=== PATIENT | male | born 1970 | race Caucasian/White ===

== ENCOUNTER 2019-07-10 06:57 | Emergency (ER) | payer MEDICAID, SELFPAY ==
[2019-07-10 07:00] VITALS: BP 179/94; PULSE 97; RESP 18; TEMP 37.2; O2SAT 97; BMI 38.0
--- NOTE | 2019-07-10 07:05 | ED_ITS ---
Entered by Andre Lerner, acting as scribe for HPI - Chest Pain General: Chief Complaint: Chest Pain Stated Complaint: chest pains Time Seen by Provider: 07/10/19 07:13 History of Present Illness: HPI narrative: 49 yo male presents with chest pain . Pt states that his pain started about 1 am this morning. Pt states that he has pain similar to this a few years ago and it was an ulcer. Pt states that he took anti-acid pills and it didn't work. Pts family member gave him a nitro, he states that he vomited one time and had dry heaving after that. Pt states that he has also issues with a rash in his belly button. Pt states that he ran out of his lasix about 1 month ago. MD complaint: chest pain Associated symptoms: Reports abdominal pain (umbilical area ), diaphoresis, dyspnea, nausea and vomiting; Deny fever(s) or palpitations Review of Systems Const: Reports: night sweats and diaphoresis; Denies: fever, chills, body aches, change in appetite, change in weight, fatigue or malaise Eyes: Denies: change in vision, blurry vision, blind spots, photophobia, eye discomfort, eye discharge, eye redness, yellow eyes or dry eyes ENMT: Denies: throat pain, uvular edema, enlarged tonsils, painful swallowing, hoarseness, mouth pain, swelling of lips/tongue, oral sores/lesions, bleeding gums or dental pain Card: Reports: chest pain and edema; Denies: palpitations or irregular heart rhythm Resp: Reports: shortness of breath; Denies: productive cough, non-productive cough, wheezing, stridor, pain on inspiration, change in phlegm color or coughing up blood GI: Reports: abdominal pain (umbilical area ), nausea, vomiting and bloating; Denies: vomiting blood, coffee grounds in vomit, difficulty swallowing, heartburn/indigestion, feeling full early, diarrhea, constipation, cramping, belching, excessive passing of gas, fecal incontinence, change in bowel habits, painful bowel movements, rectal pain, rectal swelling, rectal itching or change in stool character : Denies: flank pain, difficulty urinating, painful urination, urinary frequency, urinary urgency, urinary hesitancy, urinary dribbling, difficulty starting urination, change in urine stream, nighttime urination or decreased urine ouput Musc: Denies: neck pain, back pain, extremity pain, extremity swelling, joint pain, joint swelling, redness, joint warmth, joint stiffness, limited range of motion, muscle cramps, muscle weakness, decrease in muscle mass or loss of height Skin/Breast: Reports: rash (umbilical area) and sores; Denies: redness, sensitivity to light, skin pain, skin tenderness, skin swelling or new lesion Neuro: Denies: headache, numbness in extremities, weakness in extremities, changes in sensation, lack of coordination, difficulty walking, frequent falls, dizziness, vertigo, confusion, behavioral changes or slurred speech Psych: Denies: anxiety, depression, mood swings, panic attacks, sleeping less, sleeping more, hopelessness or loss of interest Endo: Denies: excessive urination, excessive thirst, tired all the time, cold intolerance, excessive sweating, flushing or hot flashes Abran/Lymph: Denies: easy bruising, easy bleeding, petechiae, purpura, enlarged lymph nodes or tender lymph nodes PFSH ED PFSH: Statuses (acute, chronic, etc) shown below reflect problem list status as previously entered and may not be historically accurate Medical History (Updated 07/10/19 @ 10:48 by Edilma Johnson DO) Cirrhosis (Acute) Gastro-esophageal reflux disease with esophagitis (Acute) Family History Other Arthritis CAD (coronary artery disease) Diabetes Social History Smoking and tobacco status: never smoked Smoking risk assessment/counseling performed?: Yes Alcohol intake: current Desire information about alcohol rehabilitation?: No Counseling given: Yes Desire information about substance/drug rehabilitation?: No Counseling given: No Caregiver/support person: No Lives independently: Yes Household members: spouse Housing: House Marital status: Current occupational status: disabled History of recent travel: No Current gender identity: Male Physical Exam Const: COMMON NORMALS: oriented x3 and alert EXAM LIMITATIONS: no altered mental status GENERAL APPEARANCE: cooperative NUTRITIONAL APPEARANCE: obese ORIENTATION/CONSCIOUSNESS: Yes awake, Yes oriented to person, Yes oriented to place and Yes oriented to time HENMT: COMMON NORMALS: external ears normal, EAC's normal and external nose normal HEAD & SCALP: normal to inspection FACE & SINUS: normal facial exam NOSE: external nose normal EXTERNAL EAR: Yes external ears normal EXTERNAL AUDITORY CANAL: EAC's normal THROAT: no uvular edema Eye: COMMON NORMALS: PERRL and conjunctivae normal GENERAL EYE: normal appearance of both eyes VISUAL ACUITY: Yes acuity normal EYELID: eyelids normal CONJUNCTIVA: Yes conjunctivae normal PUPIL: Yes PERRL Neck/C-Spine: COMMON NORMALS: full ROM and supple Lymph: LYMPHATIC: no lymphadenopathy noted Chest: CHEST: No abnormal inspection of the chest Resp: EFFORT & INSPECTION: Yes able to speak in complete sentences Cardio: COMMON NORMALS: regular rate and regular rhythm RATE: regular rate RHYTHM: regular rhythm GI: COMMON NORMALS: soft to palpation INSPECTION: Yes abdominal distension PALPATION: Yes soft and Yes tender (diffuse) Neuro: COMMON NORMALS: oriented x3 SENSORIUM/ORIENTATION: Yes alert, Yes oriented to person, Yes oriented to place and Yes oriented to time Skin: NARRATIVE SKIN EXAM: small drop of blood in umbilicus Course ED course: Patient was interviewed andStatin undercurrent dragon reality may have to at some point is called a text box examined in room 12. The patient was placed on the monitor and EKG was obtained and IV was started EKG was reviewed which showed no acute ST segment elevation or signs of infarct. He was administered initially 4 of Zofran and 2 mg of morphine. He did not get much relief from that and additional 2 mg of morphine was ordered while lab was pending. Chest x-ray shows no acute abnormalities. I have discussed the Gallbladder US report with Dr Perez who feels the patient can be followed up out patient. I did try giving him a GI cocktail which did not help his symptoms. I have renewed his outpatient meds for him dilan darrellrick can see his pcp. Consultations: Consultation #1: Discussed patients US report with Dr Perez, he will see patient as an outpatient, feels it is not uncommon to have gallbladder wall thickening with liver disease Time: 10:42 Vital Signs: Vital signs: Vital Signs Temperature 99 F 07/10/19 07:00 Pulse Rate 96 07/10/19 07:12 Respiratory Rate 17 07/10/19 08:01 Blood Pressure 179/84 07/10/19 07:12 Pulse Oximetry 99 07/10/19 07:22 MDM - Chest Pain Lab Data: Labs: Lab Results 07/10/19 07/10/19 07/10/19 Range/Units 07:15 07:15 07:15 WBC 12.2 H (4.0-10.0) 10^3/ uL RBC 4.54 (4.1-5.3) 10^6/u L Hgb 14.2 (11.7-16.6) g/dL Hct 42.4 (42.0-52.0) % MCV 93.4 (80-94) fL MCH 31.3 (28.0-34.0) pg MCHC 33.5 (30.0-36.0) g/dL RDW 16.1 H (12.1-15.1) % Plt Count 77 L (130-400) 10^3/c mm MPV 9.7 (7.4-10.4) fL Neut % (Auto) 85.9 % Lymph % (Auto) 6.7 % Carver % (Auto) 6.0 % Eos % (Auto) 0.7 % Baso % (Auto) 0.4 % Neut # (Auto) 10.5 H (1.8-7.7) 10^3/u L Lymph # (Auto) 0.8 (0.8-4.8) 10^3/u L Carver # (Auto) 0.7 (0.2-0.9) 10^3/u L Eos # (Auto) 0.1 (0.0-0.8) 10^3/u L Baso # (Auto) 0.1 (0.0-0.1) 10^3/u L Nucleated RBC % (a uto) 0 % Nucleated RBCs # 0.0 /100WBC PT 16.10 H (10.5-13.3) SECO NDS INR 1.25 H (0.8-1.2) APTT 36.2 (23.9-36.7) SECO NDS Sodium 141 (136-145) mmol/L Potassium 3.9 (3.5-5.1) mmol/L Chloride 105 (98-107) mmol/L Carbon Dioxide 22 (22-29) mmol/L Anion Gap 17.9 (5-19) BUN 10 (6-20) mg/dL Creatinine 0.7 (0.7-1.2) mg/dL GFR Calculation 118.9 (90-130) mL/min Glucose 177 H (65-115) mg/dL POC Glucose (70-110) mg/dL Calcium 9.5 (8.5-10.5) mg/dL Total Bilirubin 2.3 H (0.15-1.2) mg/dL AST 49 H (0-40) U/L ALT 24 (0-41) U/L Alkaline Phosphata se 165 H (40-130) IU/L Creatine Kinase 88 (39-308) U/L Troponin T Baselin e (0-15) ng/mL Troponin T 120 Min pauma (0-15) ng/mL Delta Troponin T (0-10) ABS# Total Protein 7.5 (6.6-8.7) g/dL Albumin 4.4 (3.5-5.2) g/dL Globulin 3.1 (1.3-4.6) g/dL Lipase 57 (13-60) U/L 07/10/19 07/10/19 07/10/19 Range/Units 07:15 08:56 09:45 WBC (4.0-10.0) 10^3/ uL RBC (4.1-5.3) 10^6/u L Hgb (11.7-16.6) g/dL Hct (42.0-52.0) % MCV (80-94) fL MCH (28.0-34.0) pg MCHC (30.0-36.0) g/dL RDW (12.1-15.1) % Plt Count (130-400) 10^3/c mm MPV (7.4-10.4) fL Neut % (Auto) % Lymph % (Auto) % Carver % (Auto) % Eos % (Auto) % Baso % (Auto) % Neut # (Auto) (1.8-7.7) 10^3/u L Lymph # (Auto) (0.8-4.8) 10^3/u L Carver # (Auto) (0.2-0.9) 10^3/u L Eos # (Auto) (0.0-0.8) 10^3/u L Baso # (Auto) (0.0-0.1) 10^3/u L Nucleated RBC % (a uto) % Nucleated RBCs # /100WBC PT (10.5-13.3) SECO NDS INR (0.8-1.2) APTT (23.9-36.7) SECO NDS Sodium (136-145) mmol/L Potassium (3.5-5.1) mmol/L Chloride (98-107) mmol/L Carbon Dioxide (22-29) mmol/L Anion Gap (5-19) BUN (6-20) mg/dL Creatinine (0.7-1.2) mg/dL GFR Calculation (90-130) mL/min Glucose (65-115) mg/dL POC Glucose 157 (70-110) mg/dL Calcium (8.5-10.5) mg/dL Total Bilirubin (0.15-1.2) mg/dL AST (0-40) U/L ALT (0-41) U/L Alkaline Phosphata se (40-130) IU/L Creatine Kinase (39-308) U/L Troponin T Baselin e 9 (0-15) ng/mL Troponin T 120 Min pauma 7.04 (0-15) ng/mL Delta Troponin T -1.96 L (0-10) ABS# Total Protein (6.6-8.7) g/dL Albumin (3.5-5.2) g/dL Globulin (1.3-4.6) g/dL Lipase (13-60) U/L EKG Data^: EKG 1: Attestation: I personally reviewed and interpreted this EKG as follows: EKG interpretation date: 07/10/19 EKG interpretation time: 07:43 Interpretation: Sinus rhythum, no st elevation, rate 98 bpm no ectopy Discharge Plan Discharge Patient Disposition: Home, Self-Care Clinical Impression: Atypical chest pain, Abdominal pain, acute, right upper quadrant Condition: Stable Prescriptions: New furosemide 40 mg tablet 40 mg PO DAILY Qty: 7 RF: 0 spironolactone 25 mg tablet 25 mg PO DAILY Qty: 7 RF: 0 promethazine 12.5 mg tablet 12.5 mg PO QID PRN (Reason: nausea and vomiting) Qty: 20 RF: 0 hydrocodone-acetaminophen 5-325 mg tablet 1 tab PO Q8H PRN (Reason: pain) Qty: 14 RF: 0 lisinopril 10 mg tablet 10 mg PO DAILY Qty: 7 RF: 0 No Action albuterol sulfate [ProAir HFA] 90 mcg/actuation HFA aerosol inhaler 2 puff INHALATION QID RF: 0 zonisamide 25 mg capsule 25 mg PO BID RF: 0 mirtazapine 30 mg tablet 30 mg PO ONCE RF: 0 bupropion HCl [Wellbutrin XL] 150 mg tablet extended release 24 hr 150 mg PO QAM RF: 0 amoxicillin-pot clavulanate [Augmentin] 875-125 mg tablet 1 tab PO BID 10 Days Qty: 20 RF: 0 pantoprazole 40 mg tablet,delayed release (DR/EC) 40 mg PO QAM Qty: 30 RF: 2 Discharge Orders: Discharge Order (Routine); Ordered 07/10/19 Ordered By: Edilma Johnson Referrals: Hu Perez MD [Physician] - (Patient to schedule follow up appt with Dr Perez, case management to assist with follow up ) Lupillo Hernandez, AERONAUTICAL ENGINEERING OFFICER-C [Primary Care Provider] - (Patient to schedule follow up appointment for continuing management and medications) Discharge Diet: Usual diet Discharge Activity: Resume usual activity Patient Instructions: Cholecystitis (ED), Abdominal Pain (ED) Coding Level of Care Code ED Leather Tacker for Chg Fwd Exam Problem Focused The documentation recorded by the Yann chandra Kialy, accurately reflects the service I personally performed and the decisions made by Alex jolly Connie, DO Jul 10, 2019 06:57
[2019-07-10 07:12] VITALS: BP 179/84; PULSE 96; RESP 16; O2SAT 95
--- NOTE | 2019-07-10 07:13 | ECG_ITS ---
Measurements Intervals [place] Rate: 98 P: 50 [place]: 156 QRS: 79 QRSD: 90 T: 72 QT: 373 QTc: 478 SINUS RHYTHM POSSIBLE LEFT ATRIAL ENLARGEMENT [-0.1mV P WAVE IN V1/V2] Compared to ECG 08/12/2018 23:58:22 Sinus tachycardia no longer present Electronically Signed On 07-10-2019 22:23:04 HOSPICE NURSE PRACTITIONER by Bill Mejia M.D. [email or web address]
--- NOTE | 2019-07-10 07:13 | XR_ITS ---
WS: [id number] ONE VIEW CHEST HISTORY: 49 years old Male with epigastric pain AP upright chest comparison 08/12/2018 FINDINGS: No pneumothorax, pleural effusion, consolidation/atelectasis. Cardiomediastinal silhouette and pulmon chito vascular markings unremarkable. No subdiaphragmatic free air. No fracture seen. XR/XR chest 1V portable [id number] IMPRESSION: No acute cardiopulmonary findings, and no significant change from 08/12/2018.
[2019-07-10] MEDS: ondansetron 2 mg/ML SDV 2 mL 4 MG IVP (07:21)
[2019-07-10 07:22] VITALS: RESP 16; O2SAT 99
[2019-07-10] MEDS: morphine 4 mg/mL SDV 1 mL 2 MG IVP ×2 (07:22→08:01)
[2019-07-10] MEDS: sodium chloride 0.9% 500 ML 999 ML IV (07:22)
[2019-07-10 07:31] LABS: Basophils # 0.1 10^3/uL (0.0-0.1); Basophils % 0.4 %; Eosinophils # 0.1 10^3/uL (0.0-0.8); Eosinophils % 0.7 %; Hematocrit 42.4 % (42.0-52.0); Hemoglobin 14.2 g/dL (11.7-16.6); Lymphocytes # 0.8 10^3/uL (0.8-4.8); Lymphocytes % 6.7 %; Mean Corpuscular HGB Conc 33.5 g/dL (30.0-36.0); Mean Corpuscular Hemoglobin 31.3 pg (28.0-34.0); Mean Corpuscular Volume 93.4 fL (80-94); Mean Platelet Volume 9.7 fL (7.4-10.4); Monocytes # 0.7 10^3/uL (0.2-0.9); Neutrophils # 10.5 10^3/uL (1.8-7.7); Neutrophils % 85.9 %; Nucleated Red Blood Cells % 0 %; Platelet Count 77 10^3/cmm (130-400); Red Blood Count 4.54 10^6/uL (4.1-5.3); Red Cell Distribution Width 16.1 % (12.1-15.1); White Blood Count 12.2 10^3/uL (4.0-10.0)
[2019-07-10 07:39] LABS: INR 1.25 (0.8-1.2)
[2019-07-10 07:40] LABS: Partial Thromboplastin Time 36.2 SECONDS (23.9-36.7)
[2019-07-10 07:50] LABS: Alanine Aminotransferase 24 U/L (0-41); Albumin Level 4.4 g/dL (3.5-5.2); Alkaline Phosphatase 165 IU/L (40-130); Anion Gap 17.9 (5-19); Aspartate Amino Transferase 49 U/L (0-40); Blood Urea Nitrogen 10 mg/dL (6-20); Calcium 9.5 mg/dL (8.5-10.5); Carbon Dioxide 22 mmol/L (22-29); Chloride 105 mmol/L (98-107); Creatine Phosphokinase 88 U/L (39-308); Globulin 3.1 g/dL (1.3-4.6); Glomerular Filtration Rate 118.9 mL/min (90-130); Glucose 177 mg/dL (65-115); Lipase 57 U/L (13-60); Potassium 3.9 mmol/L (3.5-5.1); Sodium 141 mmol/L (136-145); Total Bilirubin 2.3 mg/dL (0.15-1.2); Total Protein 7.5 g/dL (6.6-8.7)
[2019-07-10 07:53] LABS: Troponin(5th) Baseline 9 ng/mL (0-15)
[2019-07-10 08:01] VITALS: RESP 17
--- NOTE | 2019-07-10 08:16 | US_ITS ---
WS: [id number] ABDOMINAL ULTRASOUND LIMITED HISTORY: 49 years old Male with mid epigastric to right upper quadrant COMPARISON: Right quadrant ultrasound 12/24/[address] abdomen 10/21/2018. TECHNIQUE: Grayscale and Doppler ultrasound examination of the abdomen. FINDINGS: Pancreas: Included visualized without evidence of mass or intrahepatic bile duct dilatation. Abdominal aorta and IVC: Included portions not dilated. Portal venous flow antegrade Liver: Liver measures 13.4 cm in length. Interval shrunken nodular appearance of the liver with mild echogenic liver. No hepatic solid or cystic mass seen. No intrahepatic bile duct dilatation. Gallbladder: Gallbladder wall thickness measures 5.9 mm. Gallbladder wall thickening noted. Borderlin e gallbladder hydrops. No pericholecystic fluid, stone, or sludge. No extra hepatic bile duct dilatat ion. Right kidney: Right kidney measures 12.0 cm x 5.7 cm x 5.4 cm. Partially obscured kidney. Right kidne y superior pole cyst not seen. No solid or additional cystic renal mass. No hydronephrosis or shadowi ng calculus. No right upper quadrant free fluid or fluid collection seen. US/US abdomen limited [id number] IMPRESSION: 1. Interval shrunken nodular liver with mild echogenic parenchyma, compatible w ith history of cirrhosis. No definite liver mass seen. If there's clinical conc mercedes for hepatic mass, consider follow-up CT abdomen liver protocol. 2. Borderline gallbladder hydrops with gallbladder wall thickening and no peric holecystic fluid or stone seen. May be secondary to adjacent liver parenchymal disease. Chronic cholecystitis or early acute cholecystitis not excluded. Follo w-up suggested.
[2019-07-10] MEDS: pantoprazole 40 mg SDV IVP (08:22)
[2019-07-10 09:17] LABS: Troponin 5 2HR 7.04 ng/mL (0-15)
[2019-07-10 09:28] LABS: Troponin 5 2HR Delta -1.96 ABS# (0-10)
[2019-07-10 09:48] LABS: Glucose Point of Care 157 mg/dL (70-110)
--- NOTE | 2019-07-10 09:55 | PC.NURSE ---
pt pain at a 5. this tech informed taht pt was a borderline diabetic and pt was shaky. reported to nurse at this time.
[2019-07-10 10:51] VITALS: RESP 17
[2019-07-10] MEDS: morphine 4 mg/mL SDV 1 mL IVP (10:51)
[2019-07-10 11:06] VITALS: BP 165/84; PULSE 97; RESP 17; O2SAT 95
--- NOTE | 2019-07-10 13:13 | ECG_ITS ---
Measurements Intervals [place] Rate: 95 P: 62 ID: [id number] QRS: 79 QRSD: 94 T: 29 QT: 392 QTc: 495 SINUS RHYTHM LEFT ATRIAL ENLARGEMENT [-0.15mV P WAVE IN V1/V2] MODERATE ST DEPRESSION [0.05+ mV ST DEPRESSION] Compared to ECG 08/12/2018 23:58:22 ST (T wave) deviation now present Sinus tachycardia no longer present Electronically Signed On 07-10-2019 22:25:24 PREMIUM NOTE INTEREST CALCULATOR CLERK by Bill Mejia M.D. [id number]
--- NOTE | 2019-07-12 13:34 | DCPLANNER ---
construction project manager had message to schedule a follow up appointment for patient with . construction project manager called patient to confirm with patient that he would want family service caseworker to schedule the follow up appointment. Patient stated that he does not want family service caseworker to schedule the appointment at this time.
== END 2019-07-10 11:07 | disposition home or self-care (01) ==
PROVIDERS: Emergency Provider Emergency Medicine Emergency Medical Services; Family Provider Nurse Practitioner; PCP Nurse Practitioner
DX: R07.89 Other chest pain (principal); R10.11 Right upper quadrant pain; E66.9 Obesity, unspecified; Z68.38 Body mass index [BMI] 38.0-38.9, adult; K74.60 Unspecified cirrhosis of liver; Z82.49 Family history of ischemic heart disease and other diseases of the circulatory system
CPT/HCPCS: 36415; 36416; 71045; 76705; 80053; 82550; 82962; 83690; 84484; 85025; 85610; 85730; 93005; 96360; 96374; 96375; 96376; 99283; 99284; C9113; J2270; J2405; J7040

== ENCOUNTER → 2019-08-11 13:16 | Outpatient (BNVA) | payer MEDICAID, SELFPAY | PROVIDERS: Family Provider Nurse Practitioner; PCP Nurse Practitioner; Visit Provider Nurse Practitioner | DX: F43.12 Post-traumatic stress disorder, chronic (principal); F10.21 Alcohol dependence, in remission; F41.1 Generalized anxiety disorder; F33.1 Major depressive disorder, recurrent, moderate | CPT/HCPCS: 99214 ==

== ENCOUNTER 2019-10-04 13:34 | Emergency (ER) | payer MEDICAID, SELFPAY | END 2019-10-04 18:04 | disposition admitted as inpatient to this hospital (09) | LOC: ER 10-11 13:55 | PROVIDERS: Emergency Provider Family Medicine; PCP Nurse Practitioner | DX: F10.231 Alcohol dependence with withdrawal delirium (principal); Z87.891 Personal history of nicotine dependence; E11.9 Type 2 diabetes mellitus without complications; I10 Essential (primary) hypertension | CPT/HCPCS: 12345; 31500; 71045; 80053; 80307; 82140; 83605; 83690; 83735; 84100; 85025; 85610; 85730; 96372; 96374; 96375; 99282; 99291; A7015; J2060; J3411 ==

== ENCOUNTER 2019-10-04 13:34 | Inpatient (IN) | payer MEDICAID, SELFPAY ==
[2019-10-04] VITALS (11 sets, daily range): BP systolic 113–160; BP diastolic 75–97; PULSE 70–117; RESP 15–40; TEMP 36.4–37.1; O2SAT 90–97; BMI 38.0
--- NOTE | 2019-10-04 14:11 | XR_ITS ---
WS: [id number] XR chest 1V portable [id number] REASON FOR EXAM: dt's FINDINGS: The heart appears to be slightly larger and there is evidence in the azygos area of a lymph adenopathy not seen on previous exam dated July 10, 2019. The lung patel are otherwise clear. There is no pleural effusion, pneumonia, pulmonary edema, or mass effect. XR/XR chest 1V portable [id number] IMPRESSION: Mild enlargement of the azygos lymph node on the right The heart is slightly larger than recent exam. No other pathology is seen.
--- NOTE | 2019-10-04 14:23 | ED_ITS ---
HPI - Alcohol General: Chief Complaint: Alcohol Stated Complaint: Withdrawl from ETOH Time Seen by Provider: 10/04/19 14:01 History of Present Illness: HPI narrative: Patient states that he is a chronic alcoholic and consumes a large amount of alcohol daily. Patient stopped drinking approximately 2 PM yesterday and has not had a drink since. Patient presented to [facility] where he was treated and stabilized and transferred to this facility. Patient is severely tremulous and has no fine motor control. He admits to visual hallucinations. MD complaint: alcohol dependence Last drink: Days (ago) (1) Chronic alcohol use: Yes Associated symptoms: Reports involuntary movements Review of Systems General: Reports: 10 or more systems reviewed and unremarkable except in HPI and below Neuro: Reports: headache, weakness in extremities, changes in sensation, lack of coordination, difficulty walking, confusion, slurred speech and involuntary movements PFSH ED PFSH: Medical History Alcohol dependence, in remission Cirrhosis Controlled diabetes mellitus, without long-term current use of insulin Depression Gastro-esophageal reflux disease with esophagitis Generalized anxiety disorder Hypertension Major depressive disorder, recurrent, moderate Post-traumatic stress disorder, chronic Surgical History Cataract H/O esophagogastroduodenoscopy History of colonoscopy S/P tendon repair Family History Other Arthritis CAD (coronary artery disease) Diabetes Denies family history of Anesthesia complication Bleeding disorder Social History Smoking and tobacco status: former smoker Second hand smoke exposure: No Smoking risk assessment/counseling performed?: Yes Alcohol intake: current Desire information about alcohol rehabilitation?: No Counseling given: Yes Desire information about substance/drug rehabilitation?: No Counseling given: No Caregiver/support person: No Lives independently: Yes Household members: spouse Housing: House Marital status: Current occupational status: disabled History of recent travel: No Current gender identity: Male Course Vital Signs: Vital signs: Vital Signs Temperature 97.6 F 10/04/19 13:42 Pulse Rate 112 H 10/04/19 13:42 Respiratory Rate 40 H 10/04/19 13:42 Blood Pressure 160/92 10/04/19 13:42 Pulse Oximetry 97 10/04/19 13:42 MDM - Alcohol Lab Data: Labs: Lab Results 10/04/19 10/04/19 10/04/19 Range/Units 14:24 14:24 14:24 WBC (4.0-10.0) 10^3/ uL RBC (4.1-5.3) 10^6/u L Hgb (11.7-16.6) g/dL Hct (42.0-52.0) % MCV (80-94) fL MCH (28.0-34.0) pg MCHC (30.0-36.0) g/dL RDW (12.1-15.1) % Plt Count (130-400) 10^3/c mm MPV (7.4-10.4) fL Neut % (Auto) % Lymph % (Auto) % Cooper % (Auto) % Eos % (Auto) % Baso % (Auto) % Neut # (Auto) (1.8-7.7) 10^3/u L Lymph # (Auto) (0.8-4.8) 10^3/u L Cooper # (Auto) (0.2-0.9) 10^3/u L Eos # (Auto) (0.0-0.8) 10^3/u L Baso # (Auto) (0.0-0.1) 10^3/u L Nucleated RBC % (a uto) % Nucleated RBCs # /100WBC PT 17.80 H (10.5-13.3) SECO NDS INR 1.42 H (0.8-1.2) APTT 37.5 H (23.9-36.7) SECO NDS Sodium 140 (136-145) mmol/L Potassium 3.6 (3.5-5.1) mmol/L Chloride 104 (98-107) mmol/L Carbon Dioxide 22 (22-29) mmol/L Anion Gap 17.6 (5-19) BUN 6 (6-20) mg/dL Creatinine 0.5 L (0.7-1.2) mg/dL GFR Calculation 175.3 H (90-130) mL/min Glucose 98 (65-115) mg/dL Calculated Osmolal ity 286 (285-295) mOsm/k g Lactate 2.2 (0.5-2.2) mmol/L Calcium 8.3 L (8.5-10.5) mg/dL Phosphorus 2.2 L (2.5-4.5) mg/dL Magnesium 2.2 (1.7-2.3) mg/dL Total Bilirubin 4.1 H (0.15-1.2) mg/dL AST 107 H (0-40) U/L ALT 62 H (0-41) U/L Alkaline Phosphata se 191 H (40-130) IU/L Ammonia (16-60) umol/L Total Protein 6.4 L (6.6-8.7) g/dL Albumin 3.7 (3.5-5.2) g/dL Globulin 2.7 (1.3-4.6) g/dL Lipase 52 (13-60) U/L Salicylates < 0.3 L (3-10) mg/dL Acetaminophen < 5.0 L (10-30) ug/mL Ethyl Alcohol < 10 (0-10) mg/dL 10/04/19 10/04/19 Range/Units 14:24 15:27 WBC 9.4 (4.0-10.0) 10^3/ uL RBC 4.09 L (4.1-5.3) 10^6/u L Hgb 12.2 (11.7-16.6) g/dL Hct 37.8 L (42.0-52.0) % MCV 92.4 (80-94) fL MCH 29.8 (28.0-34.0) pg MCHC 32.3 (30.0-36.0) g/dL RDW 14.7 (12.1-15.1) % Plt Count 31 L (130-400) 10^3/c mm MPV 10.3 (7.4-10.4) fL Neut % (Auto) 86.1 % Lymph % (Auto) 5.8 % Cooper % (Auto) 7.0 % Eos % (Auto) 0.3 % Baso % (Auto) 0.5 % Neut # (Auto) 8.1 H (1.8-7.7) 10^3/u L Lymph # (Auto) 0.5 L (0.8-4.8) 10^3/u L Cooper # (Auto) 0.7 (0.2-0.9) 10^3/u L Eos # (Auto) 0.0 (0.0-0.8) 10^3/u L Baso # (Auto) 0.1 (0.0-0.1) 10^3/u L Nucleated RBC % (a uto) 0 % Nucleated RBCs # 0.0 /100WBC PT (10.5-13.3) SECO NDS INR (0.8-1.2) APTT (23.9-36.7) SECO NDS Sodium (136-145) mmol/L Potassium (3.5-5.1) mmol/L Chloride (98-107) mmol/L Carbon Dioxide (22-29) mmol/L Anion Gap (5-19) BUN (6-20) mg/dL Creatinine (0.7-1.2) mg/dL GFR Calculation (90-130) mL/min Glucose (65-115) mg/dL Calculated Osmolal ity (285-295) mOsm/k g Lactate (0.5-2.2) mmol/L Calcium (8.5-10.5) mg/dL Phosphorus (2.5-4.5) mg/dL Magnesium (1.7-2.3) mg/dL Total Bilirubin (0.15-1.2) mg/dL AST (0-40) U/L ALT (0-41) U/L Alkaline Phosphata se (40-130) IU/L Ammonia 10 L (16-60) umol/L Total Protein (6.6-8.7) g/dL Albumin (3.5-5.2) g/dL Globulin (1.3-4.6) g/dL Lipase (13-60) U/L Salicylates (3-10) mg/dL Acetaminophen (10-30) ug/mL Ethyl Alcohol (0-10) mg/dL Discharge Plan Discharge Patient Disposition: Admitted As Inpatient Clinical Impression: Delirium tremens Alcohol withdrawal syndrome Qualifiers: Complication of substance-induced condition: with delirium Qualified Code(s): F10.231 - Alcohol dependence with withdrawal delirium Condition: Fair Referrals: Lupillo Hernandez, TECHNICAL HEALTHCARE CONSULTANT-C [Primary Care Provider] - Coding Level of Care Code ED Inpatient Services Director for Chg Fwd
[2019-10-04 15:07] LABS: INR 1.42 (0.8-1.2); Partial Thromboplastin Time 37.5 SECONDS (23.9-36.7)
[2019-10-04 15:13] LABS: Lactate (Lactic Acid level) 2.2 mmol/L (0.5-2.2)
[2019-10-04 15:14] LABS: Alanine Aminotransferase 62 U/L (0-41); Albumin Level 3.7 g/dL (3.5-5.2); Alkaline Phosphatase 191 IU/L (40-130); Anion Gap 17.6 (5-19); Aspartate Amino Transferase 107 U/L (0-40); Blood Urea Nitrogen 6 mg/dL (6-20); Calcium 8.3 mg/dL (8.5-10.5); Carbon Dioxide 22 mmol/L (22-29); Chloride 104 mmol/L (98-107); Globulin 2.7 g/dL (1.3-4.6); Glomerular Filtration Rate 175.3 mL/min (90-130); Glucose 98 mg/dL (65-115); Lipase 52 U/L (13-60); Magnesium 2.2 mg/dL (1.7-2.3); Osmolality Calculated 286 mOsm/kg (285-295); Phosphorus 2.2 mg/dL (2.5-4.5); Potassium 3.6 mmol/L (3.5-5.1); Sodium 140 mmol/L (136-145); Total Bilirubin 4.1 mg/dL (0.15-1.2); Total Protein 6.4 g/dL (6.6-8.7)
[2019-10-04 15:34] LABS: Ammonia 10 umol/L (16-60)
[2019-10-04 15:36] LABS: Acetaminophen < 5.0 ug/mL (10-30); Alcohol Level < 10 mg/dL (0-10); Salicylate < 0.3 mg/dL (3-10)
[2019-10-04 15:37] LABS: Basophils # 0.1 10^3/uL (0.0-0.1); Basophils % 0.5 %; Eosinophils % 0.3 %; Hematocrit 37.8 % (42.0-52.0); Hemoglobin 12.2 g/dL (11.7-16.6); Lymphocytes # 0.5 10^3/uL (0.8-4.8); Lymphocytes % 5.8 %; Mean Corpuscular HGB Conc 32.3 g/dL (30.0-36.0); Mean Corpuscular Hemoglobin 29.8 pg (28.0-34.0); Mean Corpuscular Volume 92.4 fL (80-94); Mean Platelet Volume 10.3 fL (7.4-10.4); Monocytes # 0.7 10^3/uL (0.2-0.9); Neutrophils # 8.1 10^3/uL (1.8-7.7); Neutrophils % 86.1 %; Nucleated Red Blood Cells % 0 %; Platelet Count 31 10^3/cmm (130-400); Red Blood Count 4.09 10^6/uL (4.1-5.3); Red Cell Distribution Width 14.7 % (12.1-15.1); White Blood Count 9.4 10^3/uL (4.0-10.0)
[2019-10-04] MEDS: LORazepam 2 mg/mL INJ 1 mL IVP ×3 (16:50→22:13)
[2019-10-04] MEDS: sodium chloride 0.9% 1,000 ML 150 ML IV (18:31)
--- NOTE | 2019-10-04 19:55 | P.HP_ITS ---
Providers/Chief Complaint Admitting Physician: Jovi Vences Primary Care Provider: Lupillo Hernandez, VEE-C Chief Complaint: DETOX History of Present Illness Donnie Ellsworth is a 49 year old gentleman with history of alcoholism, drinking a fifth a day, states started experiencing shaking and tremors, as well as visual hallucinations today after he stopped drinking cold turkey yesterday. I see that he has had a visit in July to [facility] [place] where he is followed for depression, anxiety, PTSD and alcohol use disorder. At that time he was continued on naltrexone 50 mg daily. He reports that he has previously had withdrawal with DTs. Does not denies prior withdrawal seizure. He does endorse having history of cirrhosis, and reports ascites responsive to diuretics. Denies ever having paracentesis. Reports has had EGD and colonoscopy, and denies finding of esophageal varices. He does have history of GERD, with history of nonadherence to Protonix. He denies taking NSAIDs, although does take occasional aspirin. He is tachycardic at 112. Hemoglobin is 12. INR is 1.42. Noted liver parameter banality with AST 107, ALT 62, alk phos 191, T bili 4.1. Salicylates, acetaminophen, and ethyl alcohol all not elevated. Chest x-ray with mild enlargement of the azygos lymph node on the right. He has received Ativan in our ER, and reportedly received large doses of Ativan at [facility] ER where he was transferred from to [facility]. During stay in our ER he fell down to the floor while trying to walk, with the fall witnessed by 1 of the RNs, without head injury. He is able to provide most of his history, although is somewhat forgetful, but otherwise is very anxious, tremulous, and ataxic. He has recurrent visual hallucinations during our discussion. Review of Systems Const: Reports: malaise; Denies: fever, chills or body aches Eyes: Denies: change in vision or eye redness ENMT: Denies: throat pain, oral sores/lesions or ear pain Card: Denies: chest pain, edema, pre-syncope or shortness of breath on exertion Resp: Denies: shortness of breath, productive cough, change in phlegm color or coughing up blood GI: Denies: abdominal pain, nausea, vomiting, diarrhea, constipation, blood in stool or black tarry stool : Denies: flank pain, difficulty urinating, urinary frequency or blood in urine Musc: Denies: back pain, joint swelling or redness Skin/Breast: Denies: rash, sores or new lesion Neuro: Denies: headache, numbness in extremities, weakness in extremities, dizziness, confusion or seizure-like activity Psych: Reports: anxiety and visual hallucinations Endo: Denies: excessive urination or excessive thirst Abran/Lymph: Denies: easy bleeding or purpura All/Imm: Denies: hives, throat swelling or tongue swelling Medications/Allergies Home Medications Medication Instructions Recorded Confirmed Last Taken Type albuterol sulfate 90 mcg/actuation 2 puff INHALATION QID 06/10/19 10/04/19 Unknown History aerosol inhaler zonisamide 25 mg capsule 25 mg PO BID 06/10/19 10/04/19 Unknown History furosemide 40 mg PO DAILY #7 tab 07/10/19 10/04/19 Unknown Rx hydrocodone-acetaminophen 1 tab PO Q8H PRN #14 tab 07/10/19 10/04/19 Unknown Rx promethazine 12.5 mg PO QID PRN #20 tab 07/10/19 10/04/19 Unknown Rx spironolactone 25 mg PO DAILY #7 tab 07/10/19 10/04/19 Unknown Rx cyclobenzaprine 10 mg tablet 10 mg PO .at bedtime #30 tab 07/13/19 10/04/19 Unknown Rx bupropion HCl 150 mg 24 hr tablet, 150 mg PO QAM #30 tab 08/11/19 10/04/19 Unknown Rx extended release hydroxyzine HCl 25 mg tablet 25 mg PO TID PRN #90 tab 08/11/19 10/04/19 Unknown Rx mirtazapine 30 mg tablet 30 mg PO .at bed #30 tab 08/11/19 10/04/19 Unknown Rx naltrexone 50 mg tablet 50 mg PO DAILY #30 tab 08/11/19 10/04/19 Unknown Rx paroxetine HCl 40 mg tablet 40 mg PO DAILY #30 tab 08/11/19 10/04/19 Unknown Rx prazosin 5 mg capsule 5 mg PO .at bed cap 08/11/19 10/04/19 Unknown History lisinopril 10 mg tablet 10 mg PO DAILY #30 tab 09/12/19 10/04/19 Unknown Rx pantoprazole 40 mg tablet,delayed 40 mg PO QAM #30 tab 09/12/19 10/04/19 Unknown Rx release Allergies Allergy/AdvReac Type Severity Reaction Status Date / Time No Known Allergies Allergy Verified 07/22/19 11:39 PFSH Acute PFSH: Medical History Alcohol dependence, in remission Cirrhosis Controlled diabetes mellitus, without long-term current use of insulin Depression Gastro-esophageal reflux disease with esophagitis Generalized anxiety disorder Hypertension Major depressive disorder, recurrent, moderate Post-traumatic stress disorder, chronic Surgical History Cataract H/O esophagogastroduodenoscopy History of colonoscopy S/P tendon repair Family History Other Arthritis CAD (coronary artery disease) Diabetes Denies family history of Anesthesia complication Bleeding disorder Social History Smoking and tobacco status: former smoker Second hand smoke exposure: No Smoking risk assessment/counseling performed?: Yes Alcohol intake: current Desire information about alcohol rehabilitation?: No Counseling given: Yes Desire information about substance/drug rehabilitation?: No Counseling given: No Caregiver/support person: No Lives independently: Yes Household members: spouse Housing: House Marital status: Current occupational status: disabled History of recent travel: No Current gender identity: Male Vitals/I&O/Wt Last Vital Signs Temp 97.6 F 10/04/19 13:42 Pulse 112 H 10/04/19 19:15 Resp 20 H 10/04/19 19:15 BP 113/97 10/04/19 19:15 Pulse Ox 94 10/04/19 19:15 Weight last 48 hrs Weight 110.223 kg Physical Exam Const: COMMON NORMALS: oriented x3 GENERAL APPEARANCE: anxious and disheveled NUTRITIONAL APPEARANCE: obese HENMT: OTHER: Nasal speech, which he reports is chronic. Dry MM. Neck/C-Spine: COMMON NORMALS: no JVD Resp: COMMON NORMALS: normal respiratory effort and clear to auscultation bilaterally AUSCULTATION: clear to auscultation bilaterally Cardio: COMMON NORMALS: no JVD, regular rhythm, S1 normal heart sound, S2 normal heart sound and no murmurs RATE: tachycardic RHYTHM: regular rhythm HEART SOUNDS: S1 normal and S2 normal GI: COMMON NORMALS: normal to inspection, nondistended, normoactive bowel sounds, soft to palpation and non-tender PALPATION: Yes soft Extremity: COMMON NORMALS: no joint enlargement and no pedal edema Neuro: COMMON NORMALS: oriented x3 and moves all extremities MOTOR EXAM: tremor resting tremor COORDINATION: Romberg test abnormal Skin: COMMON NORMALS: no rashes or lesions noted GENERAL SKIN EXAM: no rashes or lesions noted Data : 10/04/19 15:27 10/04/19 14:24 A&P Assessment and plan (1) Alcohol withdrawal syndrome: Severe alcohol rule DTs. Hallucinating in ER. Last drink 2 PM yesterday afternoon. We will admit to ICU. Supportive care with WA protocol. Thiamine, folic acid. Continue to encourage cessation. Continue follow-up with [facility] [place] where he is also followed for depression, anxiety, PTSD. Has been on naltrexone 50 mg daily. Status: Acute Qualifiers: Complication of substance-induced condition: with delirium Qualified Code(s): F10.231 - Alcohol dependence with withdrawal delirium (2) Delirium tremens: As above. Denies history of withdrawal seizure. Status: Acute (3) Cirrhosis: Reports history of ascites responsive to diuretics. Not requiring paracentesis in the past. Ammonia is not elevated. Abdominal ultrasound for ascites screen. No abdominal discomfort, other symptoms to suggest SBP. INR 1.47. Nodular appearing liver on ultrasound back in June. Continue routine follow-up with PCP, as well as all recommended screenings. Status: Acute (4) Cholestasis: Bilirubin is 4.1, alkaline phosphatase 195. These appear to be fluctuating, with bilirubin as high as 18.3 in September 2018? Possible hydrops of gallbladder noted on ultrasound in July 2019. Currently he has no leukocytosis, no fever. He does have some tachycardia which I suspect is related to alcohol withdrawal. He has absolutely no abdominal discomfort. For now I am not suspecting acute cholecystitis/cholangitis. However, continue monitoring for symptoms. Will assess with right upper quadrant ultrasound. Status: Acute (5) Transaminitis: 2-1 distribution AST and ALT elevation, 107, 62 respectively. So far without evidence of alcoholic hepatitis just yet. Monitor levels. Status: Acute Additional A&P Information Hypophosphatemia: Had dairy products when he resumes diet. HTN: For now hold meds. Blood pressure is not elevated. Monitor. Attestations Medical Necessity Statement*: Admission of over 2 midnights is continued for assessment management of severe alcohol withdrawal. Coding Level of Care Code Acute Director [facility] Diagnoses Alcohol withdrawal syndrome F10.231 Complication of substance-induced condition: with delirium Delirium tremens F10.231 Cirrhosis K74.60 Cholestasis K83.1 Transaminitis R74.0
--- NOTE | 2019-10-04 22:09 | PC.NURSE ---
Patient was a 3 person assist when using urinal and getting to bedside commode due to muscle tremors. Patient has been educated not to get up without help and bed alarm set.
[2019-10-04] MEDS: mirtazapine 30 mg Tablet 15 MG PO (22:13)
[2019-10-04] MEDS: heparin 5,000 unit/mL INJ 1 mL 5000 UNIT SUBCUT (22:18)
[2019-10-04 22:23] LABS: Add Urine Microscopic? YES; Bacteria Urine 1+; Bilirubin Urine 1+ (NEGATIVE); Blood Urine Neg (Negative); Glucose Urine UA Norm (Normal); Ketones Urine 1+ (Negative); Leukocyte Esterase Urine Negative (Negative); Mucus Urine 2+; Nitrate Urine Negative (Negative); Protein Urine Neg (Negative); RBC Urine 0-4 /hpf (0-2); Squamous Epithelial Cell Urine 0-4 (0-5); Urine Appearance Cloudy (CLEAR); Urine Color Dark Yellow (Yellow); Urobilinogen Urine 8 mg/dL (Negative); pH Urine 6.5 (5-7)
[2019-10-04 22:39] LABS: Amphetamines Screen Urine Negative (Negative); Barbiturates Screen Urine Negative (Negative); Benzodiazepines Screen Urine Positive (Negative); Cocaine Screen Urine Negative (Negative); Opiate Screen Urine Negative (Negative); PCP Screen Urine Negative (Negative); THC Screen Urine Positive (Negative)
--- NOTE | 2019-10-04 23:33 | PC.NURSE ---
Addendum entered by Beba Colón RN 10/04/19 23:50: Ordered to not exceed ordered dose of Ativan for CIWA due to risk of intubation. Original Note: Dr. Benites notified of patient being restless, confused, hallucinating, and muscle tremors. CIWA Ativan does not seem to be helping. Staff is not available for one on one sitter at this time. Will continue to monitor.
[2019-10-05] VITALS (70 sets, daily range): BP systolic 103–169; BP diastolic 51–102; PULSE 88–119; RESP 14–35; TEMP 36.6–37.3; O2SAT 90–100
--- NOTE | 2019-10-05 | US_ITS ---
WS: [id number] ABDOMINAL ULTRASOUND LIMITED REASON FOR VISIT: ASCITES TECHNIQUE: Grayscale and Doppler ultrasound examination of the abdomen. FINDINGS: Four-quadrant evaluation of the abdomen for ascites was made. A small amount of ascites is seen in the right lower quadrant. And left lower quadrant. Very minimal free fluid is seen. US/US abdomen limited [id number] IMPRESSION: Minimal ascites in the lower abdomen is identified. Angier we down at the amoun t of ascites insufficient for paracentesis.
--- NOTE | 2019-10-05 00:01 | PC.NURSE ---
Patient is continually pulling off heart monitor and oxygen saturation probe. Both are placed back on very frequently. Patient's bed alarm is set and patient is close to nurses station. Will give Ativan PRN per CIWA not to exceed ordered dose. Will check on patient frequently. Patient pulled IV out of right AC. New IV started in right forearm.
[2019-10-05] MEDS: LORazepam 2 mg/mL INJ 1 mL IVP ×5 (00:39→14:30)
--- NOTE | 2019-10-05 01:36 | PC.NURSE ---
Patient pulled out IV again. New IV started by another RN in right forearm.
[2019-10-05] MEDS: sodium chloride 0.9% 1,000 ML 150 ML IV ×5 (02:21→19:38)
--- NOTE | 2019-10-05 03:01 | PC.NURSE ---
Dr. Benites notified of patient still being confused, hallucinations, bed alarm going off frequently, patient pulling heart monitor wires off, trying to get out of bed, and being anxious. Patient has received 8 mg Ativan total this shift and it does not seem to be helping. Precedex drip and one on one sitter ordered. Sitter at bedside.
[2019-10-05] MEDS: dexmedetomidine 400 MCG in sodium chloride 0.9% (100 ml) 100 ML IV (03:13)
[2019-10-05] MEDS: heparin 5,000 unit/mL INJ 1 mL 5000 UNIT SUBCUT (03:37)
--- NOTE | 2019-10-05 03:48 | PC.NURSE ---
Unable to get temperature or pulse ox at this time due to patient's restlessness/agitation. Patient became very agitated with nurses when trying to get him back in bed.
--- NOTE | 2019-10-05 04:32 | PC.NURSE ---
Dr. Benites notified of patient receiving several doses of Ativan throughout the night, one being recently and Precdex drip at max dose. Security in room. Patient is very aggitated and will not leave heart monitor and blood pressure cuff on. Patient is continually trying ot get out of bed.
--- NOTE | 2019-10-05 04:36 | PC.NURSE ---
Dr. Benites in room to see patient. Indy Prado ordered.
[2019-10-05] MEDS: OLANZapine 10 mg VIAL IM (04:46)
[2019-10-05] MEDS: LORazepam 2 mg/mL INJ 1 mL 4 MG IVP (04:47)
--- NOTE | 2019-10-05 05:09 | ED_ITS ---
HPI - Alcohol General: Chief Complaint: Alcohol Stated Complaint: Withdrawl from ETOH Time Seen by Provider: 10/04/19 14:01 ON LICENSE OF [facility] ED PFSH: Medical History Alcohol dependence, in remission Cirrhosis Controlled diabetes mellitus, without long-term current use of insulin Depression Gastro-esophageal reflux disease with esophagitis Generalized anxiety disorder Hypertension Major depressive disorder, recurrent, moderate Post-traumatic stress disorder, chronic Surgical History Cataract H/O esophagogastroduodenoscopy History of colonoscopy S/P tendon repair Family History Other Arthritis CAD (coronary artery disease) Diabetes Denies family history of Anesthesia complication Bleeding disorder Social History Smoking and tobacco status: former smoker Second hand smoke exposure: No Smoking risk assessment/counseling performed?: Yes Alcohol intake: current Desire information about alcohol rehabilitation?: No Counseling given: Yes Desire information about substance/drug rehabilitation?: No Counseling given: No Caregiver/support person: No Lives independently: Yes Household members: spouse Housing: House Marital status: Current occupational status: disabled History of recent travel: No Current gender identity: Male Procedures Intubation Time out performed: Yes sedative: Etomidate Mg Given: 40 paralytic: Succinylcholine Mg Given: 200 Laryngoscope: Yanick ET Tube Size: 8 ET Tube Uncuffed: Yes Tube Secured Depth (cm): 22 Tube Secured Location: lips Tube Placement Confirmation: visualized tube passing through cords, equal breath sounds bilaterally, no breath sounds over epigastrium and confirmation by capnometry Patient Tolerated Procedure: well Intubation Complications: none Additional Comments: I was called by the hospitalist to intubate the patient secondary to inability to control him with severe DTs. Patient was placed on a monitor and preoxygenated. Vital signs are stable prior to intubation. Patient was RSIed with etomidate and succinylcholine. Patient tolerated procedure well with no hypoxic or hypotensive episodes. Tube was secured and chest x-ray was ordered. Dr. Benites will follow-up on chest x-ray. Course Vital Signs: Vital signs: Vital Signs Temperature 97.9 F 10/05/19 02:00 Pulse Rate 113 H 10/05/19 03:47 Respiratory Rate 35 H 10/05/19 03:47 Blood Pressure 129/86 10/05/19 03:47 Pulse Oximetry 94 10/05/19 02:00 MDM - Alcohol Lab Data: Labs: Lab Results 10/04/19 10/04/19 10/04/19 Range/Units 14:24 14:24 14:24 WBC (4.0-10.0) 10^3/ uL RBC (4.1-5.3) 10^6/u L Hgb (11.7-16.6) g/dL Hct (42.0-52.0) % MCV (80-94) fL MCH (28.0-34.0) pg MCHC (30.0-36.0) g/dL RDW (12.1-15.1) % Plt Count (130-400) 10^3/c mm MPV (7.4-10.4) fL Neut % (Auto) % Lymph % (Auto) % Harper % (Auto) % Eos % (Auto) % Baso % (Auto) % Neut # (Auto) (1.8-7.7) 10^3/u L Lymph # (Auto) (0.8-4.8) 10^3/u L Harper # (Auto) (0.2-0.9) 10^3/u L Eos # (Auto) (0.0-0.8) 10^3/u L Baso # (Auto) (0.0-0.1) 10^3/u L Nucleated RBC % (a uto) % Nucleated RBCs # /100WBC PT 17.80 H (10.5-13.3) SECO NDS INR 1.42 H (0.8-1.2) APTT 37.5 H (23.9-36.7) SECO NDS Sodium 140 (136-145) mmol/L Potassium 3.6 (3.5-5.1) mmol/L Chloride 104 (98-107) mmol/L Carbon Dioxide 22 (22-29) mmol/L Anion Gap 17.6 (5-19) BUN 6 (6-20) mg/dL Creatinine 0.5 L (0.7-1.2) mg/dL GFR Calculation 175.3 H (90-130) mL/min Glucose 98 (65-115) mg/dL Calculated Osmolal ity 286 (285-295) mOsm/k g Lactate 2.2 (0.5-2.2) mmol/L Calcium 8.3 L (8.5-10.5) mg/dL Phosphorus 2.2 L (2.5-4.5) mg/dL Magnesium 2.2 (1.7-2.3) mg/dL Total Bilirubin 4.1 H (0.15-1.2) mg/dL AST 107 H (0-40) U/L ALT 62 H (0-41) U/L Alkaline Phosphata se 191 H (40-130) IU/L Ammonia (16-60) umol/L Total Protein 6.4 L (6.6-8.7) g/dL Albumin 3.7 (3.5-5.2) g/dL Globulin 2.7 (1.3-4.6) g/dL Lipase 52 (13-60) U/L Salicylates < 0.3 L (3-10) mg/dL Acetaminophen < 5.0 L (10-30) ug/mL Ethyl Alcohol < 10 (0-10) mg/dL 10/04/19 10/04/19 Range/Units 14:24 15:27 WBC 9.4 (4.0-10.0) 10^3/ uL RBC 4.09 L (4.1-5.3) 10^6/u L Hgb 12.2 (11.7-16.6) g/dL Hct 37.8 L (42.0-52.0) % MCV 92.4 (80-94) fL MCH 29.8 (28.0-34.0) pg MCHC 32.3 (30.0-36.0) g/dL RDW 14.7 (12.1-15.1) % Plt Count 31 L (130-400) 10^3/c mm MPV 10.3 (7.4-10.4) fL Neut % (Auto) 86.1 % Lymph % (Auto) 5.8 % Harper % (Auto) 7.0 % Eos % (Auto) 0.3 % Baso % (Auto) 0.5 % Neut # (Auto) 8.1 H (1.8-7.7) 10^3/u L Lymph # (Auto) 0.5 L (0.8-4.8) 10^3/u L Harper # (Auto) 0.7 (0.2-0.9) 10^3/u L Eos # (Auto) 0.0 (0.0-0.8) 10^3/u L Baso # (Auto) 0.1 (0.0-0.1) 10^3/u L Nucleated RBC % (a uto) 0 % Nucleated RBCs # 0.0 /100WBC PT (10.5-13.3) SECO NDS INR (0.8-1.2) APTT (23.9-36.7) SECO NDS Sodium (136-145) mmol/L Potassium (3.5-5.1) mmol/L Chloride (98-107) mmol/L Carbon Dioxide (22-29) mmol/L Anion Gap (5-19) BUN (6-20) mg/dL Creatinine (0.7-1.2) mg/dL GFR Calculation (90-130) mL/min Glucose (65-115) mg/dL Calculated Osmolal ity (285-295) mOsm/k g Lactate (0.5-2.2) mmol/L Calcium (8.5-10.5) mg/dL Phosphorus (2.5-4.5) mg/dL Magnesium (1.7-2.3) mg/dL Total Bilirubin (0.15-1.2) mg/dL AST (0-40) U/L ALT (0-41) U/L Alkaline Phosphata se (40-130) IU/L Ammonia 10 L (16-60) umol/L Total Protein (6.6-8.7) g/dL Albumin (3.5-5.2) g/dL Globulin (1.3-4.6) g/dL Lipase (13-60) U/L Salicylates (3-10) mg/dL Acetaminophen (10-30) ug/mL Ethyl Alcohol (0-10) mg/dL Discharge Plan Discharge Patient Disposition: Admitted As Inpatient Admit Provider: Jovi Vences Clinical Impression: Delirium tremens Alcohol withdrawal syndrome Qualifiers: Complication of substance-induced condition: with delirium Qualified Code(s): F10.231 - Alcohol dependence with withdrawal delirium Condition: Fair Referrals: Lupillo Hernandez FNP-C [Primary Care Provider] - Discharge Date/Time: 10/04/19 18:04 Coding Level of Care Code ED [facility]
[2019-10-05] MEDS: propofol 1,000 MG/100 ML INJ 19.8 MG IV (05:10)
--- NOTE | 2019-10-05 05:10 | XR_ITS ---
WS: [id number] XR chest 1V portable [id number] REASON FOR EXAM: et tube FINDINGS: The endotracheal tube is seen in the right mainstem bronchus at the brian and slightly bel ow toward the right. The heart is borderline enlarged. There is low-grade atelectasis occurring in the right perihilar areas. There is mild congestion seen bilaterally XR/XR chest 1V portable [id number] IMPRESSION: Endotracheal tube is abnormally position the ICU was called and asked to pull b ack the tube approximately 4 to 5 cm.
--- NOTE | 2019-10-05 05:17 | P.EN_ITS ---
Event Note Event Note: Patient was extremely agitated, very high CIWA score he had coarse tremors, he was try to get out of bed, there were 2 persons trying to help him stay in the bed, he was experiencing visual hallucinations I started Precedex which did not help him, I was present in the room monitoring his heart rate and blood pressure, he did not respond very well to intramuscular Zyprexa dose of 10 mg and 4 mg of benzodiazepine Ativan IV Decision was made to intubate the patient Etomidate 40 mg was given along succinylcholine 200 mg, he was hyperoxygenated, systolic blood pressure before intubation 150, endotracheal tube was passed after visualization of vocal cord, size 8 which is skilled at lip by 23 cm, end- tidal CO2 detected, bilateral breath sounds directed, chest x-ray confirmed position of endotracheal tube about 2 to 3 cm above brian CMV ventilator settings, FiO2 40%, PEEP 5, tidal volume 500, currently saturating well with normal hemodynamics Propofol for sedation Precedex was discontinued Would use fentanyl if he is not responding to propofol Blood gas ordered
[2019-10-05] MEDS: succinylcholine 20 mg/mL SDV 10mL 200 MG IVP (05:37)
[2019-10-05] MEDS: rocuronium 10 mg/mL INJ 5mL 50 MG IV (05:38)
--- NOTE | 2019-10-05 05:42 | PC.NURSE ---
Dr. Benites notified of patient continuing to pull at lines and iv tubing and attempting to get out of bed. Informed that precedex gtt is running at max of 0.7mcg/kg/hr. Dr. Benites ordered to give another dose of 2 mg of Ativan.
--- NOTE | 2019-10-05 05:42 | PC.NURSE ---
Verified Thiamine IM order with Dr. Benites due to patient receiving a dose last night.
[2019-10-05 06:01] LABS: ABG PCO2 41.4 mmHg (35-45); ABG PH Result 7.37 (7.35-7.45); Arterial Blood Gas Hematocrit 40.2 % (42-52); Base Excess ABG -1.6 mmol/L (-2.0-2.0); Blood Gas Allen Test Pos; Blood Gas Sample Site Radial, right; Blood Gas Sample Type Arterial; HCO3 ABG 23.7 mmol/L (22-26); Oxygen Device VENT; PO2 ABG 94.9 mmHg (80.0-100.0)
--- NOTE | 2019-10-05 06:07 | PC.NURSE ---
200 Succinycholine, 40 Etomidate, 50 Rocuronium [place] given IVP per order Dr. Perez. NS bag turned up to a rate of 999 ml per hour for a short period of time per order. Patient was intubated at 0505. After intubation NS was turned back down to 150 ml/hr per order. Ordered to stop Precedex drip and start Propofol drip at 0510. Soft wrist restraints applied per order at 0515. ET tube at 23. Fio2 at 49. PEEP at 5. OG tube placed and del rosario place per order. CXR taken per order. VSS.
[2019-10-05 06:29] LABS: Basophils % 0.2 %; Eosinophils # 0.2 10^3/uL (0.0-0.8); Eosinophils % 1.6 %; Hematocrit 39.5 % (42.0-52.0); Hemoglobin 12.3 g/dL (11.7-16.6); Lymphocytes # 0.5 10^3/uL (0.8-4.8); Lymphocytes % 5.6 %; Mean Corpuscular HGB Conc 31.1 g/dL (30.0-36.0); Mean Corpuscular Volume 96.3 fL (80-94); Mean Platelet Volume 11.2 fL (7.4-10.4); Monocytes # 0.6 10^3/uL (0.2-0.9); Monocytes % 6.6 %; Neutrophils # 7.8 10^3/uL (1.8-7.7); Neutrophils % 85.3 %; Nucleated Red Blood Cells % 0 %; White Blood Count 9.1 10^3/uL (4.0-10.0)
[2019-10-05 06:43] LABS: Alanine Aminotransferase 56 U/L (0-41); Albumin Level 3.5 g/dL (3.5-5.2); Alkaline Phosphatase 182 IU/L (40-130); Anion Gap 18.3 (5-19); Aspartate Amino Transferase 104 U/L (0-40); Blood Urea Nitrogen 6 mg/dL (6-20); Calcium 7.8 mg/dL (8.5-10.5); Carbon Dioxide 20 mmol/L (22-29); Chloride 102 mmol/L (98-107); Globulin 2.8 g/dL (1.3-4.6); Glomerular Filtration Rate 175.3 mL/min (90-130); Glucose 99 mg/dL (65-115); Magnesium 2.1 mg/dL (1.7-2.3); Osmolality Calculated 280 mOsm/kg (285-295); Phosphorus 1.7 mg/dL (2.5-4.5); Potassium 3.3 mmol/L (3.5-5.1); Sodium 137 mmol/L (136-145); Total Bilirubin 5.8 mg/dL (0.15-1.2); Total Protein 6.3 g/dL (6.6-8.7)
--- NOTE | 2019-10-05 06:44 | PC.NURSE ---
Attempt to call family, Ginette, to update with no answer.
[2019-10-05 06:46] LABS: Platelet Count 28 10^3/cmm (130-400)
[2019-10-05 06:47] LABS: Slide Review Slide Review Perform
--- NOTE | 2019-10-05 07:20 | PC.NURSE ---
Dr. Vences notified of patient's platelet count of 28. Also notified of patient receiving SQ Heparin.
[2019-10-05] MEDS: promethazine 25 mg Tablet 12.5 MG PO ×2 (08:24→14:30)
[2019-10-05] MEDS: multivitamin therapeutic Tablet 1 TAB PO ×2 (08:25)
[2019-10-05] MEDS: pantoprazole DR 40 mg Tablet PO (08:25)
[2019-10-05] MEDS: thiamine 100 mg Tablet PO ×2 (08:25→08:26)
[2019-10-05] MEDS: folic acid 1 mg Tablet PO ×2 (08:25→08:26)
--- NOTE | 2019-10-05 10:00 | PM.PN ---
Subjective Subjective: Interval history: Very agitated overnight, required intubation. Currently sedated, appears comfortable. Vitals/I&O/Wt Last Vital Signs Temp 98.5 F 10/05/19 05:33 Pulse 108 H 10/05/19 05:33 Resp 17 10/05/19 08:46 BP 141/74 10/05/19 05:33 Pulse Ox 99 10/05/19 05:33 10/04/19 10/05/19 10/05/19 22:59 06:59 14:59 Intake Total 7.308 / 7.308 715 / 715 Output Total 300 / 300 Balance -300 / -300 2077.308 / 1777.308 715 / 715 Weight last 48 hrs Weight 110.223 kg Physical Exam Const: GENERAL APPEARANCE: disheveled NUTRITIONAL APPEARANCE: obese OTHER: Intubated, sedated, no seizure-like activity. Neck/C-Spine: COMMON NORMALS: no JVD Resp: COMMON NORMALS: normal respiratory effort and clear to auscultation bilaterally AUSCULTATION: clear to auscultation bilaterally Cardio: COMMON NORMALS: no JVD, regular rhythm, S1 normal heart sound, S2 normal heart sound and no murmurs RATE: tachycardic RHYTHM: regular rhythm HEART SOUNDS: S1 normal and S2 normal GI: COMMON NORMALS: normal to inspection, nondistended, normoactive bowel sounds, soft to palpation and non-tender PALPATION: Yes soft Extremity: COMMON NORMALS: no joint enlargement and no pedal edema Neuro: COMMON NORMALS: moves all extremities MOTOR EXAM: tremor resting tremor COORDINATION: Romberg test abnormal Skin: COMMON NORMALS: no rashes or lesions noted GENERAL SKIN EXAM: no rashes or lesions noted Urinary Catheter Management^: Toussaint Latex: Cath Placed During This Visit: yes Urinary Catheter Date of Insertion: 10/05/19 Urinary Catheter Time of Insertion: 05:30 Data : 10/05/19 06:20 10/05/19 06:20 A&P Assessment and plan (1) Alcohol withdrawal syndrome: Worsened DTs overnight, intubated, sedated, currently appears comfortable. No seizure-like activity. Severe alcohol withdrawal DTs. Last drink 2 PM 5/4. [facility] protocol. Thiamine, folic acid. Continue to encourage cessation. Continue follow-up with [facility] where he is also followed for depression, anxiety, PTSD. Has been on naltrexone 50 mg daily. Status: Acute Qualifiers: Complication of substance-induced condition: with delirium Qualified Code(s): F10.231 - Alcohol dependence with withdrawal delirium (2) GI bleeding: Gastric secretions from OG tube noted blood-tinged this morning. Suspected gastritis, possibly secondary to alcohol. At the same time reportedly he has had an EGD probably about a year ago, and although he told me yesterday there were no varices, his is not sure, and thinks perhaps there may have been esophageal/gastric varices. Hemoglobin appears stable at 12. At this time with thrombocytopenia we will give 2 units platelet transfusion. IV Protonix 40 mg twice daily. Appreciate surgical evaluation. I am attempting to get in touch with Dr. Moreno as well and obtain medical records from [facility]. At this time I am not yet suspecting esophageal bleeding due to only small volume of blood in the OG secretions. Continue to monitor. In case of any worsening, or signs of varicose bleeding, call Dr. Moreno at [facility] who will accept him for transfer for further care there. Discussed with his . Status: Acute (3) Thrombocytopenia: Requested peripheral smear. At this time due to blood-tinged her gastric secretions we will give 2 units platelet transfusion. Discussed Status: Acute (4) Delirium tremens: As above. Denies history of withdrawal seizure. Status: Acute (5) Cirrhosis: Recheck ultrasound for ascites. Reports history of ascites responsive to diuretics. Not requiring paracentesis in the past. Ammonia is not elevated. Abdominal ultrasound for ascites screen. No abdominal discomfort, other symptoms to suggest SBP. INR 1.47. Nodular appearing liver on ultrasound back in June. Continue routine follow-up with PCP, as well as all recommended screenings. Status: Acute (6) Cholestasis: Bilirubin is 4.1, alkaline phosphatase 195. These appear to be fluctuating, with bilirubin as high as 18.3 in September 2018? Possible hydrops of gallbladder noted on ultrasound in July 2019. Currently he has no leukocytosis, no fever. He does have some tachycardia which I suspect is related to alcohol withdrawal. He has absolutely no abdominal discomfort. For now I am not suspecting acute cholecystitis/cholangitis. However, continue monitoring for symptoms. Will assess with right upper quadrant ultrasound. Status: Acute (7) Transaminitis: 2-1 distribution AST and ALT elevation, 107, 62 respectively. So far without evidence of overt alcoholic hepatitis just yet, although is jaundiced, and in fact early alcoholic hepatitis is possible and per discussion with his mixologist in fact T bili elevation may be secondary to alcoholic hepatitis as CBD is normal. INR is 1.42. Mattress discriminant function is borderline at 31.8, although at this time is not a candidate for steroid therapy due to suspected gastritis and with some blood-tinged gastric secretions. Status: Acute Additional A&P Information Hypophosphatemia and hypokalemia: K-Phos this morning. Monitor. HTN: For now hold meds. Blood pressure is not elevated. Monitor. Attestations Medical Necessity Statement*: Continued admission is required versus management of severe alcohol withdrawal, DTs. GI bleeding, in the setting of cirrhosis, thrombocytopenia. Suspected alcoholic hepatitis. Critical Care Time: In addition to noncritical issues 25 minutes critical care time spent on assessment management of DTs and severe alcohol withdrawal, requiring intubation for sedation, GI bleeding in the setting of liver cirrhosis, thrombocytopenia, as well as alcoholic hepatitis. His condition discussed with surgery, his mixologist, as well as his . Coding Level of Care Code Acute [place] Supervisor for [facility] Fwd Exam Comprehensive Diagnoses Alcohol withdrawal syndrome F10.231 Complication of substance-induced condition: with delirium GI bleeding K92.2 Thrombocytopenia D69.6 Delirium tremens F10.231 Cirrhosis K74.60 Cholestasis K83.1 Transaminitis R74.0
[2019-10-05 10:16] LABS: LAB Peripheral Smear Sent for Review
[2019-10-05 10:46] LABS: Creatine Phosphokinase 199 U/L (39-308)
--- NOTE | 2019-10-05 10:53 | P.CONIM_ITS ---
Providers/Reason For Consult Consulting Physican/Specialty*: Sb Sanchez MD Reason for Consult*: Concern for hematemesis and cholecystitis Attending Physician: Jovi Vences Primary Care Provider: RUSS Kevin History of Present Illness History of Present Illness Chief Complaint: Unobtainable from the patient at this point patient being intubated History of present illness: Mr. Donnie Ellsworth is a 49 year old male currently intubated and on mechanical ventilation admitted on hospitalist service patient has history of alcoholism and he was evaluated by hospitalist and admitted on the service as patient has been experiencing shaking and tremor in addition to visual hallucinations. Patient was found to have elevated liver enzymes including total bilirubin being elevated as well. Patient ended up by being intubated and being on mechanical ventilation currently, OG tube showed scanty bloody aspirate and there was an incidental finding on imaging studies on the abdominal ultrasound that showed: 1. Interval shrunken nodular liver with mild echogenic parenchyma, compatible with history of cirrhosis. No definite liver mass seen. If there's clinical concern for hepatic mass, consider follow-up CT abdomen liver protocol. 2. Borderline gallbladder hydrops with gallbladder wall thickening and no pericholecystic fluid or stone seen. May be secondary to adjacent liver parenchymal disease. Chronic cholecystitis or early acute cholecystitis not excl uded. Follow-up suggested. Review of Systems General: Reports: ROS unobtainable due to endotracheal tube Meds/Allergies Home Medications and Allergies Home Medications Medication Instructions Recorded Confirmed Last Taken Type albuterol sulfate 90 mcg/actuation 2 puff INHALATION QID 06/10/19 10/04/19 Unknown History aerosol inhaler zonisamide 25 mg capsule 25 mg PO BID 06/10/19 10/04/19 Unknown History furosemide 40 mg PO DAILY #7 tab 07/10/19 10/04/19 Unknown Rx hydrocodone-acetaminophen 1 tab PO Q8H PRN #14 tab 07/10/19 10/04/19 Unknown Rx promethazine 12.5 mg PO QID PRN #20 tab 07/10/19 10/04/19 Unknown Rx spironolactone 25 mg PO DAILY #7 tab 07/10/19 10/04/19 Unknown Rx cyclobenzaprine 10 mg tablet 10 mg PO .at bedtime #30 tab 07/13/19 10/04/19 Unknown Rx bupropion HCl 150 mg 24 hr tablet, 150 mg PO QAM #30 tab 08/11/19 10/04/19 Unknown Rx extended release hydroxyzine HCl 25 mg tablet 25 mg PO TID PRN #90 tab 08/11/19 10/04/19 Unknown Rx mirtazapine 30 mg tablet 30 mg PO .at bed #30 tab 08/11/19 10/04/19 Unknown Rx naltrexone 50 mg tablet 50 mg PO DAILY #30 tab 08/11/19 10/04/19 Unknown Rx paroxetine HCl 40 mg tablet 40 mg PO DAILY #30 tab 08/11/19 10/04/19 Unknown Rx prazosin 5 mg capsule 5 mg PO .at bed cap 08/11/19 10/04/19 Unknown History lisinopril 10 mg tablet 10 mg PO DAILY #30 tab 09/12/19 10/04/19 Unknown Rx pantoprazole 40 mg tablet,delayed 40 mg PO QAM #30 tab 09/12/19 10/04/19 Unknown Rx release Allergies Allergy/AdvReac Type Severity Reaction Status Date / Time No Known Allergies Allergy Verified 10/05/19 10:58 Current Medications Current Medications Generic Name Dose Route Start Last Admin Trade Name Freq PRN Reason Stop Dose Admin Albuterol Sulfate 2 puff 10/04/19 21:00 10/05/19 08:12 Ventolin INHALATION Not Given QID CANDACE Folic Acid 1 mg 10/05/19 09:00 10/05/19 08:25 Folic Acid PO 1 mg DAILY CANDACE Administration Folic Acid 1 mg 10/05/19 09:00 10/05/19 08:26 Folic Acid PO 1 mg DAILY CANDACE Administration Sodium Chloride 1,000 mls @ 150 mls/hr 10/04/19 16:45 10/05/19 07:07 Sodium Chloride 0.9% IV 150 mls/hr .Q6H40M CANDACE Administration Propofol 1,000 mg in 100 mls @ 0 mls/hr 10/05/19 05:15 10/05/19 06:33 Diprivan IV 50 mcg/kg/min .Q0M CANDACE 33.1 mls/hr Titration Protocol Per Protocol Fentanyl 1,000 mcg/ Sodium 100 mls @ 0 mls/hr 10/05/19 05:15 10/05/19 06:33 Chloride IV 500 mcg/hr .Q0M CANDACE 50 mls/hr Titration Protocol Per Protocol Potassium Phosphate 40 meq/ 109.0909 mls @ 27.25 mls/hr 10/05/19 08:30 10/05/19 08:20 Sodium Chloride IV 10/05/19 12:30 27.3 mls/hr ONCE ONE Administration Lorazepam 2 mg 10/04/19 19:56 10/05/19 08:24 Ativan IVP 2 mg PRN PRN Administration WITHDRAWAL Protocol Mirtazapine 15 mg 10/04/19 21:00 10/04/19 22:13 Remeron PO 15 mg BEDTIME CANDACE Administration Multivitamins Therapeutic 1 tab 10/05/19 09:00 10/05/19 08:25 Multivitamin Tab PO 1 tab DAILY CANDACE Administration Multivitamins Therapeutic 1 tab 10/05/19 09:00 10/05/19 08:25 Multivitamin Tab PO 1 tab DAILY CANDACE Administration Promethazine HCl 12.5 mg 10/04/19 20:24 10/05/19 08:24 Phenergan PO 12.5 mg QID PRN Administration nausea and vomiting Thiamine Mononitrate 100 mg 10/05/19 09:00 10/05/19 08:25 Vitamin B-1 PO 100 mg DAILY CANDACE Administration Thiamine Mononitrate 100 mg 10/05/19 09:00 10/05/19 08:26 Vitamin B-1 PO 100 mg DAILY CANDACE Administration PFSH Acute PFSH: Medical History Alcohol dependence, in remission Cirrhosis Controlled diabetes mellitus, without long-term current use of insulin Depression Gastro-esophageal reflux disease with esophagitis Generalized anxiety disorder Hypertension Major depressive disorder, recurrent, moderate Post-traumatic stress disorder, chronic Surgical History Cataract H/O esophagogastroduodenoscopy History of colonoscopy S/P tendon repair Family History Other Arthritis CAD (coronary artery disease) Diabetes Denies family history of Anesthesia complication Bleeding disorder Social History Smoking and tobacco status: former smoker Second hand smoke exposure: No Smoking risk assessment/counseling performed?: Yes Alcohol intake: current Desire information about alcohol rehabilitation?: No Counseling given: Yes Desire information about substance/drug rehabilitation?: No Counseling given: No Caregiver/support person: No Lives independently: Yes Household members: spouse Housing: House Marital status: Current occupational status: disabled History of recent travel: No Current gender identity: Male Vitals/I&O/Wt Last Vital Signs Temp 98.5 F 10/05/19 05:33 Pulse 108 H 10/05/19 05:33 Resp 17 10/05/19 08:46 BP 141/74 10/05/19 05:33 Pulse Ox 99 10/05/19 05:33 10/04/19 10/05/19 10/05/19 22:59 06:59 14:59 Intake Total 2077.308 / 2077.308 715 / 715 Output Total 300 / 300 Balance -300 / -300 2077.308 / 1777.308 715 / 715 Weight last 48 hrs Weight 243 lb Physical Exam Narrative: EXAM NARRATIVE: Patient is intubated on mechanical ventilation BMI 38 Head and neck examination no masses no cervical lymphadenopathy, dry sclera and presence of jaundice Cardiac examination audible S1-S2 no murmurs no gallops no arrhythmias Chest is clear bilateral,abscence of Rhonchi or wheezes,no surgical emphysema Abdomen nontender nondistended soft no organomegaly guarding or rigidity/no signs of peritonitis Urinary Catheter Management^: Toussaint Latex: Cath Placed During This Visit: yes Urinary Catheter Date of Insertion: 10/05/19 Urinary Catheter Time of Insertion: 05:30 A&P Assessment and plan (1) GI bleeding: After limited history taking physical examination and reviewing the chart and images, I do believe that the patient's bloody aspirate in the OG is not of clinical significance likely traumatic,there is always a potential concern of underlying esophageal varices giving the history of the patient's liver cir rhosis and hypersplenism to be a cause of hematemesis. Clinical observation and close monitoring with regard to H&H every 8 hour Correction of coagulopathy if any I do not see at this point an appropriate indication to perform a diagnostic EGD particularly in the presence of thrombocytopenia,if patient starts bleeding he may benefit from further intervention for managing esophageal varices if any ,and potential back up with TIPS procedure which we do not perform around in the hospital. Recommend monitor ammonia level Blood transfusion per protocol and monitor closely platelets numbers that may require platelet transfusion Recommend for now PPI therapy since the patient is on mechanical ventilation to prevent stress gastritis Irrigation of OG tube every 8 hours with cold normal saline 50 mL Status: Acute (2) Transaminitis: I do not see clinical significance based on the physical examination that the patient less likely to have cholecystitis and the pericholecystic fluid could represent part of ascitic fluid in the abdomen although it was not seen or not reported on the ultrasound. Likely the patient has cholestasis If continues to be a clinical concern about gallbladder problem a HIDA scan may help in the future yet giving the fact that the patient's MELD score 17, I would refrain from surgical intervention to perform any gallbladder surgery due to the liver condition and try to pursue conservative measures. Recommend highly low-fat diet Hepatology follow-up once patient is extubated Thank you for consulting general surgery to participate taking care Mr. Ellsworth Status: Acute Consult Attestations Medical Necessity Statement: Medical necessity care is expected to cross 2 midnights Time Spent in Patient Care: 16 - 35 minutes (>than 50% of time spent in counselling and/or direct pt care on unit) . Coding Level of Care Code Acute Strap Buckler Machine for Nildag Ryan Diagnoses GI bleeding K92.2 Transaminitis R74.0
[2019-10-05] MEDS: piperacillin-tazobactam 3.375 GM in sodium chloride 0.9% (plus) 50 ML IV ×2 (11:31→15:55)
[2019-10-05] MEDS: octreotide 500 MCG in sodium chloride 0.9% (100 ml) 100 ML 10.1 MCG IV ×2 (11:43→19:57)
[2019-10-05] MEDS: pantoprazole 40 MG in sodium chloride 0.9% (plus) 100 ML 20 MG IV ×3 (12:57→22:49)
[2019-10-05] MEDS: propofol 1,000 MG/100 ML INJ 29.8 MG IV (12:58)
[2019-10-05] MEDS: LORazepam 2 mg/mL INJ 1 mL IM (14:29)
[2019-10-05] MEDS: sodium chloride 0.9% (100 ml) 100 ML 10 ML (14:32)
[2019-10-05] MEDS: propofol 1,000 MG/100 ML INJ 33.1 MG IV ×2 (15:55→19:42)
--- NOTE | 2019-10-05 20:11 | US_ITS ---
WS: [id number] ABDOMINAL ULTRASOUND LIMITED REASON FOR VISIT: Hepatobiliary and ascites chk TECHNIQUE: Grayscale and Doppler ultrasound examination of the abdomen. FINDINGS: Pancreas: Normal Abdominal aorta and IVC: Normal Liver: Liver measures 23.8 cm in length. Diffuse fatty infiltration. Hepatopedal circulation normal. Gallbladder: Gallbladder wall thickness measures 0.4 mm. Wall thickened but no definite stones. Right kidney: Right kidney measures 12.3 cm x 6.4 cm x 7.2 cm. No hydronephrosis or stones. Common bile duct 0.43 cm US/US abdomen limited [id number] IMPRESSION: Hepatomegaly with fatty infiltration of the liver Thickened wall gallbladder but no stones.
--- NOTE | 2019-10-05 23:16 | PC.NURSE ---
Patient turned at 1999, required 5 RNs to maintain safety while turning due to agitation.
[2019-10-06] VITALS (23 sets, daily range): BP systolic 104–152; BP diastolic 55–109; PULSE 81–90; RESP 12–18; TEMP 36.3–37.6; O2SAT 90–94
[2019-10-06] MEDS: propofol 1,000 MG/100 ML INJ 33.1 MG IV ×7 (00:11→19:18)
[2019-10-06] MEDS: piperacillin-tazobactam 3.375 GM in sodium chloride 0.9% (plus) 50 ML IV ×3 (01:52→18:29)
[2019-10-06] MEDS: sodium chloride 0.9% 1,000 ML 150 ML IV ×4 (01:53→22:48)
[2019-10-06] MEDS: propofol 1,000 MG/100 ML INJ 29.8 MG IV (02:48)
[2019-10-06] MEDS: pantoprazole 40 MG in sodium chloride 0.9% (plus) 100 ML 20 MG IV ×4 (03:53→18:29)
[2019-10-06 05:05] LABS: Basophils # 0.1 10^3/uL (0.0-0.1); Basophils % 0.7 %; Eosinophils # 0.3 10^3/uL (0.0-0.8); Eosinophils % 3.5 %; Hematocrit 36.6 % (42.0-52.0); Hemoglobin 11.4 g/dL (11.7-16.6); Lymphocytes # 0.7 10^3/uL (0.8-4.8); Lymphocytes % 7.8 %; Mean Corpuscular HGB Conc 31.1 g/dL (30.0-36.0); Mean Corpuscular Hemoglobin 30.2 pg (28.0-34.0); Mean Corpuscular Volume 96.8 fL (80-94); Mean Platelet Volume 10.6 fL (7.4-10.4); Monocytes # 0.7 10^3/uL (0.2-0.9); Monocytes % 8.1 %; Neutrophils % 79.4 %; Nucleated Red Blood Cells % 0 %; Platelet Count 42 10^3/cmm (130-400); Red Blood Count 3.78 10^6/uL (4.1-5.3); Red Cell Distribution Width 15.6 % (12.1-15.1); White Blood Count 8.8 10^3/uL (4.0-10.0)
[2019-10-06 05:30] LABS: Alanine Aminotransferase 45 U/L (0-41); Albumin Level 3.2 g/dL (3.5-5.2); Alkaline Phosphatase 160 IU/L (40-130); Anion Gap 13.6 (5-19); Aspartate Amino Transferase 91 U/L (0-40); Blood Urea Nitrogen 7 mg/dL (6-20); Calcium 7.5 mg/dL (8.5-10.5); Carbon Dioxide 23 mmol/L (22-29); Chloride 106 mmol/L (98-107); Globulin 2.8 g/dL (1.3-4.6); Glomerular Filtration Rate 118.9 mL/min (90-130); Glucose 96 mg/dL (65-115); Osmolality Calculated 284 mOsm/kg (285-295); Phosphorus 2.6 mg/dL (2.5-4.5); Potassium 3.6 mmol/L (3.5-5.1); Sodium 139 mmol/L (136-145); Total Bilirubin 3.7 mg/dL (0.15-1.2)
[2019-10-06] MEDS: octreotide 500 MCG in sodium chloride 0.9% (100 ml) 100 ML 10.1 MCG IV ×2 (05:52→16:25)
[2019-10-06 05:57] LABS: ABG PCO2 40.9 mmHg (35-45); ABG PH Result 7.35 (7.35-7.45); Arterial Blood Gas Hematocrit 39.1 % (42-52); Base Excess ABG -2.8 mmol/L (-2.0-2.0); Blood Gas Allen Test Pos; Blood Gas Sample Site Radial, right; Blood Gas Sample Type Arterial; HCO3 ABG 22.6 mmol/L (22-26); Oxygen Device VENT; PO2 ABG 64.3 mmHg (80.0-100.0)
--- NOTE | 2019-10-06 06:00 | XR_ITS ---
WS: [id number] XR chest 1V portable [id number] REASON FOR EXAM: Hypoxia FINDINGS: The endotracheal tube is seen in the area of the brian we recommend this to be centered sl ightly proximally 1 to 2 cm. There is consolidation seen in the right lung base suggesting developing atelectasis pneumonia. Cardiomegaly. XR/XR chest 1V portable [id number] IMPRESSION: The endotracheal tube is seen in the brian we recommend slight elevation of th e to be made. Pneumonia atelectasis in the right lung base There is cardiomegaly
[2019-10-06] MEDS: folic acid 1 mg Tablet PO (08:00)
[2019-10-06] MEDS: thiamine 100 mg Tablet PO (08:00)
[2019-10-06] MEDS: multivitamin therapeutic Tablet 1 TAB PO (08:00)
--- NOTE | 2019-10-06 11:16 | P.PN_ITS ---
Subjective Subjective: Interval history: Currently sedated, appears calm, no seizure-like activity. History noted to be restless, although also reported episode of lucidity per discussion with surgery. We will try to wean sedation to reassess mental status this morning. Vitals/I&O/Wt Last Vital Signs Temp 97.9 F 10/06/19 08:00 Pulse 81 10/06/19 10:00 Resp 18 10/06/19 10:20 BP 122/81 10/06/19 10:00 Pulse Ox 92 10/06/19 10:00 10/05/19 10/06/19 10/06/19 22:59 06:59 14:59 Intake Total 1583.262 / 3954.247 1415.983 / 5370.230 1318.407 / 1318.407 Output Total 1875 / 1875 550 / 2425 110 / 110 Balance -291.738 / 2079.247 865.983 / 2945.230 1208.407 / 1208.407 Weight last 48 hrs Weight 120.202 kg Weight 119.204 kg Weight 110.223 kg Physical Exam Const: GENERAL APPEARANCE: disheveled NUTRITIONAL APPEARANCE: obese OTHER: Intubated, sedated, no seizure-like activity. Neck/C-Spine: COMMON NORMALS: no JVD Resp: COMMON NORMALS: normal respiratory effort and clear to auscultation bilaterally AUSCULTATION: clear to auscultation bilaterally Cardio: COMMON NORMALS: no JVD, regular rhythm, S1 normal heart sound, S2 normal heart sound and no murmurs RATE: tachycardic RHYTHM: regular rhythm HEART SOUNDS: S1 normal and S2 normal GI: COMMON NORMALS: normal to inspection, nondistended, normoactive bowel sounds, soft to palpation and non-tender PALPATION: Yes soft Extremity: COMMON NORMALS: no joint enlargement and no pedal edema Neuro: COMMON NORMALS: moves all extremities MOTOR EXAM: tremor resting tremor COORDINATION: Romberg test abnormal Skin: COMMON NORMALS: no rashes or lesions noted GENERAL SKIN EXAM: no rashes or lesions noted Urinary Catheter Management^: Toussaint Latex: Cath Placed During This Visit: yes Reason for Continuing Indwelling Catheter: Accurate Measurement of Urinary Output in Critically Ill Patients Urinary Catheter Date of Insertion: 10/05/19 Urinary Catheter Time of Insertion: 05:30 Data : 10/06/19 04:40 10/06/19 04:40 A&P Assessment and plan (1) Alcohol withdrawal syndrome: Yesterday still restless, although with reported episode of lucidity. Would like to see how his mental status is today. Requested wean sedation. If remains appropriate, possible extubation with continued CIWA protocol and monitoring. Last drink 2 PM 5/. [facility]WA protocol. Thiamine, folic acid. Continue to encourage cessation. Continue follow-up with [facility] where he is also followed for depression, anxiety, PTSD. Has been on naltrexone 50 mg daily. Status: Acute Qualifiers: Complication of substance-induced condition: with delirium Qualified Code(s): F10.231 - Alcohol dependence with withdrawal delirium (2) GI bleeding: Reddish/clear orogastric secretions in container. Hemoglobin stable from yesterday to today. Continue PPI, continue octreotide for now. Gastric secretions from OG tube noted blood-tinged this morning. Hemoglobin appears stable at 12. With thrombocytopenia for which received 2 units platelet transfusion. Platelet level this morning 42,000. Continue to monitor. Empiric Zosyn as per discussion with lead ingot molder due to GI bleeding in the setting of cirrhosis. Appreciate surgical evaluation. Follow-up with gastroenterology after discharge. In case of any worsening, or signs of varicose bleeding, call Dr. Moreno at [facility] who will accept him for transfer for further care there. Status: Acute (3) Thrombocytopenia: Peripheral smear with mild increase in MCV. Check folic acid, B12. Platelets up to 42,000 after 2 units transfusion. Status: Acute (4) Delirium tremens: As above. Denies history of withdrawal seizure. Status: Acute (5) Cirrhosis: Minimal ascites on US. Reports history of ascites responsive to diuretics. Not requiring paracentesis in the past. Ammonia is not elevated. Abdominal ultrasound for ascites screen. No abdominal discomfort, other symptoms to suggest SBP. INR 1.47. Nodular appearing liver on ultrasound back in June. Continue routine follow-up with PCP, as well as all recommended screenings. Status: Acute (6) Cholestasis: Bilirubin is better, alkaline phosphatase down as well. These appear to be fluctuating, with bilirubin as high as 18.3 in September 2018? Possible hydrops of gallbladder noted on ultrasound in July 2019. CBD is normal, however, and per discussion with his lead ingot molder, and does not seem that he is having acute cholecystitis/chondritis at this time. He did not have any pain on abdominal exam on admission. Suspected possible early alcoholic hepatitis responsible for abnormalities. Status: Acute (7) Transaminitis: 2-1 distribution AST and ALT elevation, 107, 62 respectively. So far without evidence of overt alcoholic hepatitis just yet, although is jaundiced, and in fact early alcoholic hepatitis is possible and per discussion with his lead ingot molder in fact T bili elevation may be secondary to alcoholic hepatitis as CBD is normal. INR is 1.42. Mattress discriminant function is borderline at 31.8, although at this time is not a candidate for steroid therapy due to suspected gastritis and with some blood-tinged gastric secretions. Status: Acute Additional A&P Information Hypophosphatemia and hypokalemia: Replaced. Monitor. HTN: For now hold meds. Blood pressure is not elevated. Monitor. Attestations Medical Necessity Statement*: Continue admission for assessment management of severe alcohol withdrawal, in the setting of liver cirrhosis, suspect possible early alcoholic hepatitis, as well as gastritis, with very mild GI bleeding. Critical Care Time: In addition to noncritical issues, 6 minutes critical care time spent on assessment of hemodynamic and respiratory status while intubated on ventilator, reassessment and plan for severe alcohol withdrawal which necessitated intubation and sedation. Suspected early alcoholic hepatitis, and mild GI bleed in setting of cirrhosis. Coding Level of Care Code Acute Network Support Engineer for Agapito Davis Diagnoses Alcohol withdrawal syndrome F10.231 Complication of substance-induced condition: with delirium GI bleeding K92.2 Thrombocytopenia D69.6 Delirium tremens F10.231 Cirrhosis K74.60 Cholestasis K83.1 Transaminitis R74.0
[2019-10-06 12:49] LABS: Vitamin B12 1913 pg/mL (232-1245)
[2019-10-06 12:50] LABS: Folate Level 8.6 ng/mL (4.5-32.2)
--- NOTE | 2019-10-06 17:22 | P.PN_ITS ---
Subjective Subjective: Interval history: Patient overall is about the same continues to be on mechanical ventilation No acute events overnight OG output cleared up no evidence of hematemesis Trending down of transaminases Vitals/I&O/Wt Last Vital Signs Temp 98.4 F 10/06/19 16:00 Pulse 86 10/06/19 16:00 Resp 15 10/06/19 15:57 BP 124/76 10/06/19 16:00 Pulse Ox 91 10/06/19 16:00 10/06/19 10/06/19 10/06/19 06:59 14:59 22:59 Intake Total 1415.983 / 5370.230 1540.336 / 2432.092 1466.887 / 2836.223 Output Total 550 / 2425 225 / 225 130 / 355 Balance 865.983 / 2945.230 1315.336 / 4332.674 8874.887 / 2481.223 Weight last 48 hrs Weight 265 lb Weight 262 lb 12.8 oz Physical Exam Narrative: EXAM NARRATIVE: Patient is intubated on mechanical ventilation BMI 41.5 Abdomen nontender nondistended soft no organomegaly guarding or rigidity/no signs of peritonitis Morbidly obese Urinary Catheter Management^: Toussaint Latex: Cath Placed During This Visit: yes Reason for Continuing Indwelling Catheter: Accurate Measurement of Urinary Output in Critically Ill Patients Urinary Catheter Date of Insertion: 10/05/19 Urinary Catheter Time of Insertion: 05:30 Data : 10/06/19 04:40 10/06/19 04:40 A&P Assessment and plan (1) GI bleeding: Continue conservative measures and monitor H&H Patient continues to be stable and no evidence of hematemesis at this point Recommend wean to extubate Consider enteric nutrition to the OG check residuals every 4 hours Irrigation of OG tube every 8 hours with cold normal saline 50 mL Status: Acute (2) Transaminitis: As the liver enzymes are trending down, continue to follow on that lab work Recommend highly low-fat diet Upon discharge patient needs to follow-up with his GI team in [place] and consideration for liver transplantation if meets criteria Thank you for consulting general surgery to participate taking care Mr. Ellsworth Status: Acute Attestations Medical Necessity Statement*: Medical necessity care is expected to cross 2 midnights Time Spent in Patient Care: less than 15 minutes (>than 50% of time spent in counselling and/or direct pt care on unit) . 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
--- NOTE | 2019-10-06 18:31 | PC.NURSE ---
Patient very anxious and restless when sedation is turned down or when patient is stimulated. Patient will thrash his head and move his arms a lot. Tonight after turning the patient he began to desat and was sitting at 89. RT was able to suction a large amount of sputum from ETT but we saw no increase in O2 at this time. RT adjusted O2 to 50% and saturations are remaining at 92%. Sedation remains relatively high. Other than this there were no events to report.
[2019-10-07] VITALS (29 sets, daily range): BP systolic 119–172; BP diastolic 58–100; PULSE 71–103; RESP 2–15; TEMP 36.6–37.3; O2SAT 88–94
[2019-10-07] MEDS: propofol 1,000 MG/100 ML INJ 33.1 MG IV ×2 (00:39→03:07)
[2019-10-07] MEDS: piperacillin-tazobactam 3.375 GM in sodium chloride 0.9% (plus) 50 ML IV ×3 (02:18→17:08)
--- NOTE | 2019-10-07 02:29 | PC.NURSE ---
0120: Dr Benites paged regarding urine output and Sp02. Orders received for CXR. Physician to come to bedside to evaluate patient.
[2019-10-07] MEDS: ipratropium-albuterol 3 mL Neb INHALATION ×5 (03:01→20:06)
[2019-10-07] MEDS: octreotide 500 MCG in sodium chloride 0.9% (100 ml) 100 ML 10.1 MCG IV (03:04)
[2019-10-07 04:29] LABS: ABG PCO2 44.7 mmHg (35-45); ABG PH Result 7.32 (7.35-7.45); HCO3 ABG 22.8 mmol/L (22-26); PO2 ABG 86.1 mmHg (80.0-100.0)
[2019-10-07 04:30] LABS: Base Excess ABG -3.4 mmol/L (-2.0-2.0); Blood Gas Vent Mode PC/PS
[2019-10-07 04:31] LABS: Arterial Blood Gas Hematocrit 37.9 % (42-52)
--- NOTE | 2019-10-07 04:46 | PC.NURSE ---
0440: Dr Benites updated on condition, chest xray results, and ABG results. Orders received to stop IV fluids. Physician to enter new orders electronically.
[2019-10-07 04:59] LABS: Basophils % 0.5 %; Eosinophils # 0.3 10^3/uL (0.0-0.8); Eosinophils % 4.1 %; Hematocrit 37.9 % (42.0-52.0); Hemoglobin 11.6 g/dL (11.7-16.6); Lymphocytes # 0.9 10^3/uL (0.8-4.8); Lymphocytes % 12.1 %; Mean Corpuscular HGB Conc 30.6 g/dL (30.0-36.0); Mean Corpuscular Hemoglobin 30.3 pg (28.0-34.0); Mean Platelet Volume 11.2 fL (7.4-10.4); Monocytes # 0.8 10^3/uL (0.2-0.9); Monocytes % 11.2 %; Neutrophils # 5.4 10^3/uL (1.8-7.7); Neutrophils % 71.6 %; Nucleated Red Blood Cells % 0 %; Platelet Count 55 10^3/cmm (130-400); Red Blood Count 3.83 10^6/uL (4.1-5.3); Red Cell Distribution Width 16.1 % (12.1-15.1); White Blood Count 7.5 10^3/uL (4.0-10.0)
[2019-10-07] MEDS: pantoprazole 40 MG in sodium chloride 0.9% (plus) 100 ML 20 MG IV (04:59)
[2019-10-07] MEDS: FUROsemide 10 mg/mL SDV 2mL 20 MG IVP ×2 (04:59→11:22)
[2019-10-07 05:23] LABS: Alanine Aminotransferase 46 U/L (0-41); Albumin Level 3.1 g/dL (3.5-5.2); Alkaline Phosphatase 175 IU/L (40-130); Anion Gap 14.9 (5-19); Aspartate Amino Transferase 100 U/L (0-40); Blood Urea Nitrogen 7 mg/dL (6-20); Calcium 7.7 mg/dL (8.5-10.5); Carbon Dioxide 21 mmol/L (22-29); Chloride 108 mmol/L (98-107); Globulin 3.1 g/dL (1.3-4.6); Glucose 96 mg/dL (65-115); Osmolality Calculated 286 mOsm/kg (285-295); Phosphorus 2.4 mg/dL (2.5-4.5); Potassium 3.9 mmol/L (3.5-5.1); Sodium 140 mmol/L (136-145); Total Bilirubin 3.7 mg/dL (0.15-1.2); Total Protein 6.2 g/dL (6.6-8.7)
--- NOTE | 2019-10-07 06:00 | XRR_ITS ---
PROCEDURE INFORMATION: Exam: XR Chest, 1 View Exam date and time: 10/07/2019 2:55 AM Age: 49 years old Clinical indication: Other: Hypoxia; Patient HX: Et and og TECHNIQUE: Imaging protocol: XR of the chest Views: 1 view. COMPARISON: CR XR chest 1V portable [id number] 10/06/2019 4:38 AM FINDINGS: Tubes, catheters and devices: The endotracheal tube is appropriately positioned in the distal thoracic trachea with the tip above the brian. The nasogastric tube is positioned in the stomach, well beyond the diaphragmatic hiatus. The tip is not imaged. Lungs: There is ill-defined opacity in the mid and lower lungs bilaterally, progressive since the prior chest radiograph yesterday. Pleural space: Probable bilateral pleural effusions, similar to the findings on the prior exam. No pneumothorax. Heart/Mediastinum: There is moderate enlargement of the cardiac silhouette which is partially obscured. Bones/joints: Bones are unremarkable. XR/XR chest 1V portable [id number] IMPRESSION: 1. Mildly progressive bilateral lower lung opacities suggest pulmonary edema and bilateral pleural effusions. 2. Stable satisfactory endotracheal tube position. 3. NG tube is in the stomach. The tip is not imaged.
[2019-10-07] MEDS: propofol 1,000 MG/100 ML INJ 26.5 MG IV ×3 (06:35→18:52)
[2019-10-07] MEDS: multivitamin therapeutic Tablet 1 TAB PO (08:27)
[2019-10-07] MEDS: thiamine 100 mg Tablet PO (08:27)
[2019-10-07] MEDS: folic acid 1 mg Tablet PO (08:27)
[2019-10-07] MEDS: propofol 1,000 MG/100 ML INJ 29.8 MG IV ×2 (10:07→12:42)
[2019-10-07 12:30] LABS: Ammonia 94 umol/L (16-60)
--- NOTE | 2019-10-07 13:30 | XR_ITS ---
WS: [id number] XR chest 1V portable [id number] REASON FOR EXAM: FOLLOW UP FOR PULMONARY EDEMA FINDINGS: Increased bilateral pleural effusion and pulmonary edema. There is cardiomegaly seen. A feeding tube is seen in the stomach. The endotracheal tube is unchanged. XR/XR chest 1V portable [id number] IMPRESSION: Persistent congestive heart failure.
[2019-10-07 13:49] LABS: Blood Gas Allen Test Pos; Blood Gas Sample Site Radial, right; Blood Gas Sample Type Arterial; Oxygen Device VENT
[2019-10-07] MEDS: lactulose oral liq 20 gm/30 mL UDC PO ×2 (14:35→21:09)
[2019-10-07] MEDS: FUROsemide 10 mg/mL SDV 4mL 40 MG IVP ×2 (14:36→21:08)
[2019-10-07] MEDS: pantoprazole 40 mg SDV IVP (17:08)
--- NOTE | 2019-10-07 20:47 | PM.PN ---
Subjective Subjective: Interval history: Today when weaned down on sedation he intermittently answers some questions, and appears to be able to answer that his pain is in his throat, and not in his chest, abdomen, back. At the same time inconsistently follows commands, gets restless, pulling on things. Sedation had to be restarted. Vitals/I&O/Wt Last Vital Signs Temp 99.1 F 10/07/19 20:00 Pulse 80 10/07/19 20:06 Resp 13 10/07/19 20:06 BP 122/58 10/07/19 20:00 Pulse Ox 93 10/07/19 20:06 10/07/19 10/07/19 10/07/19 06:59 14:59 22:59 Intake Total 1412.647 / 5577.527 467.556 / 467.556 474.032 / 941.588 Output Total 830 / 1300 810 / 810 675 / 1485 Balance 582.647 / 4277.527 -342.444 / -342.444 -200.968 / -543.412 Weight last 48 hrs Weight 122.878 kg Weight 120.202 kg Weight 119.204 kg Physical Exam Const: GENERAL APPEARANCE: disheveled NUTRITIONAL APPEARANCE: obese OTHER: Intubated, sedated, no seizure-like activity. Neck/C-Spine: COMMON NORMALS: no JVD Resp: COMMON NORMALS: normal respiratory effort and clear to auscultation bilaterally AUSCULTATION: clear to auscultation bilaterally Cardio: COMMON NORMALS: no JVD, regular rhythm, S1 normal heart sound, S2 normal heart sound and no murmurs RATE: tachycardic RHYTHM: regular rhythm HEART SOUNDS: S1 normal and S2 normal GI: COMMON NORMALS: normal to inspection, nondistended, normoactive bowel sounds, soft to palpation and non-tender PALPATION: Yes soft Extremity: COMMON NORMALS: no joint enlargement and no pedal edema Neuro: COMMON NORMALS: moves all extremities MOTOR EXAM: tremor resting tremor COORDINATION: Romberg test abnormal Skin: COMMON NORMALS: no rashes or lesions noted GENERAL SKIN EXAM: no rashes or lesions noted Urinary Catheter Management^: Toussaint Latex: Cath Placed During This Visit: yes Reason for Continuing Indwelling Catheter: Accurate Measurement of Urinary Output in Critically Ill Patients Urinary Catheter Date of Insertion: 10/05/19 Urinary Catheter Time of Insertion: 05:30 Data : 10/07/19 04:15 10/07/19 04:15 A&P Assessment and plan (1) Acute encephalopathy: Has been having some trouble weaning of sedation, today appears to answer some questions, but not others, inconsistently following commands, getting agitated pulling on things, and sedation had to be restarted. This appears to be combination of metabolic encephalopathy due to a number of causes including currently hyperammonemia, possibly after his GI bleeding. Ammonia recheck today and is elevated. Started on lactulose. Also alcohol withdrawal present on admission, with DTs. Also now appears to have hypoxia, ventilator associated pneumonia. Broadened antibiotic coverage for him. Will request sputum cultures. Appears to also have fluid overload on imaging. Repeat Lasix 40 mg IV after additional 28 this morning. Reassess chest x-ray in the morning. Status: Acute (2) Alcohol withdrawal syndrome: Last drink 2 PM 5/. [facility] protocol. Thiamine, folic acid. Continue to encourage cessation. Continue follow-up with [facility] where he is also followed for depression, anxiety, PTSD. Has been on naltrexone 50 mg daily. Status: Acute Qualifiers: Complication of substance-induced condition: with delirium Qualified Code(s): F10.231 - Alcohol dependence with withdrawal delirium (3) GI bleeding: Has resolved. He is retaining fluid, discussed with surgery, and since there has been no further bleeding, and low suspicion for varicose bleed, will discontinue octreotide, Protonix drip. Switch to Protonix push. Started on trophic feeds. Continue to monitor. Empiric Zosyn. Follow-up with gastroenterology after discharge. In case of any worsening, or signs of varicose bleeding, call Dr. Moreno at [facility] who will accept him for transfer for further care there. Status: Acute (4) Thrombocytopenia: Stabilized. Platelets 55,000. Peripheral smear with mild increase in MCV. B12, folic acid not low. Macrocytosis possibly secondary to EtOH use. Status: Acute (5) Delirium tremens: As above. Denied history of withdrawal seizure. Status: Acute (6) Cirrhosis: Minimal ascites on US. Reports history of ascites responsive to diuretics. Not requiring paracentesis in the past. Now with hepatic encephalopathy. Abdominal ultrasound for ascites screen. No abdominal discomfort, other symptoms to suggest SBP. INR 1.47. Nodular appearing liver on ultrasound back in June. Continue routine follow-up with PCP, as well as all recommended screenings. Status: Acute (7) Cholestasis: Bilirubin is better, alkaline phosphatase persists. These appear to be fluctuating, with bilirubin as high as 18.3 in September 2018? Possible hydrops of gallbladder noted on ultrasound in July 2019. CBD is normal, however, and per discussion with his mobility specialist, and does not seem that he is having acute cholecystitis/chondritis at this time. He did not have any pain on abdominal exam on admission. Suspected possible early alcoholic hepatitis responsible for abnormalities. Status: Acute (8) Transaminitis: 2-1 distribution AST and ALT elevation, 107, 62 respectively. So far without evidence of overt alcoholic hepatitis just yet, although is jaundiced, and in fact early alcoholic hepatitis is possible and per discussion with his mobility specialist in fact T bili elevation may be secondary to alcoholic hepatitis as CBD is normal. INR is 1.42. Maddry's discriminant function is borderline at 31.8, although at this time is not a candidate for steroid therapy due to GIB. Status: Acute Additional A&P Information Hypophosphatemia and hypokalemia: Replaced. Monitor. HTN: For now hold meds. Blood pressure is not elevated. Monitor. Attestations Medical Necessity Statement*: Continue admission for assessment of management of acute encephalopathy, hepatic encephalopathy, DTs, ventilator associated pneumonia, fluid overload, hypoxia, GI bleeding in the setting of liver cirrhosis, thrombocytopenia. 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
[2019-10-07] MEDS: mirtazapine 30 mg Tablet 15 MG PO (21:09)
[2019-10-07] MEDS: propofol 1,000 MG/100 ML INJ 23.1 MG IV (22:08)
[2019-10-07 22:48] LABS: Influenza A by IFA Negative (Negative); Influenza B by IFA Negative (Negative)
[2019-10-08] VITALS (36 sets, daily range): BP systolic 101–137; BP diastolic 59–80; PULSE 73–102; RESP 11–24; TEMP 37.2–37.6; O2SAT 88–95; BMI 40.3
[2019-10-08] MEDS: ipratropium-albuterol 3 mL Neb INHALATION ×7 (00:04→23:49)
--- NOTE | 2019-10-08 00:40 | PC.NURSE ---
Patient awakens to verbal stimuli, squeezes hands to command, nods yes and no to questions. Denies pain. Rests comfortably when not stimulated.
[2019-10-08] MEDS: piperacillin-tazobactam 3.375 GM in sodium chloride 0.9% (plus) 50 ML IV ×3 (01:41→17:55)
[2019-10-08] MEDS: propofol 1,000 MG/100 ML INJ 19.8 MG IV (01:41)
--- NOTE | 2019-10-08 02:50 | PC.NURSE ---
Patient resting comfortably but became anxious with repositioning and oral care. Nods yes and no appropriately to questions, moves all extremities to command. Remains restless, pulling at restraints and shaking head. Propofol drip increased to 40 mcg/kg/min. Patient calms and rests with verbal reassurance and increased dose of propofol. Will continue to monitor.
[2019-10-08] MEDS: lactulose oral liq 20 gm/30 mL UDC PO ×6 (03:20→20:57)
[2019-10-08 04:37] LABS: Basophils # 0.1 10^3/uL (0.0-0.1); Basophils % 1.2 %; Eosinophils # 0.3 10^3/uL (0.0-0.8); Eosinophils % 4.1 %; Hemoglobin 12.2 g/dL (11.7-16.6); Lymphocytes # 0.8 10^3/uL (0.8-4.8); Lymphocytes % 11.9 %; Mean Corpuscular HGB Conc 30.5 g/dL (30.0-36.0); Mean Corpuscular Hemoglobin 30.3 pg (28.0-34.0); Mean Corpuscular Volume 99.3 fL (80-94); Mean Platelet Volume 10.6 fL (7.4-10.4); Monocytes # 1.2 10^3/uL (0.2-0.9); Monocytes % 16.9 %; Neutrophils # 4.5 10^3/uL (1.8-7.7); Neutrophils % 65.3 %; Nucleated Red Blood Cells % 0 %; Platelet Count 58 10^3/cmm (130-400); Red Blood Count 4.03 10^6/uL (4.1-5.3); Red Cell Distribution Width 16.4 % (12.1-15.1); White Blood Count 6.9 10^3/uL (4.0-10.0)
[2019-10-08 04:50] LABS: INR 1.32 (0.8-1.2)
[2019-10-08 04:55] LABS: Ammonia 119 umol/L (16-60)
[2019-10-08 04:57] LABS: Alanine Aminotransferase 42 U/L (0-41); Albumin Level 3.1 g/dL (3.5-5.2); Alkaline Phosphatase 193 IU/L (40-130); Anion Gap 16.7 (5-19); Aspartate Amino Transferase 84 U/L (0-40); Blood Urea Nitrogen 8 mg/dL (6-20); Calcium 7.8 mg/dL (8.5-10.5); Carbon Dioxide 23 mmol/L (22-29); Chloride 107 mmol/L (98-107); Globulin 3.1 g/dL (1.3-4.6); Glomerular Filtration Rate 101.9 mL/min (90-130); Glucose 130 mg/dL (65-115); Osmolality Calculated 294 mOsm/kg (285-295); Potassium 3.7 mmol/L (3.5-5.1); Sodium 143 mmol/L (136-145); Total Bilirubin 3.9 mg/dL (0.15-1.2); Total Protein 6.2 g/dL (6.6-8.7)
[2019-10-08 05:18] LABS: ABG PCO2 50.3 mmHg (35-45); ABG PH Result 7.35 (7.35-7.45); Arterial Blood Gas Hematocrit 37.9 % (42-52); Blood Gas Allen Test Pos; Blood Gas Sample Site Radial, right; Blood Gas Sample Type Arterial; HCO3 ABG 27.4 mmol/L (22-26); Oxygen Device VENT; PO2 ABG 75.5 mmHg (80.0-100.0)
--- NOTE | 2019-10-08 05:19 | PC.NURSE ---
When bathing patient, a tick was noted on the medial aspect of the left lower thigh. Tick was removed and intact upon removal. Small reddened area noted after tick removed, circled and documented by this RN.
[2019-10-08] MEDS: propofol 1,000 MG/100 ML INJ 23.1 MG IV ×4 (05:21→17:55)
[2019-10-08] MEDS: pantoprazole 40 mg SDV IVP ×2 (05:21→17:35)
--- NOTE | 2019-10-08 06:00 | XR_ITS ---
WS: [id number] XR chest 1V portable [id number] REASON FOR EXAM: Hypoxia FINDINGS: Bilateral pleural effusion is again seen. There is less pulmonary edema as compared to prev ious exam of October 06, 2017. The endotracheal tube is seen in good position. A feeding tube remains in good position in the stomac h. There is cardiomegaly seen. XR/XR chest 1V portable [id number] IMPRESSION: Improved pulmonary edema Bilateral pleural effusion persists The endotracheal tube and feeding tube are seen in good position.
[2019-10-08] MEDS: multivitamin therapeutic Tablet 1 TAB PO (08:04)
[2019-10-08] MEDS: thiamine 100 mg Tablet PO (08:04)
[2019-10-08] MEDS: FUROsemide 10 mg/mL SDV 4mL 40 MG IVP ×2 (08:04→20:57)
[2019-10-08] MEDS: folic acid 1 mg Tablet PO (08:04)
[2019-10-08] MEDS: LORazepam 2 mg/mL INJ 1 mL IM (08:26)
--- NOTE | 2019-10-08 09:03 | PM.PN ---
Subjective Subjective: Interval history: Sedated. Had been chewing on the tube, somewhat restless. Sedation temporarily increased so bite-block can be placed. Last night a tick was found on his inner thigh. Was removed. No EM visible. Vitals/I&O/Wt Last Vital Signs Temp 99.3 F 10/08/19 04:00 Pulse 75 10/08/19 08:31 Resp 15 10/08/19 08:28 BP 116/66 10/08/19 06:00 Pulse Ox 94 10/08/19 08:28 10/07/19 10/08/19 10/08/19 22:59 06:59 14:59 Intake Total 608.932 / 1076.488 816.715 / 1893.203 79.31 / 79.31 Output Total 675 / 1485 825 / 2310 Balance -66.068 / -408.512 -8.285 / -416.797 79.31 / 79.31 Weight last 48 hrs Weight 121.245 kg Weight 122.878 kg Weight 120.202 kg Physical Exam Const: GENERAL APPEARANCE: disheveled NUTRITIONAL APPEARANCE: obese OTHER: Intubated, sedated, no seizure-like activity. Has been confused. Neck/C-Spine: COMMON NORMALS: no JVD Resp: COMMON NORMALS: normal respiratory effort and clear to auscultation bilaterally AUSCULTATION: clear to auscultation bilaterally Cardio: COMMON NORMALS: no JVD, regular rhythm, S1 normal heart sound, S2 normal heart sound and no murmurs RATE: tachycardic RHYTHM: regular rhythm HEART SOUNDS: S1 normal and S2 normal GI: COMMON NORMALS: normal to inspection, nondistended, normoactive bowel sounds, soft to palpation and non-tender PALPATION: Yes soft Extremity: COMMON NORMALS: no joint enlargement and no pedal edema Neuro: COMMON NORMALS: moves all extremities MOTOR EXAM: tremor resting tremor COORDINATION: Romberg test abnormal Skin: COMMON NORMALS: no rashes or lesions noted GENERAL SKIN EXAM: no rashes or lesions noted Urinary Catheter Management^: Toussaint Latex: Cath Placed During This Visit: yes Reason for Continuing Indwelling Catheter: Accurate Measurement of Urinary Output in Critically Ill Patients Urinary Catheter Date of Insertion: 10/05/19 Urinary Catheter Time of Insertion: 05:30 Data : 10/08/19 04:30 10/08/19 04:30 Micro: Microbiology 10/08/19 00:22 Gram Stain - Final Sputum - Endotracheal Tube Aspirate A&P Assessment and plan (1) Acute encephalopathy: Yesterday noted still confused, restless, ammonia noted elevated. Was started on lactulose, although I do not see a charted bowel movement. Today hyperammonemia is worse, up to 119. Will increase lactulose to every 3 hours, target 2-3 soft bowel movements per day. His severe alcohol withdrawal should be resolving. Last night also had a tick found and pulled of his left inner thigh. Will check tick panel, start on doxycycline given ongoing encephalopathy, fever, transaminitis, thrombocytopenia. Sedation temporarily increased as he is chewing on the ET tube, necessitating placement of bite block. Persistent hypoxia with fluid overload, possible pneumonia. Continue diuresis. Could not reach his by phone for update. Status: Acute (2) Tick bite of thigh: Tick noted on left inner thigh, pulled off. No EM noted. However, with ongoing encephalopathy, transaminitis, thrombocytopenia, will empirically give doxycycline, as tickborne illness at this time is a possibility. Will request tick panel. Peripheral smear was not remarkable. Status: Acute (3) Acute respiratory failure with hypoxia: Fluid overload, with pulmonary congestion, and does have peripheral edema. Possible ventilator associated pneumonia as well. Continue diuresis currently with scheduled Lasix. Monitor I&O, renal function. There is mild improvement this morning. Requiring 60% FiO2 at this time. Cannot exclude congestive heart failure. Will assess TTE. On review of systems when able to provide yesterday had no chest pain. Check troponin and EKG series. Continue Zosyn, vancomycin at this time. Sputum culture pending. MRSA PCR. Status: Acute (4) Alcohol withdrawal syndrome: Last drink 2 PM 10/02. [facility] protocol. Thiamine, folic acid. Should be getting over his withdrawal/delirium tremens. Suspect additional causes of acute encephalopathy as above. Continue to encourage cessation. Continue follow-up with [facility] [place] where he is also followed for depression, anxiety, PTSD. Has been on naltrexone 50 mg daily. Status: Acute Qualifiers: Complication of substance-induced condition: with delirium Qualified Code(s): F10.231 - Alcohol dependence with withdrawal delirium (5) GI bleeding: Blood count remained stable. Octreotide and Protonix drips turned off yesterday due to fluid overload, no GI bleeding. Switch to Protonix push twice daily. No further blood-tinged OG secretions noted. Started on trophic feeds 10/06. Continue to monitor. Empiric Zosyn. Follow-up with gastroenterology after discharge. In case of any worsening, or signs of varicose bleeding, call Dr. Moreno at [facility] who will accept him for transfer for further care there. Status: Acute (6) Thrombocytopenia: Stabilized. Platelets 55,000. Peripheral smear with mild increase in MCV. B12, folic acid not low. Macrocytosis possibly secondary to EtOH use. Suspected secondary to cirrhosis. Tick panel to exclude tickborne illness. Status: Acute (7) Delirium tremens: As above. Denied history of withdrawal seizure. Status: Acute (8) Cirrhosis: Minimal ascites on US. Reports history of ascites responsive to diuretics. Not requiring paracentesis in the past. Now with hepatic encephalopathy. Abdominal ultrasound for ascites screen. No abdominal discomfort, other symptoms to suggest SBP. INR 1.47. Nodular appearing liver on ultrasound back in June. Continue routine follow-up with PCP, as well as all recommended screenings. Status: Acute (9) Cholestasis: Bilirubin is better, alkaline phosphatase persists. These appear to be fluctuating, with bilirubin as high as 18.3 in September 2018? Possible hydrops of gallbladder noted on ultrasound in July 2019. CBD is normal, however, and per discussion with his director water and waste services, and does not seem that he is having acute cholecystitis/chondritis at this time. He did not have any pain on abdominal exam on admission. Suspected possible early alcoholic hepatitis responsible for abnormalities. Status: Acute (10) Transaminitis: 2-1 distribution AST and ALT elevation, 107, 62 respectively. So far without evidence of overt alcoholic hepatitis just yet, although is jaundiced, and in fact early alcoholic hepatitis is possible and per discussion with his director water and waste services in fact T bili elevation may be secondary to alcoholic hepatitis as CBD is normal. INR is 1.42. Maddry's discriminant function is borderline at 31.8, although at this time is not a candidate for steroid therapy due to GIB. Tick panel. Status: Acute Additional A&P Information Hypophosphatemia and hypokalemia: Replaced. Recheck. HTN: For now hold meds. Blood pressure is not elevated. Monitor. Attestations Medical Necessity Statement*: Continue admission for assessment management of multifactorial persistent encephalopathy, alcohol withdrawal, hepatic encephalopathy, assessment and empiric treatment for tickborne illness, acute respiratory failure with hypoxia, recent GI bleeding in the setting of liver cirrhosis, thrombocytopenia. Coding Level of Care Code Acute Documentation Lead for [facility] Fwd Diagnoses Acute encephalopathy G93.40 Tick bite of thigh S70.369A; W57.XXXA Acute respiratory failure with hypoxia J96.01 Alcohol withdrawal syndrome F10.231 Complication of substance-induced condition: with delirium GI bleeding K92.2 Thrombocytopenia D69.6 Delirium tremens F10.231 Cirrhosis K74.60 Cholestasis K83.1 Transaminitis R74.0
--- NOTE | 2019-10-08 09:26 | ECG_ITS ---
Measurements Intervals [place] Rate: 87 P: 5 ME: 164 QRS: 71 QRSD: 96 T: 41 QT: 397 QTc: 480 SINUS RHYTHM Compared to ECG 10/08/2019 09:30:47 No significant changes Electronically Signed On 10-09-2019 19:55:41 CDT by India Basurto M.D. [id number]
--- NOTE | 2019-10-08 09:26 | USCV_ITS ---
Donnie Ellsworth Age: 49 Gender: M : 1970 Exam Date: 10/08/2019 11:24 Ordering Phys: Jovi Vences MD Technologist: Hansa Santiago Exam Location: [facility] [place] Indication: Fluid overload vs CHF BP: 101 / 59 HR: 85 Rhythm: Sinus Technical Quality: Technically difficult study MEASUREMENTS (Male / Female) Normal Values 2D ECHO LV Chamber Size 4.4 cm RV Chamber Size 2.5 cm LVOT Diameter 2.0 cm LA Diameter 3.6 cm LA Width 3.9 cm LA Height 6.0 cm RA Width 3.1 cm RA Height 5.5 cm Aorta at Sinotubular Diameter 2.2 cm M-MODE Aortic Annulus Diameter 3.6 cm LA Ao Ratio MM 1.0 DOPPLER AV Peak Velocity 134.0 cm/s LVOT Peak Velocity 111.0 cm/s AV Area Cont Eq vti 2.7 cm squared AV Area Cont Eq pk 2.7 cm squared MV Area PHT 4.1 cm squared Mitral E to A Ratio 1.2 MV E' Velocity 11.0 cm/s Mitral E to MV E' Ratio 7.4 Mitral E to LV E' Lateral Ratio 7.2 Mitral E to LV E' Septal Ratio 7.7 TV Peak E Velocity 47.0 cm/s Right Atrial Pressure 1.0 mmHg PV Peak Velocity 80.0 cm/s RV Acceleration Time 0.1 s RV Ejection Time 0.2 s RV AcT/ET 0.4 FINDINGS Left Ventricle Possible normal LV size ejection fraction of around 55%. No definite wall motion abnormalities were noted. Segmental wall motion analysis difficult because of the poor ultrasonic window. Right Ventricle Normal right ventricular size and systolic function. Right Atrium Normal right atrial size. Left Atrium Possibly of normal size Mitral Valve No gross abnormalities noted Aortic Valve Thickened aortic valve. Tricuspid Valve No gross abnormalities noted Pulmonic Valve Pulmonic valve not well visualized. Pericardium No pericardial effusion. Aorta Normal aortic annulus size. CONCLUSIONS Possible normal LV size ejection fraction of around 55%. No definite wall motion abnormalities were noted. Segmental wall motion analys is difficult because of the poor ultrasonic window. Minimally thickened aortic valve. No significant stenotic or regurgitant lesions There is no significant pericardial effusion. There are no intracardiac masses. There are no prior echocardiogram studies to compare. Dr India Basurto MD FACC (Electronically Signed) Final Date: 08 Oct 2019 15:32 S
[2019-10-08] MEDS: doxycycline 100 mg Tablet OG-TUBE ×2 (09:35→17:35)
[2019-10-08 10:05] LABS: Troponin(5th) Baseline 8 ng/mL (0-15)
[2019-10-08 11:07] LABS: ABG PCO2 46.4 mmHg (35-45); ABG PH Result 7.39 (7.35-7.45); Arterial Blood Gas Hematocrit 37.2 % (42-52); Base Excess ABG 2.2 mmol/L (-2.0-2.0); Blood Gas Allen Test Pos; Blood Gas Sample Site Radial, left; Blood Gas Sample Type Arterial; Blood Gas Tidal Volume 0.55; Carboxyhemoglobin 0.6 %THgb (0.4-20.1); HCO3 ABG 27.8 mmol/L (22-26); HGB O2 Sat 91.2 % (95-100); Methemoglobin 0.9 % (0.4-1.5); Oxygen Device VENT; Oxygen Saturation ABG 92.6; PO2 ABG 63.4 mmHg (80.0-100.0); Potassium Level - ABG 3.3 mmol/L (3.5-5.0); Total Hemoglobin 12.2 g/dL (14-18)
--- NOTE | 2019-10-08 11:26 | ECG_ITS ---
Measurements Intervals [place] Rate: 84 P: 10 NH: 168 QRS: 77 QRSD: 99 T: 58 QT: 401 QTc: 475 SINUS RHYTHM Compared to ECG 10/08/2019 09:30:47 No significant changes Electronically Signed On 10-09-2019 20:12:06 CDT by India Basurto M.D. [id number]
[2019-10-08 12:07] LABS: Vancomycin Trough 22.5 ug/mL (10-15)
[2019-10-08 12:14] LABS: Troponin 5 2HR 6.36 ng/mL (0-15)
[2019-10-08 12:46] LABS: Troponin 5 2HR Delta -1.64 ABS# (0-10)
--- NOTE | 2019-10-08 15:26 | ECG_ITS ---
Measurements Intervals [place] Rate: 80 P: 1 UT: 172 QRS: 74 QRSD: 96 T: 53 QT: 411 QTc: 476 SINUS RHYTHM WARNING: DATA QUALITY MAY AFFECT INTERPRETATION Compared to ECG 07/10/2019 09:26:28 Atrial abnormality no longer present ST (T wave) deviation no longer present Electronically Signed On 10-08-2019 11:40:36 CDT by India Basurto M.D. [id number]
--- NOTE | 2019-10-08 15:38 | XRR_ITS ---
PROCEDURE INFORMATION: Exam: XR Abdomen, 2 Views Exam date and time: 10/08/2019 11:29 PM Age: 49 years old Clinical indication: Constipation; Additional info: No bm x 4 days TECHNIQUE: Imaging protocol: XR of the abdomen. Views: 2 Views. COMPARISON: US abdomen limited [id number] 10/05/2019 11:35 AM FINDINGS: Tubes, catheters and devices: There is an ET tube with tip just below the clavicular heads but above the brian and an orogastric tube with tip off the film. Lungs: Nonspecific bibasilar consolidation left greater than right is present, consistent with atelectasis, edema, or pneumonia. Pleural space: There are small pleural effusions. No pneumothorax. Gastrointestinal tract: The loops of colon are moderately distended with air but there is no dilatation of the loops of small bowel. No bowel obstruction. No calculi in the projection of the kidneys. There are phleboliths in the pelvis. Intraperitoneal space: Normal. No free air. Bones/joints: Unremarkable for age. Soft tissues: There is mild vascular congestion with cephalization of flow, interstitial edema and ground-glass opacities compatible with CHF. XR/XR acute abdomen series [id number] IMPRESSION: 1. There is an ET tube with tip just below the clavicular heads but above the brian and an orogastric tube with tip off the film. 2. Nonspecific bibasilar consolidation left greater than right is present, consistent with atelectasis, edema, or pneumonia. 3. There is mild vascular congestion with cephalization of flow, interstitial edema and ground-glass opacities compatible with CHF. 4. Nonspecific bowel gas pattern.
[2019-10-08 15:44] LABS: Troponin 5 6HR 7.02 ng/mL (0-15)
[2019-10-08 15:59] LABS: Troponin 5 6HR Delta -0.98 ng/L (0-12)
[2019-10-08 18:13] LABS: Glucose Point of Care 103 mg/dL (70-110)
[2019-10-08] MEDS: mirtazapine 30 mg Tablet 15 MG PO (20:56)
[2019-10-08] MEDS: propofol 1,000 MG/100 ML INJ 16.5 MG IV (22:25)
[2019-10-09] VITALS (32 sets, daily range): BP systolic 106–129; BP diastolic 59–76; PULSE 81–96; RESP 12–25; TEMP 37.3–37.9; O2SAT 92–99
[2019-10-09] MEDS: lactulose oral liq 20 gm/30 mL UDC 200 GM PR (00:25)
[2019-10-09] MEDS: piperacillin-tazobactam 3.375 GM in sodium chloride 0.9% (plus) 50 ML IV ×3 (02:00→18:21)
[2019-10-09] MEDS: ipratropium-albuterol 3 mL Neb INHALATION ×5 (03:29→20:27)
[2019-10-09] MEDS: propofol 1,000 MG/100 ML INJ 16.5 MG IV ×5 (03:50→23:16)
[2019-10-09 04:50] LABS: Basophils # 0.1 10^3/uL (0.0-0.1); Basophils % 0.9 %; Eosinophils # 0.2 10^3/uL (0.0-0.8); Eosinophils % 2.3 %; Hematocrit 39.3 % (42.0-52.0); Hemoglobin 12.2 g/dL (11.7-16.6); Lymphocytes # 0.5 10^3/uL (0.8-4.8); Lymphocytes % 7.7 %; Mean Corpuscular Hemoglobin 30.2 pg (28.0-34.0); Mean Corpuscular Volume 97.3 fL (80-94); Mean Platelet Volume 10.4 fL (7.4-10.4); Monocytes # 0.9 10^3/uL (0.2-0.9); Neutrophils # 5.3 10^3/uL (1.8-7.7); Neutrophils % 75.2 %; Nucleated Red Blood Cells % 0 %; Platelet Count 56 10^3/cmm (130-400); Red Blood Count 4.04 10^6/uL (4.1-5.3); Red Cell Distribution Width 16.7 % (12.1-15.1)
[2019-10-09 05:01] LABS: ABG PCO2 46.1 mmHg (35-45); ABG PH Result 7.39 (7.35-7.45); Base Excess ABG 1.9 mmol/L (-2.0-2.0); Blood Gas Allen Test Pos; Blood Gas Sample Site Radial, left; Blood Gas Sample Type Arterial; Blood Gas Tidal Volume 0.55; HCO3 ABG 27.6 mmol/L (22-26); Oxygen Device VENT; PO2 ABG 72.6 mmHg (80.0-100.0)
[2019-10-09 05:04] LABS: Ammonia 92 umol/L (16-60)
[2019-10-09 05:06] LABS: Phosphorus 2.4 mg/dL (2.5-4.5)
[2019-10-09 05:07] LABS: Alanine Aminotransferase 37 U/L (0-41); Alkaline Phosphatase 205 IU/L (40-130); Anion Gap 12.5 (5-19); Aspartate Amino Transferase 70 U/L (0-40); Blood Urea Nitrogen 8 mg/dL (6-20); Calcium 8.2 mg/dL (8.5-10.5); Carbon Dioxide 27 mmol/L (22-29); Chloride 108 mmol/L (98-107); Globulin 3.3 g/dL (1.3-4.6); Glomerular Filtration Rate 101.9 mL/min (90-130); Glucose 122 mg/dL (65-115); Osmolality Calculated 295 mOsm/kg (285-295); Potassium 3.5 mmol/L (3.5-5.1); Sodium 144 mmol/L (136-145); Total Bilirubin 4.2 mg/dL (0.15-1.2); Total Protein 6.3 g/dL (6.6-8.7)
[2019-10-09 05:16] LABS: Glucose Point of Care 101 mg/dL (70-110)
[2019-10-09 05:20] LABS: Magnesium 1.7 mg/dL (1.7-2.3)
[2019-10-09 06:16] LABS: Glucose Point of Care 94 mg/dL (70-110)
[2019-10-09] MEDS: pantoprazole 40 mg SDV IVP ×2 (06:19→18:21)
[2019-10-09] MEDS: thiamine 100 mg Tablet PO (08:58)
[2019-10-09] MEDS: FUROsemide 10 mg/mL SDV 10mL 60 MG IVP ×2 (08:58→20:22)
[2019-10-09] MEDS: multivitamin therapeutic Tablet 1 TAB PO (08:58)
[2019-10-09] MEDS: doxycycline 100 mg Tablet OG-TUBE ×2 (08:59→18:21)
[2019-10-09] MEDS: folic acid 1 mg Tablet PO (08:59)
--- NOTE | 2019-10-09 11:04 | P.PN_ITS ---
Subjective Subjective: Interval history: Comfortable although under sedation. Yesterday was restless. Will see if can reassess again today. Vitals/I&O/Wt Last Vital Signs Temp 100.1 F H 10/09/19 10:00 Pulse 83 10/09/19 11:02 Resp 14 10/09/19 11:02 BP 126/74 10/09/19 10:00 Pulse Ox 98 10/09/19 11:02 10/08/19 10/09/19 10/09/19 22:59 06:59 14:59 Intake Total 200 / 914.251 5191.375 / 1759.160 64.075 / 64.075 Output Total 715 / 1270 1300 / 2570 80 / 80 Balance -515 / -750.215 -60.625 / -810.840 -15.925 / -15.925 Weight last 48 hrs Weight 116.828 kg Weight 121.245 kg Physical Exam Const: GENERAL APPEARANCE: disheveled NUTRITIONAL APPEARANCE: obese OTHER: Intubated, sedated, no seizure-like activity. Has been confused. Neck/C-Spine: COMMON NORMALS: no JVD Resp: COMMON NORMALS: normal respiratory effort and clear to auscultation bilaterally AUSCULTATION: clear to auscultation bilaterally and rales (Faint/minimal crackle in right lower lobe at the base if any.) Cardio: COMMON NORMALS: no JVD, regular rhythm, S1 normal heart sound, S2 normal heart sound and no murmurs RATE: tachycardic RHYTHM: regular rhythm HEART SOUNDS: S1 normal and S2 normal GI: COMMON NORMALS: normal to inspection, nondistended, normoactive bowel sounds, soft to palpation and non-tender PALPATION: Yes soft Extremity: COMMON NORMALS: no joint enlargement GENERAL: Yes edema (i mproved to 2+) Neuro: COMMON NORMALS: moves all extremities MOTOR EXAM: tremor resting tremor COORDINATION: Romberg test abnormal Skin: COMMON NORMALS: no rashes or lesions noted GENERAL SKIN EXAM: no rashes or lesions noted Urinary Catheter Management^: Toussaint Latex: Cath Placed During This Visit: yes Reason for Continuing Indwelling Catheter: Accurate Measurement of Urinary Output in Critically Ill Patients Urinary Catheter Date of Insertion: 10/05/19 Urinary Catheter Time of Insertion: 05:30 Data : 10/09/19 04:40 10/09/19 04:40 Micro: Microbiology 10/07/19 21:25 MRSA Culture - Final Nose 10/08/19 00:22 Gram Stain - Final Sputum - Endotracheal Tube Aspirate A&P Assessment and plan (1) Acute encephalopathy: So far had been restless on weaning sedation. Appears to be multifactorial, secondary to hepatic encephalopathy, with elevated ammonia of 92. Yesterday there was concern of possible GI obstruction given he has not had any bowel movement. X-ray does not show obstructed bowel. Request to intensify lactulose. Encephalopathy secondary to also pneumonia, and is also investigated for possible tickborne illness after tick was found on him in ICU. Empirically on doxycycline. His severe alcohol withdrawal should be resolving. Persistent hypoxia with fluid overload, possible pneumonia. Continue diuresis. Lasix dose increased. Continue antibiotics for suspected ventilator associated pneumonia. Discussed with his . Status: Acute (2) Tick bite of thigh: Tick noted on left inner thigh, pulled off in ICU. No EM noted. However, with ongoing encephalopathy, transaminitis, thrombocytopenia, will empirically give doxycycline, as tickborne illness at this time is a possibility. Requested tick panel. Peripheral smear was not remarkable. Status: Acute (3) Acute respiratory failure with hypoxia: Fluid overload, with pulmonary congestion, and does have peripheral edema. Increase Lasix dose to 60 mg. Possible ventilator associated pneumonia as well. Continue antibiotics. Continue diuresis currently with scheduled Lasix. Monitor I&O, renal function. There is mild improvement this morning. Requiring 50% FiO2 at this time. Cannot exclude congestive heart failure. Will assess TTE. On review of systems when able to provide yesterday had no chest pain. Troponin EKG series unremarkable. Status: Acute (4) Alcohol withdrawal syndrome: Last drink 2 PM 10/02. [facility] protocol. Thiamine, folic acid. Should be getting over his withdrawal/delirium tremens. Suspect additional causes of acute encephalopathy as above. Continue to encourage cessation. Continue follow-up with [facility] where he is also followed for depression, anxiety, PTSD. Has been on naltrexone 50 mg daily. Status: Acute Qualifiers: Complication of substance-induced condition: with delirium Qualified Code(s): F10.231 - Alcohol dependence with withdrawal delirium (5) GI bleeding: Blood count remained stable. Octreotide and Protonix drips turned off yesterday due to fluid overload, no GI bleeding. Switch to Protonix push twice daily. No further blood-tinged OG secretions noted. Started on trophic feeds 10/06. Continue to monitor. Empiric Zosyn. Follow-up with gastroenterology after discharge. In case of any worsening, or signs of varicose bleeding, call Dr. Moreno at [facility] who will accept him for transfer for further care there. Status: Acute (6) Thrombocytopenia: Stabilized. Platelets ~55,000. Peripheral smear with mild increase in MCV. B12, folic acid not low. Macrocytosis possibly secondary to EtOH use. Suspected secondary to cirrhosis. Tick panel to exclude tickborne illness. Status: Acute (7) Delirium tremens: As above. Denied history of withdrawal seizure. Status: Acute (8) Cirrhosis: Minimal ascites on US. Reports history of ascites responsive to diuretics. Not requiring paracentesis in the past. Now with hepatic encephalopathy. Abdominal ultrasound for ascites screen. No abdominal discomfort, other symptoms to suggest SBP. INR 1.47. Nodular appearing liver on ultrasound back in June. Continue routine follow-up with PCP, as well as all recommended screenings. Per discussion with his he had previously been speaking with his sales activity manager with regards to referral for transplantation, although with stipulation that he would need to abstain from alcohol. Status: Acute (9) Cholestasis: Bilirubin is better, alkaline phosphatase persists. These appear to be fluctuating, with bilirubin as high as 18.3 in September 2018? Possible hydrops of gallbladder noted on ultrasound in July 2019. CBD is normal, however, and per discussion with his sales activity manager, and does not seem that he is having acute cholecystitis/chondritis at this time. He did not have any pain on abdominal exam on admission. Suspected possible early alcoholic hepatitis responsible for abnormalities. Status: Acute (10) Transaminitis: 2-1 distribution AST and ALT elevation, 107, 62 respectively. So far wit hout evidence of overt alcoholic hepatitis just yet, although is jaundiced, and in fact early alcoholic hepatitis is possible and per discussion with his sales activity manager in fact T bili elevation may be secondary to alcoholic hepatitis as CBD is normal. INR is 1.42. Maddry's discriminant function is borderline at 31.8, although at this time is not a candidate for steroid therapy due to GIB. Tick panel. Status: Acute Additional A&P Information Hypophosphatemia and hypokalemia: Replaced. Recheck. HTN: For now hold meds. Blood pressure is not elevated. Monitor. Attestations Medical Necessity Statement*: Continue admission for assessment management of acute encephalopathy, acute respiratory failure, in the setting of liver cirrhosis, with thrombocytopenia, recent GI bleeding, severe alcohol withdrawal on presentation. Critical Care Time: In addition to noncritical issues 17 minutes critical care time spent on assessment and management of respiratory failure, ventilatory support, fluid overload, possible CHF, pneumonia, as well as multifactorial encephalopathy in the setting of liver cirrhosis, recent GI bleed, possible tickborne illness. Coding Level of Care Code Acute Detacher for [facility] Diagnoses Acute encephalopathy G93.40 Tick bite of thigh S70.369A; W57.XXXA Acute respiratory failure with hypoxia J96.01 Alcohol withdrawal syndrome F10.231 Complication of substance-induced condition: with delirium GI bleeding K92.2 Thrombocytopenia D69.6 Delirium tremens F10.231 Cirrhosis K74.60 Cholestasis K83.1 Transaminitis R74.0
[2019-10-09 11:45] LABS: Glucose Point of Care 113 mg/dL (70-110)
[2019-10-09 12:16] LABS: Triglycerides 182 mg/dL (0-150)
[2019-10-09] MEDS: bisacodyl 10 mg Supp PR (12:34)
[2019-10-09] MEDS: lactulose oral liq 20 gm/30 mL UDC OG-TUBE ×6 (12:34→20:22)
[2019-10-09] MEDS: LORazepam 2 mg/mL INJ 1 mL IM (17:13)
[2019-10-09] MEDS: mirtazapine 30 mg Tablet 15 MG PO (20:22)
[2019-10-09] MEDS: magnesium sulfate premix 2 GM/50 ML PIGGYBACK IV (22:16)
[2019-10-10] VITALS (41 sets, daily range): BP systolic 100–129; BP diastolic 56–77; PULSE 65–92; RESP 14–17; TEMP 36.9–37.7; O2SAT 87–97
[2019-10-10] MEDS: ipratropium-albuterol 3 mL Neb INHALATION ×7 (00:02→23:01)
[2019-10-10 00:36] LABS: Glucose Point of Care 159 mg/dL (70-110)
[2019-10-10] MEDS: piperacillin-tazobactam 3.375 GM in sodium chloride 0.9% (plus) 50 ML IV ×3 (02:44→18:12)
[2019-10-10 04:30] LABS: Basophils # 0.1 10^3/uL (0.0-0.1); Basophils % 0.8 %; Eosinophils # 0.2 10^3/uL (0.0-0.8); Eosinophils % 2.4 %; Hematocrit 39.8 % (42.0-52.0); Hemoglobin 12.4 g/dL (11.7-16.6); Lymphocytes # 0.8 10^3/uL (0.8-4.8); Lymphocytes % 9.1 %; Mean Corpuscular HGB Conc 31.2 g/dL (30.0-36.0); Mean Corpuscular Hemoglobin 30.2 pg (28.0-34.0); Mean Corpuscular Volume 96.8 fL (80-94); Mean Platelet Volume 9.9 fL (7.4-10.4); Monocytes # 1.6 10^3/uL (0.2-0.9); Monocytes % 19.6 %; Neutrophils # 5.6 10^3/uL (1.8-7.7); Neutrophils % 67.1 %; Nucleated Red Blood Cells % 0 %; Platelet Count 66 10^3/cmm (130-400); Red Blood Count 4.11 10^6/uL (4.1-5.3); Red Cell Distribution Width 16.9 % (12.1-15.1); White Blood Count 8.3 10^3/uL (4.0-10.0)
[2019-10-10 04:36] LABS: ABG PCO2 53.2 mmHg (35-45); ABG PH Result 7.38 (7.35-7.45); Arterial Blood Gas Hematocrit 40.4 % (42-52); Base Excess ABG 5.2 mmol/L (-2.0-2.0); Blood Gas Allen Test Pos; Blood Gas Sample Site Radial, left; Blood Gas Sample Type Arterial; Blood Gas Tidal Volume 0.55; HCO3 ABG 31.6 mmol/L (22-26); Oxygen Device VENT; PO2 ABG 71.9 mmHg (80.0-100.0)
[2019-10-10 04:36] LABS: Ammonia 103 umol/L (16-60)
[2019-10-10 04:39] LABS: Alanine Aminotransferase 34 U/L (0-41); Albumin Level 3.4 g/dL (3.5-5.2); Alkaline Phosphatase 205 IU/L (40-130); Aspartate Amino Transferase 59 U/L (0-40); Blood Urea Nitrogen 9 mg/dL (6-20); Calcium 8.7 mg/dL (8.5-10.5); Carbon Dioxide 28 mmol/L (22-29); Chloride 107 mmol/L (98-107); Globulin 3.2 g/dL (1.3-4.6); Glomerular Filtration Rate 70.6 mL/min (90-130); Glucose 152 mg/dL (65-115); Osmolality Calculated 301 mOsm/kg (285-295); Sodium 146 mmol/L (136-145); Total Bilirubin 4.2 mg/dL (0.15-1.2); Total Protein 6.6 g/dL (6.6-8.7)
[2019-10-10 04:40] LABS: Triglycerides 193 mg/dL (0-150)
[2019-10-10] MEDS: propofol 1,000 MG/100 ML INJ 16.5 MG IV ×2 (05:00→11:01)
[2019-10-10] MEDS: lactulose oral liq 20 gm/30 mL UDC OG-TUBE ×4 (05:14→20:49)
[2019-10-10] MEDS: potassium chloride oral liq 20 mEq/15 mL UDC 40 MEQ PO (05:14)
[2019-10-10] MEDS: pantoprazole 40 mg SDV IVP ×2 (05:14→18:12)
--- NOTE | 2019-10-10 06:00 | XR_ITS ---
WS: [id number] PORTABLE CHEST HISTORY: Hypoxia COMPARISON: 10/08/2019 Endotracheal tube in good position. Nasogastric tube extends below the GE junction and is not include d on this radiograph. Mild but improving pulmonary edema. Less haziness and congestion. Small layering pleural effusions wi th subsegmental atelectasis at the LEFT lung base. No pneumothorax. Cardiac size: Mildly enlarged cardiac silhouette. Mediastinum/Aorta: Mild atherosclerosis aorta. No osseous abnormality seen. XR/XR chest 1V portable [id number] IMPRESSION: 1. Endotracheal nasogastric tubes remain in good position. 2. Mild improvement in pulmonary edema. 3. Small bilateral pleural effusions.
[2019-10-10] MEDS: FUROsemide 10 mg/mL SDV 10mL 60 MG IVP (08:47)
[2019-10-10] MEDS: multivitamin therapeutic Tablet 1 TAB PO (08:48)
[2019-10-10] MEDS: thiamine 100 mg Tablet PO (08:48)
[2019-10-10] MEDS: doxycycline 100 mg Tablet OG-TUBE ×2 (08:48→18:12)
[2019-10-10] MEDS: folic acid 1 mg Tablet PO (08:48)
--- NOTE | 2019-10-10 09:18 | PM.PN ---
Subjective Subjective: Interval history: Donnie is sedated on the ventilator. No events last night according to nursing. Medications: Reviewed: Yes Vitals/I&O/Wt Last Vital Signs Temp 98.5 F 10/10/19 08:00 Pulse 75 10/10/19 07:45 Resp 14 10/10/19 07:58 BP 107/68 10/10/19 06:00 Pulse Ox 97 10/10/19 07:45 10/09/19 10/10/19 10/10/19 22:59 06:59 14:59 Intake Total 478 / 680.900 361.975 / 1042.875 Output Total 135 / 540 800 / 1340 Balance 343 / 140.900 -438.025 / -297.125 Weight last 48 hrs Weight 116.828 kg Physical Exam Narrative: EXAM NARRATIVE: General exam is a white male, sedated HEENT: Some seborrhea noted Cardiovascular regular rate and rhythm without murmur Lungs diminished breath sounds bilaterally Abdomen is soft with positive bowel sounds Extremities no cyanosis clubbing. 2+ edema noted. Neurologic: Sedated on ventilator Urinary Catheter Management^: Toussaint Latex: Cath Placed During This Visit: yes Reason for Continuing Indwelling Catheter: Accurate Measurement of Urinary Output in Critically Ill Patients Urinary Catheter Date of Insertion: 10/05/19 Urinary Catheter Time of Insertion: 05:30 Data : 10/10/19 04:05 10/10/19 04:05 Micro: Microbiology 10/08/19 00:22 Gram Stain - Final Sputum - Endotracheal Tube Aspirate Sputum Culture - Preliminary Staphylococcus aureus A&P Assessment and plan (1) Acute encephalopathy: Multifactorial. Certainly had withdrawal. Concern of hepatic encephalopathy as well. Reinitiate Precedex Wean off propofol, fentanyl as tolerated Continue lactulose but changed to 3 times daily. He has been having quite a few bowel movements So far had been restless on weaning sedation. Appears to be multifactorial, secondary to hepatic encephalopathy, with elevated ammonia of 92. Yesterday there was concern of possible GI obstruction given he has not had any bowel movement. X-ray does not show obstructed bowel. Request to intensify lactulose. Encephalopathy secondary to also pneumonia, and is also investigated for possible tickborne illness after tick was found on him in ICU. Empirically on doxycycline. His severe alcohol withdrawal should be resolving. Persistent hypoxia with fluid overload, possible pneumonia. Continue diuresis. Lasix dose increased. Continue antibiotics for suspected ventilator associated pneumonia. Discussed with his . Status: Acute (2) Tick bite of thigh: Tick removed in ICU off left inner thigh. Doxycycline initiated. Tick panel pending. Status: Acute (3) Acute respiratory failure with hypoxia: Secondary to withdrawal, fluid overload. Ventilator associated pneumonia may also play a role. Diuresis so far has been lackluster the last 24 hours. Increase Lasix to 80 mg every 12 hours Continue vancomycin, Zosyn. Note his MRSA screen is positive and staph aureus is growing from sputum Wean FiO2 as tolerated Weaning trials from ventilator if as sedation is lessened he can cooperate Echocardiogram was performed, demonstrating normal EF, poor ultrasonic window Status: Acute (4) Alcohol withdrawal syndrome: Last drink 2 PM 10/02. [facility] protocol. Thiamine, folic acid. This should be resolving Encourage cessation, follow-up with [facility] Status: Acute Qualifiers: Complication of substance-induced condition: with delirium Qualified Code(s): F10.231 - Alcohol dependence with withdrawal delirium (5) GI bleeding: Hemoglobin stable Continue Protonix Doubt variceal bleeding May follow-up with GI after hospitalization Status: Acute (6) Thrombocytopenia: Stable currently. Secondary to liver disease. Status: Acute (7) Delirium tremens: Status: Acute (8) Cirrhosis: No significant ascites on ultrasound Lactulose started for elevated ammonia level and possible hepatic encephalopathy Will follow-up with gastroenterology Status: Acute (9) Cholestasis: Stable Status: Acute (10) Transaminitis: Stable. Likely secondary to alcoholism. Ultrasound did not delineate any obstructive cause of jaundice Status: Acute Additional A&P Information Hypokalemia, replacing Hypertension, stable Attestations Medical Necessity Statement*: Needs continued hospitalization secondary to respiratory failure requiring mechanical ventilation Critical Care Time: 45 minutes spent in ICU care reviewing record, interviewing the patient, discussing care with the nurse, review of sedation, plans for extubation, ventilator settings, etc. Coding Level of Care Code Acute Sub Plant Manager for [facility] Diagnoses Acute encephalopathy G93.40 Tick bite of thigh S70.369A; W57.XXXA Acute respiratory failure with hypoxia J96.01 Alcohol withdrawal syndrome F10.231 Complication of substance-induced condition: with delirium GI bleeding K92.2 Thrombocytopenia D69.6 Delirium tremens F10.231 Cirrhosis K74.60 Cholestasis K83.1 Transaminitis R74.0
[2019-10-10] MEDS: dexmedetomidine 400 MCG in sodium chloride 0.9% (100 ml) 100 ML 9.1 MCG IV (11:01)
--- NOTE | 2019-10-10 12:03 | XR_ITS ---
WS: [id number] PORTABLE CHEST HISTORY: Post PICC placement COMPARISON: 10/10/2019 and 10/08/2019. Left-sided PICC line is been placed with tip in the mid SVC. Atelectasis at the LEFT lung base. No pneumothorax. No pleural effusion or pneumothorax. Cardiac size: Mildly enlarged cardiac silhouette. Mediastinum/Aorta: Normal mediastinum. No osseous abnormality seen. Patient is intubated with the satisfactory nasogastric tube placement. XR/XR chest 1V portable [id number] IMPRESSION: Uncomplicated placement of a left-sided PICC line with tip in the mid SVC.
[2019-10-10 14:04] LABS: Glucose Point of Care 112 mg/dL (70-110)
[2019-10-10] MEDS: propofol 1,000 MG/100 ML INJ 11.9 MG IV (17:10)
[2019-10-10] MEDS: mirtazapine 30 mg Tablet 15 MG PO (20:49)
[2019-10-10] MEDS: FUROsemide 10 mg/mL SDV 10mL 80 MG IVP (20:50)
[2019-10-11] VITALS (37 sets, daily range): BP systolic 82–151; BP diastolic 53–97; PULSE 66–96; RESP 14–21; O2SAT 91–100
[2019-10-11] MEDS: propofol 1,000 MG/100 ML INJ 13.2 MG IV ×2 (00:51→14:38)
[2019-10-11] MEDS: piperacillin-tazobactam 3.375 GM in sodium chloride 0.9% (plus) 50 ML IV ×3 (00:52→18:55)
[2019-10-11] MEDS: ipratropium-albuterol 3 mL Neb INHALATION ×6 (03:48→23:41)
[2019-10-11 04:55] LABS: ABG PCO2 47.1 mmHg (35-45); Arterial Blood Gas Hematocrit 36.3 % (42-52); Base Excess ABG 3.5 mmol/L (-2.0-2.0); Blood Gas Allen Test Pos; Blood Gas Sample Site Radial, right; Blood Gas Sample Type Arterial; Blood Gas Tidal Volume 0.55; HCO3 ABG 29.1 mmol/L (22-26); Oxygen Device VENT; PO2 ABG 62.6 mmHg (80.0-100.0)
[2019-10-11 05:45] LABS: Basophils # 0.1 10^3/uL (0.0-0.1); Basophils % 1.1 %; Eosinophils # 0.2 10^3/uL (0.0-0.8); Hematocrit 37.2 % (42.0-52.0); Hemoglobin 11.4 g/dL (11.7-16.6); Lymphocytes # 0.8 10^3/uL (0.8-4.8); Lymphocytes % 14.4 %; Mean Corpuscular HGB Conc 30.6 g/dL (30.0-36.0); Mean Corpuscular Hemoglobin 30.3 pg (28.0-34.0); Mean Corpuscular Volume 98.9 fL (80-94); Mean Platelet Volume 11.2 fL (7.4-10.4); Monocytes # 1.1 10^3/uL (0.2-0.9); Monocytes % 20.2 %; Neutrophils # 3.3 10^3/uL (1.8-7.7); Neutrophils % 60.6 %; Nucleated Red Blood Cells % 0 %; Platelet Count 61 10^3/cmm (130-400); Red Blood Count 3.76 10^6/uL (4.1-5.3); Red Cell Distribution Width 17.2 % (12.1-15.1); White Blood Count 5.4 10^3/uL (4.0-10.0)
[2019-10-11] MEDS: pantoprazole 40 mg SDV IVP ×2 (05:54→18:52)
[2019-10-11 05:56] LABS: Ammonia 61 umol/L (16-60)
[2019-10-11 06:25] LABS: Alanine Aminotransferase 28 U/L (0-41); Albumin Level 3.1 g/dL (3.5-5.2); Alkaline Phosphatase 173 IU/L (40-130); Anion Gap 15.2 (5-19); Aspartate Amino Transferase 51 U/L (0-40); Blood Urea Nitrogen 20 mg/dL (6-20); Calcium 7.7 mg/dL (8.5-10.5); Carbon Dioxide 28 mmol/L (22-29); Chloride 107 mmol/L (98-107); Globulin 2.2 g/dL (1.3-4.6); Glomerular Filtration Rate 31.7 mL/min (90-130); Glucose 120 mg/dL (65-115); Osmolality Calculated 302 mOsm/kg (285-295); Potassium 3.2 mmol/L (3.5-5.1); Sodium 147 mmol/L (136-145); Total Bilirubin 3.3 mg/dL (0.15-1.2); Total Protein 5.3 g/dL (6.6-8.7)
[2019-10-11 06:31] LABS: Vancomycin Trough 33.1 ug/mL (10-15)
--- NOTE | 2019-10-11 07:12 | XR_ITS ---
WS: [id number] PORTABLE CHEST HISTORY: Follow-up pneumonia COMPARISON: 10/10/2019 Nasogastric and endotracheal tubes and LEFT PICC line are in good position. Lung volumes are markedly decreased. Areas of atelectasis and haziness over both lungs. In part the l mario alberto abnormalities are related to body habitus and supine positioning with dependent changes. The hazi ness over the RIGHT lung has progressed. No pleural effusion or pneumothorax. Cardiac size: Mildly enlarged cardiac silhouette. Mediastinum/Aorta: Mild atherosclerosis aorta. No osseous abnormality seen. XR/XR chest 1V portable [id number] IMPRESSION: 1. Nasogastric and endotracheal tubes are in good position. 2. Continued dependent changes at the lung bases. 3. New haziness over the RIGHT lung may be due to developing pneumonia, edema or pneumonitis.
[2019-10-11] MEDS: dexmedetomidine 400 MCG in sodium chloride 0.9% (100 ml) 100 ML 9.1 MCG IV (07:58)
--- NOTE | 2019-10-11 08:07 | CT_ITS ---
WS: [id number] CT ABDOMEN AND PELVIS NONCONTRAST HISTORY: distention TECHNIQUE: Imaging performed through the abdomen and pelvis. Coronal and sagittal reformats are submi tted. All CT scans at [facility] use at least one of these dose optimization techniques: automated exposure control; mA and/or kV adjustment per patient size (includes targeted exams where d ose is matched to clinical indication); or iterative reconstruction. DLP: 2485.93 mGy.cm COMPARISON: 10/21/2018 Lower thorax: Small bilateral pleural effusions with dense consolidation at the lung bases. Majority of the consolidations are atelectasis. Patient is at risk for developing pneumonia. Heart chambers ar e slightly enlarged. Nasogastric tube in the distal esophagus extends into the stomach. Liver: Variable density throughout the liver. This was also seen on the prior study and related to he patic steatosis with areas of sparing. Hepatic congestion may also be present. No bile duct dilatatio n. Gallbladder: Mildly distended gallbladder. No stones. No wall thickening appreciated. Pancreas: Normal. Spleen: Spleen is enlarged. Spleen measures at least 18 cm in length. Anterior posterior measurement of 20.1 cm. Splenic varices also noted. Adrenal glands: Normal. Right kidney: Normal size with no stones, masses or atrophy. Left kidney: Normal size with no stones, mass or atrophy. Mild atherosclerosis aorta. No aneurysm. Diffuse anasarca in the soft tissues. Small amount of free fluid in the RIGHT lower quadrant. No reynaldo e air is appreciated. There is a small amount of air near the IVC but I believe this is within the lisa ng and not the abdomen. GI tract: There is diffuse air and fluid distention of the colon with the loops measuring up to 7 cm. No perforation. No ischemia identified. Small bowel loops are not significantly distended. Abdominal wall: Fat-containing umbilical hernia. Pelvis: Toussaint catheter in a nondistended bladder. Small amount of air in the bladder is probably from the Toussaint catheter placement. RIGHT inguinal canal is patent and contains a small amount of fluid. Osseous structures: No bone destruction. CT/CT abdomen pelvis wo con [id number] IMPRESSION: 1. Marked fluid and air distention of the colon. Toxic megacolon should be con sidered as a possible etiology. No ischemia or perforation. 2. Small bilateral pleural effusions with dense atelectasis at the lung bases. 3. Nasogastric tube in good position. 4. Severe hepatic steatosis. 5. Marked splenomegaly. 6. Small amount of ascites RIGHT lower quadrant.
--- NOTE | 2019-10-11 08:12 | CT_ITS ---
WS: [id number] CT HEAD NONCONTRAST HISTORY: confusion TECHNIQUE: Contiguous axial imaging performed through the brain in 2.5 mm imaging. Bone and soft tiss ue windows. Sagittal and coronal reformats reviewed. All CT scans at [facility] use at le ast one of these dose optimization techniques: automated exposure control; mA and/or kV adjustment pe r patient size (includes targeted exams where dose is matched to clinical indication); or iterative r econstruction. DLP: 1048.93 mGy.cm COMPARISON: None available. No acute intracranial hemorrhage, midline shift or mass effect. Mild atrophy and mild chronic microvascular ischemic disease. No prior infarcts. Ventricles: Normal size with no hydrocephalus. Patient is intubated. Paranasal sinuses: As visualized are clear. Mastoid air cells: Small amount of fluid in the mastoid air cells. Calvarium and scalp: Skull is intact with no soft tissue edema or swelling. CT/CT head wo con* [id number] IMPRESSION: 1. No acute intracranial hemorrhage or edema. 2. Mild atrophy and mild chronic microvascular ischemic disease.
--- NOTE | 2019-10-11 08:15 | PM.PN ---
Subjective Subjective: Interval history: Donnie is sedated on the ventilator. With stimulation he arouses slightly. Medications: Reviewed: Yes Vitals/I&O/Wt Last Vital Signs Temp 99.5 F 10/10/19 20:00 Pulse 68 10/11/19 07:27 Resp 14 10/11/19 07:28 BP 89/57 10/11/19 06:00 Pulse Ox 94 10/11/19 07:25 10/10/19 10/11/19 10/11/19 22:59 06:59 14:59 Intake Total 604 / 753.275 451.432 / 1204.707 Output Total 500 / 750 Balance 604 / 503.275 -48.568 / 454.707 Weight last 48 hrs Weight 123.377 kg Physical Exam Narrative: EXAM NARRATIVE: No apparent distress Cardiovascular regular in rhythm without murmur Lungs clear Abdomen is distended slightly. Positive bowel sounds. Toussaint is noted and urine appears dark. Extremities no cyanosis clubbing. 1+ edema to 2+ edema is noted. Urinary Catheter Management^: Toussaint Latex: Cath Placed During This Visit: yes Reason for Continuing Indwelling Catheter: Accurate Measurement of Urinary Output in Critically Ill Patients Urinary Catheter Date of Insertion: 10/05/19 Urinary Catheter Time of Insertion: 05:30 Data : 10/11/19 05:17 10/11/19 05:17 Micro: Microbiology 10/08/19 00:22 Gram Stain - Final Sputum - Endotracheal Tube Aspirate Sputum Culture - Final Methicillin Resis Staph Aureus A&P Assessment and plan (1) Acute encephalopathy: Multifactorial. Certainly had withdrawal. Concern of hepatic encephalopathy as well. Secondary to lower blood pressures Precedex will be discontinued, continue propofol and fentanyl. Monitor blood pressure closely Continue lactulose currently. Ammonia level has decreased. CT head secondary to persistent confusion, noncontrast His severe alcohol withdrawal should be resolving/resolved. Status: Acute (2) Tick bite of thigh: Tick removed in ICU off left inner thigh. Doxycycline initiated. Tick panel pending. Status: Acute (3) Acute respiratory failure with hypoxia: Secondary to withdrawal, fluid overload. Ventilator associated pneumonia may also play a role. MRSA has grown from sputum. Diuresis so far has been lackluster and renal function worsened in the last 24 hours and urine output decreased despite increase in Lasix. Lasix will be held Currently on vancomycin and Zosyn. At this point will discontinue vancomycin secondary to renal failure, change to linezolid. Discontinue Lasix currently, secondary to his hypotension and follow closely. Precedex will be discontinued as well secondary to hypotension. Continue fentanyl, propofol as needed but allow blood pressure to drift up Echocardiogram was performed, demonstrating normal EF, poor ultrasonic window Pulmonary critical care consultation today. Status: Acute (4) Alcohol withdrawal syndrome: Last drink 2 PM 10/02. [facility] protocol. Thiamine, folic acid. This should be resolving/resolved. Encourage cessation, follow-up with [facility] Status: Acute Qualifiers: Complication of substance-induced condition: with delirium Qualified Code(s): F10.231 - Alcohol dependence with withdrawal delirium (5) GI bleeding: Hemoglobin stable Continue Protonix Doubt variceal bleeding May follow-up with GI after hospitalization Status: Acute (6) Thrombocytopenia: Stable currently. Secondary to liver disease. Status: Acute (7) Delirium tremens: Status: Acute (8) Cirrhosis: No significant ascites on ultrasound Lactulose started for elevated ammonia level and possible hepatic encephalopathy Ammonia level is improving Will follow-up with gastroenterology Status: Acute (9) Cholestasis: Stable Status: Acute (10) Transaminitis: Stable. Likely secondary to alcoholism. Ultrasound did not delineate any obstructive cause of jaundice Status: Acute Additional A&P Information Abdominal distention. Check noncontrast CT abdomen pelvis hypokalemia, replacing cautiously IV secondary to renal failure. Repeat BMP at 1300 Hypertension, now slightly hypotensive. Discontinue Precedex. Hold Lasix. If worsens consider norepinephrine Attestations Medical Necessity Statement*: Needs continued hospital stay for respiratory failure requiring mechanical ventilation Critical Care Time: 35 minutes spent in critical care evaluating the patient, reviewing ventilator settings, discussing care with lean process deployment consultant, etc. Coding Level of Care Code Acute Community Service Organization Director for [facility] Fwd Diagnoses Acute encephalopathy G93.40 Tick bite of thigh S70.369A; W57.XXXA Acute respiratory failure with hypoxia J96.01 Alcohol withdrawal syndrome F10.231 Complication of substance-induced condition: with delirium GI bleeding K92.2 Thrombocytopenia D69.6 Delirium tremens F10.231 Cirrhosis K74.60 Cholestasis K83.1 Transaminitis R74.0
[2019-10-11] MEDS: linezolid premix 600 MG/300 ML PREMIX 300 MG IV ×2 (08:24→20:41)
[2019-10-11 08:33] LABS: Magnesium 2.4 mg/dL (1.7-2.3)
[2019-10-11] MEDS: multivitamin therapeutic Tablet 1 TAB PO (09:38)
[2019-10-11] MEDS: doxycycline 100 mg Tablet OG-TUBE (09:38)
[2019-10-11] MEDS: lactulose oral liq 20 gm/30 mL UDC OG-TUBE ×2 (09:38→14:38)
[2019-10-11] MEDS: folic acid 1 mg Tablet PO (09:38)
[2019-10-11] MEDS: thiamine 100 mg Tablet PO (09:38)
[2019-10-11 13:08] LABS: Glucose Point of Care 88 mg/dL (70-110)
[2019-10-11 14:35] LABS: Anion Gap 16.4 (5-19); Blood Urea Nitrogen 22 mg/dL (6-20); Calcium 7.8 mg/dL (8.5-10.5); Carbon Dioxide 26 mmol/L (22-29); Chloride 106 mmol/L (98-107); Glucose 99 mg/dL (65-115); Osmolality Calculated 297 mOsm/kg (285-295); Potassium 3.4 mmol/L (3.5-5.1); Sodium 145 mmol/L (136-145)
[2019-10-11] MEDS: potassium chloride oral liq 20 mEq/15 mL UDC OG-TUBE (16:54)
[2019-10-11] MEDS: sodium chloride 0.9% 1,000 ML 10 ML IV (17:29)
--- NOTE | 2019-10-11 17:39 | P.CONIM_ITS ---
Providers/Reason For Consult Consulting Physican/Specialty*: Pulmonary and critical care medicine Reason for Consult*: Multiorgan failure in the setting of alcohol withdrawal Attending Physician: Mack Rose MD Primary Care Provider: RUSS Kevin History of Present Illness History of Present Illness Donnie Ellsworth is a 49 year old male who presented to the hospital on October 03 with active alcohol withdrawal. The patient was suffering from agitation, hallucination and hyperadrenergic. The patient subsequently was intubated for respiratory failure. Since then, unfortunately the patient has not made significant recovery. The patient has significant history of alcohol abuse. He has PTSD, major depression. Based on the radiologic data, the patient has nodular liver, splenomegaly, ascites all of these are suggestive of liver cirrhosis. There are multiple problems with the patient. When his sedation was reduced, the patient had significant agitation and he was not following commands. Currently the patient is on propofol and fentanyl. Prior to that he was also on Precedex. Currently the patient is sedated. The patient has acute hypoxic respiratory failure. His endotracheal aspirate culture is growing MRSA. The CT scan of the abdomen and pelvis included the lower part of the chest which showed bilateral dense consolidation. Currently the patient is on volume control ventilation. He is getting tidal volume of 550, PEEP of 12, FiO2 of 55% and respiratory rate of 14. He also has bilateral small pleural effusion. The patient has developed oliguric renal failure. His urine output is currently minimal and over the past 48 hours his creatinine has doubled. The patient does not have any significant elevation of his WBC count. On the CT scan of the abdomen there is also colonic dilation of 7 cm raising the concern for increased intra-abdominal pressure. The patient has elevated liver enzymes including AST, alkaline phosphatase and bilirubin likely secondary to alcohol abuse. The patient has dilated gallbladder without any evidence of pericholecystic fluid. His maddery discriminatory factor was 31 and he had not received any steroid therapy. The patient also has elevated ammonia level. He was receiving lactulose prior to the development of acute kidney injury. Review of Systems Narrative: Unable to obtain Meds/Allergies Home Medications and Allergies Home Medications Medication Instructions Recorded Confirmed Last Taken Type albuterol sulfate 90 mcg/actuation 2 puff INHALATION QID 06/10/19 10/04/19 Unknown History aerosol inhaler zonisamide 25 mg capsule 25 mg PO BID 06/10/19 10/04/19 Unknown History furosemide 40 mg PO DAILY #7 tab 07/10/19 10/04/19 Unknown Rx hydrocodone-acetaminophen 1 tab PO Q8H PRN #14 tab 07/10/19 10/04/19 Unknown Rx promethazine 12.5 mg PO QID PRN #20 tab 07/10/19 10/04/19 Unknown Rx spironolactone 25 mg PO DAILY #7 tab 07/10/19 10/04/19 Unknown Rx cyclobenzaprine 10 mg tablet 10 mg PO .at bedtime #30 tab 07/13/19 10/04/19 Unknown Rx bupropion HCl 150 mg 24 hr tablet, 150 mg PO QAM #30 tab 08/11/19 10/04/19 Unknown Rx extended release hydroxyzine HCl 25 mg tablet 25 mg PO TID PRN #90 tab 08/11/19 10/04/19 Unknown Rx mirtazapine 30 mg tablet 30 mg PO .at bed #30 tab 08/11/19 10/04/19 Unknown Rx naltrexone 50 mg tablet 50 mg PO DAILY #30 tab 08/11/19 10/04/19 Unknown Rx paroxetine HCl 40 mg tablet 40 mg PO DAILY #30 tab 08/11/19 10/04/19 Unknown Rx prazosin 5 mg capsule 5 mg PO .at bed cap 08/11/19 10/04/19 Unknown History lisinopril 10 mg tablet 10 mg PO DAILY #30 tab 09/12/19 10/04/19 Unknown Rx pantoprazole 40 mg tablet,delayed 40 mg PO QAM #30 tab 09/12/19 10/04/19 Unknown Rx release Allergies Allergy/AdvReac Type Severity Reaction Status Date / Time No Known Allergies Allergy Verified 10/05/19 10:58 Current Medications Current Medications Generic Name Dose Route Start Last Admin Trade Name Freq PRN Reason Stop Dose Admin Albuterol/Ipratropium 3 ml 10/07/19 04:00 10/11/19 16:31 Duoneb INHALATION 3 ml Q4H.RESPIRATORY CANDACE Administration Folic Acid 1 mg 10/05/19 09:00 10/11/19 09:38 Folic Acid PO 1 mg DAILY CANDACE Administration Propofol 1,000 mg in 100 mls @ 0 mls/hr 10/05/19 05:15 10/11/19 14:38 Diprivan IV 20 mcg/kg/min .Q0M CANDACE 13.2 mls/hr Administration Protocol Per Protocol Fentanyl 1,000 mcg/ Sodium 100 mls @ 0 mls/hr 10/05/19 05:15 10/10/19 21:50 Chloride IV 50 mcg/hr .Q0M CANDACE 5 mls/hr Administration Protocol Per Protocol Piperacillin Sod/Tazobactam 50 mls @ 12.5 mls/hr 10/05/19 10:00 10/11/19 14:37 Sod 3.375 gm/ Sodium Chloride IV 12.5 mls/hr Q8H CANDACE Administration Protocol Linezolid 600 mg in 300 mls @ 300 mls/hr 10/11/19 08:30 10/11/19 08:24 Zyvox Premix IV 300 mls/hr Q12H CANDACE Administration Protocol Multivitamins Therapeutic 1 tab 10/05/19 09:00 10/11/19 09:38 Multivitamin Tab PO 1 tab DAILY CANDACE Administration Pantoprazole Sodium 40 mg 10/07/19 18:00 10/11/19 05:54 Protonix IVP 40 mg Q12H CANDACE Administration Promethazine HCl 12.5 mg 10/04/19 20:24 10/05/19 14:30 Phenergan PO 12.5 mg QID PRN Administration nausea and vomiting Thiamine Mononitrate 100 mg 10/05/19 09:00 10/11/19 09:38 Vitamin B-1 PO 100 mg DAILY CANDACE Administration PFSH Acute PFSH: Medical History Alcohol dependence, in remission Cirrhosis Controlled diabetes mellitus, without long-term current use of insulin Depression Gastro-esophageal reflux disease with esophagitis Generalized anxiety disorder Hypertension Major depressive disorder, recurrent, moderate Post-traumatic stress disorder, chronic Surgical History Cataract H/O esophagogastroduodenoscopy History of colonoscopy S/P tendon repair Family History Other Arthritis CAD (coronary artery disease) Diabetes Denies family history of Anesthesia complication Bleeding disorder Social History Smoking and tobacco status: former smoker Second hand smoke exposure: No Smoking risk assessment/counseling performed?: Yes Alcohol intake: current Desire information about alcohol rehabilitation?: No Counseling given: Yes Desire information about substance/drug rehabilitation?: No Counseling given: No Caregiver/support person: No Lives independently: Yes Household members: spouse Housing: House Marital status: Current occupational status: disabled History of recent travel: No Current gender identity: Male Vitals/I&O/Wt Last Vital Signs Temp 99.5 F 10/10/19 20:00 Pulse 70 10/11/19 16:34 Resp 14 10/11/19 16:34 BP 93/56 10/11/19 14:00 Pulse Ox 96 10/11/19 16:32 10/11/19 10/11/19 10/11/19 06:59 14:59 22:59 Intake Total 501.432 / 1254.707 100 / 100 Output Total 500 / 750 Balance 1.432 / 504.707 100 / 100 Weight last 48 hrs Weight 272 lb Physical Exam Narrative: EXAM NARRATIVE: General: The patient is intubated and sedated Neck: Unable to assess JVD because of body habitus Respiratory: Auscultation: Crackles at the lung bases posteriorly bilaterally, no wheezing or rhonchi Cardiovascular: Regular rate and rhythm, S1-S2 present, no murmur, no right ventricular heave, bilateral pitting peripheral edema Abdomen: Soft, unable to assess if it is tender because of the mental status, distended but not rigid, very sluggish bowel sound Skin: Bilateral pulmonary erythema Neuro: Sedated Urinary Catheter Management^: Toussaint Latex: Cath Placed During This Visit: yes Reason for Continuing Indwelling Catheter: Accurate Measurement of Urinary Output in Critically Ill Patients Urinary Catheter Date of Insertion: 10/05/19 Urinary Catheter Time of Insertion: 05:30 Data Micro: Micro: Microbiology 10/08/19 00:22 Gram Stain - Final Sputum - Endotrac heal Tube Aspirate Sputum Culture - F inal Methicillin Res is Staph Aureus Other Data: Other data: I have reviewed the patient's laboratory, microbiologic and radiologic data. He does not have any leukocytosis. The thrombocytopenia is gradually improving. The patient has significant elevation of creatinine up to 2.7. His baseline creatinine was 0.6. The endotracheal aspirate culture is positive for MRSA. I do not see any blood culture orders. The CT scan of the head did not reveal any stroke or hemorrhage. There are changes associated with chronic microvascular disease. Bilateral lower lobe consolidation with pleural effusions, mild ascites, nodular liver and marked enlargement of the spleen. A&P Assessment and plan (1) Acute respiratory failure with hypoxia: The patient has ventilator dependent acute hypoxic respiratory failure. This is likely secondary to bilateral lower lobe pneumonia. The patient most likely had an episode of aspiration in the setting of alcohol withdrawal and delirium tremens. The most likely explanation of MRSA in the endotracheal tube aspirate would be previous colonization of the nasopharynx with MRSA. Currently the patient is on volume control mechanical ventilation. His mental status is prohibitive of spontaneous breathing trial at this time. I am going to start the patient on Precedex and cut down the requirement for fentanyl and propofol. The Precedex will also ensure the treatment for alcohol withdrawal. I am hoping to put the patient on PSV as soon as possible. Status: Acute (2) Alcohol withdrawal syndrome: Going to start the patient on Precedex. If this is not enough the patient will benefit from Librium. Status: Acute Qualifiers: Complication of substance-induced condition: with delirium Qualified Code(s): F10.231 - Alcohol dependence with withdrawal delirium (3) Hepatorenal syndrome: The patient has oliguric acute kidney injury. He is not overtly septic. The bedside ultrasound revealed good cardiac function. The IVC could not be evaluated properly because of significant colonic dilation. When addressed through the transhepatic route there was no significant IVC dilation. Given the patient's history of cirrhosis and rapidly developing kidney injury I will treat him for hepatorenal syndrome. I will start the patient on Levophed to target a map of 80 mmHg. His bladder pressure is 16 this will give me an abdominal perfusion pressure of 65 mmHg or so. The patient will receive albumin 25 g every 6 hours. We would have a better idea regarding his kidney function in the next 48 to 72 hours. Currently the patient does not have any refractory hyperkalemia or acidosis and does not require emergent dialysis. Status: Acute (4) MRSA pneumonia: Patient is broadly covered with Zyvox and Zosyn. Status: Acute (5) Alcoholic cirrhosis of liver: The patient has hepatic nodularity and evidence of portal hypertension in the form of splenomegaly and thrombocytopenia. We will continue with supportive therapy. The patient was on spironolactone and Lasix before presenting to the hospital however the diuretic regimen was largely unsuccessful at this time. The patient has multiple organ dysfunction in the form of encephalopathy, acute hypoxic respiratory failure, elevated liver enzymes, bowel pseudoobstruction, acute kidney injury and has a significantly high risk of mortality during this hospital admission. Thank you for the consultation! I will continue to follow the patient. Status: Acute Coding Level of Care Code Acute Dental Laboratory Manager for [facility] Fwd Diagnoses Acute respiratory failure with hypoxia J96.01 Alcohol withdrawal syndrome F10.231 Complication of substance-induced condition: with delirium Hepatorenal syndrome K76.7 MRSA pneumonia J15.212 Alcoholic cirrhosis of liver K70.30 Time Spent (min) 77
--- NOTE | 2019-10-11 18:22 | P.CONIM_ITS ---
Providers/Reason For Consult Consulting Physican/Specialty*: Mack Rose MD Reason for Consult*: Toxic megacolon Attending Physician: Mack Rose MD Primary Care Provider: RUSS Kevin History of Present Illness History of Present Illness Donnie Ellsworth is a 49 year old male who was admitted to the hospital on October 03 with agitation and hallucinations secondary to alcohol withdrawal. Patient subsequently intubated for respiratory failure and has been on sedation since then. I was consulted since he was noted to have some abdominal distention, urine output has decreased and a CT abdomen pelvis had shown toxic megacolon with transverse colon measuring 7 cm. The patient also had elevated liver enzymes. Review of Systems General: Reports: ROS unobtainable due to endotracheal tube Meds/Allergies Home Medications and Allergies Home Medications Medication Instructions Recorded Confirmed Last Taken Type albuterol sulfate 90 mcg/actuation 2 puff INHALATION QID 06/10/19 10/04/19 Unknown History aerosol inhaler zonisamide 25 mg capsule 25 mg PO BID 06/10/19 10/04/19 Unknown History furosemide 40 mg PO DAILY #7 tab 07/10/19 10/04/19 Unknown Rx hydrocodone-acetaminophen 1 tab PO Q8H PRN #14 tab 07/10/19 10/04/19 Unknown Rx promethazine 12.5 mg PO QID PRN #20 tab 07/10/19 10/04/19 Unknown Rx spironolactone 25 mg PO DAILY #7 tab 07/10/19 10/04/19 Unknown Rx cyclobenzaprine 10 mg tablet 10 mg PO .at bedtime #30 tab 07/13/19 10/04/19 Unknown Rx bupropion HCl 150 mg 24 hr tablet, 150 mg PO QAM #30 tab 08/11/19 10/04/19 Unknown Rx extended release hydroxyzine HCl 25 mg tablet 25 mg PO TID PRN #90 tab 08/11/19 10/04/19 Unknown Rx mirtazapine 30 mg tablet 30 mg PO .at bed #30 tab 08/11/19 10/04/19 Unknown Rx naltrexone 50 mg tablet 50 mg PO DAILY #30 tab 08/11/19 10/04/19 Unknown Rx paroxetine HCl 40 mg tablet 40 mg PO DAILY #30 tab 03/12/20 05/05/20 Unknown Rx prazosin 5 mg capsule 5 mg PO .at bed cap 08/11/19 10/04/19 Unknown History lisinopril 10 mg tablet 10 mg PO DAILY #30 tab 09/12/19 10/04/19 Unknown Rx pantoprazole 40 mg tablet,delayed 40 mg PO QAM #30 tab 09/12/19 10/04/19 Unknown Rx release Allergies Allergy/AdvReac Type Severity Reaction Status Date / Time No Known Allergies Allergy Verified 10/05/19 10:58 Current Medications Current Medications Generic Name Dose Route Start Last Admin Trade Name Freq PRN Reason Stop Dose Admin Albuterol/Ipratropium 3 ml 10/07/19 04:00 10/11/19 16:31 Duoneb INHALATION 3 ml Q4H.RESPIRATORY CANDACE Administration Folic Acid 1 mg 10/05/19 09:00 10/11/19 09:38 Folic Acid PO 1 mg DAILY CANDACE Administration Propofol 1,000 mg in 100 mls @ 0 mls/hr 10/05/19 05:15 10/11/19 14:38 Diprivan IV 20 mcg/kg/min .Q0M CANDACE 13.2 mls/hr Administration Protocol Per Protocol Fentanyl 1,000 mcg/ Sodium 100 mls @ 0 mls/hr 10/05/19 05:15 10/10/19 21:50 Chloride IV 50 mcg/hr .Q0M CANDACE 5 mls/hr Administration Protocol Per Protocol Piperacillin Sod/Tazobactam 50 mls @ 12.5 mls/hr 10/05/19 10:00 10/11/19 14:37 Sod 3.375 gm/ Sodium Chloride IV 12.5 mls/hr Q8H CANDACE Administration Protocol Linezolid 600 mg in 300 mls @ 300 mls/hr 10/11/19 08:30 10/11/19 08:24 Zyvox Premix IV 300 mls/hr Q12H CANDACE Administration Protocol Multivitamins Therapeutic 1 tab 10/05/19 09:00 10/11/19 09:38 Multivitamin Tab PO 1 tab DAILY CANDACE Administration Pantoprazole Sodium 40 mg 10/07/19 18:00 10/11/19 05:54 Protonix IVP 40 mg Q12H CANDACE Administration Promethazine HCl 12.5 mg 10/04/19 20:24 10/05/19 14:30 Phenergan PO 12.5 mg QID PRN Administration nausea and vomiting Thiamine Mononitrate 100 mg 10/05/19 09:00 10/11/19 09:38 Vitamin B-1 PO 100 mg DAILY CANDACE Administration PFSH Acute PFSH: Medical History Alcohol dependence, in remission Cirrhosis Controlled diabetes mellitus, without long-term current use of insulin Depression Gastro-esophageal reflux disease with esophagitis Generalized anxiety disorder Hypertension Major depressive disorder, recurrent, moderate Post-traumatic stress disorder, chronic Surgical History Cataract H/O esophagogastroduodenoscopy History of colonoscopy S/P tendon repair Family History Other Arthritis CAD (coronary artery disease) Diabetes Denies family history of Anesthesia complication Bleeding disorder Social History Smoking and tobacco status: former smoker Second hand smoke exposure: No Smoking risk assessment/counseling performed?: Yes Alcohol intake: current Desire information about alcohol rehabilitation?: No Counseling given: Yes Desire information about substance/drug rehabilitation?: No Counseling given: No Caregiver/support person: No Lives independently: Yes Household members: spouse Housing: House Marital status: Current occupational status: disabled History of recent travel: No Current gender identity: Male Vitals/I&O/Wt Last Vital Signs Temp 99.5 F 10/10/19 20:00 Pulse 70 10/11/19 16:34 Resp 14 10/11/19 18:02 BP 93/56 10/11/19 14:00 Pulse Ox 96 10/11/19 16:32 10/11/19 10/11/19 10/11/19 06:59 14:59 22:59 Intake Total 501.432 / 1254.707 100 / 100 Output Total 500 / 750 Balance 1.432 / 504.707 100 / 100 Weight last 48 hrs Weight 272 lb Physical Exam Narrative: EXAM NARRATIVE: HEENT: Normocephalic Eye: Sclera /conjunctiva normal Respiratory and chest: Coarse bilateral breath sounds Cardiovascular: Normal S1 and S2 heart sounds Abdomen: Soft to palpation, distended, abdominal wall edema Neurological: Oriented to place person and time Skin: Intact, no lesions appreciated on gross exam Urinary Catheter Management^: Toussaint Latex: Cath Placed During This Visit: yes Reason for Continuing Indwelling Catheter: Accurate Measurement of Urinary Output in Critically Ill Patients Urinary Catheter Date of Insertion: 10/05/19 Urinary Catheter Time of Insertion: 05:30 Data Micro: Micro: Microbiology 10/08/19 00:22 Gram Stain - Final Sputum - Endotrac heal Tube Aspirate Sputum Culture - F inal Methicillin Res is Staph Aureus A&P Assessment and plan (1) Colonic pseudoobstruction: This is a 49-year-old male with multiple comorbidities and respiratory failure on ventilator with the colon measuring 7 cm. His abdominal pressures were 18. CT scan findings suggestive more of colonic pseudoobstruction rather than distal obstruction. Minimize opioids. Correct electrolytes. Repeat abdominal series in the morning. At this point patient can be monitored and does not need any surgical intervention. Status: Acute Coding Level of Care Code Acute Mini Lab Operator for [facility] Diagnoses Colonic pseudoobstruction K59.8
--- NOTE | 2019-10-11 18:46 | PM.ACPR ---
Procedure/Consent Time out: Time Out Performed: Yes Consent: Consent for Procedure: Consent obtained from other (indicate) () Procedure Narrative: Name of the procedure: Left radial ultrasound-guided arterial catheter placement. Medications: Fentanyl and propofol drip. Description of the procedure: Consent was obtained after explaining the procedure from his . The site was prepared using sterile technique. The left radial artery was identified under ultrasound guidance from pulsatility. Under ultrasound guidance the introducer needle was advanced till flash back was noted. Using Seldinger technique the left radial arterial line was inserted. The catheter was secured with 2-0 silk suture and Tegaderm. Complications: None. Acute Procedures Epistaxis Control: Time out performed: Yes
[2019-10-11 19:35] LABS: Lactate (Lactic Acid level) 1.1 mmol/L (0.5-2.2)
--- NOTE | 2019-10-11 20:06 | PC.NURSE ---
INTRA-ABDOMINAL PRESSURE OBTAINED MAP 16MMHG CALLED TO DR OROZCO HE WANTS ARTERIAL MAP MAINTAINED AT 80MMHG.
[2019-10-11] MEDS: propofol 1,000 MG/100 ML INJ 33.1 MG IV (22:10)
[2019-10-11] MEDS: doxycycline 100 MG in sodium chloride 0.9% (plus) 100 ML IV (22:12)
[2019-10-11] MEDS: dexmedetomidine 400 MCG in sodium chloride 0.9% (100 ml) 100 ML 6.4 MCG IV (23:00)
[2019-10-12] VITALS (27 sets, daily range): BP systolic 110–158; BP diastolic 64–87; PULSE 72–94; RESP 14–35; TEMP 36.8–37.3; O2SAT 78–100
[2019-10-12] MEDS: piperacillin-tazobactam 3.375 GM in sodium chloride 0.9% (plus) 50 ML IV ×2 (01:40→10:50)
[2019-10-12] MEDS: propofol 1,000 MG/100 ML INJ 26.5 MG IV (01:40)
[2019-10-12] MEDS: ipratropium-albuterol 3 mL Neb INHALATION ×5 (04:00→19:43)
[2019-10-12 05:34] LABS: Basophils # 0.1 10^3/uL (0.0-0.1); Basophils % 1.3 %; Eosinophils # 0.3 10^3/uL (0.0-0.8); Eosinophils % 3.3 %; Hematocrit 36.2 % (42.0-52.0); Hemoglobin 11.6 g/dL (11.7-16.6); Lymphocytes # 0.9 10^3/uL (0.8-4.8); Lymphocytes % 9.9 %; Mean Corpuscular Hemoglobin 31.1 pg (28.0-34.0); Mean Corpuscular Volume 97.1 fL (80-94); Mean Platelet Volume 11.4 fL (7.4-10.4); Monocytes # 1.6 10^3/uL (0.2-0.9); Monocytes % 17.7 %; Neutrophils % 66.6 %; Nucleated Red Blood Cells % 0 %; Platelet Count 76 10^3/cmm (130-400); Red Blood Count 3.73 10^6/uL (4.1-5.3); Red Cell Distribution Width 17.2 % (12.1-15.1); White Blood Count 9.1 10^3/uL (4.0-10.0)
[2019-10-12 05:37] LABS: Ammonia 56 umol/L (16-60)
[2019-10-12] MEDS: propofol 1,000 MG/100 ML INJ 13.2 MG IV (05:43)
[2019-10-12] MEDS: pantoprazole 40 mg SDV IVP ×2 (05:45→17:00)
[2019-10-12 06:05] LABS: Albumin Level 3.2 g/dL (3.5-5.2); Alkaline Phosphatase 155 IU/L (40-130); Anion Gap 22.3 (5-19); Blood Urea Nitrogen 27 mg/dL (6-20); Calcium 8.3 mg/dL (8.5-10.5); Carbon Dioxide 22 mmol/L (22-29); Chloride 103 mmol/L (98-107); Globulin 2.9 g/dL (1.3-4.6); Glomerular Filtration Rate 18.6 mL/min (90-130); Glucose 97 mg/dL (65-115); Osmolality Calculated 295 mOsm/kg (285-295); Potassium 3.3 mmol/L (3.5-5.1); Sodium 144 mmol/L (136-145); Total Bilirubin 3.7 mg/dL (0.15-1.2); Total Protein 6.1 g/dL (6.6-8.7)
[2019-10-12 06:19] LABS: Alanine Aminotransferase < 5 U/L (0-41); Aspartate Amino Transferase 80 U/L (0-40)
[2019-10-12 06:34] LABS: ABG PCO2 38.1 mmHg (35-45); ABG PH Result 7.42 (7.35-7.45); Arterial Blood Gas Hematocrit 43.8 % (42-52); Base Excess ABG 0.2 mmol/L (-2.0-2.0); Blood Gas Allen Test Pos; Blood Gas Sample Site Radial, right; Blood Gas Sample Type Arterial; HCO3 ABG 24.5 mmol/L (22-26); PO2 ABG 84.9 mmHg (80.0-100.0)
--- NOTE | 2019-10-12 06:52 | XR_ITS ---
WS: [id number] ABDOMEN 2 VIEW(S) HISTORY: dilated colon COMPARISON: 10/08/2019 Nasogastric tube remains in good position. No free air is appreciated on the upright projection but n o air-fluid levels are noted in the GI tract therefore this is probably not a true upright image. Marked dilatation of the transverse colon measuring up to 8.4 cm in diameter. Little gas is noted in the distal colon. No bone abnormality. XR/XR abdomen min 2V [id number] IMPRESSION: 1. Continued dilatation of the colon suspicious for toxic megacolon. 2. Nasogastric tube in good position. 3. No free air identified but this is not a true upright projection.
--- NOTE | 2019-10-12 06:57 | PC.NURSE ---
FENTANYL WASTED 70MG. OFF AT 0130 VERIFIED WITH ERIC SAEZ RN.
--- NOTE | 2019-10-12 07:00 | XR_ITS ---
WS: [id number] PORTABLE CHEST HISTORY: pneumonia COMPARISON: 10/11/2019 Nasogastric and endotracheal tubes remain in good position. Left-sided PICC line also remains in good position. Lung findings are markedly decreased. Linear areas of atelectasis in the lower lung patel with mild interstitial edema. Similar pattern as the prior study. Slight blunting of the RIGHT costophrenic ang le. No pneumothorax. Cardiac size: Mildly enlarged cardiac silhouette. Mediastinum/Aorta: Mild atherosclerosis aorta. No osseous abnormality seen. XR/XR chest 1V portable [id number] IMPRESSION: 1. Nasogastric and endotracheal tubes remain in good position. 2. Continued mild interstitial edema and small RIGHT pleural effusion. No inte rval change.
[2019-10-12] MEDS: dexmedetomidine 400 MCG in sodium chloride 0.9% (100 ml) 100 ML 22.5 MCG IV (07:40)
[2019-10-12 08:56] LABS: Glucose Point of Care 113 mg/dL (70-110)
[2019-10-12 08:56] LABS: Glucose Point of Care 108 mg/dL (70-110)
[2019-10-12] MEDS: doxycycline 100 MG in sodium chloride 0.9% (plus) 100 ML IV ×2 (10:49→21:23)
[2019-10-12] MEDS: linezolid premix 600 MG/300 ML PREMIX 300 MG IV ×2 (10:49→21:24)
[2019-10-12 11:36] LABS: Glucose Point of Care 141 mg/dL (70-110)
[2019-10-12] MEDS: artificial tears Op Soln 15 mL Btl 1 DROP EYE-BOTH (12:38)
[2019-10-12] MEDS: dexmedetomidine 400 MCG in sodium chloride 0.9% (100 ml) 100 ML 19.2 MCG IV (12:51)
--- NOTE | 2019-10-12 13:12 | PM.PN ---
Subjective Subjective: Interval history: Sedated on the ventilator. Much appreciate Dr. Mojica's evaluation. Medications: Reviewed: Yes Vitals/I&O/Wt Last Vital Signs Temp 98.2 F 10/12/19 10:00 Pulse 73 10/12/19 11:10 Resp 15 10/12/19 11:10 BP 133/81 10/12/19 10:00 Pulse Ox 96 10/12/19 11:10 10/11/19 10/12/19 10/12/19 22:59 06:59 14:59 Intake Total 299.44 / 699.44 780 / 1479.44 964.792 / 964.792 Output Total 725 / 725 Balance 299.44 / 699.44 55 / 754.44 964.792 / 964.792 Weight last 48 hrs Weight 121.619 kg Physical Exam Narrative: EXAM NARRATIVE: No apparent distress Cardiovascular regular in rhythm without murmur Lungs clear Abdomen is distended a few bowel sounds. Toussaint is noted and urine appears dark. Small amount since this morning. Extremities no cyanosis clubbing. 2+ edema Urinary Catheter Management^: Toussaint Latex: Cath Placed During This Visit: yes Reason for Continuing Indwelling Catheter: Accurate Measurement of Urinary Output in Critically Ill Patients Urinary Catheter Date of Insertion: 10/05/19 Urinary Catheter Time of Insertion: 05:30 Data : 10/12/19 04:30 10/12/19 04:30 Micro: Microbiology 10/11/19 19:12 Blood Culture - Preliminary Blood SPECIMEN COLLECTED 10/11/19 19:15 Blood Culture - Preliminary Blood SPECIMEN COLLECTED A&P Assessment and plan (1) Acute encephalopathy: Multifactorial. Certainly had withdrawal. Concern of hepatic encephalopathy as well. Transition back to Precedex which she is tolerating nicely. Fentanyl has been discontinued. Ammonia level improved CT head was performed and demonstrated nothing acute His severe alcohol withdrawal should be resolving/resolved. Status: Acute (2) Tick bite of thigh: Tick removed in ICU off left inner thigh. Continue doxycycline. Tick panel pending. Status: Acute (3) Acute respiratory failure with hypoxia: Secondary to withdrawal, fluid overload. Ventilator associated pneumonia may also play a role. MRSA has grown from sputum. Antibiotic for this has changed to linezolid, and Zosyn has been continued Lasix held secondary to development of renal failure. Echocardiogram was performed, demonstrating normal EF, poor ultrasonic window Pulmonary critical care consultation appreciated Status: Acute (4) Alcohol withdrawal syndrome: Last drink 2 PM 10/02. [facility] protocol. Thiamine, folic acid. Alcohol withdrawal is likely resolved Encourage cessation, follow-up with [facility] Status: Acute Qualifiers: Complication of substance-induced condition: with delirium Qualified Code(s): F10.231 - Alcohol dependence with withdrawal delirium (5) GI bleeding: Hemoglobin stable Continue Protonix Doubt variceal bleeding May follow-up with GI after hospitalization Status: Acute (6) Thrombocytopenia: Stable currently. Secondary to liver disease. Status: Acute (7) Delirium tremens: Status: Acute (8) Cirrhosis: Ammonia level improved Will follow-up with gastroenterology Status: Acute (9) Cholestasis: Stable Status: Acute (10) Transaminitis: Stable. Likely secondary to alcoholism. Ultrasound did not delineate any obstructive cause of jaundice Status: Acute Additional A&P Information Abdominal distention. CT demonstrated dilated colon. Surgery following. Suspect ileus Acute renal failure, likely hepatorenal syndrome. Pressors added for hypotension overnight. Albumin was added. He is improving and pressors are weaning. Hopefully renal function will improve as well Hypokalemia, replace cautiously Nutrition: N.p.o. status currently. If this will be prolonged consider TPN. If ileus improving consider initiation of trophic feeds History of hypertension Attestations Medical Necessity Statement*: Needs continued hospitalization for hepatorenal syndrome, requiring pressors, ventilator associated pneumonia with MRSA requiring IV antibiotics Critical Care Time: 31 minutes spent in critical care time reviewing ventilator settings, current medicines, visiting with family members regarding case as well as specialists. Review of norepinephrine dosing. 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
[2019-10-12] MEDS: LORazepam 2 mg/mL INJ 1 mL 1 MG IVP (13:49)
--- NOTE | 2019-10-12 13:50 | PC.NURSE ---
PROPOFOL OFF. AWAKE, WILD THRASHING AROUND IN BED. ON CPAP TACHYPNEIC 30-40 BPM, ATIVAN 1MG IVP GIVEN. J CONTINUE TO THRASH AROUND WITH BUE RESTRAINED PULLING AT LEFT RADIAL LINE, SITE REINFORCED. DR OROZCO AT BEDSIDE, NEW ORDERS RECEIVED & GIVEN . HAD SMALL LIQUID RESULTS FROM [facility].
[2019-10-12] MEDS: fentaNYL 50 mcg/mL INJ 2mL IVP ×2 (14:23→14:26)
[2019-10-12] MEDS: haloperidol inj 5 mg/mL INJ 1 mL IM ×2 (14:25→14:31)
--- NOTE | 2019-10-12 14:45 | ECG_ITS ---
Measurements Intervals [place] Rate: 85 P: 55 MS: 165 QRS: 84 QRSD: 101 T: 50 QT: 394 QTc: 469 SINUS RHYTHM Compared to ECG 10/08/2019 15:15:01 No significant changes Electronically Signed On 10-12-2019 20:35:53 CDT by India Basurto M.D. [id number]
--- NOTE | 2019-10-12 15:15 | PM.PN ---
Subjective Subjective: Interval history: The patient was seen and examined multiple times during the day today. Overnight his sedation was reduced significantly. This morning the patient was only on dexmedetomidine however in the afternoon the patient was agitated. He was not following any commands. Interestingly, during this episode the patient was on pressure support ventilation. He continues to have large tidal volumes with a minute ventilation between 25 to 35 L without any evidence reduction in tidal volume. The patient had an increase in his creatinine today which is not unexpected as he is having ATN. He continues to be borderline oliguric. Medications: Reviewed: Yes Vitals/I&O/Wt Last Vital Signs Temp 98.2 F 10/12/19 10:00 Pulse 73 10/12/19 12:00 Resp 17 10/12/19 13:14 BP 129/76 10/12/19 12:00 Pulse Ox 98 10/12/19 12:00 10/12/19 10/12/19 10/12/19 06:59 14:59 22:59 Intake Total 780 / 1479.44 1064.792 / 1064.792 Output Total 725 / 725 Balance 55 / 754.44 1064.792 / 1064.792 Weight last 48 hrs Weight 268 lb 2 oz Physical Exam Narrative: EXAM NARRATIVE: General: The patient is intubated and sedated. Intermittently agitated and does not follow commands. Neck: Unable to assess JVD because of body habitus Respiratory: Auscultation: Crackles at the lung bases posteriorly bilaterally, no wheezing or rhonchi Cardiovascular: Regular rate and rhythm, S1-S2 present, no murmur, no right ventricular heave, bilateral pitting peripheral edema Abdomen: Soft, unable to assess if it is tender because of the mental status, distended but not rigid, very sluggish bowel sound Skin: Bilateral palmar erythema Neuro: Sedated with intermittent episodes of agitation Urinary Catheter Management^: Toussaint Latex: Cath Placed During This Visit: yes Reason for Continuing Indwelling Catheter: Accurate Measurement of Urinary Output in Critically Ill Patients Urinary Catheter Date of Insertion: 10/05/19 Urinary Catheter Time of Insertion: 05:30 Data : 10/12/19 04:30 10/12/19 04:30 Micro: Microbiology 10/11/19 19:12 Blood Culture - Preliminary Blood SPECIMEN COLLECTED 10/11/19 19:15 Blood Culture - Preliminary Blood SPECIMEN COLLECTED Other data: I have reviewed the patient's laboratory, radiologic and microbiologic data. The chest x-ray this morning revealed fairly improved bilateral lung patel with bilateral lower lobe infiltrate the dense consolidation has improved significantly. The endotracheal aspirate from before was positive for MRSA. The blood culture has been negative. There is elevated creatinine without any evidence of acidosis or hyperkalemia. A&P Assessment and plan (1) Acute respiratory failure with hypoxia: The patient's respiratory status has improved significantly. The patient is currently on PSVT and pulling good tidal volume without any significant desaturation. If his mental status improves the patient will probably be ready for extubation in the near future. The patient's platelet count is currently 71,000 I would restart subcu heparin as liver cirrhosis is a prothrombotic state. There is no evidence of GI bleed. Status: Acute (2) Alcohol withdrawal syndrome: The patient is currently on Precedex. I am going to start the patient on Seroquel if his QTC is not too prolonged. Status: Acute Qualifiers: Complication of substance-induced condition: with delirium Qualified Code(s): F10.231 - Alcohol dependence with withdrawal delirium (3) Hepatorenal syndrome: The patient is currently on Levophed and albumin. His urine output continues to be on the lower side which is not unexpected. There is no indication for acute dialysis. 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 We will continue the supportive therapy for the time being. Status: Acute (4) MRSA pneumonia: The patient is on Zyvox and Zosyn. I have renally adjusted the Zosyn dose. The patient is also on doxycycline for suspected tickborne diseases. Status: Acute (5) Alcoholic cirrhosis of liver: The patient has liver cirrhosis with portal hypertension. He would require optimization of his therapy. Status: Acute Attestations Medical Necessity Statement*: Will defer to the primary team. Coding Level of Care Code Acute Patient Support Assistant for [facility] Diagnoses Acute respiratory failure with hypoxia J96.01 Alcohol withdrawal syndrome F10.231 Complication of substance-induced condition: with delirium Hepatorenal syndrome K76.7 MRSA pneumonia J15.212 Alcoholic cirrhosis of liver K70.30
[2019-10-12 15:26] LABS: ABG PCO2 37.2 mmHg (35-45); ABG PH Result 7.38 (7.35-7.45); Arterial Blood Gas Hematocrit 30.6 % (42-52); Base Excess ABG -2.8 mmol/L (-2.0-2.0); Blood Gas Allen Test Pos; Blood Gas Sample Site Not specified; Blood Gas Sample Type Arterial; PO2 ABG 78.4 mmHg (80.0-100.0)
[2019-10-12] MEDS: dexmedetomidine 400 MCG in sodium chloride 0.9% (100 ml) 100 ML 32.1 MCG IV ×3 (16:59→23:34)
[2019-10-12] MEDS: heparin 5,000 unit/mL INJ 1 mL 5000 UNIT SUBCUT (17:00)
[2019-10-12] MEDS: quetiapine 25 mg Tablet 50 MG PO (17:02)
[2019-10-12 18:04] LABS: Glucose Point of Care 105 mg/dL (70-110)
[2019-10-12] MEDS: LORazepam 2 mg/mL INJ 1 mL IVP (20:11)
--- NOTE | 2019-10-12 20:59 | PM.PN ---
Subjective Subjective: Interval history: Patient remained stable on the ventilator, abdominal x-ray showed transverse colon measuring 8.5 cm. No BM after his lactulose was discontinued Vitals/I&O/Wt Last Vital Signs Temp 98.2 F 10/12/19 10:00 Pulse 82 10/12/19 19:45 Resp 20 H 10/12/19 19:45 BP 131/64 10/12/19 18:00 Pulse Ox 100 10/12/19 19:45 10/12/19 10/12/19 10/12/19 06:59 14:59 22:59 Intake Total 780 / 1479.44 1214.792 / 1398.152 183.36 / 1398.152 Output Total 725 / 725 650 / 650 Balance 55 / 754.44 1214.792 / 748.152 -466.64 / 748.152 Weight last 48 hrs Weight 268 lb 2 oz Physical Exam Narrative: EXAM NARRATIVE: Abdomen: Distended, no guarding or rigidity, significant abdominal wall edema Urinary Catheter Management^: Toussaint Latex: Cath Placed During This Visit: yes Reason for Continuing Indwelling Catheter: Accurate Measurement of Urinary Output in Critically Ill Patients Urinary Catheter Date of Insertion: 10/05/19 Urinary Catheter Time of Insertion: 05:30 Data : 10/13/19 03:20 10/13/19 03:20 Micro: Microbiology 10/11/19 19:12 Blood Culture - Preliminary Blood NEGATIVE TO DATE 10/11/19 19:15 Blood Culture - Preliminary Blood NEGATIVE TO DATE A&P Assessment and plan (1) Colonic pseudoobstruction: 49-year-old gentleman who is currently critically ill on the ventilator in acute renal failure antibiotic and colopathy secondary to alcoholic cirrhosis has now developed dilated transverse colon. He has had a prior colonoscopy in the past. I suspect this is most likely colonic pseudoobstruction secondary to his medical issues. Continue NG tube to low intermittent suction Correct electrolytes Repeat abdominal series tomorrow, if there is further distention he will need a diagnostic and therapeutic Gastrografin enema. 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
[2019-10-12] MEDS: piperacillin-tazobactam 2.25 GM in sodium chloride 0.9% (plus) 50 ML IV (22:52)
[2019-10-12 23:40] LABS: Glucose Point of Care 142 mg/dL (70-110)
[2019-10-13] VITALS (32 sets, daily range): BP systolic 104–138; BP diastolic 63–86; PULSE 69–90; RESP 14–22; TEMP 37.2–37.3; O2SAT 91–100; BMI 42.0
[2019-10-13] MEDS: ipratropium-albuterol 3 mL Neb INHALATION ×7 (00:01→23:46)
[2019-10-13] MEDS: heparin 5,000 unit/mL INJ 1 mL 5000 UNIT SUBCUT ×2 (02:44→16:25)
[2019-10-13] MEDS: dexmedetomidine 400 MCG in sodium chloride 0.9% (100 ml) 100 ML 32.1 MCG IV (02:45)
[2019-10-13] MEDS: LORazepam 2 mg/mL INJ 1 mL IVP ×4 (04:00→23:13)
[2019-10-13 04:09] LABS: Basophils # 0.1 10^3/uL (0.0-0.1); Basophils % 0.8 %; Eosinophils # 0.1 10^3/uL (0.0-0.8); Eosinophils % 1.5 %; Hematocrit 33.9 % (42.0-52.0); Hemoglobin 10.4 g/dL (11.7-16.6); Lymphocytes # 0.7 10^3/uL (0.8-4.8); Lymphocytes % 10.2 %; Mean Corpuscular HGB Conc 30.7 g/dL (30.0-36.0); Mean Corpuscular Hemoglobin 30.2 pg (28.0-34.0); Mean Corpuscular Volume 98.5 fL (80-94); Mean Platelet Volume 10.8 fL (7.4-10.4); Monocytes # 0.8 10^3/uL (0.2-0.9); Monocytes % 11.6 %; Neutrophils # 5.5 10^3/uL (1.8-7.7); Neutrophils % 75.3 %; Nucleated Red Blood Cells % 0 %; Platelet Count 61 10^3/cmm (130-400); Red Blood Count 3.44 10^6/uL (4.1-5.3); Red Cell Distribution Width 17.1 % (12.1-15.1); White Blood Count 7.3 10^3/uL (4.0-10.0)
[2019-10-13 04:38] LABS: Alanine Aminotransferase 22 U/L (0-41); Albumin Level 3.8 g/dL (3.5-5.2); Alkaline Phosphatase 123 IU/L (40-130); Anion Gap 21.1 (5-19); Aspartate Amino Transferase 55 U/L (0-40); Blood Urea Nitrogen 29 mg/dL (6-20); Carbon Dioxide 21 mmol/L (22-29); Chloride 105 mmol/L (98-107); Globulin 2.3 g/dL (1.3-4.6); Glomerular Filtration Rate 18.6 mL/min (90-130); Glucose 127 mg/dL (65-115); Magnesium 2.2 mg/dL (1.7-2.3); Osmolality Calculated 297 mOsm/kg (285-295); Potassium 3.1 mmol/L (3.5-5.1); Sodium 144 mmol/L (136-145); Total Bilirubin 4.5 mg/dL (0.15-1.2); Total Protein 6.1 g/dL (6.6-8.7)
[2019-10-13 04:42] LABS: ABG PCO2 38.6 mmHg (35-45); ABG PH Result 7.39 (7.35-7.45); Arterial Blood Gas Hematocrit 36.6 % (42-52); Base Excess ABG -1.3 mmol/L (-2.0-2.0); Blood Gas Sample Site Not specified; Blood Gas Sample Type Arterial; Blood Gas Tidal Volume 0.55; HCO3 ABG 23.5 mmol/L (22-26); Oxygen Device VENT; PO2 ABG 69.9 mmHg (80.0-100.0)
[2019-10-13] MEDS: piperacillin-tazobactam 2.25 GM in sodium chloride 0.9% (plus) 50 ML IV (05:41)
[2019-10-13] MEDS: pantoprazole 40 mg SDV IVP ×2 (05:44→17:28)
--- NOTE | 2019-10-13 06:12 | XR_ITS ---
WS: [id number] ABDOMEN 2 VIEW(S) HISTORY: [place] COMPARISON: 10/12/2019 Continued moderate dilatation of the colon with loops measuring up to 7 cm. Paucity of gas distally b ut improved since the prior study. Nasogastric tube remains in good position. No free air is appreciated but the diaphragms have not bee n included on the upright positions. No bone abnormality. XR/XR abdomen min 2V [id number] IMPRESSION: Mild improvement in colonic dilatation with slight increased amount of air in t he distal colon.
[2019-10-13] MEDS: dexmedetomidine 400 MCG in sodium chloride 0.9% (100 ml) 100 ML 22.5 MCG IV ×4 (06:41→22:08)
--- NOTE | 2019-10-13 07:00 | XR_ITS ---
WS: [id number] PORTABLE CHEST HISTORY: follow up resp failure COMPARISON: 10/12/2019 Endotracheal and nasogastric tubes are in good position. LEFT PICC line remains in good position. Lung volumes are significantly decreased. Small bilateral pleural effusions and bibasilar areas of at electasis. No pneumothorax. Cardiac size: Mildly enlarged cardiac silhouette. Mediastinum/Aorta: Mild atherosclerosis aorta. No osseous abnormality seen. XR/XR chest 1V portable [id number] IMPRESSION: 1. Poor inspiration and decreased lung volumes. 2. Small bilateral pleural effusions and dependent changes at the lung bases. 3. Endotracheal and nasogastric tubes in good position.
[2019-10-13 07:28] LABS: Glucose Point of Care 100 mg/dL (70-110)
[2019-10-13] MEDS: linezolid premix 600 MG/300 ML PREMIX 300 MG IV ×2 (07:35→21:21)
[2019-10-13] MEDS: potassium chloride premix 40 MEQ/100 ML PREMIX 25 MEQ IV (08:44)
[2019-10-13] MEDS: multivitamin therapeutic Tablet 1 TAB PO (08:44)
[2019-10-13] MEDS: folic acid 1 mg Tablet PO (08:44)
[2019-10-13] MEDS: doxycycline 100 MG in sodium chloride 0.9% (plus) 100 ML IV ×2 (09:47→21:22)
--- NOTE | 2019-10-13 10:32 | PM.PN ---
Subjective Subjective: Interval history: Donnie reports more sedation last night. He is sedated on the ventilator currently. Medications: Reviewed: Yes Vitals/I&O/Wt Last Vital Signs Temp 98.9 F 10/13/19 08:00 Pulse 70 10/13/19 10:00 Resp 14 10/13/19 10:00 BP 119/63 10/13/19 10:00 Pulse Ox 97 10/13/19 10:00 10/12/19 10/13/19 10/13/19 22:59 06:59 14:59 Intake Total 854.867 / 2069.659 496.882 / 2566.541 Output Total 650 / 650 450 / 1100 Balance 204.867 / 1419.659 46.882 / 1466.541 Weight last 48 hrs Weight 121.619 kg Weight 121.619 kg Physical Exam Narrative: EXAM NARRATIVE: Sedated on the ventilator(AC 14, 45%, 8, 550) Cardiovascular regular rate and rhythm without murmur Lungs clear Abdomen is slightly distended. Slightly hard. A few bowel sounds are heard. Bowel movement was noted yesterday Extremities 2+ edema Urinary Catheter Management^: Toussaint Latex: Cath Placed During This Visit: yes Reason for Continuing Indwelling Catheter: Accurate Measurement of Urinary Output in Critically Ill Patients Urinary Catheter Date of Insertion: 10/05/19 Urinary Catheter Time of Insertion: 05:30 Data : 10/13/19 03:20 10/13/19 03:20 Micro: Microbiology 10/11/19 19:12 Blood Culture - Preliminary Blood NEGATIVE TO DATE 10/11/19 19:15 Blood Culture - Preliminary Blood NEGATIVE TO DATE A&P Assessment and plan (1) Acute encephalopathy: Multifactorial. Certainly had withdrawal. Concern of hepatic encephalopathy as well. Currently on Precedex, fentanyl for sedation Ammonia level improved yesterday CT head was performed and demonstrated nothing acute His severe alcohol withdrawal should be resolving/resolved. Status: Acute (2) Tick bite of thigh: Tick removed in ICU off left inner thigh. Continue doxycycline. Tick panel pending. Status: Acute (3) Acute respiratory failure with hypoxia: Secondary to withdrawal, fluid overload. Ventilator associated pneumonia may also play a role. MRSA has grown from sputum. Antibiotic for this has changed to linezolid, and Zosyn has been continued Lasix held secondary to development of renal failure. Albumin has been initiated every 6 hours Echocardiogram was performed, demonstrating normal EF, poor ultrasonic window Pulmonary critical care consultation appreciated Status: Acute (4) Alcohol withdrawal syndrome: Last drink 2 PM 10/02. [facility] protocol. Thiamine, folic acid. Alcohol withdrawal is likely resolved Encourage cessation, follow-up with [facility] Status: Acute Qualifiers: Complication of substance-induced condition: with delirium Qualified Code(s): F10.231 - Alcohol dependence with withdrawal delirium (5) GI bleeding: Hemoglobin stable Continue Protonix Doubt variceal bleeding May follow-up with GI after hospitalization Status: Acute (6) Thrombocytopenia: Stable currently. Secondary to liver disease. Status: Acute (7) Delirium tremens: Status: Acute (8) Cirrhosis: Ammonia level improved Will follow-up with gastroenterology Status: Acute (9) Cholestasis: Stable Status: Acute (10) Transaminitis: Stable. Likely secondary to alcoholism. Ultrasound did not delineate any obstructive cause of jaundice Status: Acute Additional A&P Information Abdominal distention. CT demonstrated dilated colon. Surgery following. Consistent with ileus. Slightly better today. Start trophic feeds. Acute renal failure, likely hepatorenal syndrome. Pressors added for hypotension to keep mean atrial pressure greater than 80. Albumin was added which she is on every 6 hours. Renal function appears to have stabilized and urine output increasing. I suspect his kidney function will improve by tomorrow. Hypokalemia, replace cautiously Nutrition: N.p.o. status currently. If this will be prolonged consider TPN. If ileus improving consider initiation of trophic feeds History of hypertension Attestations Medical Necessity Statement*: Needs continued hospitalization secondary to multiorgan failure, treatment of MRSA pneumonia with IV antibiotics Critical Care Time: 31 minutes spent in critical care time reviewing medicines, pressors, ventilator settings, discussing with consultants, determining plan, visiting with family regarding current concerns. 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
[2019-10-13] MEDS: piperacillin-tazobactam 3.375 GM in sodium chloride 0.9% (plus) 50 ML IV ×2 (13:30→21:21)
[2019-10-13] MEDS: quetiapine 25 mg Tablet 50 MG PO ×2 (13:31→23:22)
--- NOTE | 2019-10-13 15:17 | PM.PN ---
Subjective Subjective: Interval history: No significant changes overnight abdominal x-ray shows colon measuring 7 cm. Vitals/I&O/Wt Last Vital Signs Temp 98.9 F 10/13/19 14:00 Pulse 72 10/13/19 14:00 Resp 20 H 10/13/19 14:00 BP 107/75 10/13/19 14:00 Pulse Ox 97 10/13/19 14:00 10/13/19 10/13/19 10/13/19 06:59 14:59 22:59 Intake Total 496.882 / 2566.541 304 / 304 Output Total 450 / 1100 Balance 46.882 / 1466.541 304 / 304 Weight last 48 hrs Weight 268 lb 2 oz Weight 268 lb 2 oz Physical Exam Narrative: EXAM NARRATIVE: Demented: Soft, distended, abdominal wall edema, no guarding or rigidity Urinary Catheter Management^: Toussaint Latex: Cath Placed During This Visit: yes Reason for Continuing Indwelling Catheter: Accurate Measurement of Urinary Output in Critically Ill Patients Urinary Catheter Date of Insertion: 10/05/19 Urinary Catheter Time of Insertion: 05:30 Data : 10/13/19 03:20 10/13/19 03:20 Micro: Microbiology 10/11/19 19:12 Blood Culture - Preliminary Blood NEGATIVE TO DATE 10/11/19 19:15 Blood Culture - Preliminary Blood NEGATIVE TO DATE A&P Assessment and plan (1) Colonic pseudoobstruction: 49-year-old gentleman who is currently critically ill on the ventilator in acute renal failure antibiotic and colopathy secondary to alcoholic cirrhosis has now developed dilated transverse colon. He has had a prior colonoscopy in the past. I suspect this is most likely colonic pseudoobstruction secondary to his medical issues. Start trophic feeds at 10 cc/h, check residual, if greater than 60 cc discontinue for 4 hours and restart at 10 cc/h Correct electrolytes Repeat abdominal series tomorrow, if there is further distention he will need a diagnostic and therapeutic Gastrografin enema. If he is not tolerating tube feeds by tomorrow will need to be started on TPN Status: Acute Attestations Medical Necessity Statement*: Colonic pseudoobstruction, renal failure and hepatic encephalopathy secondary to cirrhosis requiring continued ICU stay Coding Level of Care Code Acute Cash Person for [facility] Diagnoses Colonic pseudoobstruction K59.8
[2019-10-13 16:47] LABS: Glucose Point of Care 107 mg/dL (70-110)
[2019-10-13 17:02] LABS: Glucose Point of Care 103 mg/dL (70-110)
--- NOTE | 2019-10-13 17:22 | P.PN_ITS ---
Subjective Subjective: Interval history: The patient was seen and examined. Unfortunately, he does not have mental status yet. The patient is on Precedex and fentanyl not following any commands. It seems that his creatinine has plateaued. There is no significant acidosis. The patient is on PSV 40% oxygen and maintaining saturation well. I performed a bedside ultrasound. The patient has minimal B-lines in bilateral lungs. His cardiac contractility is good. The patient has dilated IVC. Medications: Reviewed: Yes Vitals/I&O/Wt Last Vital Signs Temp 98.9 F 10/13/19 16:00 Pulse 88 10/13/19 16:00 Resp 16 10/13/19 16:00 BP 138/78 10/13/19 16:00 Pulse Ox 98 10/13/19 16:00 10/13/19 10/13/19 10/13/19 06:59 14:59 22:59 Intake Total 496.882 / 2566.541 404 / 404 53 / 457 Output Total 450 / 1100 375 / 375 Balance 46.882 / 1466.541 404 / 404 -322 / 82 Weight last 48 hrs Weight 268 lb 2 oz Weight 268 lb 2 oz Physical Exam Narrative: EXAM NARRATIVE: General: The patient is intubated and sedated. Intermittently agitated and does not follow commands. Neck: Unable to assess JVD because of body habitus Respiratory: Auscultation: Crackles at the lung bases posteriorly bilaterally, no wheezing or rhonchi Cardiovascular: Regular rate and rhythm, S1-S2 present, no murmur, no right ventricular heave, bilateral pitting peripheral edema Abdomen: Soft, unable to assess if it is tender because of the mental status, distended but not rigid, very sluggish bowel sound Skin: Bilateral palmar erythema Neuro: Sedated with intermittent episodes of agitation Urinary Catheter Management^: Toussaint Latex: Cath Placed During This Visit: yes Reason for Continuing Indwelling Catheter: Accurate Measurement of Urinary Output in Critically Ill Patients Urinary Catheter Date of Insertion: 10/05/19 Urinary Catheter Time of Insertion: 05:30 Data : 10/13/19 03:20 10/13/19 03:20 Micro: Microbiology 10/11/19 19:12 Blood Culture - Preliminary Blood NEGATIVE TO DATE 10/11/19 19:15 Blood Culture - Preliminary Blood NEGATIVE TO DATE Other data: I reviewed the patient laboratory, radiology and microbiology data. No significant leukocytosis stable platelet count. The creatinine is 3.5 which seem to have stabilized. No significant elevation of the BUN. The uncorrected anion gap is 18. Blood culture is negative so far. Chest x-ray shows bilateral atelectasis/consolidation. A&P Assessment and plan (1) Acute respiratory failure with hypoxia: The patient is doing well on PSV. The difficulty in extubation is arising from his mental status. I have started the patient on Seroquel 50 mg twice a day hoping this will help him. We will continue the patient on pressure support ventilation for the time being with the goal to extubate him tomorrow. Status: Acute (2) Alcohol withdrawal syndrome: The patient is currently on Precedex. He is also on Seroquel. Status: Acute Qualifiers: Complication of substance-induced condition: with delirium Qualified Code(s): F10.231 - Alcohol dependence with withdrawal delirium (3) Hepatorenal syndrome: His creatinine has stabilized. The patient has received albumin and augmented blood pressure with the Levophed. Currently his blood pressure is well. The patient has significant dilated IVC and I am going to give him a bolus dose of bumetanide 2 mg 1 time IV. I am expecting his kidney function to get better in the next 48 hours Status: Acute (4) MRSA pneumonia: The patient is broadly covered with Zyvox Zosyn and doxycycline for suspected tick bite. Status: Acute (5) Alcoholic cirrhosis of liver: The patient has liver cirrhosis with portal hypertension. His meld score today is 26 with a 19.6% 3-month mortality. Status: Acute Attestations Medical Necessity Statement*: Will defer to the primary team Coding Level of Care Code Acute Model Maker Firearms for [facility] Diagnoses Acute respiratory failure with hypoxia J96.01 Alcohol withdrawal syndrome F10.231 Complication of substance-induced condition: with delirium Hepatorenal syndrome K76.7 MRSA pneumonia J15.212 Alcoholic cirrhosis of liver K70.30
[2019-10-13] MEDS: bumetanide 0.25 mg/mL SDV 10 mL 2 MG IV (17:27)
--- NOTE | 2019-10-13 20:00 | ECG_ITS ---
Measurements Intervals [place] Rate: 80 P: 64 OR: 187 QRS: 82 QRSD: 99 T: 54 QT: 419 QTc: 486 SINUS RHYTHM Compared to ECG 10/12/2019 14:57:58 No significant changes Electronically Signed On 10-14-2019 13:07:30 CDT by Fidel Singleton M.D. [id number]
[2019-10-13 21:44] LABS: Glucose Point of Care 104 mg/dL (70-110)
[2019-10-14] VITALS (29 sets, daily range): BP systolic 104–150; BP diastolic 67–99; PULSE 76–120; RESP 16–35; TEMP 37.3–37.6; O2SAT 84–100; BMI 42.0
--- NOTE | 2019-10-14 00:15 | PC.NURSE ---
Gastric residual is 150 mL. Will hold continuous tube feed for 4 hours and recheck residual per Dr. Mcgrath.
[2019-10-14] MEDS: dexmedetomidine 400 MCG in sodium chloride 0.9% (100 ml) 100 ML 22.5 MCG IV (03:11)
[2019-10-14] MEDS: ipratropium-albuterol 3 mL Neb INHALATION ×6 (03:28→23:32)
[2019-10-14] MEDS: heparin 5,000 unit/mL INJ 1 mL 5000 UNIT SUBCUT ×2 (04:06→15:46)
[2019-10-14] MEDS: LORazepam 2 mg/mL INJ 1 mL IVP ×3 (05:33→22:05)
[2019-10-14] MEDS: pantoprazole 40 mg SDV IVP ×2 (05:34→18:10)
[2019-10-14 05:49] LABS: ABG PCO2 42.8 mmHg (35-45); ABG PH Result 7.36 (7.35-7.45); Arterial Blood Gas Hematocrit 30.7 % (42-52); Base Excess ABG -1.3 mmol/L (-2.0-2.0); Blood Gas Sample Type Arterial; HCO3 ABG 24.2 mmol/L (22-26); Oxygen Device VENT; PO2 ABG 73.2 mmHg (80.0-100.0)
[2019-10-14 05:54] LABS: Ammonia 42 umol/L (16-60)
[2019-10-14 05:55] LABS: Alanine Aminotransferase 22 U/L (0-41); Albumin Level 4.4 g/dL (3.5-5.2); Alkaline Phosphatase 107 IU/L (40-130); Anion Gap 21.4 (5-19); Aspartate Amino Transferase 62 U/L (0-40); Blood Urea Nitrogen 37 mg/dL (6-20); Calcium 8.3 mg/dL (8.5-10.5); Carbon Dioxide 22 mmol/L (22-29); Chloride 107 mmol/L (98-107); Globulin 1.9 g/dL (1.3-4.6); Glomerular Filtration Rate 18.6 mL/min (90-130); Glucose 95 mg/dL (65-115); Osmolality Calculated 301 mOsm/kg (285-295); Potassium 3.4 mmol/L (3.5-5.1); Sodium 147 mmol/L (136-145); Total Bilirubin 4.3 mg/dL (0.15-1.2); Total Protein 6.3 g/dL (6.6-8.7)
[2019-10-14 06:01] LABS: Basophils # 0.1 10^3/uL (0.0-0.1); Basophils % 1.1 %; Eosinophils # 0.1 10^3/uL (0.0-0.8); Eosinophils % 1.5 %; Hematocrit 32.7 % (42.0-52.0); Hemoglobin 9.8 g/dL (11.7-16.6); Lymphocytes # 0.9 10^3/uL (0.8-4.8); Lymphocytes % 11.9 %; Mean Corpuscular Hemoglobin 29.7 pg (28.0-34.0); Mean Corpuscular Volume 99.1 fL (80-94); Mean Platelet Volume 10.7 fL (7.4-10.4); Monocytes # 0.6 10^3/uL (0.2-0.9); Monocytes % 8.6 %; Neutrophils # 5.5 10^3/uL (1.8-7.7); Neutrophils % 76.2 %; Nucleated Red Blood Cells % 0 %; Platelet Count 65 10^3/cmm (130-400); Red Cell Distribution Width 16.9 % (12.1-15.1); White Blood Count 7.2 10^3/uL (4.0-10.0)
[2019-10-14] MEDS: piperacillin-tazobactam 3.375 GM in sodium chloride 0.9% (plus) 50 ML IV ×3 (06:11→23:10)
--- NOTE | 2019-10-14 06:31 | XR_ITS ---
WS: [id number] ABDOMEN 2 VIEW(S) HISTORY: sbo COMPARISON: 10/13/2019 Significant dilatation of the colon with air. Diameter of the ascending colon is 9.5 cm which is not improving. Small bowel loops are distended measuring up to 3.7 cm. There are still small amount of ai r in the distal colon. No free air is identified. The nasogastric tube remains in good position. No bone abnormality. XR/XR abdomen min 2V [id number] IMPRESSION: 1. Progression of megacolon since the prior study with the ascending colon now measuring 9.5 cm in diameter. No free air. 2. Additional small bowel dilatation.
--- NOTE | 2019-10-14 06:48 | PC.NURSE ---
Addendum entered by Sravanthi Thomas RN 10/14/19 06:49: Residual was checked at 0415 Original Note: Gastric tube residual is 200. Continuous tube feed held per Dr. Mcgrath's progress note. Returned residual to patient.
--- NOTE | 2019-10-14 07:00 | XR_ITS ---
WS: [id number] PORTABLE CHEST HISTORY: Follow-up pneumonia COMPARISON: 10/13/2019 Nasogastric and endotracheal tubes are in good position. Left-sided PICC line with tip in the distal to mid SVC. Lung volumes are decreased. There is mild haziness over both lungs. No focal dense consolidation. No pleural effusion or pneumothorax. Cardiac size: Mildly enlarged cardiac silhouette. Mediastinum/Aorta: Mild atherosclerosis aorta. No osseous abnormality seen. XR/XR chest 1V portable [id number] IMPRESSION: 1. Nasogastric and endotracheal tubes remain in good position. 2. Continued low lung volumes and haziness. Probably pneumonitis or pulmonary congestion. No pneumonia.
--- NOTE | 2019-10-14 07:42 | P.PN_ITS ---
Subjective Subjective: Interval history: Donnie awakens, on the ventilator. I could not get him to cooperate with instructions but he did follow me some with his eyes. Medications: Reviewed: Yes Vitals/I&O/Wt Last Vital Signs Temp 99.6 F 10/14/19 04:26 Pulse 77 10/14/19 06:46 Resp 22 H 10/14/19 05:58 BP 129/83 10/14/19 06:46 Pulse Ox 99 10/14/19 06:46 10/13/19 10/14/19 10/14/19 22:59 06:59 14:59 Intake Total 811 / 1615 354 / 1969 Output Total 375 / 375 1750 / 2125 Balance 436 / 1240 -1396 / -156 Weight last 48 hrs Weight 121.619 kg Physical Exam Narrative: EXAM NARRATIVE: Sedated on the ventilator(pressure support of 10 with FiO2 of 40%) Cardiovascular regular rate and rhythm without murmur Lungs clear Abdomen is slightly distended. Bowel sounds are heard Extremities 2+ edema Urinary Catheter Management^: Toussaint Latex: Cath Placed During This Visit: yes Reason for Continuing Indwelling Catheter: Accurate Measurement of Urinary Outp ut in Critically Ill Patients Urinary Catheter Date of Insertion: 10/05/19 Urinary Catheter Time of Insertion: 05:30 Data : 10/14/19 05:20 10/14/19 05:20 Other data: Chest x-ray overall unchanged. Abdominal film unchanged. A&P Assessment and plan (1) Acute encephalopathy: Multifactorial. Certainly had withdrawal. Concern of hepatic encephalopathy as well. Currently on Precedex, fentanyl for sedation Ammonia level normal CT head was performed and demonstrated nothing acute His severe alcohol withdrawal should be resolving/resolved. Status: Acute (2) Tick bite of thigh: Tick removed in ICU off left inner thigh. Continue doxycycline. Tick panel pending. Status: Acute (3) Acute respiratory failure with hypoxia: Secondary to withdrawal, fluid overload. Ventilator associated pneumonia may also play a role. MRSA has grown from sputum. Currently on linezolid, Zosyn Albumin has been initiated every 6 hours secondary to hepatorenal syndrome Echocardiogram was performed, demonstrating normal EF, poor ultrasonic window Pulmonary critical care consultation appreciated Status: Acute (4) Alcohol withdrawal syndrome: Last drink 2 PM 10/02. [facility] protocol. Thiamine, folic acid. Alcohol withdrawal is likely resolved Encourage cessation, follow-up with [facility] Status: Acute Qualifiers: Complication of substance-induced condition: with delirium Qualified Code(s): F10.231 - Alcohol dependence with withdrawal delirium (5) GI bleeding: Hemoglobin stable Continue Protonix Doubt variceal bleeding May follow-up with GI after hospitalization Status: Acute (6) Thrombocytopenia: Stable currently. Secondary to liver disease. Status: Acute (7) Delirium tremens: Status: Acute (8) Cirrhosis: Ammonia level normal Status: Acute (9) Cholestasis: Stable Status: Acute (10) Transaminitis: Stable. Likely secondary to alcoholism. Ultrasound did not delineate any obstructive cause of jaundice Status: Acute Additional A&P Information Abdominal distention. CT demonstrated dilated colon. Surgery following. Consistent with ileus. Trophic feeds started yesterday but currently on hold Acute renal failure, consistent with hepatorenal syndrome. Pressors added for hypotension to keep mean atrial pressure greater than 80. These have now been weaned off. He is on albumin every 6 hours. Renal function appears to have stabilized and urine output increasing, but is not yet improved. Hypokalemia, replaced today Nutrition: Trophic feeds started yesterday. Holding. Pulmonary considering extubation History of hypertension Attestations Medical Necessity Statement*: Needs continued hospitalization secondary to respiratory failure requiring mechanical ventilation, hepatorenal syndrome. Critical Care Time: 32 minutes spent in critical care time reviewing ventilator settings, IV antibiotics, sedation, examining patient, etc. in this complicated patient with multiorgan system failure. Coding Level of Care Code Acute Metal Window Screen Assembler for [facility] Diagnoses Acute encephalopathy G93.40 Tick bite of thigh S70.369A; W57.XXXA Acute respiratory failure with hypoxia J96.01 Alcohol withdrawal syndrome F10.231 Complication of substance-induced condition: with delirium GI bleeding K92.2 Thrombocytopenia D69.6 Delirium tremens F10.231 Cirrhosis K74.60 Cholestasis K83.1 Transaminitis R74.0
[2019-10-14] MEDS: linezolid premix 600 MG/300 ML PREMIX 300 MG IV ×2 (08:02→21:14)
[2019-10-14] MEDS: potassium chloride oral liq 20 mEq/15 mL UDC 40 MEQ PO (08:02)
[2019-10-14] MEDS: dexmedetomidine 400 MCG in sodium chloride 0.9% (100 ml) 100 ML 16 MCG IV (09:06)
[2019-10-14] MEDS: folic acid 1 mg Tablet PO (09:11)
[2019-10-14] MEDS: doxycycline 100 MG in sodium chloride 0.9% (plus) 100 ML IV ×2 (09:12→21:13)
--- NOTE | 2019-10-14 11:54 | PC.NURSE ---
PER REQUEST OF MANAGEMENT, THIS RN HAS CONTACTED THE MOTHER OF THE PATIENT AND OF THE PATIENT; THE PASSCODE OF [place] HAS BEEN ESTABLISHED BETWEEN BOTH PARTIES IN ORDER TO CONFIRM IDENTITY WHEN CALLING REQUESTING INFORMATION ABOUT THE PATIENT; REGULATORY PROCESS MANAGER INFORMED THAT PASSCODE HAS BEEN ESTABLISHED; WILL CONTINUE TO MONITOR
[2019-10-14] MEDS: quetiapine 25 mg Tablet 50 MG PO (13:13)
[2019-10-14] MEDS: haloperidol inj 5 mg/mL INJ 1 mL IM (13:50)
[2019-10-14] MEDS: OLANZapine 10 mg VIAL 5 MG IM ×2 (14:55→16:34)
--- NOTE | 2019-10-14 15:56 | P.PN_ITS ---
Subjective Subjective: Interval history: Patient was gone to be extubated today, did not tolerate tube feeds yesterday. No BMs yesterday. Vitals/I&O/Wt Last Vital Signs Temp 99.6 F 10/14/19 04:26 Pulse 118 H 10/14/19 14:00 Resp 33 H 10/14/19 14:00 BP 115/67 10/14/19 14:00 Pulse Ox 90 10/14/19 14:00 10/14/19 10/14/19 10/14/19 06:59 14:59 22:59 Intake Total 454 / 2069 154 / 154 Output Total 1750 / 2125 Balance -1296 / -56 154 / 154 Weight last 48 hrs Weight 268 lb 2 oz Weight 268 lb 2 oz Physical Exam Narrative: EXAM NARRATIVE: Abdomen: Soft, distended, no guarding or rigidity, abdominal wall edema present Urinary Catheter Management^: Toussaint Latex: Cath Placed During This Visit: yes Reason for Continuing Indwelling Catheter: Accurate Measurement of Urinary Output in Critically Ill Patients Urinary Catheter Date of Insertion: 10/05/19 Urinary Catheter Time of Insertion: 05:30 Data : 10/15/19 04:23 10/15/19 04:23 A&P Assessment and plan (1) Colonic pseudoobstruction: 49-year-old gentleman with significant medical issues noted on CT abdomen pelvis to have colonic distention.Obtain abdominal series today. Consider starting TPN since he is unlikely to reach his nutritional goals through enteral intake. Repeat abdominal series today. At this point there is no justification for any surgical indication. Status: Acute Attestations Medical Necessity Statement*: Colonic pseudoobstruction requiring continued inpatient stay Coding Level of Care Code Acute Wind Operations Supervisor for [facility] Diagnoses Colonic pseudoobstruction K59.8
[2019-10-14 16:48] LABS: Glucose Point of Care 81 mg/dL (70-110)
[2019-10-14 21:47] LABS: Glucose Point of Care 102 mg/dL (70-110)
--- NOTE | 2019-10-14 21:48 | PC.NURSE ---
Wasted 75 mL of Fentanyl. Witnessed by Aida Mathew RN.
--- NOTE | 2019-10-14 22:41 | ECG_ITS ---
Measurements Intervals [place] Rate: 108 P: 52 SD: 168 QRS: 80 QRSD: 99 T: 6 QT: 362 QTc: 487 SINUS TACHYCARDIA WARNING: DATA QUALITY MAY AFFECT INTERPRETATION Compared to ECG 10/13/2019 22:06:41 Sinus rhythm no longer present Electronically Signed On 10-15-2019 16:27:41 CDT by Aniya Genao M.D. [id number]
[2019-10-15] VITALS (30 sets, daily range): BP systolic 113–168; BP diastolic 65–115; PULSE 70–123; RESP 12–46; TEMP 36.4–37.4; O2SAT 89–100; BMI 42.3
--- NOTE | 2019-10-15 00:50 | PC.NURSE ---
2149 Patient became increasingly more agitated. Pulling at the restraints and lifting body off bed. Spitting blood and grunting. Snorous breathing. Oxygen saturation dropping to low 80s. Attempt to suction and returned about 40 mL of jona blood. Patient biting down and unable to fully suction. 2204 2 mg IVP of Ativan given. 2214 Patient continuing to thrash in the bed and pull at restraints. Oxygen saturation still in the 80s, patient on 5L/NC. RT at bedside and placed patient on non-rebreather. Dr. Gama called to bedside. Dr. Gama assessed patient and asked nursing to call ER doctor for possible re-intubation. Dr. Tavarez at bedside. Dr. Gama asked nursing to notify Dr. Mojica by phone. Dr. Mojica asked nursing to order stat EKG and ABG. Dr. Tavarez and Dr. Gama spoke to Dr. Mojica on phone and discussed plan to proceed. Dr. Mojica wants to hold off on intubation at this time. Patient's oxygen saturation is 90s on non-rebreather. 2229 Patient is relaxing now and is no longer fighting restraints. Oxygen saturation is 98% on non-rebreather. Dr. Mojica gave order to go up to 1.5 mcg/kg/hr on Precedex as necessary. Await ABG results to determine if Bipap is needed. 0 Dr. Mojica called nursing to get update. This nurse reported patient is still on non-rebreather with oxygen saturation in the 90s. Dr. Mojica inquired about ABGs and results were read to him over the phone. He asked nursing to order a bipap with 01/08. RT notified and patient placed on Bipap. Will continue to monitor.
[2019-10-15] MEDS: sodium chloride 0.9% 1,000 ML 50 ML IV (02:22)
[2019-10-15] MEDS: dexmedetomidine 400 MCG in sodium chloride 0.9% (100 ml) 100 ML 22.5 MCG IV (03:34)
[2019-10-15] MEDS: heparin 5,000 unit/mL INJ 1 mL 5000 UNIT SUBCUT ×2 (03:34→13:19)
[2019-10-15 05:09] LABS: Alanine Aminotransferase 22 U/L (0-41); Albumin Level 3.9 g/dL (3.5-5.2); Alkaline Phosphatase 84 IU/L (40-130); Anion Gap 22.1 (5-19); Aspartate Amino Transferase 67 U/L (0-40); Blood Urea Nitrogen 44 mg/dL (6-20); Carbon Dioxide 17 mmol/L (22-29); Chloride 114 mmol/L (98-107); Globulin 1.9 g/dL (1.3-4.6); Glucose 94 mg/dL (65-115); Osmolality Calculated 308 mOsm/kg (285-295); Potassium 3.1 mmol/L (3.5-5.1); Sodium 150 mmol/L (136-145); Total Bilirubin 4.2 mg/dL (0.15-1.2); Total Protein 5.8 g/dL (6.6-8.7)
[2019-10-15 05:12] LABS: Basophils # 0.1 10^3/uL (0.0-0.1); Basophils % 0.9 %; Eosinophils # 0.1 10^3/uL (0.0-0.8); Hematocrit 29.9 % (42.0-52.0); Hemoglobin 8.9 g/dL (11.7-16.6); Lymphocytes # 0.6 10^3/uL (0.8-4.8); Lymphocytes % 9.4 %; Mean Corpuscular HGB Conc 29.8 g/dL (30.0-36.0); Mean Corpuscular Hemoglobin 30.1 pg (28.0-34.0); Mean Platelet Volume 11.6 fL (7.4-10.4); Monocytes # 0.5 10^3/uL (0.2-0.9); Monocytes % 7.6 %; Neutrophils # 5.3 10^3/uL (1.8-7.7); Neutrophils % 80.1 %; Nucleated Red Blood Cells % 0 %; Platelet Count 53 10^3/cmm (130-400); Red Blood Count 2.96 10^6/uL (4.1-5.3); White Blood Count 6.7 10^3/uL (4.0-10.0)
[2019-10-15 05:34] LABS: ABG PCO2 48.9 mmHg (35-45); ABG PH Result 7.26 (7.35-7.45); Alveolar-Arterial Oxygen Gradi 43.2 mmHg (5-10); Arterial Blood Gas Hematocrit 34.1 % (42-52); Base Excess ABG -5.4 mmol/L (-2.0-2.0); Blood Gas Allen Test Pos; Blood Gas Sample Site Radial, right; Blood Gas Sample Type Arterial; HCO3 ABG 21.8 mmol/L (22-26); HGB O2 Sat 72.3 % (95-100); Ionized Calcium Level - ABG 1.2 mmol/L (1.1-1.4); Methemoglobin 1.1 % (0.4-1.5); Oxygen Device NRB; Oxygen Saturation ABG 73.9; PO2 ABG 45.7 mmHg (80.0-100.0); Potassium Level - ABG 3.6 mmol/L (3.5-5.0); Total Hemoglobin 11.1 g/dL (14-18)
[2019-10-15] MEDS: piperacillin-tazobactam 3.375 GM in sodium chloride 0.9% (plus) 50 ML IV ×3 (05:41→22:21)
[2019-10-15] MEDS: pantoprazole 40 mg SDV IVP ×2 (05:41→17:05)
[2019-10-15] MEDS: OLANZapine 10 mg VIAL 5 MG IM ×3 (06:21→18:08)
[2019-10-15] MEDS: dexmedetomidine 400 MCG in sodium chloride 0.9% (100 ml) 100 ML 48.1 MCG IV (07:27)
[2019-10-15] MEDS: ipratropium-albuterol 3 mL Neb INHALATION ×4 (07:35→20:17)
[2019-10-15] MEDS: potassium chloride premix 40 MEQ/100 ML PREMIX 25 MEQ IV (07:35)
[2019-10-15] MEDS: linezolid premix 600 MG/300 ML PREMIX 300 MG IV ×2 (07:38→21:11)
[2019-10-15] MEDS: LORazepam 2 mg/mL INJ 1 mL 1 MG IVP ×5 (09:41→20:24)
[2019-10-15] MEDS: dextrose 5% 1,000 ML 50 ML IV (09:45)
[2019-10-15] MEDS: doxycycline 100 MG in sodium chloride 0.9% (plus) 100 ML IV ×2 (09:46→22:21)
[2019-10-15 10:27] LABS: Glucose Point of Care 109 mg/dL (70-110)
--- NOTE | 2019-10-15 10:43 | PC.NURSE ---
PATIENT AGGITATED ON 1.5 OF PRECEDEX PULLING AGAINST RESTRAINTS, NOT FOLLOWING COMMANDS, NOT FOCUSING EYES. ONE MG OF ATIVAN GIVEN AND THE PRECEDEX RAN OUT. ALL HE HAD WAS ATIVAN ON BOARD PRECEDEX HAD RUN OUT. HE CALMED AND HAS REMAINED CALM WITH THE PRECEDEX AT .1 NOT 1.5 IT WAS WHEN THE SHIFT STARTED. DR DONG AWARE. MOTHER UPDATED.
--- NOTE | 2019-10-15 12:17 | XRR_ITS ---
PROCEDURE INFORMATION: Exam: XR Abdomen, 2 Views Exam date and time: 10/15/2019 2:43 PM Age: 49 years old Clinical indication: Constipation; Additional info: Megacolon constipation TECHNIQUE: Imaging protocol: XR of the abdomen. Views: 2 Views. COMPARISON: CR XR abdomen min 2V [id number] 10/14/2019 4:50 AM FINDINGS: Gastrointestinal tract: Colonic constipation is present. Intraperitoneal space: Normal. No free air. Bones/joints: Unremarkable for age. XR/XR abdomen min 2V [id number] IMPRESSION: Colonic constipation is present.
--- NOTE | 2019-10-15 12:53 | P.PN_ITS ---
Subjective Subjective: Interval history: Donnie required Ativan last night. He is still requiring Precedex. He is agitated at times. BiPAP was started for respiratory support. He is required Zyprexa occasionally. He has not had any meaningful response. Medications: Reviewed: Yes Vitals/I&O/Wt Last Vital Signs Temp 98.1 F 10/15/19 10:26 Pulse 88 10/15/19 11:13 Resp 37 H 10/15/19 11:11 BP 132/78 10/15/19 10:26 Pulse Ox 99 10/15/19 11:13 10/14/19 10/15/19 10/15/19 22:59 06:59 14:59 Intake Total 654 / 1374.125 150 / 1524.125 537.375 / 537.375 Output Total 700 / 900 550 / 1450 300 / 300 Balance -46 / 474.125 -400 / 74.125 237.375 / 237.375 Weight last 48 hrs Weight 122.527 kg Weight 121.619 kg Physical Exam Narrative: EXAM NARRATIVE: General exam is a white male, occasionally agitated Cardiovascular regular rate and rhythm when calm and tachycardic when agitated Lungs coarse at the bases Abdomen is slightly distended. A few bowel sounds are noted Extremities 2+ edema Neurologic: I could not get him to cooperate with an exam. He will occasionally groan, and moves all 4 extremities without difficulty. Urinary Catheter Management^: Toussaint Latex: Cath Placed During This Visit: yes Reason for Continuing Indwelling Catheter: Accurate Measurement of Urinary Output in Critically Ill Patients Urinary Catheter Date of Insertion: 10/05/19 Urinary Catheter Time of Insertion: 05:30 Data : 10/15/19 04:23 10/15/19 04:23 A&P Assessment and plan (1) Acute encephalopathy: Still present, not improved. Multifactorial. Certainly had withdrawal. Concern of hepatic encephalopathy as well. Currently on Precedex, and requiring Ativan and Zyprexa as needed Ammonia level normal CT head was performed and demonstrated nothing acute His severe alcohol withdrawal should be resolving/resolved. Status: Acute (2) Tick bite of thigh: Tick removed in ICU off left inner thigh. Continue doxycycline. Tick panel pending. Status: Acute (3) Acute respiratory failure with hypoxia: Secondary to withdrawal, fluid overload. Extubated October 13. Requiring BiPAP Ventilator associated pneumonia may also play a role. MRSA has grown from sputum. Currently on linezolid, Zosyn Albumin has been initiated every 6 hours secondary to hepatorenal syndrome. Renal function is improving so albumin will be discontinued Echocardiogram was performed, demonstrating normal EF, poor ultrasonic window Pulmonary critical care consultation appreciated Status: Acute (4) Alcohol withdrawal syndrome: Last drink 2 PM 10/02. [facility] protocol. Thiamine, folic acid. Alcohol withdrawal is likely resolved Encourage cessation, follow-up with [facility] Status: Acute Qualifiers: Complication of substance-induced condition: with delirium Qualified Code(s): F10.231 - Alcohol dependence with withdrawal delirium (5) GI bleeding: Hemoglobin stable Continue Protonix Doubt variceal bleeding May follow-up with GI after hospitalization Heparin was restarted for DVT prophylaxis. Monitoring hemoglobin closely Status: Acute (6) Thrombocytopenia: Stable currently. Secondary to liver disease. Status: Acute (7) Delirium tremens: Status: Acute (8) Cirrhosis: Ammonia level normal Status: Acute (9) Cholestasis: Stable Status: Acute (10) Transaminitis: Stable. Likely secondary to alcoholism. Ultrasound did not delineate any obstructive cause of jaundice Status: Acute Additional A&P Information Abdominal distention. CT demonstrated dilated colon. Surgery following. Consistent with ileus. Feeds on hold currently Acute renal failure, consistent with hepatorenal syndrome. Pressors added for hypotension to keep mean atrial pressure greater than 80. These have now been weaned off. He is on albumin every 6 hours. This will be discontinued today. Renal function appears to have stabilized and urine output increasing. Hypokalemia, replaced today Nutrition: Trophic feeds started yesterday. Holding. Pulmonary considering extubation History of hypertension Attestations Medical Necessity Statement*: Needs continued hospital stay for encephalopathy, treatment of pneumonia with IV antibiotics Coding Level of Care Code Acute Activities Director Scouting for [facility] Diagnoses Acute encephalopathy G93.40 Tick bite of thigh S70.369A; W57.XXXA Acute respiratory failure with hypoxia J96.01 Alcohol withdrawal syndrome F10.231 Complication of substance-induced condition: with delirium GI bleeding K92.2 Thrombocytopenia D69.6 Delirium tremens F10.231 Cirrhosis K74.60 Cholestasis K83.1 Transaminitis R74.0
--- NOTE | 2019-10-15 13:06 | P.PN_ITS ---
Subjective Subjective: Interval history: Patient was extubated yesterday, has been apparently agitated. Patient had a large loose bowel movement yesterday. Abdomen x-ray shows colonic distention up to 9.5 cm Vitals/I&O/Wt Last Vital Signs Temp 98.1 F 10/15/19 10:26 Pulse 88 10/15/19 11:13 Resp 37 H 10/15/19 11:11 BP 132/78 10/15/19 10:26 Pulse Ox 99 10/15/19 11:13 10/14/19 10/15/19 10/15/19 22:59 06:59 14:59 Intake Total 654 / 1524.125 150 / 1524.125 537.375 / 537.375 Output Total 700 / 1450 550 / 1450 300 / 300 Balance -46 / 74.125 -400 / 74.125 237.375 / 237.375 Weight last 48 hrs Weight 270 lb 2 oz Weight 268 lb 2 oz Physical Exam Narrative: EXAM NARRATIVE: Abdomen: Soft, distended, no guarding or rigidity, abdominal wall edema present Urinary Catheter Management^: Toussaint Latex: Cath Placed During This Visit: yes Reason for Continuing Indwelling Catheter: Accurate Measurement of Urinary Output in Critically Ill Patients Urinary Catheter Date of Insertion: 10/05/19 Urinary Catheter Time of Insertion: 05:30 Data : 10/15/19 04:23 10/15/19 04:23 A&P Assessment and plan (1) Colonic pseudoobstruction: 49-year-old gentleman with significant medical issues noted on CT abdomen pelvis to have colonic distention.Obtain abdominal series today. Consider sta rting TPN since he is unlikely to reach his nutritional goals through enteral intake. Consider Reglan to increase motility Correct hypokalemia Repeat abdominal series today. At this point there is no justification for any surgical indication. Status: Acute Attestations Medical Necessity Statement*: Colonic pseudoobstruction Coding Level of Care Code Acute Exhaust Machine Operator for [facility] Diagnoses Colonic pseudoobstruction K59.8
[2019-10-15 14:53] LABS: Anion Gap 25.7 (5-19); Blood Urea Nitrogen 45 mg/dL (6-20); Calcium 9.3 mg/dL (8.5-10.5); Carbon Dioxide 19 mmol/L (22-29); Chloride 107 mmol/L (98-107); Glomerular Filtration Rate 22.2 mL/min (90-130); Glucose 107 mg/dL (65-115); Osmolality Calculated 304 mOsm/kg (285-295); Potassium 3.7 mmol/L (3.5-5.1); Sodium 148 mmol/L (136-145)
[2019-10-15] MEDS: morphine 4 mg/mL SDV 1 mL 2 MG IVP (15:03)
[2019-10-15] MEDS: ondansetron 2 mg/ML SDV 2 mL 4 MG IVP (17:04)
[2019-10-15] MEDS: bisacodyl 10 mg Supp PR (18:07)
--- NOTE | 2019-10-15 18:19 | PC.NURSE ---
ATTEMPTS AT SEDATION ARE SUMMATED LIKE THIS. PRECEDEX AT 1.5, DOES LITTLE TO CALM PATIENT, IT MAY CONTRIBUTE TO HIS HEART RATE BEING UNDER 100. ATIVAN ONE MG CAN WORK BUT ONLY FOR 45 MIN AND ONLY IF PATIENT IS NOT TOUCHED OR HAVING A PROCEEDURE OR DISCOMFORT. MORPHINE APPEARED TO DO NOTHING, EXTRA ONE MG OF ATIVAN GIVEN 30 MIN AFTER A DOSE LASTED 90 MIN. UOP WAS EXCELLENT DURING ALBUMIN ADMINISTRATION BUT DECREASED SEVERAL HOURS INTO SHIFT AFTER ALBUMN STOPPED. KUB NOTED CONSTIPATION /OBSTIPATION REMAINING WITH NO FREE AIR . DULCOLAX GIVEN AND RECTAL STIMULATION ATTEMPTED PATIENT ACTED LIKE HE MAY FEEL HE NEEDED TO HAVE A BM. ORAL CARE NEXT TO IMPOSSIBLE BUT DURING HIS BATH HIS BLOODY TATUM WAS TRIMMED FURTHER, LIPS LUBRICATED AND MASK CLEANED. BLEEDING SEEMED TO STOP AROUND 1500, NEW MASK PLACED DUE TO POOR FIT AND HIGH LEAK . TURNING BLANKET PLACED THAT BLOWS UP FOR SMOOTH TRANSFERS, PATIENT WOULD NOT STAY ON RIGHT SIDE , BUT SEEMED MORE COMFORTABLE IN LEFT. MOTHER AND UPDATED TODAY. ATTEMPTED TO EXPLAIN THAT DUE TO COMMUNICATION ISSUES AND LONG CONVERSATIONS WITH FAMILY TAKING BEDSIDE TIME FROM PATIENT CARE ONLY TWO FAMILY MEMBERS WOULD GET INFO AND THEY AGGREED ON [place] THE CODE WORD. THIS WAS AN ADMINISTRATION DECISION. WAS SAYING THE FAMILY BLAMED HER FOR THE 2 PERSON ONLY INFORMATION, SHE SAID THE FAMILY WANTS HER TO TRANSFERHIM TO [place]. EXPLAINED TO THEM BOTH THAT MENTAL STATUS CAN CLEAR UP AFTER A LONG RUN OF WITHDRAWAL, BUT THAT THINGS CAN HAPPEN TO SLOW THAT PROCESS OR PREVENT A COMPETE RETURN ANYTHING SUCH POOR CLEARANCE OF SEDATION TO STROKE COULD EFFECT THE OUTCOME BUT IT WAS TOO SOON TO KNOW. UNSURE HOW THEY UNDERSTOOD THE INFORMATION ONE BLAMED THE OTHER FOR HIS CONDITION THROUGHOUT THE CONVERSATIONS. PATIENT HAS A BLANCHABLE REDNESS ON EITHER SIDE OF HIS BUTTOCK. WHEN PATIENT TURNED HE OFTEN ROLLS OFF PILLOWS
--- NOTE | 2019-10-15 19:31 | PC.NURSE ---
received patient from [facility]. upon entering the room patient was laying in bed with eyes closed. patient is left side laying. precedex running at 1.5mcg/kg/min along with D5 running at 50ml/hr. patient is currently on bipap. del rosario in place with dark brown drainage. vital signs stable. will continue to monitor.
[2019-10-16] VITALS (55 sets, daily range): BP systolic 117–151; BP diastolic 72–102; PULSE 70–136; RESP 7–38; TEMP 36.8–37.2; O2SAT 87–100; BMI 42.3
[2019-10-16] MEDS: ipratropium-albuterol 3 mL Neb INHALATION ×6 (00:12→20:46)
[2019-10-16] MEDS: heparin 5,000 unit/mL INJ 1 mL 5000 UNIT SUBCUT ×2 (02:18→14:18)
[2019-10-16] MEDS: LORazepam 2 mg/mL INJ 1 mL 1 MG IVP (04:01)
[2019-10-16] MEDS: dextrose 5% 1,000 ML 50 ML IV ×2 (04:12→23:58)
--- NOTE | 2019-10-16 04:22 | PC.NURSE ---
0400 patient started moaning and mumbling not making any sense. patient was hitting hands on the rail and kicking his feet. nurse tried to reorient and redirect the patients behavior with no success. patient kept this behavior and would not calm down. per PRN order, nurse gave 1mg ativan IV.
[2019-10-16 05:01] LABS: Basophils # 0.1 10^3/uL (0.0-0.1); Basophils % 1.3 %; Eosinophils # 0.1 10^3/uL (0.0-0.8); Eosinophils % 1.6 %; Hematocrit 32.7 % (42.0-52.0); Hemoglobin 9.9 g/dL (11.7-16.6); Lymphocytes # 0.7 10^3/uL (0.8-4.8); Mean Corpuscular HGB Conc 30.3 g/dL (30.0-36.0); Mean Corpuscular Hemoglobin 30.1 pg (28.0-34.0); Mean Corpuscular Volume 99.4 fL (80-94); Mean Platelet Volume 11.5 fL (7.4-10.4); Monocytes # 0.4 10^3/uL (0.2-0.9); Monocytes % 5.9 %; Neutrophils # 5.7 10^3/uL (1.8-7.7); Neutrophils % 80.1 %; Nucleated Red Blood Cells % 0 %; Platelet Count 64 10^3/cmm (130-400); Red Blood Count 3.29 10^6/uL (4.1-5.3); Red Cell Distribution Width 16.9 % (12.1-15.1); White Blood Count 7.1 10^3/uL (4.0-10.0)
[2019-10-16 05:13] LABS: Ammonia 38 umol/L (16-60)
[2019-10-16 05:27] LABS: Alanine Aminotransferase 26 U/L (0-41); Albumin Level 4.8 g/dL (3.5-5.2); Alkaline Phosphatase 90 IU/L (40-130); Anion Gap 19.5 (5-19); Aspartate Amino Transferase 60 U/L (0-40); Blood Urea Nitrogen 49 mg/dL (6-20); Calcium 9.2 mg/dL (8.5-10.5); Carbon Dioxide 22 mmol/L (22-29); Chloride 109 mmol/L (98-107); Globulin 1.6 g/dL (1.3-4.6); Glomerular Filtration Rate 23.1 mL/min (90-130); Glucose 133 mg/dL (65-115); Osmolality Calculated 304 mOsm/kg (285-295); Potassium 3.5 mmol/L (3.5-5.1); Sodium 147 mmol/L (136-145); Total Bilirubin 4.6 mg/dL (0.15-1.2); Total Protein 6.4 g/dL (6.6-8.7)
[2019-10-16 05:30] LABS: Magnesium 2.2 mg/dL (1.7-2.3)
--- NOTE | 2019-10-16 05:48 | PC.NURSE ---
patient placed on NC @ 5L by RT.patient remained on NC for 30-45 minutes. patient saturations maintained 93-95% on NC but patient did start abdominal breathing and using his accessory muscles. due to this, RT and nurse placed patient back on Bipap. all vital sings stable. will continue to monitor.
[2019-10-16] MEDS: OLANZapine 10 mg VIAL 5 MG IM ×3 (05:59→21:08)
[2019-10-16] MEDS: pantoprazole 40 mg SDV IVP ×2 (06:00→17:11)
[2019-10-16] MEDS: piperacillin-tazobactam 3.375 GM in sodium chloride 0.9% (plus) 50 ML IV ×3 (06:07→21:08)
--- NOTE | 2019-10-16 06:38 | PC.NURSE ---
0615 patient becoming increasingly agitated after giving medications. nurse tried to calm patient and reorient patient. patient pulling at wrist restraints, yelling and groaning, patient having multiple loose bowel movements X2 . patient has bit his tongue X2 and has blood coming out his mouth. nurse suctioned and monitored airway. called and informed of patient condition. Dr at bedside. verbal order for versed drip to start once precedex drip is out. verbal order for ABG by
[2019-10-16 06:56] LABS: ABG PCO2 39.4 mmHg (35-45); ABG PH Result 7.33 (7.35-7.45); Alveolar-Arterial Oxygen Gradi 83.9 mmHg (5-10); Arterial Blood Gas Hematocrit 34.1 % (42-52); Base Excess ABG -4.9 mmol/L (-2.0-2.0); Blood Gas Allen Test Pos; Blood Gas Sample Site Radial, right; Blood Gas Sample Type Arterial; HCO3 ABG 20.7 mmol/L (22-26); HGB O2 Sat 92.8 % (95-100); Ionized Calcium Level - ABG 1.2 mmol/L (1.1-1.4); Methemoglobin 1.2 % (0.4-1.5); Oxygen Device BIPAP; Oxygen Saturation ABG 94.9; PO2 ABG 76.6 mmHg (80.0-100.0); Potassium Level - ABG 3.4 mmol/L (3.5-5.0); Total Hemoglobin 11.1 g/dL (14-18)
[2019-10-16 07:17] LABS: Glucose Point of Care 111 mg/dL (70-110)
--- NOTE | 2019-10-16 07:28 | CTR_ITS ---
PROCEDURE INFORMATION: Exam: CT Head Without Contrast Exam date and time: 10/16/2019 10:17 AM Age: 49 years old Clinical indication: Altered mental status/memory loss; Confusion or disorientation; Patient HX: AMS - confusion - agitation - dts; Additional info: Agitation, confusion TECHNIQUE: Imaging protocol: Computed tomography of the head without contrast. Radiation optimization: All CT scans at this facility use at least one of these dose optimization techniques: automated exposure control; mA and/or kV adjustment per patient size (includes targeted exams where dose is matched to clinical indication); or iterative reconstruction. COMPARISON: CT head wo con* [id number] 10/11/2019 3:32 PM RADIATION DOSE METRICS: Total DLP: 1302.83 mGy-cm FINDINGS: Brain: St white matter distinction is maintained throughout the brain. No radiographic evidence of intracranial hemorrhage. No CT evidence of mass hemorrhage or acute infarction. Ventricles: Ventricles are of normal size and configuration. Bones/joints: Unremarkable. No acute fracture. Sinuses: Visualized sinuses are unremarkable. No fluid levels. Mastoid air cells: Visualized mastoid air cells are well aerated. Soft tissues: Unremarkable. Other findings: No intra or extra-axial masses, lesions or collections. CT/CT head wo con* [id number] IMPRESSION: Motion hinders this exam slightly. No acute intracranial process is appreciated. Consider follow-up Radiation Dose CTDIVOL = (mGy): DLP = 1302.83 (mGy-cm)
[2019-10-16] MEDS: linezolid premix 600 MG/300 ML PREMIX 300 MG IV ×2 (07:51→20:22)
[2019-10-16] MEDS: LORazepam 2 mg/mL INJ 1 mL IVP ×6 (08:39→22:17)
--- NOTE | 2019-10-16 09:09 | PC.NURSE ---
agitated and restless ativan given
[2019-10-16] MEDS: doxycycline 100 MG in sodium chloride 0.9% (plus) 100 ML IV ×2 (09:47→22:16)
--- NOTE | 2019-10-16 11:27 | PC.NURSE ---
Addendum entered by Katarzyna Sharma RN 10/16/19 11:29: this nurse witnessed waste of Ativan 1.25mg- Vazquez Sharma RN Original Note: to ct with bipap in place at this time very restless and combative one time order ativan given on table unable to obtain even with staff at bedside another ativan .75 mg given and wasted 1.25
[2019-10-16 11:29] LABS: Glucose Point of Care 119 mg/dL (70-110)
[2019-10-16 11:29] LABS: Glucose Point of Care 112 mg/dL (70-110)
--- NOTE | 2019-10-16 13:04 | PM.PN ---
Subjective Subjective: Interval history: Donnie continued to have intermittent agitation requiring Ativan, Zyprexa. He is still on Precedex. When I saw him this morning he appeared calm. Appeared stable on BiPAP. Nurses relate to me that when he gets agitated he is not doing anything purposeful, but will move all extremities, grunt, yell but nothing interpretable. Medications: Reviewed: Yes Vitals/I&O/Wt Last Vital Signs Temp 98.3 F 10/16/19 04:07 Pulse 72 10/16/19 13:00 Resp 24 H 10/16/19 13:00 BP 124/72 10/16/19 13:00 Pulse Ox 93 10/16/19 13:00 10/15/19 10/16/19 10/16/19 22:59 06:59 14:59 Intake Total 551.380 / 5508.819 1890.839 / 2686.839 110.075 / 110.075 Output Total 750 / 1250 400 / 1650 Balance -198.620 / -13.000 1049.839 / 1036.839 110.075 / 110.075 Weight last 48 hrs Weight 122.527 kg Weight 122.527 kg Physical Exam Narrative: EXAM NARRATIVE: General exam is a white male, occasionally agitated Cardiovascular regular rate and rhythm when calm. No murmur Lungs coarse at the bases Abdomen less distended. A few bowel sounds are noted Extremities 2+ edema Neurologic: No obvious focal deficits but he has not returned to normal consciousness Urinary Catheter Management^: Toussaint Latex: Cath Placed During This Visit: yes Reason for Continuing Indwelling Catheter: Accurate Measurement of Urinary Output in Critically Ill Patients Urinary Catheter Date of Insertion: 10/05/19 Urinary Catheter Time of Insertion: 05:30 Data : 10/16/19 04:43 10/16/19 04:43 A&P Assessment and plan (1) Acute encephalopathy: Still present, not improved. Multifactorial. Certainly had withdrawal. Concern of hepatic encephalopathy as well. Requiring Ativan and Zyprexa as needed. I am slowly weaning his Precedex down Ammonia level normal CT head was performed and demonstrated nothing acute, repeated today with no concerns as well Consider neurology evaluation His severe alcohol withdrawal should be resolving/resolved. Status: Acute (2) Tick bite of thigh: Tick removed in ICU off left inner thigh. Continue doxycycline. Tick panel pending. Status: Acute (3) Acute respiratory failure with hypoxia: Secondary to withdrawal, fluid overload. Extubated October 13. Requiring BiPAP. He has yet to return to normal consciousness. Ventilator associated pneumonia may have also play a role. MRSA has grown from sputum. Currently on linezolid, Zosyn Albumin has been initiated every 6 hours secondary to hepatorenal syndrome. Renal function is improving. Albumin was discontinued Echocardiogram was performed, demonstrating normal EF, poor ultrasonic window Pulmonary critical care consultation appreciated Chest x-ray for tomorrow Continue BiPAP currently Status: Acute (4) Alcohol withdrawal syndrome: Last drink 2 PM 10/02. [facility] protocol. Thiamine, folic acid. Alcohol withdrawal is likely resolved Encourage cessation, follow-up with [facility] Status: Acute Qualifiers: Complication of substance-induced condition: with delirium Qualified Code(s): F10.231 - Alcohol dependence with withdrawal delirium (5) GI bleeding: Hemoglobin stable Continue Protonix Doubt variceal bleeding May follow-up with GI after hospitalization Heparin was restarted for DVT prophylaxis. No evidence of rebleeding Status: Acute (6) Thrombocytopenia: Stable currently. Secondary to liver disease. Status: Acute (7) Delirium tremens: Status: Acute (8) Cirrhosis: Ammonia level normal Status: Acute (9) Cholestasis: Stable Status: Acute (10) Transaminitis: Stable. Likely secondary to alcoholism. Ultrasound did not delineate any obstructive cause of jaundice Status: Acute Additional A&P Information Abdominal distention. CT demonstrated dilated colon. Surgery following. Consistent with ileus. Overall improving Acute renal failure, consistent with hepatorenal syndrome. Pressors added for hypotension to keep mean atrial pressure greater than 80. These have now been weaned off. He is on albumin every 6 hours. This will be discontinued today. Renal function appears to have stabilized and urine output increasing. Hypokalemia, resolved Nutrition. 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
[2019-10-16] MEDS: AA-Dex 5%-20% w/Lytes 1,000 ML with multivitamin inj 10 ML 50 ML IV (15:13)
--- NOTE | 2019-10-16 15:42 | PM.PN ---
Subjective Subjective: Interval history: Patient continues to be agitated and had a CT of his head which is negative for any acute pathology. He apparently had large loose bowel movements and has been passing flatus Vitals/I&O/Wt Last Vital Signs Temp 98.3 F 10/16/19 04:07 Pulse 77 10/16/19 15:41 Resp 21 H 10/16/19 15:39 BP 130/79 10/16/19 14:00 Pulse Ox 98 10/16/19 15:39 10/16/19 10/16/19 10/16/19 06:59 14:59 22:59 Intake Total 1449.839 / 2686.839 160.075 / 160.075 Output Total 400 / 1650 Balance 1049.839 / 1036.839 160.075 / 160.075 Weight last 48 hrs Weight 270 lb 2 oz Weight 270 lb 2 oz Physical Exam Narrative: EXAM NARRATIVE: Soft abdomen: Soft, distended, nontender, no guarding or rigidity Urinary Catheter Management^: Toussaint Latex: Cath Placed During This Visit: yes Reason for Continuing Indwelling Catheter: Accurate Measurement of Urinary Output in Critically Ill Patients Urinary Catheter Date of Insertion: 10/05/19 Urinary Catheter Time of Insertion: 05:30 Data : 10/16/19 04:43 10/16/19 04:43 A&P Assessment and plan (1) Colonic pseudoobstruction: 49-year-old gentleman with multiple comorbidities who is currently in alcohol withdrawal and has developed colonic pseudoobstruction. He continues to be having bowel movements. He did not tolerate his initial attempted tube feeds and therefore TPN has been started today. Ideally he could also start tube feeds but the nurses were concerned that he would pull out his NG tube/ Dobbhoff tube. Status: Acute Attestations Medical Necessity Statement*: Colonic pseudoobstruction Coding Level of Care Code Acute Education Assistant for [facility] Diagnoses Colonic pseudoobstruction K59.8
[2019-10-16 16:57] LABS: Glucose Point of Care 149 mg/dL (70-110)
[2019-10-17] VITALS (82 sets, daily range): BP systolic 90–174; BP diastolic 44–104; PULSE 79–150; RESP 12–55; TEMP 37.1; O2SAT 73–100
[2019-10-17] MEDS: ipratropium-albuterol 3 mL Neb INHALATION ×7 (00:31→23:54)
[2019-10-17] MEDS: LORazepam 2 mg/mL INJ 1 mL IVP ×5 (01:27→11:50)
[2019-10-17] MEDS: heparin 5,000 unit/mL INJ 1 mL 5000 UNIT SUBCUT (03:00)
[2019-10-17 05:05] LABS: Basophils # 0.1 10^3/uL (0.0-0.1); Basophils % 1.3 %; Eosinophils # 0.2 10^3/uL (0.0-0.8); Eosinophils % 2.1 %; Hematocrit 32.7 % (42.0-52.0); Hemoglobin 9.9 g/dL (11.7-16.6); Lymphocytes # 0.8 10^3/uL (0.8-4.8); Lymphocytes % 11.7 %; Mean Corpuscular HGB Conc 30.3 g/dL (30.0-36.0); Mean Corpuscular Hemoglobin 30.3 pg (28.0-34.0); Mean Platelet Volume 10.9 fL (7.4-10.4); Monocytes # 0.5 10^3/uL (0.2-0.9); Monocytes % 7.2 %; Neutrophils # 5.5 10^3/uL (1.8-7.7); Nucleated Red Blood Cells % 0 %; Platelet Count 63 10^3/cmm (130-400); Red Blood Count 3.27 10^6/uL (4.1-5.3); White Blood Count 7.1 10^3/uL (4.0-10.0)
[2019-10-17 05:22] LABS: Alanine Aminotransferase 29 U/L (0-41); Albumin Level 4.4 g/dL (3.5-5.2); Alkaline Phosphatase 98 IU/L (40-130); Anion Gap 20.4 (5-19); Aspartate Amino Transferase 56 U/L (0-40); Blood Urea Nitrogen 59 mg/dL (6-20); Calcium 10.1 mg/dL (8.5-10.5); Carbon Dioxide 21 mmol/L (22-29); Chloride 114 mmol/L (98-107); Globulin 2.2 g/dL (1.3-4.6); Glucose 150 mg/dL (65-115); Osmolality Calculated 316 mOsm/kg (285-295); Potassium 3.4 mmol/L (3.5-5.1); Sodium 152 mmol/L (136-145); Total Bilirubin 3.7 mg/dL (0.15-1.2); Total Protein 6.6 g/dL (6.6-8.7)
[2019-10-17] MEDS: pantoprazole 40 mg SDV IVP ×2 (05:22→20:57)
[2019-10-17] MEDS: piperacillin-tazobactam 3.375 GM in sodium chloride 0.9% (plus) 50 ML IV ×3 (05:23→20:56)
--- NOTE | 2019-10-17 07:00 | XR_ITS ---
WS: [id number] Portable AP supine chest, 10/17/2019 Clinical Data: Follow-up pneumonia Comparison: Portable chest, 10/14/2019 Findings: The left PICC line remains in the same position. There is opacification of the right lung w hich may represent a right pleural effusion. The pulmonary vascularity is increased. Heart is at the upper limits of normal. No pneumothorax is seen. No definite pneumonia is seen. There is no pneumotho rax. XR/XR chest 1V portable [id number] Impression: 1. Increased opacity over right lung which may represent effusion. 2. Increased pulmonary vascularity. 3. Heart at the upper limits of normal. 4. Left PICC line remains.
[2019-10-17 07:39] LABS: Glucose Point of Care 138 mg/dL (70-110)
[2019-10-17] MEDS: linezolid premix 600 MG/300 ML PREMIX 300 MG IV (08:29)
[2019-10-17] MEDS: doxycycline 100 MG in sodium chloride 0.9% (plus) 100 ML IV ×2 (09:10→22:31)
--- NOTE | 2019-10-17 09:21 | P.PN_ITS ---
Subjective Subjective: Interval history: Confused, intermittently restless. Vitals/I&O/Wt Last Vital Signs Temp 98.9 F 10/16/19 20:00 Pulse 93 10/17/19 08:00 Resp 32 H 10/17/19 08:00 BP 159/88 10/17/19 08:00 Pulse Ox 100 10/17/19 08:00 10/16/19 10/17/19 10/17/19 22:59 06:59 14:59 Intake Total 610 / 4257.408 5995 / 2445.075 Output Total 800 / 800 Balance 610 / 1170.075 475 / 1645.075 Weight last 48 hrs Weight 122.527 kg Weight 122.527 kg Physical Exam Const: GENERAL APPEARANCE: disheveled NUTRITIONAL APPEARANCE: obese OTHER: BiPAP on. Sleeping. Confused. Intermittently restless. HENMT: OTHER: Neck/C-Spine: COMMON NORMALS: no JVD Resp: COMMON NORMALS: normal respiratory effort and clear to auscultation bilaterally AUSCULTATION: clear to auscultation bilaterally and rales (Faint/minimal crackle in right lower lobe at the base if any.) Cardio: COMMON NORMALS: no JVD, regular rhythm, S1 normal heart sound present, S2 normal heart sound present and No murmurs present (Cardio) RATE: tachycardic RHYTHM: regular rhythm HEART SOUNDS: S1 normal heart sound present and S2 normal heart sound present GI: COMMON NORMALS: Normal to inspection, nondistended, normoactive bowel sounds present, Soft to palpation and non-tender PALPATION: Yes Soft to palpation Extremity: COMMON NORMALS: no joint enlargement GENERAL: Yes edema (2+) Neuro: COMMON NORMALS: moves all extremities MOTOR EXAM: Tremors during motor activity present resting tremor COORDINATION: Romberg test abnormal Skin: COMMON NORMALS: no rashes or lesions noted GENERAL SKIN EXAM: no rashes or lesions noted Urinary Catheter Management^: Toussaint Latex: Cath Placed During This Visit: yes Reason for Continuing Indwelling Catheter: Accurate Measurement of Urinary Output in Critically Ill Patients Urinary Catheter Date of Insertion: 10/05/19 Urinary Catheter Time of Insertion: 05:30 Data : 10/17/19 04:35 10/17/19 04:35 Micro: Microbiology 10/11/19 19:12 Blood Culture - Final Blood NO GROWTH AFTER 5 DAYS 05/12/20 19:15 Blood Culture - Final Blood NO GROWTH AFTER 5 DAYS A&P Assessment and plan (1) Acute encephalopathy: Yesterday thought perhaps to show some purposeful movements, nodding his head, although today he is mostly sleeping, or waking up restless, non- comprehensively intermittently yelling out. Does not answer questions or follow commands. Suspected multifactorial encephalopathy multifactorial. Initially with alcohol withdrawal, subsequently with hepatic encephalopathy, possibly alcoholic hepa titis. Also on a number of psychiatric medications at home, muscle relaxers, potentially contributing. Possibly prolonged withdrawal. No noted seizure-like activity. Tick was found on him here in the hospital. Empirically on doxycycline. Tick panel pending. Requiring Ativan and Zyprexa as needed. Still on Precedex. Ammonia level normalized. CT head and repeat without acute findings. Discussed with neurology, will obtain EEG, LP to exclude additional causes for completeness of evaluation and then to be assessed by neurology as well. Continue one-to-one sitter. Discussed with his . Status: Acute (2) Acute respiratory failure with hypoxia: Extubated October 13. Requiring BiPAP. Intermittent hypoxia. Possibly some degree of sleep apnea contributing which is unmasked more so due to his encephal opathy. Ventilator associated pneumonia may have also play a role. MRSA has grown from sputum. Currently on linezolid, Zosyn Echocardiogram was performed, demonstrating normal EF, poor ultrasonic window Continue BiPAP currently Status: Acute (3) Alcohol withdrawal syndrome: Last drink 2 PM 10/02. [facility] protocol. Thiamine, folic acid. Alcohol withdrawal is likely would be expected resolved under normal circu mstances Encourage cessation, follow-up with [facility] Status: Acute Qualifiers: Complication of substance-induced condition: with delirium Qualified Code(s): F10.231 - Alcohol dependence with withdrawal delirium (4) Thrombocytopenia: Stable currently. Secondary to liver disease. Status: Acute (5) Cirrhosis: Ammonia level initially elevated after GI bleeding, but have normalized subsequently Status: Acute (6) GI bleeding: Hemoglobin stable Continue Protonix Doubt variceal bleeding May follow-up with GI after hospitalization Heparin was restarted for DVT prophylaxis. No evidence of rebleeding Status: Acute (7) Delirium tremens: Status: Acute (8) Tick bite of thigh: Tick removed in ICU off left inner thigh. Continue doxycycline. Tick panel pending. Status: Acute (9) Cholestasis: With some hydropic appearing gallbladder, some gallbladder wall thickening, but this all appears to be chronic, with CBD normal, no sign of acute obstruction, cholecystitis. Has been empirically on antibiotics initially due to GI bleed, subsequently due to pneumonia. Status: Acute (10) Transaminitis: Stable. Likely secondary to alcoholism. Ultrasound did not delineate any obstructive cause of jaundice Status: Acute (11) Colonic pseudoobstruction: Appreciate surgical follow-up. He is on trophic feeds. TPN. Status: Acute (12) Hepatorenal syndrome: Received a course of pressor support, infusions, with stabilization of renal function, improvement in creatinine. Status: Acute Additional A&P Information Hypokalemia, resolved Nutrition. TPN History of hypertension Heparin for DVT prophylaxis. Hold for now for LP. Attestations Medical Necessity Statement*: Continue admission for assessment management of persistent encephalopathy, overall improving respiratory failure, colonic pseudoobstruction, in the setting of liver cirrhosis. Critical Care Time: In addition to noncritical issues, 10 minutes critical care time spent on assessment and management of persistent encephalopathy, respiratory failure. Coding Level of Care Code Acute Nuclear Medicine Technologist for [facility] Diagnoses Acute encephalopathy G93.40 Acute respiratory failure with hypoxia J96.01 Alcohol withdrawal syndrome F10.231 Complication of substance-induced condition: with delirium Thrombocytopenia D69.6 Cirrhosis K74.60 GI bleeding K92.2 Delirium tremens F10.231 Tick bite of thigh S70.369A; W57.XXXA Cholestasis K83.1 Transaminitis R74.0 Colonic pseudoobstruction K59.8 Hepatorenal syndrome K76.7
[2019-10-17 09:36] LABS: Lactate Dehydrogenase 179 U/L (135-225)
--- NOTE | 2019-10-17 09:52 | P.PN_ITS ---
Subjective Subjective: Interval history: Patient has been agitated, getting intubated. No bowel movements in the last 24 hours Vitals/I&O/Wt Last Vital Signs Temp 98.9 F 10/16/19 20:00 Pulse 93 10/17/19 08:00 Resp 32 H 10/17/19 08:00 BP 159/88 10/17/19 08:00 Pulse Ox 100 10/17/19 08:00 10/16/19 10/17/19 10/17/19 22:59 06:59 14:59 Intake Total 610 / 2445.075 1275 / 2445.075 242.675 / 242.675 Output Total 800 / 800 Balance 610 / 1645.075 475 / 1645.075 242.675 / 242.675 Weight last 48 hrs Weight 270 lb 2 oz Weight 270 lb 2 oz Physical Exam Narrative: EXAM NARRATIVE: Abdomen: Soft Urinary Catheter Management^: Toussaint Latex: Cath Placed During This Visit: yes Reason for Continuing Indwelling Catheter: Accurate Measurement of Urinary Output in Critically Ill Patients Urinary Catheter Date of Insertion: 10/05/19 Urinary Catheter Time of Insertion: 05:30 Data : 10/17/19 04:35 10/17/19 04:35 Micro: Microbiology 10/11/19 19:12 Blood Culture - Final Blood NO GROWTH AFTER 5 DAYS 10/11/19 19:15 Blood Culture - Final Blood NO GROWTH AFTER 5 DAYS A&P Assessment and plan (1) Colonic pseudoobstruction: 49-year-old gentleman with multiple comorbidities who is currently in alcohol withdrawal and has developed colonic pseudoobstruction. He had multiple bowel movements until yesterday. Continue TPN.. Ideally he could also start tube feeds once intubated. Consider adding Reglan 10 mg 3 times daily if high tube feed residuals present. 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
[2019-10-17 10:07] LABS: INR 1.45 (0.8-1.2)
[2019-10-17] MEDS: OLANZapine 10 mg VIAL 5 MG IM (10:25)
--- NOTE | 2019-10-17 12:28 | XR_ITS ---
WS: [id number] Flat and upright abdomen, 10/17/2019 Clinical Data: colonic pseudoobstruction Comparison: Abdomen, 10/15/2019 Findings: No free air is seen beneath the diaphragms. No abnormal intra-abdominal masses or calcifica tions are seen. There is a moderate right pleural effusion. The heart is enlarged. There is a nasogas tric tube which appears to be curled within the fundus. The small bowel shows moderate dilatation but the colon shows greater dilatation. XR/XR abdomen min 2V [id number] Impression: 1. Generalized ileus. 2. Large right pleural effusion. 3. Distal nasogastric tube is probably curled within the fundus of the stomach.
[2019-10-17] MEDS: rocuronium 10 mg/mL INJ 5mL 75 MG IV (12:54)
[2019-10-17] MEDS: midazolam 1 mg/mL INJ 2 mL 4 MG IVP (12:55)
[2019-10-17] MEDS: propofol 1,000 MG/100 ML INJ 7.4 MG IV (13:00)
[2019-10-17 13:01] LABS: Glucose Point of Care 118 mg/dL (70-110)
--- NOTE | 2019-10-17 13:01 | P.CONIM_ITS ---
Providers/Reason For Consult Consulting Physican/Specialty*: Jovi Vences MD Reason for Consult*: Persistent profound confusion Attending Physician: Jovi Vences Primary Care Provider: RUSS Kevin History of Present Illness History of Present Illness Donnie Ellsworth is a 49 year old man who presents with hepatic failure from alcoholic hepatitis. He has intact albumin but his pro time is elevated, his platelet count is 50,000 and he presented with hallucinosis. Every time he is weaned from the vent he becomes progressively tachycardic and hypoxic and at the time of my arrival in ICU, the patient is in the process of being reintubated. I reviewed his chart from his hospitalization and previous notes from the clinic. He was hospitalized at [facility] a year ago (10/22 through 10/25/2018) for GI evaluation. He had developed ascites, black stools and diffuse lower extremity edema. He admitted to consuming half a gallon of vodka per day for 6 years. At that time he had elevated liver enzymes. His CT scan of the abdomen showed cirrhosis with portal hypertension and varices. He had mild ascites. Since then he has been trying very hard to quit drinking but has not been successful. He stopped drinking 24 hours before he came to our em ergency department and was experiencing visual hallucinations when he arrived. Within 24 hours of admission he developed respiratory failure and had to be intubated. Since then, every attempt to wean him from sedation has resulted in severe agitation. Benzodiazepines and atypical antipsychotics have failed to reduce his agitation enough that he can come off the vent. Today, he has been unable to tolerate BiPAP and is now becoming hypoxic enough that he is going to have to be reintubated. He is now bleeding from every orifice and has developed thrombocytopenia. He has hepatorenal syndrome with marked elevation of his creatinine. His ammonia level has been high. His pro time is elevated. His albumin has been normal. Review of Systems General: Reports: ROS unobtainable due to endotracheal tube Narrative: He is followed at [facility] for depression. He is diabetic. He is on Zonegran for chronic low back pain. Meds/Allergies Home Medications and Allergies Home Medications Medication Instructions Recorded Confirmed Last Taken Type albuterol sulfate 90 mcg/actuation 2 puff INHALATION QID 06/10/19 10/04/19 Unknown History aerosol inhaler zonisamide 25 mg capsule 25 mg PO BID 06/10/19 10/04/19 Unknown History furosemide 40 mg PO DAILY #7 tab 07/10/19 10/04/19 Unknown Rx hydrocodone-acetaminophen 1 tab PO Q8H PRN #14 tab 07/10/19 10/04/19 Unknown Rx promethazine 12.5 mg PO QID PRN #20 tab 07/10/19 10/04/19 Unknown Rx spironolactone 25 mg PO DAILY #7 tab 07/10/19 10/04/19 Unknown Rx cyclobenzaprine 10 mg tablet 10 mg PO .at bedtime #30 tab 07/13/19 10/04/19 Unknown Rx bupropion HCl 150 mg 24 hr tablet, 150 mg PO QAM #30 tab 08/11/19 10/04/19 Unknown Rx extended release hydroxyzine HCl 25 mg tablet 25 mg PO TID PRN #90 tab 08/11/19 10/04/19 Unknown Rx mirtazapine 30 mg tablet 30 mg PO .at bed #30 tab 08/11/19 10/04/19 Unknown Rx naltrexone 50 mg tablet 50 mg PO DAILY #30 tab 08/11/19 10/04/19 Unknown Rx paroxetine HCl 40 mg tablet 40 mg PO DAILY #30 tab 08/11/19 10/04/19 Unknown Rx prazosin 5 mg capsule 5 mg PO .at bed cap 08/11/19 10/04/19 Unknown History lisinopril 10 mg tablet 10 mg PO DAILY #30 tab 09/12/19 10/04/19 Unknown Rx pantoprazole 40 mg tablet,delayed 40 mg PO QAM #30 tab 09/12/19 10/04/19 Unknown Rx release Allergies Allergy/AdvReac Type Severity Reaction Status Date / Time No Known Allergies Allergy Verified 10/05/19 10:58 Current Medications Current Medications Generic Name Dose Route Start Last Admin Trade Name Freq PRN Reason Stop Dose Admin Albuterol/Ipratropium 3 ml 10/07/19 04:00 10/17/19 11:04 Duoneb INHALATION 3 ml Q4H.RESPIRATORY CANDACE Administration Artificial Tears 1 drop 10/12/19 09:00 10/12/19 12:38 Isopto Tears EYE-BOTH 1 drop Q4H PRN Administration DRY EYE(S) Bisacodyl 10 mg 10/15/19 17:35 05/16/20 18:07 Bisac-[address] CT 10 mg DAILY PRN Administration CONSTIPATION Heparin Sodium (Beef Lung) 5,000 unit 10/12/19 15:15 10/17/19 03:00 Heparin SUBCUT 5,000 unit Q12H CANDACE Administration Linezolid 600 mg in 300 mls @ 300 mls/hr 10/11/19 08:30 10/17/19 08:29 Zyvox Premix IV 300 mls/hr Q12H CANDACE Administration Protocol Doxycycline Hyclate 100 mg/ 100 mls @ 100 mls/hr 10/11/19 21:30 10/17/19 09:10 Sodium Chloride IV 100 mls/hr Q12H CANDACE Administration Protocol Piperacillin Sod/Tazobactam 50 mls @ 12.5 mls/hr 10/13/19 13:45 10/17/19 05:23 Sod 3.375 gm/ Sodium Chloride IV 12.5 mls/hr Q8H CANDACE Administration Protocol Dexmedetomidine HCl 1,000 mcg/ 260 mls @ 0 mls/hr 10/15/19 07:30 10/17/19 09:28 Sodium Chloride IV 0.7 mcg/kg/hr .Q0M CANDACE 22.3 mls/hr Administration Protocol Per Protocol Dextrose 1,000 mls @ 50 mls/hr 10/15/19 08:00 10/16/19 23:58 D5w IV 50 mls/hr .Q20H CANDACE Administration Multivitamins 10 ml/ Amino 1,010 mls @ 50 mls/hr 10/16/19 16:00 10/16/19 15:13 Acids/Electrolytes IV 50 mls/hr .[id number] CANDACE Administration Fat Emulsion Intravenous 125 mls @ 10.417 mls/hr 10/16/19 16:00 10/17/19 04:08 Intralipid 20% IV Infused Q24H CANDACE Infusion Lorazepam 2 mg 10/16/19 07:33 10/17/19 11:28 Ativan IVP 2 mg Q2H PRN Administration AGITATION Olanzapine 5 mg 10/15/19 17:36 10/17/19 10:25 Zyprexa IM 5 mg Q6H PRN Administration SEVERE AGITATION Ondansetron HCl 4 mg 10/04/19 16:33 10/15/19 17:04 Zofran IVP 4 mg Q6H PRN Administration NAUSEA AND VOMITING Pantoprazole Sodium 40 mg 10/07/19 18:00 10/17/19 05:22 Protonix IVP 40 mg Q12H CANDACE Administration Promethazine HCl 12.5 mg 10/04/19 20:24 10/05/19 14:30 Phenergan PO 12.5 mg QID PRN Administration nausea and vomiting PFSH Acute PFSH: Medical History Alcohol dependence, in remission Cirrhosis Controlled diabetes mellitus, without long-term current use of insulin Depression Gastro-esophageal reflux disease with esophagitis Generalized anxiety disorder Hypertension Major depressive disorder, recurrent, moderate Post-traumatic stress disorder, chronic Surgical History Cataract H/O esophagogastroduodenoscopy History of colonoscopy S/P tendon repair Family History Other Arthritis CAD (coronary artery disease) Diabetes Denies family history of Anesthesia complication Bleeding disorder Social History Smoking and tobacco status: former smoker Second hand smoke exposure: No Smoking risk assessment/counseling performed?: Yes Alcohol intake: current Desire information about alcohol rehabilitation?: No Counseling given: Yes Desire information about substance/drug rehabilitation?: No Counseling given: No Caregiver/support person: No Lives independently: Yes Household members: spouse Housing: House Marital status: Current occupational status: disabled History of recent travel: No Current gender identity: Male Vitals/I&O/Wt Last Vital Signs Temp 98.9 F 10/16/19 20:00 Pulse 92 10/17/19 12:18 Resp 43 H 10/17/19 11:05 BP 157/104 10/17/19 10:00 Pulse Ox 97 10/17/19 12:18 10/16/19 10/17/19 10/17/19 22:59 06:59 14:59 Intake Total 610 / 6881.541 8180 / 2445.075 242.675 / 242.675 Output Total 800 / 800 Balance 610 / 1170.075 475 / 1645.075 242.675 / 242.675 Weight last 48 hrs Weight 270 lb 2 oz Physical Exam Narrative: EXAM NARRATIVE: The patient was examined bedside in ICU. He was experiencing respiratory compromise and 1 nurse was required to hold his BiPAP fast to his face. He has a face mask on so that I could not see his eye movements. The patient was not responding to verbal commands. He was acutely agitated and pulling at all 4 restraints. His motor function appeared to be strong throughout. He withdrew from minimal stimuli in all 4 extremities. His movements were purposeful but agitated. Cardiac: S1 and S2 normal without murmur gallop. He was tachycardic with a rate of 120. Lungs were clear as far as could be determined but he was hyperventilating. He had blood on his gown near the Toussaint, was spitting blood from his mouth and there was gross blood in his urine. Cardio: RATE: tachycardic Urinary Catheter Management^: Toussaint Latex: Cath Placed During This Visit: yes Reason for Continuing Indwelling Catheter: Accurate Measurement of Urinary Output in Critically Ill Patients Urinary Catheter Date of Insertion: 10/05/19 Urinary Catheter Time of Insertion: 05:30 Data Micro: Micro: Microbiology 10/11/19 19:12 Blood Culture - Fi nal Blood NO GROWTH AFTER 5 DAYS 10/11/19 19:15 Blood Culture - Fi nal Blood NO GROWTH AFTER 5 DAYS Other Data: Attestation for Other Data: I personally reviewed and interpreted the following: Other data: CT scan of the head from yesterday and from [facility] in the admission reviewed. The images were reviewed and compared. No abnormalities were seen although his CT from yesterday was marred by movement artifact. His platelet count erich occurred on 10/04 when it was 28 and he is currently up to 63. Pro time has been elevated throughout his stay. B12 was normal. A&P Assessment and plan (1) Alcoholic cirrhosis of liver: Status: Acute (2) Acute respiratory failure with hypoxia: Status: Acute (3) Alcohol withdrawal syndrome: I think primarily his encephalopathy is secondary to ongoing alcohol withdrawal. It is always uncomfortable when toxic encephalopathy persists beyond several weeks of alcohol withdrawal but in severe alcohol withdrawal this can occur. This patient has multiple signs of alcoholic liver dysfunction including profound thrombocytopenia, hepatorenal syndrome, elevated pro time and some degree of hypoalbuminemia. His albumin has improved as has hyperammonemia. Ideally it would be good to get some spinal fluid and make sure that the patient is not suffering from meningitis as unlikely as that is but it may not be a good time to obtain spinal fluid because he is extremely agitated and he is not clotting well. I think the likelihood that an undiagnosed RAMP FLIGHT ATTENDANT infection is responsible for his encephalopathy is low. I anticipate that he is going to require intubation later today. A long-term rehab facility such as [facility] may be in order since this patient cannot tolerate extubation well. Thanks for letting me participate in the care of this gentleman and I will look him on him periodically. Status: Acute Qualifiers: Complication of substance-induced condition: with delirium Qualified Code(s): F10.231 - Alcohol dependence with withdrawal delirium (4) Toxic encephalopathy: Status: Acute Consult Attestations Medical Necessity Statement: Profound encephalopathy and respiratory failure Time Spent in Patient Care: 16 - 35 minutes Coding Level of Care Code Acute Research Associate Policy for Agapito Davis Diagnoses Alcoholic cirrhosis of liver K70.30 Acute respiratory failure with hypoxia J96.01 Alcohol withdrawal syndrome F10.231 Complication of substance-induced condition: with delirium Toxic encephalopathy G92
--- NOTE | 2019-10-17 14:23 | CTR_ITS ---
PROCEDURE INFORMATION: Exam: CT Chest Without Contrast Exam date and time: 10/17/2019 3:36 PM Age: 49 years old Clinical indication: Other: Possible pneumonia TECHNIQUE: Imaging protocol: Computed tomography of the chest without contrast. Radiation optimization: All CT scans at this facility use at least one of these dose optimization techniques: automated exposure control; mA and/or kV adjustment per patient size (includes targeted exams where dose is matched to clinical indication); or iterative reconstruction. COMPARISON: [facility] Chest-Pulmonary Emb [id number] 05/14/2018 1:47 PM RADIATION DOSE METRICS: Total DLP: 989.24 mGy-cm FINDINGS: Tubes, catheters and devices: There is an endotracheal tube and nasogastric tube. There is an endotracheal tube whose tip is 2.6 cm above the brian. Lungs: There is consolidation in the bilateral upper and lower lobes of the lung, right worse than left. Consolidation is most advanced in the right lower lobe of the lung with air bronchograms. No associated cavitation or calcification. No dominant lung mass. Pleural space: There is a large right pleural effusion and a small left pleural effusion. No pneumothorax. Heart: Unremarkable. No cardiomegaly. No pericardial effusion. Aorta: Unremarkable. No aortic aneurysm. Lymph nodes: Unremarkable. No enlarged lymph nodes. Liver: There is splenomegaly measuring 15.6 cm in length.Findings consistent with fatty infiltration of the liver are identified. Bones/joints: Degenerative change is identified in the spine. There is no evidence for acute fracture or malalignment. Soft tissues: Unremarkable. CT/CT chest [facility] [id number] IMPRESSION: There is extensive bilateral lung disease, right worse than left. Findings are consistent with multifocal pneumonia and/or aspiration. Follow-up is recommended to ensure expected resolution. There is a large right pleural effusion and a small left pleural effusion. Radiation Dose CTDIVOL = (mGy): DLP = 989.24 (mGy-cm)
[2019-10-17] MEDS: etomidate 10 ML 100 MG (14:24)
[2019-10-17] MEDS: fentaNYL 50 mcg/mL INJ 2mL IVP (14:25)
[2019-10-17] MEDS: AA-Dex 5%-20% w/Lytes 1,000 ML with multivitamin inj 10 ML 50 ML IV (14:50)
--- NOTE | 2019-10-17 18:00 | PC.NURSE ---
SHIFT REVIEW Patient incoherent and thrashing in bed continuously when this nurse took over report. Ativan and Zyprexa given. Patient continued to thrash in bed, grunting, abdominal breathing, respirations 40-60 per minute, heart rate increased from 100s to 140-150s, pupils still unequal, not following any commands. Dr. Vences informed and new orders to increase Precedex to 1.0 and 2mg more of Ativan. Patient continues to thrash in bed, biting lips and tongue, bleeding from mouth. Unable to orient. Dr. Vences again and Dr. Mojica also called. Dr. Mojica instructed that he would come to assess and possibly intubate patient. Medications given. Patient intubated by Dr. Mojica. Patient then taken down for stat chest CT and abdominal series. Once back in room, Dr. Mojica arrived to place chest tube to right chest. Arterial line then placed at bedside. Bronchoscopy then performed. Informed consent filled out and taken from patient's before all procedures. Patient sedated on the ventilator.
--- NOTE | 2019-10-17 18:00 | P.PCN_ITS ---
Procedure/Consent Time out: Time Out Performed: No Consent: Consent for Procedure: Emergency procedure Procedure Narrative: Name of the procedure: Endotracheal intubation. Indication: Hypoxic respiratory failure. Medications: Versed: 4 mg IV, fentanyl 50 mcg IV, etomidate 20 mg IV, rocuronium 50 mg. Procedure: Following administration of the appropriate IV medications, the patient was positioned optimally. The patient was assessed to be difficult intubation from the lack of appropriate mouth opening, high Mallampati score. The patient was also biting his tongue and having significant bleeding the upper airway. The glidescope was advanced into the oral cavity. There was significant difficulty in inserting the glide scope due to limited opening of the mouth as well as large tongue. Difficult amount of blood was noted in the oral cavity. Once the glide scope was passed beyond the tongue blood clot was noted in the hypopharynx and opening of the larynx. The patient desaturated within 35 seconds and required bag mask ventilation. A Elena clamp was used to aspirate the clotted blood on the fourth try, adequate amount of clotted blood was removed. Using a bougie, the endotracheal tube was inserted. There was positive chest rise, bilateral breath sounds, fogging, change in end- tidal CO2 and absence of epigastric breath sounds. Complications: Following insertion of the endotracheal tube the cuff was found to be ruptured with significant air leak. Acute Procedures Epistaxis Control: Time out performed: No
[2019-10-17] MEDS: midazolam 1 mg/mL INJ 2 mL 2 MG IVP (18:10)
--- NOTE | 2019-10-17 18:15 | PM.ACPR ---
Procedure/Consent Time out: Time Out Performed: No Consent: Consent for Procedure: Emergency procedure Procedure Narrative: Name of the procedure: Endotracheal tube exchange. Indication: Ruptured endotracheal tube cuff. Procedure: Patient was positioned optimally. A bougie was inserted through the endotracheal tube up to 35 cm. The endotracheal tube was then removed. A new endotracheal tube was advanced over the bougie. The tube was secured at 24 cm at the lip. Complications: None. Acute Procedures Epistaxis Control: Time out performed: No
--- NOTE | 2019-10-17 18:17 | PM.ACPR ---
Procedure/Consent Time out: Time Out Performed: Yes Consent: Consent for Procedure: Consent obtained from other (indicate) () Procedure Narrative: Name of the procedure: Right-sided chest tube placement under ultrasound guidance. Medications: Lidocaine 1% 10 mL. Consent: Obtained from . Description of the procedure: An ultrasound was performed and a moderate to large right-sided pleural effusion was identified. A safe fluid pocket was identified with the ultrasound guidance and marked. The skin, subcutaneous tissue and the pleura was anesthetized with 1% lidocaine. Needle was advanced till flash back was noted. Straw-colored fluid was noted. Using Seldinger technique the right-sided chest tube was put in. The chest tube was secured with suture and transparent dressing. 1400 mL of straw-colored fluid was obtained. Sample: The right-sided pleural fluid was sent for cell count and differential, Gram stain culture, AFB stain and culture, fungal stain and culture, pH, glucose, LDH, total protein, albumin, amylase, triglyceride. Complications: None. Acute Procedures Epistaxis Control: Time out performed: Yes
[2019-10-17 18:18] LABS: Glucose Point of Care 151 mg/dL (70-110)
--- NOTE | 2019-10-17 18:30 | PM.ACPR ---
Procedure/Consent Time out: Time Out Performed: Yes Consent: Consent for Procedure: Consent obtained from other (indicate) Procedure Narrative: Name of the procedure: Bronchoscopy. Indication: Acute hypoxic respiratory failure requiring intubation Medication: The patient is on propofol and intravenous fentanyl drip. He received additional bolus of 2 mg of Versed and 50 mcg of fentanyl. Description of the procedure: Consent was obtained for the bronchoscopy procedure. The patient was intubated for acute hypoxic respiratory failure. 1% lidocaine 5 mL was introduced through the ET tube. The bronchoscope was as far advanced through the ET tube to the brian was visualized. Blood was noted in the lower trachea. Excessive dynamic airway compression was noted in the lower trachea with approximation of the anterior and posterior tracheal castaneda in a systematic manner the bilateral lungs were then examined. The bronchoscope was advanced into the right upper lobe, middle lobe and lower lobe bronchi and examined up to the third subsegmental level. No significant airway erythema, bleeding, endobronchial lesion was obtained. The bronchoscope was then advanced into the left mainstem bronchus, left upper lobe, lingula and left lower lobe bronchi and examined up to third subsegmental level. No endobronchial lesion, erythema or mucus was noted. No significant pus was noted anywhere in the airway. Bronchoalveolar lavage was performed from the right middle lobe medial segment. 60 mL of normal saline was instilled 20 mL of cloudy fluid returned. Specimen was sent for Gram stain and culture, Fungal stain and culture, AFB stain and culture, cell count and differential. Complications: No immediate complication was noted. Postprocedure chest x-ray was pending. Acute Procedures Epistaxis Control: Time out performed: Yes
--- NOTE | 2019-10-17 18:49 | PM.ACPR ---
Procedure/Consent Time out: Time Out Performed: Yes Consent: Consent for Procedure: Consent obtained from other (indicate) Procedure Narrative: Name of the procedure: Right radial ultrasound-guided arterial catheter placement. Medications: Fentanyl and propofol drip. Description of the procedure: Consent was obtained after explaining the procedure from his . The site was prepared using sterile technique. The right radial artery was identified under ultrasound guidance from pulsatility. Under ultrasound guidance the introducer needle was advanced till flash back was noted. Using Seldinger technique the left radial arterial line was inserted. The catheter was secured with suture and Tegaderm. Complications: None. Acute Procedures Epistaxis Control: Time out performed: Yes
--- NOTE | 2019-10-17 18:56 | PM.PN ---
Subjective Subjective: Interval history: The patient was seen and examined multiple times today. Unfortunately, over the weekend the patient did not have any significant improvement of his mental status. In addition, the patient started biting his tongue with significant bleeding into the oral cavity. This afternoon, the patient became hypoxic with labored breathing and the decision was taken to intubate the patient. The intubation was difficult because of significant upper airway swelling and clotted blood on the vocal cords. Please see my intubation note for details. A CT scan of the chest was obtained following the intubation. The patient has bilateral lower lobe consolidation in addition there was significantly increased right-sided pleural effusion. I had performed a bronchoscopy. There was no significant pus in the airway. Please see my bronchoscopy note for detail. Medications: Reviewed: Yes Vitals/I&O/Wt Last Vital Signs Temp 98.9 F 10/16/19 20:00 Pulse 80 10/17/19 18:00 Resp 20 H 10/17/19 18:00 BP 115/75 10/17/19 18:00 Pulse Ox 96 10/17/19 18:00 10/17/19 10/17/19 10/17/19 06:59 14:59 22:59 Intake Total 1275 / 2445.075 1302.675 / 1302.675 Output Total 800 / 800 2400 / 2400 Balance 475 / 4199.571 2766.675 / 1302.675 -2400 / -1097.325 Weight last 48 hrs Weight 269 lb 4.8 oz Weight 270 lb 2 oz Physical Exam Narrative: EXAM NARRATIVE: General: The patient is intubated and sedated. Respiratory: Auscultation: Crackles at the lung bases posteriorly bilaterally, no wheezing or rhonchi Cardiovascular: Regular rate and rhythm, S1-S2 present, no murmur, no right ventricular heave, bilateral pitting peripheral edema Abdomen: Soft, unable to assess if it is tender because of the mental status, distended but not rigid, very sluggish bowel sound Skin: Bilateral palmar erythema Neuro: Sedated Urinary Catheter Management^: T[employer]: Cath Placed During This Visit: yes Reason for Continuing Indwelling Catheter: Accurate Measurement of Urinary Output in Critically Ill Patients Urinary Catheter Date of Insertion: 10/05/19 Urinary Catheter Time of Insertion: 05:30 Data : 10/17/19 04:35 05/18/20 04:35 Micro: Microbiology 10/11/19 19:12 Blood Culture - Final Blood NO GROWTH AFTER 5 DAYS 10/11/19 19:15 Blood Culture - Final Blood NO GROWTH AFTER 5 DAYS Other data: I have reviewed the patient's laboratory, microbiologic and radiologic data. No significant leukocytosis, platelet count stable. The patient has developed hypernatremia with worsening BUN and stable creatinine. There is also evidence of hyperchloremia. Please see my HPI for the radiologic data. A&P Assessment and plan (1) Toxic encephalopathy: This is a very complicated situation. The patient was initially diagnosed with alcohol withdrawal and treated for it however he has not experienced any significant improvement in his mental status. Although uncommon, patients can have alcohol withdrawal 4 weeks. He does not have any significant fever or other evidence for meningitis or encephalitis however the patient would need a lumbar puncture. Unfortunately, his platelet count is only 60,000. I am planning to do a lumbar puncture tomorrow morning once the patient gets platelet. I am going to also start his SSRI and cyclobenzaprine at half the home dose. I am starting the patient on Librium. I am going to hold off the linezolid for the time being because of the risk for serotonin syndrome. We will follow-up the results of the Gram stain culture from the bronchoalveolar lavage. For the time being we can continue with the Zosyn and doxycycline for suspected tick bite. The endotracheal aspirate isolate for MRSA was also sensitive to tetracycline which will be covered by doxycycline. Status: Acute (2) Alcoholic cirrhosis of liver: The patient has alcoholic liver cirrhosis. Status: Acute (3) Acute respiratory failure with hypoxia: When the patient was extubated on Thursday his pulmonary mechanics are optimal. However there was significant change in his respiratory status today which I believe is secondary to upper airway obstruction from blood clots over his vocal cords as well as the new development of right-sided pleural effusion with significant compression of the right lung. Now that the patient is intubated and the right-sided pleural effusion has been drained I expect him to get better. The patient is going to be on Zosyn and doxycycline. The endotracheal aspirate isolate for MRSA was sensitive to tetracycline. 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 I will obtain pleural fluid analysis to rule out any infection or any other etiology for exudative pleural effusion. I am going to start the patient on 2 mg of Bumex. Status: Acute (5) Hypernatremia: The plan is to stop the TPN and start the patient on free water flush. I will start with 400 mL every 6 hours. Status: Acute (6) Thrombocytopenia: Stable. The patient will need platelet transfusion tomorrow morning for lumbar puncture. Status: Acute (7) ELIO (acute kidney injury): The creatinine is currently stable however I expect the creatinine to get worse over the next 2 days given the overall clinical worsening. The plan for this patient is going to be the following. The patient will need a lumbar puncture to rule out any infectious etiology affecting his brain function. The patient is most likely still withdrawing from alcohol. I am starting the patient on Librium which will hopefully help because of its prolonged half-life. I am hoping that the patient will start showing signs of improvement in the next coming days. The patient has also developed hyponatremia. The patient will require free water flush. At the same time the patient will require ongoing diuresis given his liver cirrhosis. Once the electrolyte settled down tomorrow hopefully we will start the patient on tube feed by the end of the day tomorrow. The patient is not showing any evidence of pseudoobstruction anymore. The patient is likely to recover very slowly. Our primary goal is going to be continue the supportive therapy and prevent any new organ failure. Status: Acute Attestations Medical Necessity Statement*: Will defer to the primary team Coding Level of Care Code Acute [facility] Specialist for [facility] Fwd Diagnoses Toxic encephalopathy G92 Alcoholic cirrhosis of liver K70.30 Acute respiratory failure with hypoxia J96.01 Pleural effusion J90 Hypernatremia E87.0 Thrombocytopenia D69.6 ELIO (acute kidney injury) N17.9 Time Spent (min) 89
[2019-10-17 18:58] LABS: Mononuclear %, Pleural Fluid 85 %; Polynuclear Cells, Pleural % 15 %
[2019-10-17 19:24] LABS: WBC Pleural Fluid 467 /uL (0-1000)
[2019-10-17 19:25] LABS: Color, Pleural Fluid Yellow (Pale Yellow)
[2019-10-17 19:29] LABS: Appearance, Pleural Fluid CLEAR (CLEAR)
[2019-10-17 19:30] LABS: LDH Pleural Fluid 81 U/L; PATH Referal YES; Pleural Fluid Albumin 2.1 g/dL; Pleural Fluid Triglycerides 48 mg/dL; Total Protein Pleural Fluid 2.6 g/dL
--- NOTE | 2019-10-17 19:45 | PC.NURSE ---
at bedside at shift change. per to stop TPN and Fat fluids. verbal order for 400ml free water flushes Q6h. levophed on standby if need for a target MAP greater than 75. per to not start D10W per protocol when stopping TPN. just to do 400ML flushes.
[2019-10-17] MEDS: bumetanide 0.25 mg/mL SDV 10 mL 2 MG IV (20:00)
[2019-10-17] MEDS: dextrose 5% 1,000 ML 50 ML IV (20:01)
[2019-10-17] MEDS: chlordiazePOXIDE 25 mg Capsule 50 MG PO (20:01)
[2019-10-17 20:40] LABS: Glucose Point of Care 118 mg/dL (70-110)
[2019-10-17] MEDS: cyclobenzaprine 10 mg Tablet 5 MG PO (20:57)
[2019-10-17] MEDS: propofol 1,000 MG/100 ML INJ 25.7 MG IV (21:15)
[2019-10-17] MEDS: nystatin cream 30 gm 1 APPLIC TOPICAL (21:18)
[2019-10-17 21:48] LABS: Glucose Point of Care 115 mg/dL (70-110)
[2019-10-18] VITALS (114 sets, daily range): BP systolic 90–164; BP diastolic 43–85; PULSE 86–111; RESP 12–33; TEMP 36.6–37.6; O2SAT 93–100
[2019-10-18] MEDS: propofol 1,000 MG/100 ML INJ 36.8 MG IV ×7 (00:21→23:22)
[2019-10-18] MEDS: chlordiazePOXIDE 25 mg Capsule 50 MG PO ×4 (01:47→19:29)
[2019-10-18] MEDS: ipratropium-albuterol 3 mL Neb INHALATION ×6 (02:59→23:25)
[2019-10-18 05:39] LABS: Basophils # 0.2 10^3/uL (0.0-0.1); Eosinophils # 0.3 10^3/uL (0.0-0.8); Eosinophils % 1.7 %; Hematocrit 32.7 % (42.0-52.0); Lymphocytes # 1.4 10^3/uL (0.8-4.8); Lymphocytes % 9.4 %; Mean Corpuscular HGB Conc 30.6 g/dL (30.0-36.0); Mean Corpuscular Hemoglobin 30.5 pg (28.0-34.0); Mean Corpuscular Volume 99.7 fL (80-94); Mean Platelet Volume 10.5 fL (7.4-10.4); Monocytes % 6.6 %; Neutrophils # 12.2 10^3/uL (1.8-7.7); Neutrophils % 80.8 %; Nucleated Red Blood Cells % 0 %; Platelet Count 76 10^3/cmm (130-400); Red Blood Count 3.28 10^6/uL (4.1-5.3); Red Cell Distribution Width 17.1 % (12.1-15.1); White Blood Count 15.1 10^3/uL (4.0-10.0)
[2019-10-18] MEDS: pantoprazole 40 mg SDV IVP ×2 (05:46→17:25)
[2019-10-18] MEDS: piperacillin-tazobactam 3.375 GM in sodium chloride 0.9% (plus) 50 ML IV ×3 (05:46→22:01)
[2019-10-18 05:57] LABS: Ammonia 43 umol/L (16-60)
[2019-10-18 05:58] LABS: Alanine Aminotransferase 29 U/L (0-41); Albumin Level 4.1 g/dL (3.5-5.2); Alkaline Phosphatase 98 IU/L (40-130); Anion Gap 20.4 (5-19); Aspartate Amino Transferase 51 U/L (0-40); Blood Urea Nitrogen 64 mg/dL (6-20); Calcium 9.9 mg/dL (8.5-10.5); Carbon Dioxide 20 mmol/L (22-29); Chloride 112 mmol/L (98-107); Globulin 2.3 g/dL (1.3-4.6); Glomerular Filtration Rate 21.3 mL/min (90-130); Glucose 117 mg/dL (65-115); Osmolality Calculated 308 mOsm/kg (285-295); Potassium 3.4 mmol/L (3.5-5.1); Sodium 149 mmol/L (136-145); Total Bilirubin 3.3 mg/dL (0.15-1.2); Total Protein 6.4 g/dL (6.6-8.7)
--- NOTE | 2019-10-18 06:00 | XR_ITS ---
WS: [id number] CHEST XRAY TECHNIQUE: Portable chest. CLINICAL INFORMATION: Hypoxia COMPARISON: October 17, 2019 FINDINGS: Endotracheal tube with tip above the brian measuring 2.7 CCM. Enteric tube with tip in the stomach. Heart: Cardiomegaly. Shallow inspiration. Lungs: Small bilateral pleural effusions with mild pulmonary vascular congestion. No focal pneumonia. Bones: Normal visualized bony structures. XR/XR chest 1V portable [id number] IMPRESSION: 1. Endotracheal tube with tip 2.7 cm above the brian. 2. Enteric tube with tip in the stomach. 3. Small bilateral pleural effusions with mild pulmonary vessel congestion. Sh allow inspiration. 4. 6 cardiomegaly.
--- NOTE | 2019-10-18 07:45 | P.PN_ITS ---
Subjective Subjective: Interval history: Patient was seen and examined. He appears to be comfortable sedated. The right-sided pleural fluid analysis is consistent with transudate of pleural effusion likely secondary to hepatic hydrothorax. There is no evidence of any infection. The Gram stain from the pleural fluid is negative. The overall chest tube output from the right side was 2 L since insertion. Chest x-ray following the chest tube placement revealed improved aeration on the right side. However the patient still has left-sided pleural effusion. The bronchoalveolar lavage fluid Gram stain did not reveal any organism. The patient was started on free water flush 400 mL every 6 hours. His sodium level is coming down. The patient also received 2 mg of IV Bumex yesterday with an urine output of 1550 mL in the past 24 hours. The patient's creatinine has gone up minimally. His BUN has gone up significantly over the weekend. The patient was started on his half home dose of paroxetine and cyclobenzaprine. Medications: Reviewed: Yes Vitals/I&O/Wt Last Vital Signs Temp 97.8 F 10/18/19 07:19 Pulse 98 10/18/19 07:19 Resp 14 10/18/19 07:19 BP 105/54 10/18/19 07:19 Pulse Ox 97 10/18/19 06:15 10/17/19 10/18/19 10/18/19 22:59 06:59 14:59 Intake Total 1283.289 / 2585.964 1349.392 / 3935.356 0 / 0 Output Total 2650 / 2650 820 / 3470 Balance -1366.711 / -64.036 529.392 / 465.356 0 / 0 Weight last 48 hrs Weight 269 lb 4.8 oz Weight 270 lb 2 oz Physical Exam Narrative: EXAM NARRATIVE: General: The patient is intubated and sedated. Respiratory: Auscultation: Improved breath sound in the right lower chest with minimal crack les, reduced breath sound in the left lower chest compared to the right with crackles, no wheezing or rhonchi Cardiovascular: Regular rate and rhythm, S1-S2 present, no murmur, no right ventricular heave, bilateral pitting peripheral edema Abdomen: Soft, unable to assess if it is tender because of the mental status, distended from obesity but not rigid, sluggish bowel sound Skin: Bilateral palmar erythema, evidence of skin damage in the right palm secondary to clenching Neuro: Sedated Urinary Catheter Management^: [employer]: Cath Placed During This Visit: yes Reason for Continuing Indwelling Catheter: Accurate Measurement of Urinary Output in Critically Ill Patients Urinary Catheter Date of Insertion: 10/05/19 Urinary Catheter Time of Insertion: 05:30 Data : 10/18/19 04:40 10/18/19 04:40 Micro: Microbiology 10/17/19 16:50 Gram Stain - Final Pleural Fluid 10/17/19 14:35 Gram Stain - Final Sputum - Endotracheal Tube Aspirate Other data: I have reviewed the patient's laboratory, microbiologic and radiologic data. There is improvement in the right lung aeration following the chest tube placement yesterday. There is mild leukocytosis of 15.1 thousand from 7.1 likely secondary to the stress response. His hemoglobin stable at 10. Platelet is 76 this morning. His serum sodium is coming down to 149 from 152, potassium stable at 3.4, hyperchloremia likely secondary to the TPN is in the process of declining currently 112. There is anion gap metabolic acidosis likely secondary to the ELIO. His BUN 64, creatinine is mild elevated at 3.1 from 2.8 yesterday. His liver enzymes are stable. Bilirubin is 3.3 today and AST is 51. Ammonia is 43. The Gram stain and cultures are negative from both the pleural fluid and the bronchoalveolar lavage. A&P Assessment and plan (1) Toxic encephalopathy: The patient seems comfortable. We are able to go down on the propofol this morning. The patient is sedated with propofol and fentanyl. He was also started on Librium yesterday as well as his half dose of home paroxetine and cyclobenzaprine. We will titrate down the sedation as much as possible and keep him comfortable. The patient is scheduled to undergo a lumbar puncture today. He is currently receiving platelet. Status: Acute (2) Alcoholic cirrhosis of liver: The patient has alcoholic liver cirrhosis. According to his meld score is 3-month mortality is about 20%. Status: Acute (3) Acute respiratory failure with hypoxia: Patient is currently getting treated with doxycycline and Zosyn. There is no evidence of an active MRSA infection. We will follow-up on the bronchoscopy results. Status: Acute (4) Pleural effusion: The pleural fluid studies are consistent with hepatic hydrothorax. Going to clamp the chest tube. Drainage of this pleural fluid would only increase protein loss from the body. The patient needs better diuresis. I am going to start the patient on Bumex 1 mg IV twice a day and start metolazone 2.5 mg today and see how he does with his diuretic regimen. Status: Acute (5) Hypernatremia: We will continue with free water flush. We will hold off on TPN which I believe is contributing to the hyperchloremia. If his pressor requirement comes down with initiation of vasopressin we can start him on trickle tube feed. Status: Acute (6) Thrombocytopenia: Stable patient is getting platelet today for lumbar puncture. Status: Acute (7) ELIO (acute kidney injury): We will continue with supportive therapy. The addition of vasopressin might help with mobilization of the splanchnic circulation into the intravascular space and help him with his ELIO. Per the new ELIO is not un expected given the patient's critical condition yesterday. 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
--- NOTE | 2019-10-18 08:45 | P.PCN_ITS ---
Procedure/Consent Time out: Time Out Performed: Yes Consent: Consent for Procedure: Consent obtained from other (indicate) Procedure Narrative: Name of the procedure: Lumbar puncture Indication: Encephalopathy Medications: 1% lidocaine 5 mL Intravenous medications: Fentanyl and propofol infusion. Description: The patient was placed in left lateral position and his position was optimized. Using the iliac crests as a landmark, space between L3 and L4 vertebrae were identified. The site was marked. The site was cleaned using sterile technique. Sterile technique was followed throughout the procedure. T he skin, subcutaneous tissue and deeper tissue were anesthetized with 1% lidocaine. A lumbar puncture needle was advanced in between the spinous processes of L3 and L4 vertebrae. The needle was advanced until a pop and loss of resistance was felt. CSF was noted to be draining through the spinal needle upon removal of the stylet. The opening pressure was 37 cm of water. The CSF was crystal clear. The procedure was nonbloody. For chest tubes were collected. A total of 30 mL of CSF was drained. Postdrainage the closing pressure was 25 cm of water. 4 tubes were collected. A total of 22 cc of CSF was collected. The CSF was sent for the studies ordered by the primary team. Complications: No immediate complication was noted. The plan is to hold off on subcu heparin for 24 hours post procedure. Acute Procedures Epistaxis Control: Time out performed: Yes
[2019-10-18] MEDS: bumetanide 0.25 mg/mL SDV 10 mL 1 MG IV ×2 (09:06→20:33)
[2019-10-18] MEDS: artificial tears Op Soln 15 mL Btl 1 DROP EYE-BOTH (09:06)
[2019-10-18] MEDS: PARoxetine 20 mg Tablet PO (09:06)
[2019-10-18] MEDS: doxycycline 100 MG in sodium chloride 0.9% (plus) 100 ML IV (09:12)
[2019-10-18] MEDS: nystatin cream 30 gm 1 APPLIC TOPICAL ×2 (09:12→17:25)
[2019-10-18] MEDS: phytonadione (ADULT) 10 mg/mL Ampule 1 mL 2.5 MG PO (09:23)
[2019-10-18] MEDS: metOLazone 5 MG Tablet 2.5 MG PO (09:30)
[2019-10-18 09:31] LABS: Mononuclear WBC CSF % 0 % (50-90); Polynuclear Cells ,CSF # 0.001 10^3/uL (0-10); Polynuclear WBC CSF % 100 % (0-10); Red Blood Cell CSF 0 10^3/uL (0-0); White Blood Cell CSF 1 /uL (0-5)
[2019-10-18 09:33] LABS: Appearance CSF CLEAR (CLEAR); Color CSF COLORLESS (COLORLESS)
[2019-10-18 09:44] LABS: Glucose CSF 82 mg/dL (40-70); Total Protein CSF 58 mg/dL (15-45)
[2019-10-18 10:23] LABS: Pathology Referral Yes
[2019-10-18 11:13] LABS: Glucose Point of Care 129 mg/dL (70-110)
[2019-10-18 11:43] LABS: Apprearance, Bronch Wash Cloudy (CLEAR); Bronch Source Right Middle Lobe; Color, Bronc Wash Slight Pink; PATH Referral Yes
[2019-10-18] MEDS: propofol 1,000 MG/100 ML INJ 33.1 MG IV (15:08)
[2019-10-18 15:47] LABS: Total Cells Counted Bronch 200
[2019-10-18 17:38] LABS: Glucose Point of Care 133 mg/dL (70-110)
[2019-10-18] MEDS: propofol 1,000 MG/100 ML INJ 29.4 MG IV (17:38)
--- NOTE | 2019-10-18 17:52 | PM.PN ---
Subjective Subjective: Interval history: Intubated, sedated. Overall appears to require less sedation than previously. Appears to be having severe hallucinations noted by assessment by neurology, moving his arms as if he is trying to get something from in front of himself. Medications: Reviewed: Yes Vitals/I&O/Wt Last Vital Signs Temp 98.9 F 10/18/19 15:00 Pulse 93 10/18/19 16:00 Resp 14 10/18/19 17:43 BP 115/60 10/18/19 16:00 Pulse Ox 94 10/18/19 16:00 10/18/19 10/18/19 10/18/19 06:59 14:59 22:59 Intake Total 1349.392 / 3935.356 383.227 / 383.227 147.917 / 531.144 Output Total 820 / 3470 80 / 80 1350 / 1430 Balance 529.392 / 465.356 303.227 / 303.227 -1202.083 / -898.856 Weight last 48 hrs Weight 122.016 kg Weight 122.152 kg Physical Exam Const: GENERAL APPEARANCE: disheveled NUTRITIONAL APPEARANCE: obese OTHER: Confused. Resedated for LP. HENMT: OTHER: Neck/C-Spine: COMMON NORMALS: no JVD Resp: COMMON NORMALS: normal respiratory effort and clear to auscultation bilaterally AUSCULTATION: clear to auscultation bilaterally and rales (Faint/minimal crackle in right lower lobe at the base if any.) Cardio: COMMON NORMALS: no JVD, regular rhythm, S1 normal heart sound present, S2 normal heart sound present and No murmurs present (Cardio) RATE: tachycardic RHYTHM: regular rhythm HEART SOUNDS: S1 normal heart sound present and S2 normal heart sound present GI: COMMON NORMALS: Normal to inspection, nondistended, normoactive bowel sounds present, Soft to palpation and non-tender PALPATION: Yes Soft to palpation Extremity: COMMON NORMALS: no joint enlargement GENERAL: Yes edema (2+) Neuro: COMMON NORMALS: moves all extremities MOTOR EXAM: Tremors during motor activity present resting tremor COORDINATION: Romberg test abnormal Skin: COMMON NORMALS: no rashes or lesions noted GENERAL SKIN EXAM: no rashes or lesions noted Urinary Catheter Management^: Touss[employer]x: Cath Placed During This Visit: yes Reason for Continuing Indwelling Catheter: Accurate Measurement of Urinary Output in Critically Ill Patients Urinary Catheter Date of Insertion: 10/05/19 Urinary Catheter Time of Insertion: 05:30 Data : 10/18/19 04:40 10/18/19 04:40 Micro: Microbiology 10/17/19 14:35 Gram Stain - Final Sputum - Endotracheal Tube Aspirate 10/17/19 18:04 Gram Stain - Final Lung Right Lower Lobe 10/18/19 09:10 Gram Stain - Final Cerebrospinal Fluid 10/17/19 16:50 Gram Stain - Final Pleural Fluid A&P Assessment and plan (1) Acute encephalopathy: Yesterday unfortunately continued to become progressively more restless, not responding to Ativan, morphine was added for concern for possible component of opiate withdrawal, but at the same time he was not keeping BiPAP on, and so due to multiple factors required intubation. CT scan obtained after intubation noted pleural effusions. Right-sided chest tube was placed, with large amount of drainage consistent with hepatic hydrothorax. Chest tube clamped off today. Right pleural cytology negative for malignancy. During intubation also noted with oral bleeding, clots after in confused state self sustained bites to lips, tongue, also while fighting BiPAP mask. No seizure-like activity was noted. Today noted to be hallucinating, waving at something in the air, prescription with neurology, critical care appears to unfortunately be an ongoing encephalopathy most likely from prolonged withdrawal. So his home medications were restarted at lower doses to exclude contribution as well. Appreciate detailed evaluation and input from both neurology and critical care medicine. LP obtained today, with results so far rather unremarkable. EEG has been requested, although this is been difficult to obtain with everything he has been going through, and intermittently requiring high amounts of sedation. We will try to see if he may become a candidate on try to wean the sedation somewhat, although overall per discussion with neurology they are not suspecting ongoing seizure. Suspected multifactorial encephalopathy. Initially with alcohol withdrawal, subsequently with hepatic encephalopathy, possibly alcoholic hepatitis. Also on a number of psychiatric medications at home, muscle relaxers, potentially contributing. Prolonged severe alcohol withdrawal. No noted seizure-like activity. Tick was found on him here in the hospital. Empirically on doxycycline. Tick panel pending. Requiring Ativan and Zyprexa as needed. Still on Precedex. Ammonia level normalized. CT head and repeat without acute findings. Follow-up additional studies, continue care for pleural effusion, respiratory compromise, supportive care regarding ongoing encephalopathy. Status: Acute (2) Acute respiratory failure with hypoxia: Reintubated 10/16. Persistent encephalopathy, worsening restlessness, inability to comply with BiPAP, oral bleeding with self sustained biting. Worsening respiratory condition secondary to pleural effusion, noted pharyngeal bleeding/blood clots. Status post chest tube placement 10/16 on the right. Fluid consistent with hepatic hydrothorax. Chest tube has been clamped off, monitoring condition, prescription with merchandising specialist possibly can be removed tomorrow. At this time suspicion of pneumonia is low, and respiratory decline/imaging findings were most likely secondary to the pleural effusion. Linezolid was held. Extubated October 13. Requiring BiPAP. Intermittent hypoxia. Possibly some degree of sleep apnea contributing which is unmasked more so due to his encephalopathy. Ventilator associated pneumonia thought to play a role earlier, though not currently. Echocardiogram was performed, demonstrating normal EF, poor ultrasonic window Status: Acute (3) Alcohol withdrawal syndrome: High likelihood of prolonged severe alcohol withdrawal per discussion with neurology, critical care. Last drink 2 PM 10/02. [place] protocol. Thiamine, folic acid. Encourage cessation, follow-up with [facility] on outpatient side. Status: Acute Qualifiers: Complication of substance-induced condition: with delirium Qualified Code(s): F10.231 - Alcohol dependence with withdrawal delirium (4) Thrombocytopenia: Stable currently. Secondary to liver disease. Status: Acute (5) Cirrhosis: Ammonia level initially elevated after GI bleeding, but have normalized subsequently Elevated meld score. Overall if he recovers from current episode transplantation will need to be considered for which he will need to quit drinking, although this appears to been a very difficult endeavor so far. 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 Status: Acute (6) GI bleeding: Resolved. Hemoglobin stable Continue Protonix Doubt variceal bleeding May follow-up with GI after hospitalization Heparin was restarted for DVT prophylaxis. No evidence of rebleeding Status: Acute (7) Delirium tremens: Status: Acute (8) Tick bite of thigh: Tick removed in ICU off left inner thigh. Continue doxycycline. Tick panel pending. Inquired w lab, they will look into. Status: Acute (9) Cholestasis: With some hydropic appearing gallbladder, some gallbladder wall thickening, but this all appears to be chronic, with CBD normal, no sign of acute obstruction, cholecystitis. Has been empirically on antibiotics initially due to GI bleed, subsequently due to pneumonia. Status: Acute (10) Transaminitis: Stable. Likely secondary to alcoholism. Ultrasound did not delineate any obstructive cause of jaundice Status: Acute (11) Colonic pseudoobstruction: Appreciate surgical follow-up. He is on trophic feeds. TPN. Status: Acute (12) Hepatorenal syndrome: Received a course of pressor support, infusions, with stabilization of renal function, improvement in creatinine. Status: Acute Additional A&P Information Hypokalemia, resolved Nutrition. TPN discontinued per critical care due to concern of AE w cirrhosis. Restarted on trial of trophic feeds. History of hypertension Heparin for DVT prophylaxis. Heparin. Monitor PLT. Attestations Medical Necessity Statement*: Continue admission for assessment and management of multifactorial encephalopathy, with pleural effusion, as well as oral bleeding, with multiple underlying medical conditions including liver cirrhosis. Coding Level of Care Code Acute V Block Saw Operator for g Fwd Exam Comprehensive Diagnoses Acute encephalopathy G93.40 Acute respiratory failure with hypoxia J96.01 Alcohol withdrawal syndrome F10.231 Complication of substance-induced condition: with delirium Thrombocytopenia D69.6 Cirrhosis K74.60 GI bleeding K92.2 Delirium tremens F10.231 Tick bite of thigh S70.369A; [id number].XXXA Cholestasis K83.1 Transaminitis R74.0 Colonic pseudoobstruction K59.8 Hepatorenal syndrome K76.7
[2019-10-18 19:22] LABS: Anion Gap 20.8 (5-19); Blood Urea Nitrogen 65 mg/dL (6-20); Calcium 9.4 mg/dL (8.5-10.5); Carbon Dioxide 19 mmol/L (22-29); Chloride 108 mmol/L (98-107); Glomerular Filtration Rate 22.2 mL/min (90-130); Glucose 167 mg/dL (65-115); Osmolality Calculated 301 mOsm/kg (285-295); Potassium 3.8 mmol/L (3.5-5.1); Sodium 144 mmol/L (136-145)
[2019-10-18] MEDS: cyclobenzaprine 10 mg Tablet 5 MG PO (20:33)
[2019-10-18] MEDS: doxycycline 100 mg Tablet PO (22:02)
[2019-10-18 22:22] LABS: Glucose Point of Care 134 mg/dL (70-110)
[2019-10-19] VITALS (71 sets, daily range): BP systolic 81–159; BP diastolic 39–82; PULSE 79–104; RESP 14–21; TEMP 37–37.7; O2SAT 92–97
--- NOTE | 2019-10-19 00:12 | PC.NURSE ---
2032 residual in OG checked. approximately 800ml of fluids returned. OG clamped at this time. Will recheck residual in 4 hours. will continue to monitor.
[2019-10-19] MEDS: propofol 1,000 MG/100 ML INJ 36.8 MG IV (01:42)
[2019-10-19] MEDS: chlordiazePOXIDE 25 mg Capsule 50 MG PO ×4 (01:42→19:36)
--- NOTE | 2019-10-19 03:57 | PC.NURSE ---
0030 residual re-checked on OG. 400ml of fluids pulled. will recheck in 4 hours. will continue to monitor.
[2019-10-19] MEDS: ipratropium-albuterol 3 mL Neb INHALATION ×6 (04:24→23:46)
[2019-10-19 05:08] LABS: ABG PCO2 38.4 mmHg (35-45); ABG PH Result 7.34 (7.35-7.45); Arterial Blood Gas Hematocrit 31.2 % (42-52); Base Excess ABG -4.5 mmol/L (-2.0-2.0); Blood Gas Sample Type Arterial; Blood Gas Tidal Volume 0.55; HCO3 ABG 20.8 mmol/L (22-26); Oxygen Device VENT
[2019-10-19] MEDS: propofol 1,000 MG/100 ML INJ 25.7 MG IV ×2 (05:15→13:12)
--- NOTE | 2019-10-19 05:23 | PC.NURSE ---
0445 nurse rechecked OG residual. 0ml pulled from OG. tube feedings started per order.
[2019-10-19 05:34] LABS: Basophils # 0.1 10^3/uL (0.0-0.1); Eosinophils # 0.3 10^3/uL (0.0-0.8); Eosinophils % 2.2 %; Hematocrit 31.8 % (42.0-52.0); Lymphocytes # 1.1 10^3/uL (0.8-4.8); Lymphocytes % 8.3 %; Mean Corpuscular HGB Conc 31.4 g/dL (30.0-36.0); Mean Corpuscular Hemoglobin 30.3 pg (28.0-34.0); Mean Corpuscular Volume 96.4 fL (80-94); Mean Platelet Volume 11.1 fL (7.4-10.4); Monocytes # 0.7 10^3/uL (0.2-0.9); Monocytes % 5.2 %; Neutrophils # 11.1 10^3/uL (1.8-7.7); Neutrophils % 82.8 %; Nucleated Red Blood Cells % 0 %; Platelet Count 64 10^3/cmm (130-400); Red Cell Distribution Width 17.1 % (12.1-15.1); White Blood Count 13.4 10^3/uL (4.0-10.0)
[2019-10-19 05:50] LABS: Ammonia 50 umol/L (16-60); Magnesium 1.8 mg/dL (1.7-2.3)
[2019-10-19 05:51] LABS: Alanine Aminotransferase 29 U/L (0-41); Alkaline Phosphatase 110 IU/L (40-130); Aspartate Amino Transferase 43 U/L (0-40); Blood Urea Nitrogen 69 mg/dL (6-20); Calcium 9.9 mg/dL (8.5-10.5); Carbon Dioxide 20 mmol/L (22-29); Chloride 107 mmol/L (98-107); Globulin 2.4 g/dL (1.3-4.6); Glomerular Filtration Rate 21.3 mL/min (90-130); Glucose 146 mg/dL (65-115); Osmolality Calculated 300 mOsm/kg (285-295); Sodium 144 mmol/L (136-145); Total Bilirubin 3.2 mg/dL (0.15-1.2); Total Protein 6.4 g/dL (6.6-8.7)
[2019-10-19 05:55] LABS: INR 1.49 (0.8-1.2)
[2019-10-19] MEDS: pantoprazole 40 mg SDV IVP ×3 (06:08→18:48)
[2019-10-19] MEDS: piperacillin-tazobactam 3.375 GM in sodium chloride 0.9% (plus) 50 ML IV ×3 (06:08→21:06)
--- NOTE | 2019-10-19 07:00 | PC.NURSE ---
Norepnephrine currently running at 2mcg/min.
--- NOTE | 2019-10-19 07:51 | XR_ITS ---
WS: [id number] CHEST XRAY TECHNIQUE: Portable chest. CLINICAL INFORMATION: pleural effusion, R CT COMPARISON: October 18, 2019 FINDINGS: Endotracheal tube with tip above the brian. Right chest tube in place. No visualized pneum othorax. Enteric tube with tip below the diaphragm. Left PICC line tip in SVC. Heart: Cardiomegaly with moderate pulmonary vascular congestion. Lungs: Small bilateral pleural effusions. No focal consolidation. Bones: Normal visualized bony structures. XR/XR chest 1V portable [id number] IMPRESSION: 1. Endotracheal tube with tip above the brian. Enteric tube with tip below th e diaphragm. Right Basilar chest tube in place. No pneumothorax. 2. Cardiomegaly with small bilateral pleural effusions and moderate pulmonary vascular congestion unchanged.
--- NOTE | 2019-10-19 07:59 | P.PN_ITS ---
Subjective Subjective: Interval history: Currently sedated with fentanyl and propofol. Appears comfortable. Vitals/I&O/Wt Last Vital Signs Temp 98.6 F 10/19/19 04:15 Pulse 94 10/19/19 07:47 Resp 14 10/19/19 07:48 BP 133/75 10/19/19 06:00 Pulse Ox 94 10/19/19 07:47 10/18/19 10/19/19 10/19/19 22:59 06:59 14:59 Intake Total 500.167 / 883.394 395.907 / 1279.301 Output Total 2100 / 2180 1150 / 3330 Balance -1599.833 / -1296.606 -754.093 / -2050.699 Weight last 48 hrs Weight 122.016 kg Weight 122.152 kg Physical Exam Const: GENERAL APPEARANCE: disheveled NUTRITIONAL APPEARANCE: obese OTHER: Comfortable. Intubated, sedated. HENMT: OTHER: Neck/C-Spine: COMMON NORMALS: no JVD Resp: COMMON NORMALS: normal respiratory effort and clear to auscultation bilaterally AUSCULTATION: clear to auscultation bilaterally Cardio: COMMON NORMALS: no JVD, regular rhythm, S1 normal heart sound present, S2 normal heart sound present and No murmurs present (Cardio) RATE: tachycardic RHYTHM: regular rhythm HEART SOUNDS: S1 normal heart sound present and S2 normal heart sound present GI: COMMON NORMALS: Normal to inspection, nondistended, normoactive bowel sounds present, Soft to palpation and non-tender PALPATION: Yes Soft to palpation Extremity: COMMON NORMALS: no joint enlargement GENERAL: Yes edema (1+) Neuro: ALEN COMA SCALE: other (Currently under sedation.) MOTOR EXAM: Tremors during motor activity present resting tremor COORDINATION: Romberg test abnormal Skin: COMMON NORMALS: no rashes or lesions noted GENERAL SKIN EXAM: no rashes or lesions noted and ecchymosis OTHER: Good cap refill. Urinary Catheter Management^: Toussaint Latex: Cath Placed During This Visit: yes Reason for Continuing Indwelling Catheter: Accurate Measurement of Urinary Output in Critically Ill Patients Urinary Catheter Date of Insertion: 10/05/19 Urinary Catheter Time of Insertion: 05:30 Data : 10/19/19 04:50 10/19/19 04:50 Micro: Microbiology 10/17/19 14:35 Gram Stain - Final Sputum - Endotracheal Tube Aspirate 10/17/19 18:04 Gram Stain - Final Lung Right Lower Lobe 10/18/19 09:10 Gram Stain - Final Cerebrospinal Fluid A&P Assessment and plan (1) Acute encephalopathy: Currently sedated with propofol and fentanyl. He is not restless. Discussed with nursing, attempt to slowly wean sedation, and if does not get dangerously restless, could attempt EEG for additional assessment. One-to-one sitter could be obtained if needed. LP obtained with opening pressure of 22 mmHg. With results so far rather unremarkable. EEG has been requested, although this is been difficult to obtain with everything he has been going through, intermittent severe restlessness requiring high amounts of sedation. Suspected multifactorial encephalopathy. Initially with alcohol withdrawal, subsequently with hepatic encephalopathy, possibly alcoholic hepatitis. Also on a number of psychiatric medications at home, muscle relaxers, potentially contributing. Prolonged severe alcohol withdrawal is considered likely cause at this time. He was resumed on lower dose of paroxetine and cyclobenzaprine. Tick was found on him here in the hospital. Empirically on doxycycline. Tick panel pending. Labs will look into status of send out. Ammonia level normalized. CT head and repeat without acute findings. TPN yesterday discontinued due to hyponatremia, with improvement in sodium level. Restarted on trophic tube feeds, initially at 10, then advance to 20, although appears on 20 cc/h is having somewhat elevated residual of 300 mL. I do hear bowel sounds. Do not see a bowel movement charted since the . For now decrease rate to 10 cc, recheck residual. Status: Acute (2) Acute respiratory failure with hypoxia: At this time is sedated, doing well with 40% FiO2, PEEP 10. Will reassess chest x-ray. Reintubated 10/16. Persistent encephalopathy, worsening restlessness, inability to comply with BiPAP, oral bleeding with self sustained biting. Worsening respiratory condition secondary to pleural effusion, noted pharyngeal bleeding/blood clots. Status post chest tube placement 10/16 on the right. Fluid consistent with hepatic hydrothorax. Chest tube has been clamped off, monitoring condition, prescription with fixer boarding room possibly can be removed tomorrow. At this time suspicion of pneumonia is low, and respiratory decline/imaging findings were most likely secondary to the pleural effusion. Linezolid was held. Extubated October 13. Requiring BiPAP. Intermittent hypoxia. Possibly some degree of sleep apnea contributing which is unmasked more so due to his encephalopathy. Ventilator associated pneumonia thought to play a role earlier, though not cu rrently. Echocardiogram was performed, demonstrating normal EF, poor ultrasonic window Status: Acute (3) Pleural effusion: Chest tube should be clamped as there are plans for discontinuation of chest tube. Effusion appears to be due to hepatic hydrothorax. Reassess chest x-ray. He is diuresing well with Bumex. Status: Acute (4) ELIO (acute kidney injury): After initial acute kidney injury, subsequently with some improvement creatinine for the most part has remained relatively stable. Today 3.1. Consideration of hepatorenal syndrome for which he underwent a course of treatment with Levophed, albumin infusions. Currently blood pressures are soft with sedation, status post drainage of pleural effusion. At this time continue Levophed, vasopressin, titrate down as tolerating. This will improve we are able to calm down on sedation some today. Has been diuresing with Bumex. Monitor renal function and blood pressures. For now we will hold off on additional albumin due to pleural effusion and attempted removal of chest tube unless restarted by critical care medicine. Status: Acute (5) Alcohol withdrawal syndrome: High likelihood of prolonged severe alcohol withdrawal per discussion with neurology, critical care. Last drink 2 PM 10/02. [facility] protocol. Thiamine, folic acid. Encourage cessation, follow-up with [facility] on outpatient side. Status: Acute Qualifiers: Complication of substance-induced condition: with delirium Qualified Code(s): F10.231 - Alcohol dependence with withdrawal delirium (6) Thrombocytopenia: Stable currently. Secondary to liver disease. Peripheral smear was unremarkable on 10/04 with some macrocytosis. Status: Acute (7) Cirrhosis: Ammonia level initially elevated after GI bleeding, but have normalized subsequently Elevated meld score. Overall if he recovers from current episode transplantation will need to be considered for which he will need to quit drinking, although this appears to been a very difficult endeavor so far. 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 Status: Acute (8) GI bleeding: Resolved. Hemoglobin stable Continue Protonix Doubt variceal bleeding May follow-up with GI after hospitalization Heparin was restarted for DVT prophylaxis. No evidence of rebleeding Status: Acute (9) Delirium tremens: Status: Acute (10) Tick bite of thigh: Tick removed in ICU off left inner thigh. Continue doxycycline. Tick panel pending. Inquired w lab, they will look into. Status: Acute (11) Cholestasis: With some hydropic appearing gallbladder, some gallbladder wall thickening, but this all appears to be chronic, with CBD normal, no sign of acute obstruction, cholecystitis. Has been empirically on antibiotics initially due to GI bleed, subsequently due to pneumonia. Status: Acute (12) Transaminitis: Improving. Likely secondary to alcoholism. Ultrasound did not delineate any obstructive cause of jaundice Status: Acute (13) Colonic pseudoobstruction: Appreciate surgical follow-up. He is on trophic feeds. TPN. Status: Acute (14) Hepatorenal syndrome: Albumin infusions were discontinued with stabilization of renal function. Status: Acute Additional A&P Information Hypokalemia, resolved Nutrition. TPN discontinued. Restarted on trial of trophic feeds, although decreasing from 20 cc to 10 today due to some location of residual, recheck. History of hypertension Heparin for DVT prophylaxis. Heparin. Monitor PLT. Attestations Medical Necessity Statement*: Continue admission for assessment management of persistent encephalopathy, multifactorial including prolonged alcohol withdrawal, respiratory failure, pleural effusion, acute kidney injury. Coding Level of Care Code Acute Rafter Cutting Machine Operator for [facility] Diagnoses Acute encephalopathy G93.40 Acute respiratory failure with hypoxia J96.01 Pleural effusion J90 ELIO (acute kidney injury) N17.9 Alcohol withdrawal syndrome F10.231 Complication of substance-induced condition: with delirium Thrombocytopenia D69.6 Cirrhosis K74.60 GI bleeding K92.2 Delirium tremens F10.231 Tick bite of thigh S70.369A; W57.XXXA Cholestasis K83.1 Transaminitis R74.0 Colonic pseudoobstruction K59.8 Hepatorenal syndrome K76.7
[2019-10-19] MEDS: bumetanide 0.25 mg/mL SDV 10 mL 1 MG IV ×2 (08:48→19:36)
[2019-10-19] MEDS: doxycycline 100 mg Tablet PO ×2 (08:49→21:06)
[2019-10-19] MEDS: PARoxetine 20 mg Tablet PO (08:49)
[2019-10-19] MEDS: nystatin cream 30 gm 1 APPLIC TOPICAL ×2 (09:01→19:14)
[2019-10-19] MEDS: propofol 1,000 MG/100 ML INJ 22.1 MG IV ×2 (09:15→18:20)
[2019-10-19 09:27] LABS: Glucose Point of Care 125 mg/dL (70-110)
[2019-10-19 15:58] LABS: Glucose Point of Care 128 mg/dL (70-110)
[2019-10-19] MEDS: heparin 5,000 unit/mL INJ 1 mL 5000 UNIT SUBCUT (16:09)
--- NOTE | 2019-10-19 16:28 | PM.PN ---
Subjective Subjective: Interval history: No flatus or BM overnight. Patient on tube feeds, had significant residuals and therefore rate decreased to 10 cc/h Vitals/I&O/Wt Last Vital Signs Temp 98.6 F 10/19/19 04:15 Pulse 103 H 10/19/19 16:00 Resp 16 10/19/19 15:01 BP 118/66 10/19/19 16:00 Pulse Ox 94 10/19/19 16:00 10/19/19 10/19/19 10/19/19 06:59 14:59 22:59 Intake Total 395.907 / 1279.301 503.378 / 503.378 Output Total 1150 / 3330 800 / 800 Balance -754.093 / -2050.699 -296.622 / -296.622 Weight last 48 hrs Weight 269 lb 1 oz Weight 269 lb Physical Exam Narrative: EXAM NARRATIVE: Abdomen: Soft, less distended Urinary Catheter Management^: Toussaint Latex: Cath Placed During This Visit: yes Reason for Continuing Indwelling Catheter: Accurate Measurement of Urinary Output in Critically Ill Patients Urinary Catheter Date of Insertion: 10/05/19 Urinary Catheter Time of Insertion: 05:30 Data : 10/19/19 04:50 10/19/19 04:50 Micro: Microbiology 10/17/19 14:35 Gram Stain - Final Sputum - Endotracheal Tube Aspirate Sputum Culture - Preliminary 10/17/19 18:04 Gram Stain - Final Lung Right Lower Lobe Bronchoalveolar Lavage Culture - Preliminary 10/17/19 16:50 Gram Stain - Final Pleural Fluid Body Fluid Culture - Preliminary 10/18/19 09:10 Gram Stain - Final Cerebrospinal Fluid CSF Culture - Preliminary A&P Assessment and plan (1) Colonic pseudoobstruction: 49-year-old male with multiple comorbidities who has been reintubated and is currently on TPN. I was consulted for colonic pseudoobstruction which appears to be improved after had multiple large bowel movements over the last few days. He is not tolerating his tube feeds at present. I would recommend adding Reglan. At this point no further surgical treatment required. Status: Acute Attestations Medical Necessity Statement*: Colonic pseudoobstruction, appears to have resolved Coding Level of Care Code Acute Strategic Buyer for [facility] Diagnoses Colonic pseudoobstruction K59.8
--- NOTE | 2019-10-19 18:11 | PM.PN ---
Subjective Subjective: Interval history: The patient was seen and examined. Still, no definitive improvement in the mental status however it appeared that he was opening eyes to command. The chest tube drained about 350 mL that had collected since yesterday morning. The patient was diuresed with bumetanide and metolazone yesterday with good urine output. Chest x-ray obtained this morning still revealed some evidence of left-sided pleural effusion. Medications: Reviewed: Yes Vitals/I&O/Wt Last Vital Signs Temp 98.6 F 10/19/19 04:15 Pulse 103 H 10/19/19 16:00 Resp 16 10/19/19 15:01 BP 118/66 10/19/19 16:00 Pulse Ox 94 10/19/19 16:00 10/19/19 10/19/19 10/19/19 06:59 14:59 22:59 Intake Total 395.907 / 1279.301 503.378 / 503.378 Output Total 1150 / 3330 800 / 800 Balance -754.093 / -2050.699 -296.622 / -296.622 Weight last 48 hrs Weight 269 lb 1 oz Weight 269 lb Physical Exam Narrative: EXAM NARRATIVE: General: The patient is intubated and sedated. Respiratory: Auscultation: Improved breath sound in the right lower chest with minimal crackles, reduced breath sound in the left lower chest compared to the right with crackles, no wheezing or rhonchi Cardiovascular: Regular rate and rhythm, S1-S2 present, no murmur, no right ventricular heave, bilateral pitting peripheral edema Abdomen: Soft, unable to assess if it is tender because of the mental status, distended from obesity but not rigid, sluggish bowel sound Neuro: Sedated questionable eye-opening on command Urinary Catheter Management^: Toussaint Latex: Cath Placed During This Visit: yes Reason for Continuing Indwelling Catheter: Accurate Measurement of Urinary Output in Critically Ill Patients Urinary Catheter Date of Insertion: 10/05/19 Urinary Catheter Time of Insertion: 05:30 Data : 10/19/19 04:50 10/19/19 04:50 Micro: Microbiology 10/17/19 14:35 Gram Stain - Final Sputum - Endotracheal Tube Aspirate Sputum Culture - Preliminary 10/17/19 18:04 Gram Stain - Final Lung Right Lower Lobe Bronchoalveolar Lavage Culture - Preliminary 10/17/19 16:50 Gram Stain - Final Pleural Fluid Body Fluid Culture - Preliminary 10/18/19 09:10 Gram Stain - Final Cerebrospinal Fluid CSF Culture - Preliminary A&P Assessment and plan (1) Toxic encephalopathy: The likely etiology of this toxic metabolic encephalopathy is alcohol withdrawal. The CSF study was unremarkable except an opening pressure of 37 cm of water. We will continue with her current therapy. The patient is scheduled to get a EEG when possible. Status: Acute (2) Alcoholic cirrhosis of liver: The patient has alcoholic liver cirrhosis. According to his meld score is 3-month mortality is about 20%. Status: Acute (3) Acute respiratory failure with hypoxia: Patient is currently getting treated with doxycycline and Zosyn. There is no evidence of an active MRSA infection. I am going to remove the chest tube tomorrow. The patient will need ongoing diuresis. The patient has received 2 weeks of antibiotic therapy and will discontinue it tomorrow. Status: Acute (4) Pleural effusion: Secondary to hepatic hydrothorax. Continue with Bumex and metolazone. The output through the chest tube has improved significantly with the diuresis. Status: Acute (5) Hypernatremia: Resolving with free water flush. We will go up on the tube feed tomorrow. Status: Acute (6) Thrombocytopenia: Stable patient is getting platelet today for lumbar puncture. Status: Acute (7) ELIO (acute kidney injury): We will continue with supportive therapy. The addition of vasopressin might help with mobilization of the splanchnic circulation into the intravascular space and help him with his ELIO. Per the new ELIO is not unexpected given the patient's critical condition yesterday. Status: Acute Attestations Medical Necessity Statement*: Will defer to the primary team Coding Level of Care Code Acute Self Contained Behavior Unit Teacher for [facility] Diagnoses Toxic encephalopathy G92 Alcoholic cirrhosis of liver K70.30 Acute respiratory failure with hypoxia J96.01 Pleural effusion J90 Hypernatremia E87.0 Thrombocytopenia D69.6 ELIO (acute kidney injury) N17.9
[2019-10-19] MEDS: metOLazone 5 MG Tablet 2.5 MG PO (19:36)
[2019-10-19] MEDS: cyclobenzaprine 10 mg Tablet 5 MG PO (21:06)
--- NOTE | 2019-10-19 21:32 | XR_ITS ---
WS: [id number] CHEST XRAY TECHNIQUE: Portable chest. CLINICAL INFORMATION: OG placement COMPARISON: October 19, 2019 FINDINGS: Shallow inspiration. Endotracheal tube with tip above the brian measuring 3.3 cm. Enteric tube with tip below diaphragm. Left PICC line. Heart: Cardiomegaly. Mild pulmonary vascular congestion. Lungs: Cardiomegaly with mild pulmonary vascular congestion and small bilateral pleural effusions. Th is appears slightly improved from yesterday. No focal pneumonia. Right basilar chest tube. No visuali zed pneumothorax. Bones: Normal visualized bony structures. XR/XR chest 1V portable [id number] IMPRESSION: 1. Enteric tube with tip below the diaphragm. Endotracheal tube with tip 3.3 c m above the brian. 2. Right basilar chest tube. No pneumothorax. 3. Cardiomegaly with mild pulmonary vascular congestion and small bilateral pl eural effusions slightly improved from yesterday.
--- NOTE | 2019-10-19 21:32 | PC.NURSE ---
2100 nurse checked OG residual prior to medication administration. 0ml return from OG. nurse pushed medications through OG and flushed with 30ml of water. patient began to have fluids come out of mouth. nurse elevated head of bed and suctioned patient. New NG placed due to dislodgment. positive sounds and gastric contents on placement. chest xray ordered per protocol for new OG.
[2019-10-19 21:33] LABS: Glucose Point of Care 121 mg/dL (70-110)
[2019-10-19] MEDS: propofol 1,000 MG/100 ML INJ 33.1 MG IV (22:29)
[2019-10-20] VITALS (66 sets, daily range): BP systolic 86–152; BP diastolic 41–82; PULSE 79–108; RESP 14–19; TEMP 37.2–37.4; O2SAT 92–100; BMI 42.0
[2019-10-20] MEDS: propofol 1,000 MG/100 ML INJ 33.1 MG IV (01:16)
--- NOTE | 2019-10-20 01:33 | PC.NURSE ---
skin assessment While bathing patient nurse noted that right upper arm had swelling that was firm to the touch, warm and bruising. no IVs present in arm, only arterial line. will continue to monitor and notify next shift of findings.
[2019-10-20] MEDS: chlordiazePOXIDE 25 mg Capsule 50 MG PO ×4 (02:27→18:39)
[2019-10-20] MEDS: heparin 5,000 unit/mL INJ 1 mL 5000 UNIT SUBCUT (03:48)
[2019-10-20] MEDS: ipratropium-albuterol 3 mL Neb INHALATION ×5 (04:15→19:14)
[2019-10-20 04:26] LABS: ABG PCO2 36.5 mmHg (35-45); ABG PH Result 7.37 (7.35-7.45); Arterial Blood Gas Hematocrit 32.7 % (42-52); Base Excess ABG -3.9 mmol/L (-2.0-2.0); Blood Gas Sample Type Arterial; Blood Gas Tidal Volume 0.55; Oxygen Device VENT; PO2 ABG 94.5 mmHg (80.0-100.0)
[2019-10-20 04:34] LABS: Basophils # 0.1 10^3/uL (0.0-0.1); Basophils % 0.9 %; Eosinophils # 0.4 10^3/uL (0.0-0.8); Eosinophils % 2.8 %; Hematocrit 31.9 % (42.0-52.0); Lymphocytes # 0.8 10^3/uL (0.8-4.8); Lymphocytes % 5.2 %; Mean Corpuscular HGB Conc 31.3 g/dL (30.0-36.0); Mean Corpuscular Hemoglobin 30.2 pg (28.0-34.0); Mean Corpuscular Volume 96.4 fL (80-94); Mean Platelet Volume 11.1 fL (7.4-10.4); Monocytes # 0.9 10^3/uL (0.2-0.9); Monocytes % 6.1 %; Neutrophils # 12.5 10^3/uL (1.8-7.7); Neutrophils % 84.3 %; Nucleated Red Blood Cells % 0 %; Platelet Count 59 10^3/cmm (130-400); Red Blood Count 3.31 10^6/uL (4.1-5.3); White Blood Count 14.9 10^3/uL (4.0-10.0)
[2019-10-20] MEDS: propofol 1,000 MG/100 ML INJ 22.1 MG IV (04:52)
[2019-10-20 04:57] LABS: Alanine Aminotransferase 27 U/L (0-41); Albumin Level 3.9 g/dL (3.5-5.2); Alkaline Phosphatase 120 IU/L (40-130); Anion Gap 21.8 (5-19); Aspartate Amino Transferase 39 U/L (0-40); Blood Urea Nitrogen 77 mg/dL (6-20); Carbon Dioxide 20 mmol/L (22-29); Chloride 105 mmol/L (98-107); Globulin 2.6 g/dL (1.3-4.6); Glomerular Filtration Rate 23.1 mL/min (90-130); Glucose 144 mg/dL (65-115); Osmolality Calculated 298 mOsm/kg (285-295); Potassium 3.8 mmol/L (3.5-5.1); Sodium 143 mmol/L (136-145); Total Bilirubin 3.4 mg/dL (0.15-1.2); Total Protein 6.5 g/dL (6.6-8.7)
[2019-10-20] MEDS: piperacillin-tazobactam 3.375 GM in sodium chloride 0.9% (plus) 50 ML IV ×3 (05:37→20:50)
[2019-10-20] MEDS: bumetanide 0.25 mg/mL SDV 10 mL 1 MG IV ×2 (07:26→19:31)
[2019-10-20 07:58] LABS: Glucose Point of Care 114 mg/dL (70-110)
[2019-10-20] MEDS: PARoxetine 20 mg Tablet PO (08:59)
[2019-10-20] MEDS: metoclopramide 10 mg Tablet 5 MG OG-TUBE ×2 (08:59→17:44)
[2019-10-20] MEDS: doxycycline 100 mg Tablet PO ×2 (08:59→20:50)
[2019-10-20] MEDS: nystatin cream 30 gm 1 APPLIC TOPICAL ×2 (09:02→17:44)
--- NOTE | 2019-10-20 09:15 | PM.PN ---
Subjective Subjective: Interval history: Intubated, sedated at the time of my visit. Vitals/I&O/Wt Last Vital Signs Temp 99.2 F 10/20/19 08:00 Pulse 94 10/20/19 08:00 Resp 14 10/20/19 09:10 BP 111/57 10/20/19 08:00 Pulse Ox 95 10/20/19 08:00 10/19/19 10/20/19 10/20/19 22:59 06:59 14:59 Intake Total 227.152 / 730.530 417.651 / 1148.181 Output Total 750 / 1550 1000 / 2550 Balance -522.848 / -819.470 -582.349 / -1401.819 Weight last 48 hrs Weight 122.045 kg Weight 122.016 kg Physical Exam Const: GENERAL APPEARANCE: disheveled NUTRITIONAL APPEARANCE: obese OTHER: Comfortable. Intubated, sedated. HENMT: OTHER: Neck/C-Spine: COMMON NORMALS: no JVD Resp: COMMON NORMALS: normal respiratory effort AUSCULTATION: rales (Right base) Cardio: COMMON NORMALS: no JVD, regular rhythm, S1 normal heart sound present, S2 normal heart sound present and No murmurs present (Cardio) RATE: tachycardic RHYTHM: regular rhythm HEART SOUNDS: S1 normal heart sound present and S2 normal heart sound present GI: COMMON NORMALS: Normal to inspection, nondistended, normoactive bowel sounds present, Soft to palpation and non-tender PALPATION: Yes Soft to palpation Extremity: COMMON NORMALS: no joint enlargement GENERAL: Yes edema (1+) Neuro: ALEN COMA SCALE: other (Currently under sedation.) COMMON NORMALS: moves all extremities MOTOR EXAM: Tremors during motor activity present resting tremor COORDINATION: Romberg test abnormal Skin: COMMON NORMALS: no rashes or lesions noted GENERAL SKIN EXAM: no rashes or lesions noted and ecchymosis OTHER: Good cap refill. Urinary Catheter Management^: Toussaint Latex: Cath Placed During This Visit: yes Reason for Continuing Indwelling Catheter: Accurate Measurement of Urinary Output in Critically Ill Patients Urinary Catheter Date of Insertion: 10/05/19 Urinary Catheter Time of Insertion: 05:30 Data : 10/20/19 03:50 10/20/19 03:50 Micro: Microbiology 10/17/19 14:35 Gram Stain - Final Sputum - Endotracheal Tube Aspirate Sputum Culture - Preliminary 10/17/19 18:04 Gram Stain - Final Lung Right Lower Lobe Bronchoalveolar Lavage Culture - Preliminary 10/17/19 16:50 Gram Stain - Final Pleural Fluid Body Fluid Culture - Preliminary 10/18/19 09:10 Gram Stain - Final Cerebrospinal Fluid CSF Culture - Preliminary A&P Assessment and plan (1) Acute encephalopathy: Review of manager mechanical note appears that he may have been opening eyes on command, although currently too sedated to wake up for me. Discussed w RN we will attempt wean sedation and see if can arrange for EEG. One-to-one sitter could be obtained if needed. LP obtained with opening pressure of 37 mmHg. With results so far rather unremarkable. EEG has been requested, although this is been difficult to obtain with everything he has been going through, intermittent severe restlessness requiring high amounts of sedation. Tick panel 10/07 was lost at [facility], was resent yesterday. Suspected multifactorial encephalopathy. Initially with alcohol withdrawal, subsequently with hepatic encephalopathy, possibly alcoholic hepatitis. Also on a number of psychiatric medications at home, muscle relaxers, potentially contributing. Prolonged severe alcohol withdrawal is considered likely cause at this time. He was resumed on lower dose of paroxetine and cyclobenzaprine. Tick was found on him here in the hospital. Empirically on doxycycline. Tick panel pending. Labs will look into status of send out. Ammonia level normalized. CT head and repeat without acute findings. Sodium is better. Continues on 10 cc/h trophic feeds. Reglan ordered as recommended by surgery. Will attempt to increase rate to 20cc/h. Monitor residual. Status: Acute (2) Acute respiratory failure with hypoxia: At this time is sedated, doing well with 40% FiO2, PEEP 10. CT clamped. No pneumonia, chest tube, without pneumothorax noted on chest x-ray this morning. There is some cardiomegaly, mild pulmonary venous congestion. He is in negative balance 1.6 L. Extubated October 13. Reintubated 10/16. Persistent encephalopathy, worsening restlessness, inability to comply with BiPAP, oral bleeding with self sustained biting. Worsening respiratory condition secondary to pleural effusion, noted pharyngeal bleeding/blood clots. Status post chest tube placement 10/16 on the right. Fluid consistent with hepatic hydrothorax. Suspicion of ongoing vap is low, and respiratory decline/imaging findings were most likely secondary to the pleural effusion. Linezolid was held. MRSA +ve sputum. For now has been continued on doxycycline. Echocardiogram was performed, demonstrating normal EF, poor ultrasonic window. Status: Acute (3) Pleural effusion: Chest tube clamped with plans for discontinuation. Effusion appears to be due to hepatic hydrothorax. He is diuresing well with Bumex. Status: Acute (4) ELIO (acute kidney injury): After initial acute kidney injury, subsequently with some improvement creatinine for the most part has remained relatively stable. Consideration of hepatorenal syndrome for which he underwent a course of treatment with Levophed, albumin infusions. Was able to wean off pressors. Has been diuresing with Bumex. Monitor renal function and blood pressures. Status: Acute (5) Alcohol withdrawal syndrome: High likelihood of prolonged severe alcohol withdrawal per discussion with neurology, critical care. Last drink 2 PM 10/02. [facility] protocol. Thiamine, folic acid. Encourage cessation, follow-up with [facility] on outpatient side. Status: Acute Qualifiers: Complication of substance-induced condition: with delirium Qualified Code(s): F10.231 - Alcohol dependence with withdrawal delirium (6) Thrombocytopenia: Monitor for further decline. Secondary to liver disease. Peripheral smear was unremarkable on 10/04 with some macrocytosis. Status: Acute (7) Cirrhosis: Ammonia level initially elevated after GI bleeding, but have normalized subsequently Elevated meld score. Overall if he recovers from current episode transplantation will need to be considered for which he will need to quit drinking, although this appears to been a very difficult endeavor so far. Will need continued follow-up with his medical records manager, PCP. Status: Acute (8) GI bleeding: Resolved. Hemoglobin stable Continue Protonix Doubt variceal bleeding May follow-up with GI after hospitalization Heparin was restarted for DVT prophylaxis. No evidence of rebleeding Status: Acute (9) Delirium tremens: Status: Acute (10) Tick bite of thigh: Tick removed in ICU off left inner thigh. Continue doxycycline. Tick panel had to be resent as lost at [facility]. Status: Acute (11) Cholestasis: With some hydropic appearing gallbladder, some gallbladder wall thickening, but this all appears to be chronic, with CBD normal, no sign of acute obstruction, cholecystitis. Status: Acute (12) Transaminitis: Improving. Likely secondary to alcoholism. Ultrasound did not delineate any obstructive cause of jaundice Status: Acute (13) Colonic pseudoobstruction: Appreciate surgical follow-up. He is on trophic feeds. TPN. Status: Acute (14) Hepatorenal syndrome: Albumin infusions were discontinued with stabilization of renal function. Status: Acute Additional A&P Information Hypokalemia, resolved Nutrition. TPN discontinued. Restarted on trial of trophic feeds, which he has had time tolerating. History of hypertension Heparin for DVT prophylaxis. Heparin. Monitor PLT. Attestations Medical Necessity Statement*: Continue admission for assessment management of persistent encephalopathy, respiratory failure with hepatic hydrothorax, as well as requiring intubation, mechanical ventilation for ongoing sedation due to restlessness and agitation with acute kidney injury, in the setting of liver cirrhosis. 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
[2019-10-20] MEDS: propofol 1,000 MG/100 ML INJ 18.4 MG IV (09:16)
[2019-10-20] MEDS: sodium chloride 0.9% 500 ML 200 ML IV (11:52)
[2019-10-20] MEDS: octreotide 100 mcg/mL SDV 50 MCG SUBCUT ×3 (11:52→22:34)
[2019-10-20 12:01] LABS: Creatine Phosphokinase 37 U/L (39-308); Thyroid Stimulating Hormone 0.94 uIU/mL (0.27-4.20)
[2019-10-20 12:13] LABS: Add Urine Microscopic? NO
[2019-10-20 12:21] LABS: Glucose Point of Care 110 mg/dL (70-110)
[2019-10-20 12:28] LABS: Urine Creatinine 39 mg/dL (39-259); Urine Random Sodium 84 mmol/L
--- NOTE | 2019-10-20 12:53 | P.CONIM_ITS ---
Providers/Reason For Consult Consulting Physican/Specialty*: Nephrology Reason for Consult*: ELIO, uremia Attending Physician: Jovi Vences Primary Care Provider: RUSS Kevin History of Present Illness History of Present Illness Thanks for consult. Mr Ellsworth presented back on 10/03 with AMS. Initially he was believed to be in DTs as he recently consumed alcohol. He has had a stormy course with intermittent need for pressors, intubation, CXR with evidence of mu ltifocal pneumonia, CT placed in the right side. He has been too confused for extubation without making progress. LP done, which was relatively unremarkable except for elevated opening pressures. On presentation his creatinine was normal. His BUN has progressively trended up, creatinine has remained in the high 2, 3 range for the last few days, today 2.9. He has been on combination diuretics with robust urine output, 500ml today since 7am (maybe a little more). IVC US shows dilation. Toussaint in place. His current vent settings are noted to be FiO2 40% and PEEP 10, TV at 550 and CXR 10/18 with mild pulm vasc congestion He has been on combination of antibiotics including Zyvix, Vanco, Zosyn and a Vanco trough was a little elevated on 10/10 at 33.1. Hemodynamics have been stable for the last few days. Review of Systems Narrative: unobtainable due to critical illness Meds/Allergies Home Medications and Allergies Home Medications Medication Instructions Recorded Confirmed Last Taken Type albuterol sulfate 90 mcg/actuation 2 puff INHALATION QID 06/10/19 10/04/19 Unknown History aerosol inhaler zonisamide 25 mg capsule 25 mg PO BID 06/10/19 10/04/19 Unknown History furosemide 40 mg PO DAILY #7 tab 07/10/19 10/04/19 Unknown Rx hydrocodone-acetaminophen 1 tab PO Q8H PRN #14 tab 07/10/19 10/04/19 Unknown Rx promethazine 12.5 mg PO QID PRN #20 tab 07/10/19 10/04/19 Unknown Rx spironolactone 25 mg PO DAILY #7 tab 07/10/19 10/04/19 Unknown Rx cyclobenzaprine 10 mg tablet 10 mg PO .at bedtime #30 tab 07/13/19 10/04/19 Unknown Rx bupropion HCl 150 mg 24 hr tablet, 150 mg PO QAM #30 tab 08/11/19 10/04/19 Unknown Rx extended release hydroxyzine HCl 25 mg tablet 25 mg PO TID PRN #90 tab 08/11/19 10/04/19 Unknown Rx mirtazapine 30 mg tablet 30 mg PO .at bed #30 tab 08/11/19 10/04/19 Unknown Rx naltrexone 50 mg tablet 50 mg PO DAILY #30 tab 08/11/19 10/04/19 Unknown Rx paroxetine HCl 40 mg tablet 40 mg PO DAILY #30 tab 08/11/19 10/04/19 Unknown Rx prazosin 5 mg capsule 5 mg PO .at bed cap 08/11/19 10/04/19 Unknown History lisinopril 10 mg tablet 10 mg PO DAILY #30 tab 09/12/19 10/04/19 Unknown Rx pantoprazole 40 mg tablet,delayed 40 mg PO QAM #30 tab 09/12/19 10/04/19 Unknown Rx release Allergies Allergy/AdvReac Type Severity Reaction Status Date / Time No Known Allergies Allergy Verified 10/05/19 10:58 Current Medications Current Medications Generic Name Dose Route Start Last Admin Trade Name Freq PRN Reason Stop Dose Admin Albuterol/Ipratropium 3 ml 10/07/19 04:00 10/20/19 11:04 Duoneb INHALATION 3 ml Q4H.RESPIRATORY CANDACE Administration Artificial Tears 1 drop 10/12/19 09:00 10/18/19 09:06 Isopto Tears EYE-BOTH 1 drop Q4H PRN Administration DRY EYE(S) Bisacodyl 10 mg 10/15/19 17:35 10/15/19 18:07 Bisac-Evac MA 10 mg DAILY PRN Administration CONSTIPATION Bumetanide 1 mg 10/18/19 07:45 10/20/19 07:26 Bumex IV 1 mg Q12H CANDACE Administration Chlordiazepoxide 50 mg 10/17/19 19:30 10/20/19 07:26 Librium PO 50 mg Q6H CANDACE Administration Cyclobenzaprine HCl 5 mg 10/17/19 21:00 10/19/19 21:06 Flexeril PO 5 mg BEDTIME CANDACE Administration Doxycycline Monohydrate 100 mg 10/18/19 21:30 10/20/19 08:59 Vibramycin PO 100 mg Q12H CANDACE Administration Heparin Sodium (Beef Lung) 5,000 unit 10/12/19 15:15 10/20/19 03:48 Heparin SUBCUT 5,000 unit Q12H CANDACE Administration Linezolid 600 mg in 300 mls @ 300 mls/hr 10/11/19 08:30 10/17/19 08:29 Zyvox Premix IV 300 mls/hr Q12H CANDACE Administration Protocol Piperacillin Sod/Tazobactam 50 mls @ 12.5 mls/hr 10/13/19 13:45 10/20/19 10:34 Sod 3.375 gm/ Sodium Chloride IV Infused Q8H CANDACE Infusion Protocol Fentanyl 1,000 mcg/ Sodium 100 mls @ 0 mls/hr 10/17/19 12:32 10/20/19 03:10 Chloride IV 25 mcg/hr .Q0M PRN 2.5 mls/hr SEDATION Titration Protocol Per Protocol Propofol 1,000 mg in 100 mls @ 0 mls/hr 10/17/19 12:35 10/20/19 11:51 Diprivan IV 15 mcg/kg/min .Q0M PRN 11 mls/hr SEDATION Titration Protocol Per Protocol Norepinephrine Bitartrate 4 mg 254 mls @ 0 mls/hr 10/17/19 13:15 10/20/19 05:32 / Dextrose IV 0 mcg/min .Q0M CANDACE 0 mls/hr Titration Protocol Per Protocol Vasopressin 40 unit/ Sodium 40 mls @ 0.03 mls/min 10/18/19 07:30 10/20/19 04:45 Chloride IV Infused CONT CANDACE Infusion Sodium Chloride 500 mls @ 200 mls/hr 10/20/19 11:30 10/20/19 11:52 Sodium Chloride 0.9% IV 200 mls/hr .Q2H30M CANDACE Administration Metoclopramide HCl 5 mg 10/20/19 09:00 10/20/19 08:59 Reglan OG-TUBE 5 mg BID CANDACE Administration Nystatin 1 applic 10/17/19 18:00 10/20/19 09:02 Nystatin Cream TOPICAL 1 applic BID CANDACE Administration Octreotide Acetate 50 mcg 10/20/19 11:30 10/20/19 11:52 Sandostatin SUBCUT 50 mcg TID CANDACE Administration Olanzapine 5 mg 10/15/19 17:36 10/17/19 10:25 Zyprexa IM 5 mg Q6H PRN Administration SEVERE AGITATION Pantoprazole Sodium 40 mg 10/07/19 18:00 10/19/19 18:48 Protonix IVP 40 mg Q12H CANDACE Administration Paroxetine HCl 20 mg 10/18/19 09:00 10/20/19 08:59 Paxil PO 20 mg DAILY CANDACE Administration PFSH Acute PFSH: Medical History Alcohol dependence, in remission Cirrhosis Controlled diabetes mellitus, without long-term current use of insulin Depression Gastro-esophageal reflux disease with esophagitis Generalized anxiety disorder Hypertension Major depressive disorder, recurrent, moderate Post-traumatic stress disorder, chronic Surgical History Cataract H/O esophagogastroduodenoscopy History of colonoscopy S/P tendon repair Family History Other Arthritis CAD (coronary artery disease) Diabetes Denies family history of Anesthesia complication Bleeding disorder Social History Smoking and tobacco status: former smoker Second hand smoke exposure: No Smoking risk assessment/counseling performed?: Yes Alcohol intake: current Desire information about alcohol rehabilitation?: No Counseling given: Yes Desire information about substance/drug rehabilitation?: No Counseling given: No Caregiver/support person: No Lives independently: Yes Household members: spouse Housing: House Marital status: Current occupational status: disabled History of recent travel: No Current gender identity: Male Vitals/I&O/Wt Last Vital Signs Temp 99.0 F 10/20/19 12:00 Pulse 105 H 10/20/19 12:00 Resp 15 10/20/19 12:46 BP 128/62 10/20/19 12:00 Pulse Ox 95 10/20/19 12:00 10/19/19 10/20/19 10/20/19 22:59 06:59 14:59 Intake Total 227.152 / 730.530 417.651 / 1148.181 189.963 / 189.963 Output Total 750 / 1550 1000 / 2550 900 / 900 Balance -522.848 / -819.470 -582.349 / -1401.819 -710.037 / -710.037 Weight last 48 hrs Weight 121.563 kg Weight 122.045 kg Physical Exam Narrative: EXAM NARRATIVE: Exam performed via telemed with the aid of the bedside RN HEENT: wet mucosa, non icteric Lungs: Bilaterally diminished in the bases, elio in the right side where the CT is noted CVS: S1 S2 no mumur Abdo: A little distended, BS ok Ext x 4: minimal edema globally Neuro: Sedated on the vent Urinary Catheter Management^: Toussaint Latex: Cath Placed During This Visit: yes Reason for Continuing Indwelling Catheter: Accurate Measurement of Urinary Output in Critically Ill Patients Urinary Catheter Date of Insertion: 10/05/19 Urinary Catheter Time of Insertion: 05:30 Data Micro: Micro: Microbiology 10/18/19 09:10 Gram Stain - Final Cerebrospinal Flu id CSF Culture - Prel iminary 10/17/19 16:50 Gram Stain - Final Pleural Fluid Body Fluid Culture - Preliminary 10/17/19 18:04 Gram Stain - Final Lung Right Lower Lobe Bronchoalveolar [place] v[place] Culture - Fin al 10/17/19 14:35 Gram Stain - Final Sputum - Endotrac heal Tube Aspirate Sputum Culture - F inal A&P Additional A&P Information 1. ELIO - BUN progressively increasing, although creatinine has been stable; this is consistent with renal hypoperfusion pre-renal picture although other potential causes include protein catabolism - ELIO Diff also includes hepatorenal, AIN from ABx, ischemic ATN from labile hemodynamics. - Rec today octreotide, NS 500ml, repeat labs later today. - will get urine studies including FE Na, FE Urea, Urine Eos - Bladder scan, no need for other renal imaging today - TSH, CPK - am labs - diuretics on hold for the day 2. AMS - Uremic Encephalopathy is possible. Of note there is no categorical way of knowing without performing dialysis and observing the result (BUN level very poorly correlates) - if BUN is unchanged by the above measures as listed in #1 then I agree that a trial of dialysis will be worthwhile - D/w Dr Mojica and Dr Flood; will plan on line and dialysis tomorrow after am evaluation unless BUN really comes down 3. VDRF - CT clamped - settings per Dr Flood and weaning as tolerated 4. 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
[2019-10-20 16:00] LABS: Blood Urea Nitrogen 74 mg/dL (6-20); Calcium 9.1 mg/dL (8.5-10.5); Carbon Dioxide 21 mmol/L (22-29); Chloride 107 mmol/L (98-107); Glucose 131 mg/dL (65-115); Osmolality Calculated 303 mOsm/kg (285-295); Sodium 146 mmol/L (136-145)
--- NOTE | 2019-10-20 16:22 | P.MISC_ITS ---
Miscellaneous Note Purpose of Documentation: EEG bedside Note: ORDERING PHYSICIAN: Jovi Vences MD. REASON FOR STUDY: Lack of responsiveness/encephalopathy. STUDY: This was a 21 channel digital electroencephalogram performed using the 10-20 international system of electrode placement. This study was performed at bedside in the ICU. Photic stimulation was included. FINDINGS: At the end of the tracing, the appliance service technician applied nailbed pressure and stroke the bottom of the foot. There appeared to be increased level of alertness based upon an 8 Hz posterior rhythm that was more prominent after stimulation. There was no significant response to photic stimulation. The majority of the tracing consisted of low voltage fast activity and central slowing in the theta and delta range from 4 to 6 Hz. There was no epileptiform activity. IMPRESSION: Abnormal EEG because of mild diffuse slowing. There appeared to be alpha in response to painful stimulation which could suggest some degree of intact brain function. No sign of epileptiform activity either by behavior or electrographically. Duration of EE.4
--- NOTE | 2019-10-20 17:40 | PC.NURSE ---
spoke with Dr Freeman via telephone about bmp results. Also spoke with him about tube feeding orders. there was no set flush order and flush has been [id number]. I was instructed to set flush rate at 100 Q8H.
[2019-10-20] MEDS: pantoprazole 40 mg SDV IVP (17:44)
--- NOTE | 2019-10-20 17:45 | PM.PN ---
Subjective Subjective: Interval history: I talked with Dr. Mccarty earlier. This patient continues not to wake up. His sedation was weaned for 3 hours while the EEG was done and he started bucking the vent and hyperventilating. He does not have purposeful movements or follow commands. He has repetitive movements. Vitals/I&O/Wt Last Vital Signs Temp 99.1 F 10/20/19 16:00 Pulse 89 10/20/19 17:30 Resp 14 10/20/19 15:14 BP 124/63 10/20/19 17:30 Pulse Ox 97 10/20/19 17:30 10/20/19 10/20/19 10/20/19 06:59 14:59 22:59 Intake Total 417.651 / 1148.181 733.246 / 151.541 0810.600 / 2379.846 Output Total 1000 / 2550 900 / 900 950 / 1850 Balance -582.349 / -1401.819 -166.754 / -166.754 696.600 / 529.846 Weight last 48 hrs Weight 268 lb Weight 269 lb 1 oz Physical Exam Narrative: EXAM NARRATIVE: 49-year-old man who was on the ventilator and moderately sedated. Sedation was discontinued half an hour ago. He does not follow commands. He does not open his eyes to voice. He did briefly appear to open his eyes after nailbed pressure when I asked him to open his eyes and it may have been a coincidence that he seemed to look to the right slightly on command. He did not follow any other commands and he had intact doll's eyes, suggesting coma. He moves all 4 extremities briskly to pain with appropriate withdrawal. Plantar responses neither flexor nor extensor. Cardiac: S1 and S2 normal without murmur or gallop. Urinary Catheter Management^: Toussaint Latex: Cath Placed During This Visit: yes Reason for Continuing Indwelling Catheter: Accurate Measurement of Urinary Output in Critically Ill Patients Urinary Catheter Date of Insertion: 10/05/19 Urinary Catheter Time of Insertion: 05:30 Data : 10/20/19 03:50 10/20/19 15:10 Micro: Microbiology 10/18/19 09:10 Gram Stain - Final Cerebrospinal Fluid CSF Culture - Preliminary 10/17/19 16:50 Gram Stain - Final Pleural Fluid Body Fluid Culture - Preliminary 05/18/20 18:04 Gram Stain - Final Lung Right Lower Lobe Bronchoalveolar Lavage Culture - Final 10/17/19 14:35 Gram Stain - Final Sputum - Endotracheal Tube Aspirate Sputum Culture - Final A&P Assessment and plan (1) Toxic encephalopathy: This gentleman presented with typical alcohol withdrawal and deteriorated markedly both medically and cognitively. He had bizarre screaming behavior without following commands early on after he presented with hallucinosis. There was no apparent toxin other than his alcohol withdrawal. Spinal fluid was unremarkable. CT scan did not suggest encephalitis. He has been treated for tickborne illness with doxycycline since arrival because he had a tick. The cause of his encephalopathy remains unknown but I would presume it to be severe alcohol withdrawal. His EEG today shows fairly unremarkable activity. There is no sign of epileptiform activity of any type and he does appear to have normal alpha. He is a young person and the best management is going to be long-term support. Status: Acute (2) Alcoholic cirrhosis of liver: Status: Acute (3) Hepatorenal syndrome: Status: Acute (4) Alcohol withdrawal syndrome: Status: Acute Qualifiers: Complication of substance-induced condition: with delirium Qualified Code(s): F10.231 - Alcohol dependence with withdrawal delirium Attestations Medical Necessity Statement*: Ongoing coma and requirement for endotracheal intubation and respiratory support Coding Level of Care Code Acute Automotive Professional for [facility] Diagnoses Toxic encephalopathy G92 Alcoholic cirrhosis of liver K70.30 Hepatorenal syndrome K76.7 Alcohol withdrawal syndrome F10.231 Complication of substance-induced condition: with delirium
[2019-10-20 19:41] LABS: Bilirubin Urine Neg (NEGATIVE); Blood Urine Neg (Negative); Glucose Urine UA Norm (Normal); Ketones Urine Negative (Negative); Leukocyte Esterase Urine Negative (Negative); Nitrate Urine Negative (Negative); Protein Urine Neg (Negative); Urine Appearance Clear (CLEAR); Urine Color Straw (Yellow); Urobilinogen Urine Norm (Negative); pH Urine 5 (5-7)
[2019-10-20 20:00] LABS: Urea Nitrogen,Urine Random 353 mg/dL
[2019-10-20 20:25] LABS: Eosinophil Urine No Eosinophils Seen
[2019-10-20 20:26] LABS: Urine Eosinophil Count 100 (0-0)
[2019-10-20] MEDS: cyclobenzaprine 10 mg Tablet 5 MG PO (20:50)
[2019-10-21] VITALS (63 sets, daily range): BP systolic 95–136; BP diastolic 45–70; PULSE 73–88; RESP 14–21; TEMP 37.3–38.8; O2SAT 83–97
[2019-10-21] MEDS: ipratropium-albuterol 3 mL Neb INHALATION ×7 (01:10→23:08)
[2019-10-21] MEDS: chlordiazePOXIDE 25 mg Capsule 50 MG PO (01:47)
[2019-10-21] MEDS: dexmedetomidine 400 MCG in sodium chloride 0.9% (100 ml) 100 ML 22.1 MCG IV (01:57)
[2019-10-21 04:44] LABS: Basophils # 0.1 10^3/uL (0.0-0.1); Eosinophils # 0.3 10^3/uL (0.0-0.8); Eosinophils % 2.7 %; Hematocrit 31.7 % (42.0-52.0); Hemoglobin 10.1 g/dL (11.7-16.6); Lymphocytes # 0.7 10^3/uL (0.8-4.8); Lymphocytes % 6.4 %; Mean Corpuscular HGB Conc 31.9 g/dL (30.0-36.0); Mean Corpuscular Hemoglobin 30.3 pg (28.0-34.0); Mean Corpuscular Volume 95.2 fL (80-94); Mean Platelet Volume 11.2 fL (7.4-10.4); Monocytes # 0.9 10^3/uL (0.2-0.9); Monocytes % 9.1 %; Neutrophils # 8.2 10^3/uL (1.8-7.7); Neutrophils % 80.2 %; Nucleated Red Blood Cells % 0 %; Platelet Count 48 10^3/cmm (130-400); Red Blood Count 3.33 10^6/uL (4.1-5.3); Red Cell Distribution Width 16.6 % (12.1-15.1); White Blood Count 10.2 10^3/uL (4.0-10.0)
[2019-10-21 05:10] LABS: Ammonia 54 umol/L (16-60)
[2019-10-21 05:11] LABS: Alanine Aminotransferase 28 U/L (0-41); Albumin Level 4.1 g/dL (3.5-5.2); Alkaline Phosphatase 128 IU/L (40-130); Anion Gap 20.7 (5-19); Aspartate Amino Transferase 43 U/L (0-40); Blood Urea Nitrogen 75 mg/dL (6-20); Calcium 9.1 mg/dL (8.5-10.5); Carbon Dioxide 23 mmol/L (22-29); Chloride 107 mmol/L (98-107); Globulin 2.1 g/dL (1.3-4.6); Glomerular Filtration Rate 26.2 mL/min (90-130); Glucose 145 mg/dL (65-115); Magnesium 1.9 mg/dL (1.7-2.3); Osmolality Calculated 306 mOsm/kg (285-295); Phosphorus 3.5 mg/dL (2.5-4.5); Potassium 3.7 mmol/L (3.5-5.1); Sodium 147 mmol/L (136-145); Total Protein 6.2 g/dL (6.6-8.7)
[2019-10-21] MEDS: piperacillin-tazobactam 3.375 GM in sodium chloride 0.9% (plus) 50 ML IV (05:45)
[2019-10-21] MEDS: pantoprazole 40 mg SDV IVP ×2 (05:47→18:56)
--- NOTE | 2019-10-21 07:30 | PC.NURSE ---
Pt has reflexive movements bilat arms and grimacing. Eyes are very bloodshot, constricted pupils. No doll's eye movement noted. Pt does not respond to nailbed pain. Pt febrile. 101.8. Fentanyl infusing at 100mcg, Precedex infusing at 0.7mcg/kg/min. Picc noted left upper arm. Chest tube noted in right lateral chest. Toussaint patent and draining. Peritoneal area red and raw, Foul odor noted.
[2019-10-21] MEDS: chlordiazePOXIDE 25 mg Capsule PO ×3 (08:01→18:57)
[2019-10-21] MEDS: doxycycline 100 mg Tablet PO ×2 (08:41→21:01)
[2019-10-21] MEDS: bumetanide 0.25 mg/mL SDV 10 mL 1 MG IV (08:41)
[2019-10-21] MEDS: nystatin cream 30 gm 1 APPLIC TOPICAL ×2 (08:41→18:54)
[2019-10-21] MEDS: artificial tears Op Soln 15 mL Btl 1 DROP EYE-BOTH (08:41)
[2019-10-21] MEDS: PARoxetine 20 mg Tablet PO (08:42)
[2019-10-21] MEDS: metoclopramide 10 mg Tablet 5 MG OG-TUBE ×2 (08:42→18:57)
[2019-10-21 08:47] LABS: Glucose Point of Care 138 mg/dL (70-110)
--- NOTE | 2019-10-21 09:02 | US_ITS ---
WS: [id number] ULTRASOUND SOFT TISSUES posterior LEFT knee. HISTORY: LLE - assess if ruptured franklin's cyst behind L knee, L ankle COMPARISON: None available. TECHNIQUE: 2-D and color Doppler imaging is submitted. No soft tissue abnormality is noted posterior to the LEFT knee are or along the posterior tibia. Ther e is no Franklin's cyst or hematoma. US/US soft tissue/extremity [id number] IMPRESSION: Negative ultrasound posterior to the LEFT knee.
--- NOTE | 2019-10-21 09:02 | USCV_ITS ---
Donnie Ellsworth Age: 49 Gender: M : 1970 Exam Date: 10/21/2019 13:58 Ordering Phys: Jovi Vences MD Technologist: SHILOH ZAMAN Exam Location: [facility] [place] Indication: FEVER PROCEDURES: Venous duplex imaging was performed in bilateral lower extremities. The following venous structures were evaluated: common femoral vein, profunda vein, proximal portion of the greater saphenous vein, superficial femoral vein, and the popliteal vein. In addition, the posterior tibial and peroneal trunk were evaluated. Serial compression, augmentation maneuvers, and spectral Doppler flow evaluation were performed. FINDINGS: Normal 2-D Doppler and augmentation and compressibility throughout the lower extremity venous structures. Additional imaging through the proximal calf veins also reveals no thrombus. Limited evaluation of the greater saphenous vein is patent with no thrombus.. The veins were found to be easily compressible with spontaneous blood flow. Non pulsatile flow pattern. CONCLUSIONS No evidence of DVT in the above-mentioned identifiable veins. Dr India Basurto MD [facility] (Electronically Signed) Final Date: 21 Oct 2019 16:58 S
--- NOTE | 2019-10-21 09:07 | US_ITS ---
WS: [id number] ULTRASOUND ABDOMEN LIMITED CLINICAL INFORMATION: check for ascites COMPARISON: None. FINDINGS/IMPRESSION Small amount of perihepatic and perisplenic ascites. Inadequate fluid for paracentesis.
--- NOTE | 2019-10-21 09:09 | PM.PN ---
Subjective Subjective: Interval history: No purposeful movements or response. Some restlessness overnight. Fentanyl restarted. For now off propofol as hypotensive, restarted on levophed 3mcg. Spiked a fever 101f. Vitals/I&O/Wt Last Vital Signs Temp 99.3 F 10/21/19 05:41 Pulse 85 10/21/19 07:51 Resp 19 H 10/21/19 07:52 BP 127/63 10/21/19 05:41 Pulse Ox 94 10/21/19 07:51 10/20/19 10/21/19 10/21/19 22:59 06:59 14:59 Intake Total 1696.600 / 2429.846 900 / 3329.846 Output Total 2950 / 3850 1750 / 5600 Balance -1253.400 / -1420.154 -850 / -2270.154 Weight last 48 hrs Weight 121.563 kg Weight 122.045 kg Physical Exam Const: GENERAL APPEARANCE: disheveled NUTRITIONAL APPEARANCE: obese OTHER: Comfortable. Intubated, sedated. HENMT: OTHER: Neck/C-Spine: COMMON NORMALS: no JVD Resp: COMMON NORMALS: normal respiratory effort AUSCULTATION: rales (Right base) Cardio: COMMON NORMALS: no JVD, regular rhythm, S1 normal heart sound present, S2 normal heart sound present and No murmurs present (Cardio) RATE: tachycardic RHYTHM: regular rhythm HEART SOUNDS: S1 normal heart sound present and S2 normal heart sound present GI: COMMON NORMALS: Normal to inspection, nondistended, normoactive bowel sounds present, Soft to palpation and non-tender PALPATION: Yes Soft to palpation Extremity: COMMON NORMALS: no joint enlargement GENERAL: Yes edema (1+) Neuro: ALEN COMA SCALE: other (Currently under sedation.) COMMON NORMALS: moves all extremities MOTOR EXAM: Tremors during motor activity present resting tremor COORDINATION: Romberg test abnormal Skin: COMMON NORMALS: no rashes or lesions noted GENERAL SKIN EXAM: no rashes or lesions noted and ecchymosis OTHER: Good cap refill. Urinary Catheter Management^: Toussaint Latex: Cath Placed During This Visit: yes Reason for Continuing Indwelling Catheter: Accurate Measurement of Urinary Output in Critically Ill Patients Urinary Catheter Date of Insertion: 10/05/19 Urinary Catheter Time of Insertion: 05:30 Toussaint: Cath Placed During This Visit: no Reason for Continuing Indwelling Catheter: Accurate Measurement of Urinary Output in Critically Ill Patients Data : 10/21/19 04:15 10/21/19 04:15 Micro: Microbiology 10/18/19 09:10 Gram Stain - Final Cerebrospinal Fluid CSF Culture - Preliminary 10/17/19 16:50 Gram Stain - Final Pleural Fluid Body Fluid Culture - Preliminary 10/17/19 18:04 Gram Stain - Final Lung Right Lower Lobe Bronchoalveolar Lavage Culture - Final 10/17/19 14:35 Gram Stain - Final Sputum - Endotracheal Tube Aspirate Sputum Culture - Final A&P Assessment and plan (1) Fever: Reported fever 101f this morning. Overnight again some restless movements of his arms. Restarted on sedation with fentanyl. Noted decrease in blood pressure, and had to be restarted on Levophed again at 3 mcg. Fever at this time of unclear origin. Obtain blood culture both from periphery and PICC line. Check chest x-ray to assess for possible VAP. Check UA. Check limited abdominal ultrasound for ascites and if so may need to have paracentesis to exclude SBP, although has been covered with antibiotics. Also assess biliary duct size. Bilirubin is slightly higher at 4, although alk phos and AST, ALT are not remarkable. Check bilateral lower extremity duplex ultrasound for VTE as he has been on and off on pharmacologic VTE prophylaxis due to thrombocytopenia, bleeding, procedures, etc. Does maintain SCDs in place. Below right ankle also appears to have an ecchymosis, will assess soft tissue ultrasound behind right knee, as well as at right ankle to assess for fluid, possible Franklin's cyst rupture. Acute abdomen series. Check stool for C. difficile. If no suggestive etiology, consider additional extensive imaging with CT. Could not reach for update. Status: Acute (2) Acute encephalopathy: Appreciate neurology evaluation. No sign of seizure at this time. Generalized mild slowing on EEG. Reported alpha activity response to painful stimuli. Appreciate agricultural equipment mechanic and nephrology input. Consideration of trial of hemodialysis for possibility of uremic encephalopathy with persistently newly elevated BUN. LP obtained with opening pressure of 37 mmHg. With results so far rather unremarkable. EEG has been requested, although this is been difficult to obtain with everything he has been going through, intermittent severe restlessness requiring high amounts of sedation. Suspected multifactorial encephalopathy. Initially with alcohol withdrawal, subsequently with hepatic encephalopathy, possibly alcoholic hepatitis. Also on a number of psychiatric medications at home, muscle relaxers, potentially contributing. Prolonged severe alcohol withdrawal is considered likely cause at this time. Resumed on lower dose of paroxetine and cyclobenzaprine. Tick was found on him here in the hospital. Empirically on doxycycline. Tick panel 10/07 was lost at [facility], was resent 10/18. Ammonia level normalized. CT head and repeat without acute findings. Pending hypernatremia. If volume status allows could increase fluid flushes. Currently is on 100 mL every 8 hours. At this time tolerating well tube feeds at 30 mL/h. Reglan ordered as recommended by surgery. Status: Acute (3) Acute respiratory failure with hypoxia: Her stress test has been stable, but spiking fever today. Repeat chest x-ray. CT clamped. Extubated October 13. Reintubated 10/16. Persistent encephalopathy, worsening restlessness, inability to comply with BiPAP, oral bleeding with self sustained biting. Worsening respiratory condition secondary to pleural effusion, noted pharyngeal bleeding/blood clots. Status post chest tube placement 10/16 on the right. Fluid consistent with hepatic hydrothorax. Suspicion of ongoing vap is low, and respiratory decline/imaging findings were most likely secondary to the pleural effusion. Linezolid was held. MRSA +ve sputum. For now has been continued on doxycycline. Echocardiogram was performed, demonstrating normal EF, poor ultrasonic window. Status: Acute (4) Pleural effusion: Chest tube clamped with plans for discontinuation. Effusion appears to be due to hepatic hydrothorax. He is diuresing well with Bumex. Status: Acute (5) ELIO (acute kidney injury): Appreciate nephrology input. After initial acute kidney injury, subsequently with some improvement creatinine for the most part has remained relatively stable. Consideration of hepatorenal syndrome. Status: Acute (6) Alcohol withdrawal syndrome: High likelihood of prolonged severe alcohol withdrawal per discussion with neurology, critical care. Last drink 2 PM 10/02. CIWA protocol. Thiamine, folic acid. Encourage cessation, follow-up with [facility] on outpatient side. Status: Acute Qualifiers: Complication of substance-induced condition: with delirium Qualified Code(s): F10.231 - Alcohol dependence with withdrawal delirium (7) Thrombocytopenia: Monitor for further decline. Secondary to liver disease. Peripheral smear was unremarkable on 10/04 with some macrocytosis. Status: Acute (8) Cirrhosis: Ammonia level initially elevated after GI bleeding, but have normalized subsequently Elevated meld score. Overall if he recovers from current episode transplantation will need to be considered for which he will need to quit drinking, although this appears to been a very difficult endeavor so far. Will need continued follow-up with his excel analyst, PCP. Status: Acute (9) GI bleeding: Resolved. Hemoglobin stable Continue Protonix Doubt variceal bleeding May follow-up with GI after hospitalization Heparin was restarted for DVT prophylaxis. No evidence of rebleeding Status: Acute (10) Delirium tremens: Status: Acute (11) Tick bite of thigh: Tick removed in ICU off left inner thigh. Continue doxycycline. Tick panel had to be resent as lost at [facility]. Status: Acute (12) Cholestasis: With some hydropic appearing gallbladder, some gallbladder wall thickening, but this all appears to be chronic, with CBD normal, no sign of acute obstruction, cholecystitis. Status: Acute (13) Transaminitis: AST and ALT better. Alk phos now normal. T bili persistently elevated. Likely secondary to alcoholism. Ultrasound did not delineate any obstructive cause of jaundice Status: Acute (14) Colonic pseudoobstruction: Appreciate surgical follow-up. He is on trophic feeds. TPN. Status: Acute (15) Hepatorenal syndrome: Albumin infusions were discontinued with stabilization of renal function. Status: Acute Additional A&P Information Hypokalemia, resolved Nutrition. TPN discontinued. Restarted on trial of trophic feeds, which he has had time tolerating. History of hypertension Heparin for DVT prophylaxis. Heparin. Monitor PLT. Attestations Medical Necessity Statement*: Continue admission for assessment of management of persistent encephalopathy, fever, acute kidney injury in the setting of underlying liver cirrhosis, alcoholism. Coding Level of Care Code Acute Supply Person for [facility] Fwd Diagnoses Fever R50.9 Acute encephalopathy G93.40 Acute respiratory failure with hypoxia J96.01 Pleural effusion J90 ELIO (acute kidney injury) N17.9 Alcohol withdrawal syndrome F10.231 Complication of substance-induced condition: with delirium Thrombocytopenia D69.6 Cirrhosis K74.60 GI bleeding K92.2 Delirium tremens F10.231 Tick bite of thigh S70.369A; W57.XXXA Cholestasis K83.1 Transaminitis R74.0 Colonic pseudoobstruction K59.8 Hepatorenal syndrome K76.7
--- NOTE | 2019-10-21 09:24 | XR_ITS ---
WS: [id number] ABDOMEN SERIES ACUTE Supine and upright views of the abdomen with AP or PA chest CLINICAL INFORMATION: Prior colonic pseudoobstruction. Fever. COMPARISON: None. FINDINGS: Endotracheal tube with tip above the brian measuring 2.2 CM. Enteric tube with tip below t he diaphragm. Heart: Cardiomegaly. Left PICC line with tip in the proximal SVC. Lungs: Small bilateral pleural effusions with mild pulmonary vascular congestion. Bibasilar atelectas is. Right chest tube. No pneumothorax. Bowel gas pattern: Normal. Free air: None. Abnormal calcifications: None. Bones: Normal. Pelvic phleboliths. XR/XR acute abdomen series [id number] IMPRESSION: 1. Endotracheal tube with tip 2.2 cm above the brian. 2. Enteric tube with tip in the stomach. 3. Cardiomegaly with small bilateral pleural effusions and mild pulmonary vasc ular congestion. 4. Right basilar chest tube. No pneumothorax. 5. Normal bowel gas pattern.
--- NOTE | 2019-10-21 10:11 | PM.PN ---
Subjective Subjective: Interval history: Minimal cognitive improvement. Good urine output. Remains intubated and vented. Running temps. Levophed resumed. Medications: Reviewed: Yes Vitals/I&O/Wt Last Vital Signs Temp 99.3 F 10/21/19 05:41 Pulse 85 10/21/19 07:51 Resp 19 H 10/21/19 07:52 BP 127/63 10/21/19 05:41 Pulse Ox 94 10/21/19 07:51 10/20/19 10/21/19 10/21/19 22:59 06:59 14:59 Intake Total 1696.600 / 2429.846 900 / 3329.846 Output Total 2950 / 3850 1750 / 5600 Balance -1253.400 / -1420.154 -850 / -2270.154 Weight last 48 hrs Weight 121.563 kg Physical Exam Narrative: EXAM NARRATIVE: Exam performed via telemed with the aid of the bedside RN HEENT: wet mucosa, non icteric Lungs: Bilaterally diminished in the bases, elio in the right side where the CT is noted CVS: S1 S2 no mumur Abdo: A little distended, BS ok Ext x 4: minimal edema globally Neuro: Sedated on the vent Urinary Catheter Management^: Toussaint Latex: Cath Placed During This Visit: yes Reason for Continuing Indwelling Catheter: Accurate Measurement of Urinary Output in Critically Ill Patients Urinary Catheter Date of Insertion: 10/05/19 Urinary Catheter Time of Insertion: 05:30 Toussaint: Cath Placed During This Visit: no Reason for Continuing Indwelling Catheter: Accurate Measurement of Urinary Output in Critically Ill Patients Data : 10/21/19 04:15 10/21/19 04:15 Micro: Microbiology 10/18/19 09:10 Gram Stain - Final Cerebrospinal Fluid CSF Culture - Preliminary 10/17/19 16:50 Gram Stain - Final Pleural Fluid Body Fluid Culture - Preliminary 10/17/19 18:04 Gram Stain - Final Lung Right Lower Lobe Bronchoalveolar Lavage Culture - Final 10/17/19 14:35 Gram Stain - Final Sputum - Endotracheal Tube Aspirate Sputum Culture - Final A&P Additional A&P Information 1. ELIO - BUN progressively increasing, although creatinine has been stable; this is consistent with renal hypoperfusion pre-renal picture although other potential causes include protein catabolism - ELIO Diff also includes hepatorenal, AIN from ABx, ischemic ATN from labile hemodynamics. - FE Na 4.13% but this is following diuretic exposure - FE Urea 34.2% suggesting a pre-renal hypoperfusion cause - likely to be multifactorial - renal function is essentially stable however, his uremic milieu is concerning; will plan on dialyzing him 2.5hrs today and tomorrow (we do have to be careful about dropping uremic load too quickly) - avoid the usuals 2. AMS - Uremic Encephalopathy is possible. Of note there is no categorical way of knowing without performing dialysis and observing the result (BUN level very poorly correlates) - if BUN is unchanged by the above measures as listed in #1 and I agree that dialysis is warranted - D/w Dr Mojica and Dr Flood 3. VDRF - CT clamped - settings per Dr Flood and weaning as tolerated 4. 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
[2019-10-21 10:26] LABS: Add Urine Microscopic? YES; Bilirubin Urine Neg (NEGATIVE); Blood Urine 2+ (Negative); Glucose Urine UA Norm (Normal); Ketones Urine Negative (Negative); Leukocyte Esterase Urine Negative (Negative); Nitrate Urine Negative (Negative); Protein Urine Neg (Negative); Urine Appearance SL Hazy (CLEAR); Urine Color Yellow (Yellow); Urobilinogen Urine Norm (Negative); pH Urine 5 (5-7)
[2019-10-21 10:27] LABS: Add Urine Culture? Yes; Bacteria Urine 1+; WBC Urine 0-4 /hpf (0-5)
[2019-10-21] MEDS: octreotide 100 mcg/mL SDV 50 MCG SUBCUT ×3 (10:53→22:09)
[2019-10-21 13:45] LABS: Glucose Point of Care 145 mg/dL (70-110)
--- NOTE | 2019-10-21 14:29 | XRR_ITS ---
PROCEDURE INFORMATION: Exam: XR Chest, 1 View Exam date and time: 10/21/2019 3:01 PM Age: 49 years old Clinical indication: Other vascular access device placement or adjustment; Other: Dialysis catheter; Additional info: Verify placement of temporary dialysis catheter TECHNIQUE: Imaging protocol: XR of the chest Views: 1 view. COMPARISON: IA XR chest 1V portable [id number] 10/19/2019 9:33 PM FINDINGS: Tubes, catheters and devices: ET tube tip lies 2-3 cm above brian. NG tube descends into stomach. Right jugular temporary hemodialysis catheter tip in the proximal SVC region. Lungs: Consolidation/atelectasis in the lung bases medially. Pleural space: Right pleural effusion. Heart/Mediastinum: Unremarkable. No cardiomegaly. Bones/joints: Unremarkable. XR/XR chest 1V portable [id number] IMPRESSION: 1.) Right jugular temporary hemodialysis catheter tip in the proximal SVC region. 2.)Consolidation/atelectasis in the lung bases medially. Right pleural effusion.
--- NOTE | 2019-10-21 14:30 | PC.NURSE ---
Dr Mojica, at bedside, inserted Dialysis catheter. Chest tube removed. Xyloform, gauze and foam tape dressing applied.
[2019-10-21] MEDS: midazolam 1 mg/mL INJ 2 mL 2 MG IVP (14:58)
--- NOTE | 2019-10-21 16:41 | PM.ACPR ---
Procedure/Consent Time out: Time Out Performed: Yes Consent: Consent for Procedure: Consent obtained from other (indicate) Procedure Narrative: Name of the procedure: Right internal jugular hemodialysis catheter insertion under ultrasound guidance. Medications: Lidocaine 1% 5 mL. IV medications: Fentanyl and Precedex drip. Consent: Obtained from his . Description of the procedure: The right IJ was identified under ultrasound guidance with collapsibility and lack of pulsatility. The site was prepared using sterile technique and the patient was positioned optimally. The skin, subcutaneous tissue was anesthetized with 1% lidocaine. The introducer needle was then advanced under direct ultrasound guidance to flashback was noted. Dark nonpulsatile blood was noted. The guidewire was advanced through the needle and confirmed to be in the internal jugular vein with ultrasound. Using Seldinger technique the right internal jugular hemodialysis catheter was inserted. The catheter was sutured in place. The insertion length was 16 cm. Complications: None Blood loss: 2 mL Chest x-ray: The tip of the hemodialysis catheter was in the superior vena cava. Acute Procedures Epistaxis Control: Time out performed: Yes
[2019-10-21 16:51] LABS: Glucose Point of Care 115 mg/dL (70-110)
[2019-10-21] MEDS: heparin, porcine 1,000 unit/mL INJ 10 mL HE (17:53)
--- NOTE | 2019-10-21 19:19 | PC.NURSE ---
At shift report noted large amount of yellow fluid drained under pt . Changed linens and bathed pt. Noted chest tube dressing loose. Presumed that is wehre the copious amount of drainage came from. Redressed area.
[2019-10-21] MEDS: cyclobenzaprine 10 mg Tablet 5 MG PO (21:01)
[2019-10-22] VITALS (54 sets, daily range): BP systolic 92–124; BP diastolic 48–67; PULSE 66–84; RESP 14–18; TEMP 36.9–39.3; O2SAT 84–100; BMI 42.0
[2019-10-22] MEDS: chlordiazePOXIDE 25 mg Capsule PO ×4 (03:26→17:57)
[2019-10-22] MEDS: ipratropium-albuterol 3 mL Neb INHALATION ×6 (04:35→23:58)
[2019-10-22 04:46] LABS: Basophils # 0.1 10^3/uL (0.0-0.1); Eosinophils # 0.2 10^3/uL (0.0-0.8); Eosinophils % 2.6 %; Hematocrit 30.6 % (42.0-52.0); Hemoglobin 9.8 g/dL (11.7-16.6); Lymphocytes # 1.2 10^3/uL (0.8-4.8); Lymphocytes % 13.5 %; Mean Corpuscular Hemoglobin 30.4 pg (28.0-34.0); Mean Platelet Volume 12.1 fL (7.4-10.4); Monocytes # 1.4 10^3/uL (0.2-0.9); Monocytes % 15.3 %; Neutrophils # 6.1 10^3/uL (1.8-7.7); Neutrophils % 66.9 %; Nucleated Red Blood Cells % 0 %; Platelet Count 50 10^3/cmm (130-400); Red Blood Count 3.22 10^6/uL (4.1-5.3); Red Cell Distribution Width 16.4 % (12.1-15.1); White Blood Count 9.1 10^3/uL (4.0-10.0)
[2019-10-22] MEDS: pantoprazole 40 mg SDV IVP ×2 (04:56→17:58)
[2019-10-22 05:06] LABS: Alanine Aminotransferase 28 U/L (0-41); Albumin Level 3.5 g/dL (3.5-5.2); Alkaline Phosphatase 134 IU/L (40-130); Anion Gap 17.6 (5-19); Aspartate Amino Transferase 49 U/L (0-40); Blood Urea Nitrogen 59 mg/dL (6-20); Calcium 9.4 mg/dL (8.5-10.5); Carbon Dioxide 26 mmol/L (22-29); Chloride 106 mmol/L (98-107); Globulin 2.6 g/dL (1.3-4.6); Glomerular Filtration Rate 31.7 mL/min (90-130); Glucose 137 mg/dL (65-115); Osmolality Calculated 303 mOsm/kg (285-295); Potassium 3.6 mmol/L (3.5-5.1); Sodium 146 mmol/L (136-145); Total Bilirubin 3.1 mg/dL (0.15-1.2); Total Protein 6.1 g/dL (6.6-8.7)
--- NOTE | 2019-10-22 06:05 | PC.NURSE ---
patient has had uneventful night, patient has still been very agitated at times. precedex and ffentanyl infusing, chest tube site has been leaking serous fluid in copius amounts. also patient has had low grade temp at 100.3 at the highest. family has called several times and explained patient is still not responding to stimuli. coccyx is macerated as well as scrotum and thigh area. . foul odor is on coccyx and scrotal area. dialysus cath intact on r subclavian area.
[2019-10-22 07:32] LABS: Glucose Point of Care 149 mg/dL (70-110)
[2019-10-22] MEDS: PARoxetine 20 mg Tablet PO (08:54)
[2019-10-22] MEDS: metoclopramide 10 mg Tablet 5 MG OG-TUBE ×2 (08:54→17:57)
[2019-10-22] MEDS: doxycycline 100 mg Tablet PO ×2 (08:55→20:48)
[2019-10-22] MEDS: octreotide 100 mcg/mL SDV 50 MCG SUBCUT ×2 (08:55→17:55)
[2019-10-22] MEDS: bumetanide 0.25 mg/mL SDV 10 mL 1 MG IV (08:55)
--- NOTE | 2019-10-22 09:00 | PC.NURSE ---
Pt febrile again this am, 102.8 F. His face appears thinner but his skin tone more yellowed than yesterday. Pt noted to be making the same reflexive movements but not as frequent today. His hands are clenched, noted pressure area on right palm. His eye have cleared up, very slightly blood shot today. 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 On his bottom still macerated in around gluteal cleft but surrounding area steam drier operator.
[2019-10-22] MEDS: nystatin cream 30 gm 1 APPLIC TOPICAL ×2 (09:13→17:58)
--- NOTE | 2019-10-22 10:06 | PM.PN ---
Subjective Subjective: Interval history: Minimal cognitive improvement and Fentanyl being increased. Good urine output. Remains intubated and vented. Running temps. Intermittent Levophed. Medications: Reviewed: Yes Vitals/I&O/Wt Last Vital Signs Temp 99.7 F H 10/21/19 22:00 Pulse 79 10/22/19 08:07 Resp 14 10/22/19 10:02 BP 112/56 10/22/19 06:00 Pulse Ox 90 10/22/19 08:07 10/21/19 10/22/19 10/22/19 22:59 06:59 14:59 Intake Total 853.950 / 1215.283 117.625 / 1332.908 Output Total 450 / 1975 700 / 2675 Balance 403.950 / -759.717 -582.375 / -1342.092 Weight last 48 hrs Weight 121.563 kg Physical Exam Narrative: EXAM NARRATIVE: Exam performed via telemed with the aid of the bedside RN HEENT: wet mucosa, non icteric Lungs: Bilaterally diminished in the bases, elio in the right side where the CT is noted CVS: S1 S2 no mumur Abdo: A little distended, BS ok Ext x 4: minimal edema globally Neuro: Sedated on the vent Urinary Catheter Management^: Toussaint Latex: Cath Placed During This Visit: yes Reason for Continuing Indwelling Catheter: Accurate Measurement of Urinary Output in Critically Ill Patients Urinary Catheter Date of Insertion: 10/05/19 Urinary Catheter Time of Insertion: 05:30 Toussaint: Cath Placed During This Visit: no Reason for Continuing Indwelling Catheter: Accurate Measurement of Urinary Output in Critically Ill Patients Data : 10/22/19 04:05 10/22/19 04:05 Micro: Microbiology 10/21/19 10:05 Blood Culture - Preliminary Blood SPECIMEN COLLECTED 10/21/19 09:58 Blood Culture - Preliminary Blood SPECIMEN COLLECTED 10/21/19 09:56 Blood Culture - Preliminary Blood SPECIMEN COLLECTED 10/17/19 16:50 Gram Stain - Final Pleural Fluid Body Fluid Culture - Final 10/18/19 09:10 Gram Stain - Final Cerebrospinal Fluid CSF Culture - Final A&P Additional A&P Information 1. ELIO - BUN progressively increasing, although creatinine has been stable; this is consistent with renal hypoperfusion pre-renal picture although other potential causes include protein catabolism - ELIO Diff also includes hepatorenal, AIN from ABx, ischemic ATN from labile hemodynamics. - FE Na 4.13% but this is following diuretic exposure - FE Urea 34.2% suggesting a pre-renal hypoperfusion cause - likely to be multifactorial - renal function is essentially stable however, his uremic milieu is concerning; dialyzed yesterday for first session, plan on second session today; if no cognitive improvement will consider holding dialysis and monitoring - avoid the usuals 2. AMS - Likely multifactorial metabolic encephalopathy inc severe alcohol withdrawal. Possible uremia contribution (of note there is no categorical way of knowing without performing dialysis and observing the result (BUN level very poorly correlates)) - No improvement after first dialysis session 3. VDRF - CT removed - settings per Dr Flood and weaning as tolerated 4. 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
--- NOTE | 2019-10-22 12:03 | PC.NURSE ---
Antibiotics: Caspofungin and Primaxin re-timed for after dialysis.
[2019-10-22 12:32] LABS: Hepatitis B Surface Antigen Non-Reactive (Nonreactive)
[2019-10-22 12:37] LABS: Glucose Point of Care 155 mg/dL (70-110)
--- NOTE | 2019-10-22 12:50 | P.PN_ITS ---
Subjective Subjective: Interval history: Opens eyes today, appears perhaps trying to look around, almost appears as if try to make eye contact, however, again intermittent restless behavior, does not appear to understand any questions, or follow any commands. Vitals/I&O/Wt Last Vital Signs Temp 101.7 F H 10/22/19 11:00 Pulse 77 10/22/19 11:23 Resp 14 10/22/19 11:18 BP 115/62 10/22/19 11:00 Pulse Ox 91 10/22/19 11:18 10/21/19 10/22/19 10/22/19 22:59 06:59 14:59 Intake Total 853.950 / 1215.283 117.625 / 1332.908 Output Total 450 / 1975 700 / 2675 550 / 550 Balance 403.950 / -759.717 -582.375 / -1342.092 -550 / -550 Weight last 48 hrs Weight 121.563 kg Physical Exam Const: GENERAL APPEARANCE: disheveled NUTRITIONAL APPEARANCE: obese OTHER: Comfortable. Intermittent awakening. Blinks spontaneously, withdraws from pain. tries to wrestle out of soft restraint. Not redirectable. Not following commands. HENMT: OTHER: Chest: OTHER: R side chest tube wound w dressing. L armpit redness, maceration. Resp: COMMON NORMALS: normal respiratory effort and clear to auscultation bilaterally AUSCULTATION: clear to auscultation bilaterally Cardio: COMMON NORMALS: regular rhythm, S1 normal heart sound present, S2 normal heart sound present and No murmurs present (Cardio) RATE: tachycardic RHYTHM: regular rhythm HEART SOUNDS: S1 normal heart sound present and S2 normal heart sound present GI: COMMON NORMALS: Normal to inspection, nondistended, normoactive bowel sounds present, Soft to palpation and non-tender PALPATION: Yes Soft to palpation : OTHER: groin erythema, maceration Extremity: COMMON NORMALS: no joint enlargement GENERAL: Yes edema (LE 2+) Neuro: ALEN COMA SCALE: other (Currently under sedation.) COMMON NORMALS: moves all extremities MOTOR EXAM: Tremors during motor activity present resting tremor COORDINATION: Romberg test abnormal Skin: COMMON NORMALS: no rashes or lesions noted GENERAL SKIN EXAM: no rashes or lesions noted and ecchymosis OTHER: Good cap refill. Urinary Catheter Management^: Toussaint Latex: Cath Placed During This Visit: yes Reason for Continuing Indwelling Catheter: Accurate Measurement of Urinary Output in Critically Ill Patients Urinary Catheter Date of Insertion: 10/05/19 Urinary Catheter Time of Insertion: 05:30 Toussaint: Cath Placed During This Visit: no Reason for Continuing Indwelling Catheter: Accurate Measurement of Urinary Output in Critically Ill Patients Data : 10/22/19 04:05 10/22/19 04:05 Micro: Microbiology 10/21/19 10:05 Blood Culture - Preliminary Blood SPECIMEN COLLECTED 10/21/19 09:58 Blood Culture - Preliminary Blood SPECIMEN COLLECTED 10/21/19 09:56 Blood Culture - Preliminary Blood SPECIMEN COLLECTED 10/17/19 16:50 Gram Stain - Final Pleural Fluid Body Fluid Culture - Final 10/18/19 09:10 Gram Stain - Final Cerebrospinal Fluid CSF Culture - Final A&P Assessment and plan (1) Fever: Again recurrence of fever. Started empirically on Primaxin, as well as caspofungin. Repeat abdominal series unremarkable. UA unremarkable. Chest x-ray with conso lidation/atelectasis in lung bases, right pleural effusion. Blood cultures were collected 10/20, requested referral, as well as from line and art line. Abdominal ultrasound with minimal ascites, insufficient to tap. No collection or evidence of Franklin's cyst rupture behind right knee. No DVT on duplex ultrasound. Check stool for C. difficile. Not yet collected. With possibility of pneumonia per x-ray imaging, for now continue antibiotic as above. Follow-up C. difficile results Discussed with patient's who verbalized sending in agreement with plan. Status: Acute (2) Acute encephalopathy: Persistent encephalopathy. He is opening his eyes, appears perhaps try to look around blinking spontaneously. Does not follow command. Intermittently trying to pull out of his restraints, although definitely is weaker than previously. Hemodialysis last, repeating today for possible uremic encephalopathy. Discussed with also given severity of critical illness concern for likely shelter psychiatric/cognitive sequela in addition to likely protracted course of recovery. Discussed with his who verbalized understanding of his condition, stating agreement with the plans of treatment. Continue treatment of possible and action as above. Requested pharmacy review medications for possible drug-related fever. Per discussion for now will DC Zyprexa to avoid NMS. Appreciate neurology evaluation. No sign of seizure at this time. Generalized mild slowing on EEG. Reported alpha activity response to painful stimuli. LP obtained with opening pressure of 37 mmHg. With results so far rather unremarkable. EEG has been requested, although this is been difficult to obtain with everything he has been going through, intermittent severe restlessness requiring high amounts of sedation. Suspected multifactorial encephalopathy. Initially with alcohol withdrawal, subsequently with hepatic encephalopathy, possibly alcoholic hepatitis. Also on a number of psychiatric medications at home, muscle relaxers, potentially contributing. Prolonged severe alcohol withdrawal is considered likely cause at this time. Resumed on lower dose of paroxetine and cyclobenzaprine. Tick was found on him here in the hospital. Empirically on doxycycline. Tick panel 10/07 was lost at [facility], was resent 10/18. Ammonia level normalized. CT head and repeat without acute findings. Status: Acute (3) Acute respiratory failure with hypoxia: CT removed 10/20. Had some overnight drainage from site. Follow CXR. Extubated October 13. Reintubated 10/16. Persistent encephalopathy, worsening restlessness, inability to comply with BiPAP, oral bleeding with self sustained biting. Worsening respiratory condition secondary to pleural effusion, noted pharyngeal bleeding/blood clots. Status post chest tube placement 10/16 on the right. Fluid consistent with hepatic hydrothorax. Suspicion of ongoing vap is low, and respiratory decline/imaging findings were most likely secondary to the pleural effusion. Linezolid was held. MRSA +ve sputum. For now has been continued on doxycycline. Echocardiogram was performed, demonstrating normal EF, poor ultrasonic window. Status: Acute (4) Pleural effusion: CT s/p discontinuation on 10/20. Effusion appears to be due to hepatic hydrothorax. Status: Acute (5) ELIO (acute kidney injury): Appreciate nephrology input. Trial of HD. After initial acute kidney injury, subsequently with some improvement creatinine for the most part has remained relatively stable. Consideration of hepatorenal syndrome. Status: Acute (6) Alcohol withdrawal syndrome: High likelihood of prolonged severe alcohol withdrawal per discussion with neurology, critical care. Last drink 2 PM 10/02. CIWA protocol. Thiamine, folic acid. Encourage cessation, follow-up with [facility] on outpatient side. Status: Acute Qualifiers: Complication of substance-induced condition: with delirium Qualified Code(s): F10.231 - Alcohol dependence with withdrawal delirium (7) Thrombocytopenia: Monitor for further decline. Secondary to liver disease. Peripheral smear was unremarkable on 10/04 with some macrocytosis. Status: Acute (8) Cirrhosis: Ammonia level initially elevated after GI bleeding, but have normalized subsequently Elevated meld score. Overall if he recovers from current episode transplantation will need to be considered for which he will need to quit drinking, although this appears to been a very difficult endeavor so far. 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 Status: Acute (9) GI bleeding: Resolved. Hemoglobin stable Continue Protonix Doubt variceal bleeding May follow-up with GI after hospitalization Heparin was restarted for DVT prophylaxis. No evidence of rebleeding Status: Acute (10) Delirium tremens: Status: Acute (11) Tick bite of thigh: Tick removed in ICU off left inner thigh. Continue doxycycline. Tick panel had to be resent as lost at [facility]. Status: Acute (12) Cholestasis: With some hydropic appearing gallbladder, some gallbladder wall thickening, but this all appears to be chronic, with CBD normal, no sign of acute obstruction, cholecystitis. Status: Acute (13) Transaminitis: AST and ALT better. Alk phos now normal. T bili persistently elevated. Likely secondary to alcoholism. Ultrasound did not delineate any obstructive cause of jaundice Status: Acute (14) Colonic pseudoobstruction: Appreciate surgical follow-up. He is on trophic feeds. TPN. Status: Acute (15) Hepatorenal syndrome: Albumin infusions were discontinued with stabilization of renal function. Status: Acute Additional A&P Information Tinea cruris: And appears to also have similar finding in the left armpit. Continue nystatin cream. Caspofungin. Hypokalemia, resolved Nutrition. Tolerating tube feeds better. Will advance to 40 mL/h. Monitor residuals. Water flushes 100 mL 3 times daily. History of hypertension Heparin for DVT prophylaxis. Heparin. Monitor PLT. Attestations Medical Necessity Statement*: Continue admission for assessment and management of persistent encephalopathy, possible infection, possible uremia, in the setting of liver cirrhosis, chronic heavy alcohol intake. 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
--- NOTE | 2019-10-22 14:45 | PC.NURSE ---
Dialysis in progress.
[2019-10-22 15:38] LABS: Erythrocyte Sedimentation Rate 37 mm/hr (0-10)
[2019-10-22 17:10] LABS: Glucose Point of Care 137 mg/dL (70-110)
--- NOTE | 2019-10-22 18:00 | PC.NURSE ---
Art line and PICC dressing changes done. PICC caps and statlock changed. Sorba view Contour Shield Dressing applined to PICC. Pt tolerated all well.
[2019-10-22] MEDS: artificial tears Op Soln 15 mL Btl 1 DROP EYE-BOTH (18:39)
--- NOTE | 2019-10-22 19:18 | PC.NURSE ---
Report given to TEMO Zepeda. Pt opens eyes m ore, does not track nor blink at threat at this time. Pt remains on Levophed at 2mcg/min, Precedes 1mcg/kg/min, and Fentanyl at 100mcg/hr. 1200 in drk yellow urine this shift. Pt afebrile at this time. It appears that pt spikes his temp at morning. Tube feeding remains at 30ml/hr
[2019-10-22] MEDS: cyclobenzaprine 10 mg Tablet 5 MG PO (20:47)
[2019-10-22 21:04] LABS: Procalcitonin 2.87 ng/mL (0-0.5)
[2019-10-23] VITALS (47 sets, daily range): BP systolic 80–133; BP diastolic 29–70; PULSE 69–80; RESP 14–16; TEMP 36.5–37.9; O2SAT 78–98
[2019-10-23] MEDS: chlordiazePOXIDE 25 mg Capsule PO ×5 (01:13→23:56)
[2019-10-23] MEDS: octreotide 100 mcg/mL SDV 50 MCG SUBCUT ×4 (01:14→21:41)
[2019-10-23] MEDS: pantoprazole 40 mg SDV IVP ×2 (04:11→18:03)
[2019-10-23] MEDS: lanolin oint 7 gm 1 APPLIC TOPICAL (04:12)
[2019-10-23] MEDS: ipratropium-albuterol 3 mL Neb INHALATION ×5 (04:17→20:27)
[2019-10-23 04:37] LABS: Basophils # 0.1 10^3/uL (0.0-0.1); Basophils % 1.1 %; Eosinophils # 0.4 10^3/uL (0.0-0.8); Eosinophils % 3.3 %; Hematocrit 31.4 % (42.0-52.0); Hemoglobin 10.1 g/dL (11.7-16.6); Lymphocytes # 1.4 10^3/uL (0.8-4.8); Lymphocytes % 10.8 %; Mean Corpuscular HGB Conc 32.2 g/dL (30.0-36.0); Mean Corpuscular Hemoglobin 30.3 pg (28.0-34.0); Mean Corpuscular Volume 94.3 fL (80-94); Mean Platelet Volume 12.6 fL (7.4-10.4); Monocytes # 2.2 10^3/uL (0.2-0.9); Monocytes % 16.6 %; Neutrophils # 8.8 10^3/uL (1.8-7.7); Neutrophils % 67.4 %; Nucleated Red Blood Cells % 0 %; Platelet Count 55 10^3/cmm (130-400); Red Blood Count 3.33 10^6/uL (4.1-5.3); White Blood Count 13.1 10^3/uL (4.0-10.0)
[2019-10-23 04:55] LABS: Alanine Aminotransferase 29 U/L (0-41); Albumin Level 3.6 g/dL (3.5-5.2); Alkaline Phosphatase 140 IU/L (40-130); Anion Gap 18.5 (5-19); Aspartate Amino Transferase 62 U/L (0-40); Blood Urea Nitrogen 40 mg/dL (6-20); Calcium 9.2 mg/dL (8.5-10.5); Carbon Dioxide 26 mmol/L (22-29); Chloride 102 mmol/L (98-107); Globulin 2.6 g/dL (1.3-4.6); Glomerular Filtration Rate 37.6 mL/min (90-130); Glucose 134 mg/dL (65-115); Osmolality Calculated 296 mOsm/kg (285-295); Potassium 3.5 mmol/L (3.5-5.1); Sodium 143 mmol/L (136-145); Total Bilirubin 3.3 mg/dL (0.15-1.2); Total Protein 6.2 g/dL (6.6-8.7)
[2019-10-23] MEDS: nystatin powder 15 gm Btl 1 APPLIC TOPICAL ×2 (04:57→18:04)
--- NOTE | 2019-10-23 06:00 | XRR_ITS ---
PROCEDURE INFORMATION: Exam: XR Chest, 1 View Exam date and time: 10/23/2019 4:03 AM Age: 49 years old Clinical indication: Dyspnea; Additional info: Hypoxia TECHNIQUE: Imaging protocol: XR of the chest Views: 1 view. COMPARISON: CR XR chest 1V portable [id number] 10/21/2019 3:06 PM FINDINGS: Tubes, catheters and devices: An endotracheal tube is placed with its tip approximately 3.1 cm from the brian. A nasogastric tube is present with its tip at least in the proximal stomach. Lungs: There are strandy opacities present in the right mid and lower hemithorax likely representing atelectasis. Increased densities seen in the retrocardiac region and within the infrahilar region on the right, findings that could represent consolidated infiltrates versus atelectasis. There are increased interstitial markings seen in the upper hemithoraces and some mild peribronchial cuffing present. Pleural space: The hemidiaphragms are obscured likely secondary to bilateral pleural effusions. Heart/Mediastinum: Unremarkable. No cardiomegaly. Vasculature: A right internal jugular vein central venous line is present with its tip at the level of the superior vena cava. Bones/joints: Unremarkable. XR/XR chest 1V portable [id number] IMPRESSION: 1. Bilateral pleural effusions obscure the hemidiaphragms 2. Probable right basilar atelectasis. 3. Increased density in the retrocardiac region and infrahilar region on the right, mild peribronchial cuffing and increased interstitial opacities in the upper hemithoraces, findings that may represent volume overload or cardiac decompensation. Superimposed basilar pneumonia cannot be entirely excluded.
--- NOTE | 2019-10-23 07:05 | PM.PN ---
Subjective Subjective: Interval history: pt seen and examined. remaains on vent, sedated Medications: Reviewed: Yes Medication Review Details: Current Medications Albuterol/Ipratropium (Duoneb) 3 ml INHALATION Q4H.RESPIRATORY [facility] Last Admin: 10/23/19 04:17 Dose: 3 ml Documented by: Artificial Tears (Isopto Tears) 1 drop EYE-BOTH Q4H PRN PRN Reason: DRY EYE(S) Last Admin: 10/22/19 18:39 Dose: 1 drop Documented by: Bisacodyl (Bisac-Evac) 10 mg MT DAILY PRN PRN Reason: CONSTIPATION Last Admin: 10/15/19 18:07 Dose: 10 mg Documented by: Bumetanide (Bumex) 1 mg IV DAILY [facility] Last Admin: 10/22/19 08:55 Dose: 1 mg Documented by: Chlordiazepoxide (Librium) 25 mg PO Q6H CANDACE Last Admin: 10/23/19 05:03 Dose: 25 mg Documented by: Cyclobenzaprine HCl (Flexeril) 5 mg PO BEDTIME [facility] Last Admin: 10/22/19 20:47 Dose: 5 mg Documented by: Doxycycline Monohydrate (Vibramycin) 100 mg PO Q12H CANDACE Last Admin: 10/22/19 20:48 Dose: 100 mg Documented by: Heparin Sodium (Beef Lung) (Heparin) 5,000 unit SUBCUT Q12H [facility] Last Admin: 10/20/19 03:48 Dose: 5,000 unit Documented by: Fentanyl 1,000 mcg/ Sodium (Chloride) 100 mls @ 0 mls/hr IV .Q0M PRN; Protocol PRN Reason: SEDATION Last Admin: 10/22/19 21:01 Dose: 100 mcg/hr, 10 mls/hr Documented by: Propofol (Diprivan) 1,000 mg in 100 mls @ 0 mls/hr IV .Q0M PRN; Protocol PRN Reason: SEDATION Last Titration: 10/20/19 17:16 Dose: 0 mcg/kg/min, 0 mls/hr Documented by: Norepinephrine Bitartrate 4 mg (/ Dextrose) 254 mls @ 0 mls/hr IV .Q0M CANDACE; Protocol Last Admin: 10/22/19 21:00 Dose: 2 mcg/min, 7.6 mls/hr Documented by: Vasopressin 40 unit/ Sodium (Chloride) 40 mls @ 0.03 mls/min IV CONT [facility] Last Admin: 10/22/19 08:50 Dose: Not Given Documented by: Dexmedetomidine HCl 1,000 mcg/ (Sodium Chloride) 260 mls @ 0 mls/hr IV .Q0M [facility]; Protocol Last Admin: 10/23/19 05:00 Dose: 0.7 mcg/kg/hr, 22.1 mls/hr Documented by: Caspofungin 35 mg/ Sodium (Chloride) 250 mls @ 250 mls/hr IV Q24H [facility] Last Admin: 10/22/19 17:18 Dose: 250 mls/hr Documented by: Imipenem/Cilastatin Sodium 250 (mg/ Sodium Chloride) 100 mls @ 200 mls/hr IV Q6H [facility]; Protocol Last Admin: 10/23/19 04:10 Dose: 200 mls/hr Documented by: Lanolin (Lanolin Oint) 1 applic TOPICAL PRN PRN PRN Reason: DRYNESS Last Admin: 10/23/19 04:12 Dose: 1 gm Documented by: Metoclopramide HCl (Reglan) 5 mg OG-TUBE BID [facility] Last Admin: 10/22/19 17:57 Dose: 5 mg Documented by: Nystatin (Nystatin Cream) 1 applic TOPICAL BID [facility] Last Admin: 10/22/19 17:58 Dose: 1 applic Documented by: Nystatin (Nystatin Powder) 1 applic TOPICAL BID [facility] Last Admin: 10/23/19 04:57 Dose: 1 gm Documented by: Octreotide Acetate (Sandostatin) 50 mcg SUBCUT TID [facility] Last Admin: 10/23/19 01:14 Dose: 50 mcg Documented by: Pantoprazole Sodium (Protonix) 40 mg IVP Q12H [facility] Last Admin: 10/23/19 04:11 Dose: 40 mg Documented by: Paroxetine HCl (Paxil) 20 mg PO DAILY [facility] Last Admin: 10/22/19 08:54 Dose: 20 mg Documented by: Vitals/I&O/Wt Last Vital Signs Temp 99.0 F 10/23/19 04:55 Pulse 74 10/23/19 04:18 Resp 14 10/23/19 05:55 BP 107/58 10/23/19 04:00 Pulse Ox 96 10/23/19 04:55 10/22/19 10/23/19 10/23/19 22:59 06:59 14:59 Intake Total 786.792 / 1209.179 176.432 / 1385.611 Output Total 850 / 1400 550 / 1950 Balance -63.208 / -190.821 -373.568 / -564.389 Weight last 48 hrs Weight 120.202 kg Weight 121.563 kg Physical Exam Narrative: EXAM NARRATIVE: intubated, sedated, twitches vs noted heent- nc/at neck supple lungs - bronchial sounds b/l heart- reg, no rub, +RADHA abd soft nt nd, +BS ext no edema Urinary Catheter Management^: Toussaint Latex: Cath Placed During This Visit: yes Reason for Continuing Indwelling Catheter: Accurate Measurement of Urinary Output in Critically Ill Patients Urinary Catheter Date of Insertion: 10/05/19 Urinary Catheter Time of Insertion: 05:30 Toussaint: Cath Placed During This Visit: no Reason for Continuing Indwelling Catheter: Accurate Measurement of Urinary Output in Critically Ill Patients Data : 10/23/19 04:13 10/23/19 04:13 Micro: Microbiology 10/21/19 10:05 Blood Culture - Preliminary Blood NEGATIVE TO DATE 10/21/19 09:58 Blood Culture - Preliminary Blood NEGATIVE TO DATE 10/21/19 09:56 Blood Culture - Preliminary Blood NEGATIVE TO DATE A&P Additional A&P Information 49 yr old man 1. fevers- presumed pna- on primaxin and caspofungin f/u stool for c diff 2. acute encephalopathy- eval per medicine- not much improvement w/ dialysis -hold HD today Suspected multifactorial encephalopathy. - alcohol withdrawal, hepatic encephalopathy, psychiatric medications at home, muscle relaxers, potentially contributing. - q of uremia Ammonia level normalized. CT head and repeat without acute findings. 3. ELIO - BUN was progressively increasing, although creatinine has been stable; this is consistent with renal hypoperfusion pre-renal picture although other potential causes include protein catabolism - ELIO Diff also includes hepatorenal, AIN from ABx, ischemic ATN from labile hemodynamics. - FE Na 4.13% but this is following diuretic exposure - FE Urea 34.2% suggesting a pre-renal hypoperfusion cause - likely to be multifactorial - s/p HD x 2, monitor renal fxn, uop, acid/ base status 3. VDRF - CT removed -pna and likely volume overload 4. wbc up to 13 hgb stable at 10 5. 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
[2019-10-23 08:52] LABS: Glucose Point of Care 119 mg/dL (70-110)
[2019-10-23] MEDS: artificial tears Op Soln 15 mL Btl 1 DROP EYE-BOTH (09:29)
[2019-10-23] MEDS: bumetanide 0.25 mg/mL SDV 10 mL 1 MG IV (09:31)
[2019-10-23] MEDS: doxycycline 100 mg Tablet PO ×2 (09:34→21:41)
[2019-10-23] MEDS: PARoxetine 20 mg Tablet PO (09:35)
[2019-10-23] MEDS: nystatin cream 30 gm 1 APPLIC TOPICAL ×2 (09:35→18:04)
[2019-10-23] MEDS: metoclopramide 10 mg Tablet 5 MG OG-TUBE ×2 (09:37→18:06)
[2019-10-23 11:26] LABS: Glucose Point of Care 117 mg/dL (70-110)
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
--- NOTE | 2019-10-23 18:16 | PC.RESP ---
Smoking Cessation information to be mailed to patient with a schedule of classes.
--- NOTE | 2019-10-23 18:22 | PC.NURSE ---
Shift summary: Pt appears thinner today. Bilat sclera no bloodshot noted at this time. Jaundice remains. Pt has not followed any commands nor track staff with his eyes this shift. He has grimaced and shook his head side to side during oral care.Tube feeding increased to 40ml/hr. Fentanyl at 100mcg/min, Pecedex at 0.07mcg/kg/hr and Norepinephrine decreased this shift to 2mcg/min. 1700 ml of urine output. Perineal and bottom areas still red but oven drier tender.
--- NOTE | 2019-10-23 21:00 | PC.NURSE ---
Mental Status Pt alert and spontaneous eye opening. Able to focus and follow nurse with eyes. When nurse asked can you hear me? Pt nodded yes. Pt unable to follow other commands such as hand veterinary practitioner, etc. at this time.
[2019-10-23] MEDS: cyclobenzaprine 10 mg Tablet 5 MG PO (21:41)
[2019-10-23 22:21] LABS: Glucose Point of Care 131 mg/dL (70-110)
[2019-10-24] VITALS (43 sets, daily range): BP systolic 93–128; BP diastolic 40–74; PULSE 67–87; RESP 14–29; TEMP 36.6–38.6; O2SAT 89–95
--- NOTE | 2019-10-24 | PC.NURSE ---
Arterial line tubing and saline bag changed at this time per protocol.
[2019-10-24] MEDS: ipratropium-albuterol 3 mL Neb INHALATION ×7 (00:20→23:24)
--- NOTE | 2019-10-24 00:25 | PC.NURSE ---
Jevity feedings and kangaroo tubing system changed at this time. Dated and timed.
[2019-10-24] MEDS: pantoprazole 40 mg SDV IVP ×2 (05:27→17:44)
[2019-10-24 05:28] LABS: Basophils # 0.1 10^3/uL (0.0-0.1); Basophils % 1.1 %; Eosinophils # 0.5 10^3/uL (0.0-0.8); Eosinophils % 4.2 %; Hematocrit 29.9 % (42.0-52.0); Hemoglobin 9.6 g/dL (11.7-16.6); Lymphocytes # 1.2 10^3/uL (0.8-4.8); Lymphocytes % 10.9 %; Mean Corpuscular HGB Conc 32.1 g/dL (30.0-36.0); Mean Corpuscular Hemoglobin 30.6 pg (28.0-34.0); Mean Corpuscular Volume 95.2 fL (80-94); Mean Platelet Volume 12.3 fL (7.4-10.4); Monocytes # 1.7 10^3/uL (0.2-0.9); Monocytes % 15.1 %; Neutrophils # 7.6 10^3/uL (1.8-7.7); Nucleated Red Blood Cells % 0 %; Platelet Count 55 10^3/cmm (130-400); Red Blood Count 3.14 10^6/uL (4.1-5.3); Red Cell Distribution Width 15.9 % (12.1-15.1); White Blood Count 11.4 10^3/uL (4.0-10.0)
[2019-10-24] MEDS: chlordiazePOXIDE 25 mg Capsule PO ×3 (05:28→17:44)
[2019-10-24 05:43] LABS: Alanine Aminotransferase 29 U/L (0-41); Albumin Level 3.4 g/dL (3.5-5.2); Alkaline Phosphatase 144 IU/L (40-130); Anion Gap 16.3 (5-19); Aspartate Amino Transferase 65 U/L (0-40); Blood Urea Nitrogen 45 mg/dL (6-20); Calcium 8.6 mg/dL (8.5-10.5); Carbon Dioxide 26 mmol/L (22-29); Chloride 101 mmol/L (98-107); Globulin 2.2 g/dL (1.3-4.6); Glomerular Filtration Rate 37.6 mL/min (90-130); Glucose 130 mg/dL (65-115); Magnesium 1.8 mg/dL (1.7-2.3); Osmolality Calculated 290 mOsm/kg (285-295); Phosphorus 2.6 mg/dL (2.5-4.5); Potassium 3.3 mmol/L (3.5-5.1); Sodium 140 mmol/L (136-145); Total Bilirubin 2.9 mg/dL (0.15-1.2); Total Protein 5.6 g/dL (6.6-8.7)
[2019-10-24 05:48] LABS: Calcium 8.5 mg/dL (8.5-10.5)
[2019-10-24 06:10] LABS: Slide Review Slide Review Perform
[2019-10-24 06:18] LABS: Parathyroid Hormone 49.8 pg/mL (15-65)
--- NOTE | 2019-10-24 07:06 | PM.PN ---
Subjective Subjective: Interval history: sedated, intubated on pressers Medications: Reviewed: Yes Medication Review Details: Current Medications Albuterol/Ipratropium (Duoneb) 3 ml INHALATION Q4H.RESPIRATORY [facility] Last Admin: 10/24/19 04:15 Dose: 3 ml Documented by: Artificial Tears (Isopto Tears) 1 drop EYE-BOTH Q4H PRN PRN Reason: DRY EYE(S) Last Admin: 10/23/19 09:29 Dose: 1 drop Documented by: Bisacodyl (Bisac-Evac) 10 mg MT DAILY PRN PRN Reason: CONSTIPATION Last Admin: 10/15/19 18:07 Dose: 10 mg Documented by: Bumetanide (Bumex) 1 mg IV DAILY [facility] Last Admin: 10/23/19 09:31 Dose: 1 mg Documented by: Chlordiazepoxide (Librium) 25 mg PO Q6H [facility] Last Admin: 10/24/19 05:28 Dose: 25 mg Documented by: Cyclobenzaprine HCl (Flexeril) 5 mg PO BEDTIME [facility] Last Admin: 10/23/19 21:41 Dose: 5 mg Documented by: Doxycycline Monohydrate (Vibramycin) 100 mg PO Q12H [facility] Last Admin: 10/23/19 21:41 Dose: 100 mg Documented by: Heparin Sodium (Beef Lung) (Heparin) 5,000 unit SUBCUT Q12H [facility] Last Admin: 10/20/19 03:48 Dose: 5,000 unit Documented by: Fentanyl 1,000 mcg/ Sodium (Chloride) 100 mls @ 0 mls/hr IV .Q0M PRN; Protocol PRN Reason: SEDATION Last Admin: 10/23/19 22:01 Dose: 100 mcg/hr, 10 mls/hr Documented by: Norepinephrine Bitartrate 4 mg (/ Dextrose) 254 mls @ 0 mls/hr IV .Q0M [facility]; Protocol Last Admin: 10/24/19 00:21 Dose: 4 mcg/min, 15.2 mls/hr Documented by: Vasopressin 40 unit/ Sodium (Chloride) 40 mls @ 0.03 mls/min IV CONT [facility] Last Admin: 10/23/19 07:58 Dose: Not Given Documented by: Dexmedetomidine HCl 1,000 mcg/ (Sodium Chloride) 260 mls @ 0 mls/hr IV .Q0M [facility]; Protocol Last Admin: 10/24/19 01:30 Dose: 0.7 mcg/kg/hr, 22.1 mls/hr Documented by: Caspofungin 35 mg/ Sodium (Chloride) 250 mls @ 250 mls/hr IV Q24H [facility] Last Infusion: 10/23/19 17:20 Dose: Infused Documented by: Imipenem/Cilastatin Sodium 250 (mg/ Sodium Chloride) 100 mls @ 200 mls/hr IV Q6H [facility]; Protocol Last Admin: 10/24/19 03:41 Dose: 200 mls/hr Documented by: Lanolin (Lanolin Oint) 1 applic TOPICAL PRN PRN PRN Reason: DRYNESS Last Admin: 10/23/19 04:12 Dose: 1 gm Documented by: Lorazepam (Ativan) 1 mg IVP Q3H PRN PRN Reason: SEDATION Metoclopramide HCl (Reglan) 5 mg OG-TUBE BID [facility] Last Admin: 10/23/19 18:06 Dose: 5 mg Documented by: Nystatin (Nystatin Cream) 1 applic TOPICAL BID [facility] Last Admin: 10/23/19 18:04 Dose: 1 applic Documented by: Nystatin (Nystatin Powder) 1 applic TOPICAL BID [facility] Last Admin: 10/23/19 18:04 Dose: 1 applic Documented by: Octreotide Acetate (Sandostatin) 50 mcg SUBCUT TID [facility] Last Admin: 10/23/19 21:41 Dose: 50 mcg Documented by: Pantoprazole Sodium (Protonix) 40 mg IVP Q12H [facility] Last Admin: 10/24/19 05:27 Dose: 40 mg Documented by: Paroxetine HCl (Paxil) 20 mg PO DAILY [facility] Last Admin: 10/23/19 09:35 Dose: 20 mg Documented by: Vitals/I&O/Wt Last Vital Signs Temp 99.0 F 10/24/19 04:57 Pulse 73 10/24/19 06:00 Resp 14 10/24/19 06:00 BP 102/52 10/24/19 06:00 Pulse Ox 93 10/24/19 06:00 10/23/19 10/24/19 10/24/19 22:59 06:59 14:59 Intake Total 1102.710 / 1647.188 880.872 / 2528.060 Output Total 1700 / 1700 750 / 2450 Balance -597.290 / -52.812 130.872 / 78.060 Weight last 48 hrs Weight 117.48 kg Weight 120.202 kg Physical Exam Narrative: EXAM NARRATIVE: intubated, sedated, on pressers- tolerating jevity feeds vs noted heent- nc/at, mildlu icteric neck supple lungs - coarse w/ secretions b/l heart- reg, no rub, +RADHA abd soft nt nd, +BS ext ++ b/l leg edema neuro- responsive, follows simple commands Urinary Catheter Management^: Toussaint Latex: Cath Placed During This Visit: yes Reason for Continuing Indwelling Catheter: Accurate Measurement of Urinary Output in Critically Ill Patients Urinary Catheter Date of Insertion: 10/05/19 Urinary Catheter Time of Insertion: 05:30 Tosusaint: Cath Placed During This Visit: no Reason for Continuing Indwelling Catheter: Accurate Measurement of Urinary Output in Critically Ill Patients Data : 10/24/19 04:45 10/24/19 04:45 Micro: Microbiology 10/21/19 09:30 Urine Culture - Preliminary Urine,Clean Catch Yeast species 10/17/19 18:04 Mycobacterial Smear - Preliminary Body Fluids - Bronchial 10/17/19 16:50 Mycobacterial Smear - Preliminary Body Fluids - Pleura A&P Additional A&P Information 49 yr old man 1. fevers- presumed pna- on primaxin and caspofungin f/u stool for c diff 2. acute encephalopathy- eval per medicine- not much improvement w/ dialysis -hold HD today Suspected multifactorial encephalopathy. - alcohol withdrawal, hepatic encephalopathy, psychiatric medications at home, muscle relaxers, potentially contributing. - q of uremia Ammonia level normalized. CT head and repeat without acute findings. 3. ELIO - BUN was progressively increasing, although creatinine has been stable; this is consistent with renal hypoperfusion pre-renal picture although other potential causes include protein catabolism - ELIO Diff also includes hepatorenal, AIN from ABx, ischemic ATN from labile hemodynamics. - FE Na 4.13% but this is following diuretic exposure - FE Urea 34.2% suggesting a pre-renal hypoperfusion cause - likely to be multifactorial - s/p HD x 2, monitor renal fxn, uop, acid/ base status -cr remains stable -pt has excellent diuresis w/ bumex- concider dec dose -replace k 3. VDRF - CT removed -pna and likely volume overload 4. wbc improved to 11 hgb stable at 9.6 5. monitor ca, phos, pth= 49 6. liver abnormality- bili of 3 7. 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
[2019-10-24 07:24] LABS: Glucose Point of Care 139 mg/dL (70-110)
[2019-10-24] MEDS: potassium chloride oral liq 20 mEq/15 mL UDC 40 MEQ PO (07:53)
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
--- NOTE | 2019-10-24 08:30 | XR_ITS ---
WS: [id number] PORTABLE CHEST HISTORY: follow up pneumonia COMPARISON: 10/23/2019 Nasogastric tube and endotracheal tube are in good positions. Lung volumes are decreased. Slightly better aeration of both lungs as compared to 10/23/2019 with decr easing pleural effusions. Atelectasis RIGHT lower lobe. Partial obscuration of the RIGHT diaphragm. N o pneumothorax. Cardiac size: Moderately enlarged cardiac silhouette. Mediastinum/Aorta: Normal mediastinum. No osseous abnormality seen. XR/XR chest 1V portable [id number] IMPRESSION: 1. Nasogastric and endotracheal tubes are in good position. 2. Improved aeration bilaterally with less venous congestion and decreasing pl eural effusions.
[2019-10-24] MEDS: doxycycline 100 mg Tablet PO (08:48)
[2019-10-24] MEDS: PARoxetine 20 mg Tablet PO (08:48)
[2019-10-24] MEDS: octreotide 100 mcg/mL SDV 50 MCG SUBCUT ×3 (08:57→21:37)
[2019-10-24] MEDS: metoclopramide 10 mg Tablet 5 MG OG-TUBE ×2 (09:00→17:44)
[2019-10-24] MEDS: bumetanide 0.25 mg/mL SDV 10 mL 1 MG IV (09:10)
[2019-10-24] MEDS: nystatin powder 15 gm Btl 1 APPLIC TOPICAL ×2 (09:18→17:44)
[2019-10-24] MEDS: nystatin cream 30 gm 1 APPLIC TOPICAL ×2 (09:18→17:45)
[2019-10-24 11:48] LABS: Glucose Point of Care 122 mg/dL (70-110)
[2019-10-24 16:50] LABS: Glucose Point of Care 121 mg/dL (70-110)
--- NOTE | 2019-10-24 19:15 | PC.NURSE ---
Report given to TEMO Bowman. Pt does seem to have sme neuro/cognitive improvement. He does look at staff occasionally. He shook his head no once, when asked if he was cold. He still does those same jerking movements, mostly this afternoon. Norepinephrine decreased to 2mcg/min, Fentanyl decreased to 25mcg/hour and precedes rate stayed the same today. He is tolerating his tube feedings with minimal residual, een though bowel sounds are hypo. No Bm today. Urine output of 2900ml.
[2019-10-24 21:13] LABS: Glucose Point of Care 142 mg/dL (70-110)
[2019-10-24] MEDS: cyclobenzaprine 10 mg Tablet 5 MG PO (21:37)
--- NOTE | 2019-10-24 21:57 | PC.NURSE ---
Tube feeding residuals Received [address] Benites notified by phone and received orders for hold feeds X 4 hrs and resume. Tube feedings stopped at this time. HOB remains 30 degrees at this time.
[2019-10-25] VITALS (41 sets, daily range): BP systolic 90–124; BP diastolic 45–70; PULSE 69–99; RESP 14–17; TEMP 36.7–37.3; O2SAT 89–98
[2019-10-25] MEDS: chlordiazePOXIDE 25 mg Capsule PO ×5 (00:06→21:18)
[2019-10-25] MEDS: ipratropium-albuterol 3 mL Neb INHALATION ×5 (03:34→20:57)
[2019-10-25 04:35] LABS: Basophils # 0.1 10^3/uL (0.0-0.1); Basophils % 1.1 %; Eosinophils # 0.4 10^3/uL (0.0-0.8); Eosinophils % 3.5 %; Hematocrit 28.3 % (42.0-52.0); Lymphocytes # 1.3 10^3/uL (0.8-4.8); Mean Corpuscular HGB Conc 31.8 g/dL (30.0-36.0); Mean Corpuscular Volume 94.3 fL (80-94); Mean Platelet Volume 12.4 fL (7.4-10.4); Monocytes # 1.4 10^3/uL (0.2-0.9); Monocytes % 13.7 %; Neutrophils # 6.8 10^3/uL (1.8-7.7); Neutrophils % 66.7 %; Nucleated Red Blood Cells % 0.3 %; Platelet Count 58 10^3/cmm (130-400); White Blood Count 10.3 10^3/uL (4.0-10.0)
[2019-10-25 04:49] LABS: ABG PCO2 37.9 mmHg (35-45); ABG PH Result 7.44 (7.35-7.45); Arterial Blood Gas Hematocrit 27.3 % (42-52); Base Excess ABG 1.8 mmol/L (-2.0-2.0); Blood Gas Sample Site ARTLINE; Blood Gas Sample Type Arterial; Blood Gas Tidal Volume 0.55; Oxygen Device VENT; PO2 ABG 57.8 mmHg (80.0-100.0)
[2019-10-25 05:01] LABS: Alanine Aminotransferase 29 U/L (0-41); Albumin Level 3.2 g/dL (3.5-5.2); Alkaline Phosphatase 160 IU/L (40-130); Anion Gap 18.5 (5-19); Aspartate Amino Transferase 70 U/L (0-40); Blood Urea Nitrogen 45 mg/dL (6-20); Calcium 9.3 mg/dL (8.5-10.5); Carbon Dioxide 24 mmol/L (22-29); Chloride 104 mmol/L (98-107); Globulin 2.7 g/dL (1.3-4.6); Glomerular Filtration Rate 35.4 mL/min (90-130); Glucose 119 mg/dL (65-115); Magnesium 1.7 mg/dL (1.7-2.3); Osmolality Calculated 295 mOsm/kg (285-295); Phosphorus 3.1 mg/dL (2.5-4.5); Potassium 3.5 mmol/L (3.5-5.1); Sodium 143 mmol/L (136-145); Total Bilirubin 2.7 mg/dL (0.15-1.2); Total Protein 5.9 g/dL (6.6-8.7)
[2019-10-25] MEDS: pantoprazole 40 mg SDV IVP ×2 (06:07→16:20)
[2019-10-25 07:26] LABS: Glucose Point of Care 126 mg/dL (70-110)
--- NOTE | 2019-10-25 07:55 | PM.PN ---
Subjective Subjective: Interval history: tracks, squeezes hands. occ follows simple commands. unable to obtain ROS Medications: Reviewed: Yes Medication Review Details: Current Medications Albuterol/Ipratropium (Duoneb) 3 ml INHALATION Q4H.RESPIRATORY CANDACE Last Admin: 10/25/19 03:34 Dose: 3 ml Documented by: Artificial Tears (Isopto Tears) 1 drop EYE-BOTH Q4H PRN PRN Reason: DRY EYE(S) Last Admin: 10/23/19 09:29 Dose: 1 drop Documented by: Bisacodyl (Bisac-Evac) 10 mg TX DAILY PRN PRN Reason: CONSTIPATION Last Admin: 10/15/19 18:07 Dose: 10 mg Documented by: Bumetanide (Bumex) 1 mg IV DAILY [facility] Last Admin: 10/24/19 09:10 Dose: 1 mg Documented by: Chlordiazepoxide (Librium) 25 mg PO Q6H CANDACE Last Admin: 10/25/19 06:07 Dose: 25 mg Documented by: Cyclobenzaprine HCl (Flexeril) 5 mg PO BEDTIME CANDACE Last Admin: 10/24/19 21:37 Dose: 5 mg Documented by: Folic Acid (Folic Acid) 1 mg OG-TUBE DAILY [facility] Heparin Sodium (Beef Lung) (Heparin) 5,000 unit SUBCUT Q12H CANDACE Last Admin: 10/20/19 03:48 Dose: 5,000 unit Documented by: Fentanyl 1,000 mcg/ Sodium (Chloride) 100 mls @ 0 mls/hr IV .Q0M PRN; Protocol PRN Reason: SEDATION Last Titration: 10/25/19 04:00 Dose: 50 mcg/hr, 5 mls/hr Documented by: Norepinephrine Bitartrate 4 mg (/ Dextrose) 254 mls @ 0 mls/hr IV .Q0M CANDACE; Protocol Last Titration: 10/25/19 06:16 Dose: 0 mcg/min, 0 mls/hr Documented by: Dexmedetomidine HCl 1,000 mcg/ (Sodium Chloride) 260 mls @ 0 mls/hr IV .Q0M CANDACE; Protocol Last Titration: 10/25/19 04:00 Dose: 0.7 mcg/kg/hr, 20.9 mls/hr Documented by: Caspofungin 35 mg/ Sodium (Chloride) 250 mls @ 250 mls/hr IV Q24H [facility] Last Infusion: 10/24/19 16:49 Dose: Infused Documented by: Imipenem/Cilastatin Sodium 500 (mg/ Sodium Chloride) 100 mls @ 200 mls/hr IV Q8H [facility]; Protocol Last Admin: 10/25/19 06:08 Dose: 100 mls/hr Documented by: Lanolin (Lanolin Oint) 1 applic TOPICAL PRN PRN PRN Reason: DRYNESS Last Admin: 10/23/19 04:12 Dose: 1 gm Documented by: Lorazepam (Ativan) 1 mg IVP Q3H PRN PRN Reason: SEDATION Metoclopramide HCl (Reglan) 5 mg OG-TUBE BID [facility] Last Admin: 10/24/19 17:44 Dose: 5 mg Documented by: Nystatin (Nystatin Cream) 1 applic TOPICAL BID [facility] Last Admin: 10/24/19 17:45 Dose: 1 applic Documented by: Nystatin (Nystatin Powder) 1 applic TOPICAL BID [facility] Last Admin: 10/24/19 17:44 Dose: 1 applic Documented by: Octreotide Acetate (Sandostatin) 50 mcg SUBCUT TID [facility] Last Admin: 10/24/19 21:37 Dose: 50 mcg Documented by: Pantoprazole Sodium (Protonix) 40 mg IVP Q12H [facility] Last Admin: 10/25/19 06:07 Dose: 40 mg Documented by: Paroxetine HCl (Paxil) 20 mg PO DAILY [facility] Last Admin: 10/24/19 08:48 Dose: 20 mg Documented by: Thiamine Mononitrate (Vitamin B-1) 100 mg OG-TUBE DAILY [facility] Vitals/I&O/Wt Last Vital Signs Temp 98.2 F 10/25/19 05:27 Pulse 70 10/25/19 06:00 Resp 14 10/25/19 06:00 BP 124/59 10/25/19 06:17 Pulse Ox 92 10/25/19 06:00 10/24/19 10/25/19 10/25/19 22:59 06:59 14:59 Intake Total 1279.656 / 4899.168 3469.611 / 3006.694 Output Total 2900 / 2900 1200 / 4100 Balance -1620.344 / -975.917 -117.389 / -1093.306 Weight last 48 hrs Weight 114.85 kg Weight 117.48 kg Physical Exam Narrative: EXAM NARRATIVE: intubated, sedated, tolerating jevity feeds vs noted heent- nc/at, eyes-responsive neck supple lungs - dec crackles and ronchi b/l heart- reg, no rub, +RADHA abd soft nt nd, +BS ext + b/l leg edema neuro- responsive, follows some simple commands Urinary Catheter Management^: Toussaint Latex: Cath Placed During This Visit: yes Reason for Continuing Indwelling Catheter: Accurate Measurement of Urinary Output in Critically Ill Patients Urinary Catheter Date of Insertion: 10/05/19 Urinary Catheter Time of Insertion: 05:30 Toussaint: Cath Placed During This Visit: no Reason for Continuing Indwelling Catheter: Accurate Measurement of Urinary Output in Critically Ill Patients Data : 10/25/19 03:51 10/25/19 03:51 Micro: Microbiology 10/21/19 09:30 Urine Culture - Preliminary Urine,Clean Catch Yeast species A&P Additional A&P Information 49 yr old man 1. fevers: temps are improving- presumed pna- on primaxin and caspofungin f/u stool for c diff 2. acute encephalopathy- eval per medicine- not much improvement w/ dialysis -cont to hold HD today Suspected multifactorial encephalopathy. - alcohol withdrawal, hepatic encephalopathy, psychiatric medications at home, muscle relaxers, potentially contributing. - q of uremia Ammonia level normalized. CT head and repeat without acute findings. 3. ELIO - BUN was progressively increasing, although creatinine has been stable; this is consistent with renal hypoperfusion pre-renal picture although other potential causes include protein catabolism - ELIO Diff also includes hepatorenal, AIN from ABx, ischemic ATN from labile hemodynamics. - FE Na 4.13% but this is following diuretic exposure - FE Urea 34.2% suggesting a pre-renal hypoperfusion cause - likely to be multifactorial - s/p HD x 2, monitor renal fxn, uop, acid/ base status -cr mildly elevated. however, 4 l uop -pt has excellent diuresis w/ bumex- concider dec dose -replace k and mag -DEC INPUT- HE RECEIVED 3 LITERS YESTERDAY -pth normal at 58 3. VDRF - CT removed -pna and likely volume overload fio2 down to 40% 4. wbc improved to 10 hgb down to 9 5. monitor ca, phos, pth= 49 6. liver abnormality- bili of 2.7 7. thrombocytopenia- stable- likely from liver disease and infection -review meds -plts stable renal dose abx Attestations Medical Necessity Statement*: VDRF, fevers, AMS, elio Time Spent in Patient Care: 16 - 35 minutes Coding Level of Care Code Acute Sales And Marketing Intern for Agapito Davis
[2019-10-25] MEDS: folic acid 1 mg Tablet OG-TUBE (08:10)
[2019-10-25] MEDS: bisacodyl 10 mg Supp PR (08:10)
[2019-10-25] MEDS: thiamine 100 mg Tablet OG-TUBE (08:10)
[2019-10-25] MEDS: metoclopramide 10 mg Tablet 5 MG OG-TUBE ×2 (08:11→16:20)
[2019-10-25] MEDS: PARoxetine 20 mg Tablet PO (08:11)
[2019-10-25] MEDS: nystatin powder 15 gm Btl 1 APPLIC TOPICAL ×2 (08:11→16:20)
[2019-10-25] MEDS: bumetanide 0.25 mg/mL SDV 10 mL 0.5 MG IV (08:12)
[2019-10-25] MEDS: lanolin oint 7 gm 1 APPLIC TOPICAL (08:15)
[2019-10-25] MEDS: LORazepam 2 mg/mL INJ 1 mL 1 MG IVP ×3 (08:16→16:19)
[2019-10-25] MEDS: nystatin cream 30 gm 1 APPLIC TOPICAL ×2 (09:02→16:19)
[2019-10-25] MEDS: potassium chloride oral liq 20 mEq/15 mL UDC 40 MEQ PO (09:02)
[2019-10-25] MEDS: artificial tears Op Soln 15 mL Btl 1 DROP EYE-BOTH (09:02)
[2019-10-25] MEDS: octreotide 100 mcg/mL SDV 50 MCG SUBCUT ×2 (09:34→13:45)
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
[2019-10-25 15:22] LABS: Anti-Nuclear Antibody Screen NEGATIVE (NEGATIVE)
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
--- NOTE | 2019-10-25 18:03 | PM.PN ---
Subjective Subjective: Interval history: The patient was seen and examined. The patient got dialyzed twice over the weekend. His mental status is better than before. This morning the patient was following commands however this evening the patient is somewhat restless and not following any command. His creatinine and BUN has remained stable with good urine output. I performed a bedside ultrasound. The patient has minimal bilateral B-lines, no significant pleural effusion bilaterally, minimal ascites. Good cardiac contractility. The patient is currently on imipenem Sumanth and caspofungin. Medications: Reviewed: Yes Vitals/I&O/Wt Last Vital Signs Temp 98.4 F 10/25/19 12:00 Pulse 80 10/25/19 17:41 Resp 17 10/25/19 17:41 BP 105/67 10/25/19 17:41 Pulse Ox 95 10/25/19 15:27 10/25/19 10/25/19 10/25/19 06:59 14:59 22:59 Intake Total 1082.611 / 3006.694 843.502 / 843.502 171.565 / 1015.067 Output Total 1200 / 4100 370 / 370 Balance -117.389 / -1093.306 473.502 / 473.502 171.565 / 645.067 Weight last 48 hrs Weight 253 lb 3.2 oz Weight 259 lb Physical Exam Narrative: EXAM NARRATIVE: General: The patient is intubated and sedated. Occasional episodes of agitation. The patient had better mental status this morning. Respiratory: Auscultation: Bilateral crackles Cardiovascular: Regular rate and rhythm, S1-S2 present, no murmur, no right ventricular heave, minimal to no peripheral edema. Abdomen: Soft, nontender, distended from obesity, positive bowel sound Skin: No rash Neuro: Patient is moving all extremities, delirious Urinary Catheter Management^: Toussaint Latex: Cath Placed During This Visit: yes Reason for Continuing Indwelling Catheter: Accurate Measurement of Urinary Output in Critically Ill Patients Urinary Catheter Date of Insertion: 10/05/19 Urinary Catheter Time of Insertion: 05:30 Toussaint: Cath Placed During This Visit: no Reason for Continuing Indwelling Catheter: Accurate Measurement of Urinary Output in Critically Ill Patients Data : 10/25/19 03:51 10/25/19 03:51 Other data: I have reviewed the patient's laboratory, microbiologic and radiologic data. A&P Assessment and plan (1) Acute respiratory failure with hypoxia: The patient is still intubated. Currently he is on minimal sedation. It appears that his mental status is better than before. I will start the patient on pressure support ventilation. The patient's lung mechanics are not too bad however the primary reason why the patient remained intubated this long time is because of his mental status. He failed extubation once. It appears that the patient's mental status is somewhat better than before. I am hoping that his mental status will continue to improve and will be able to extubate him. However if that does not collar turner to be the case the patient will need a tracheostomy at which time the sedation requirement will come down significantly and this can be reversed when the patient is better. I have discussed his care with the telephone advice nurse. If his BUN is not improving tomorrow will attempt 1 more session of dialysis with the hope that this will help him with his mental status and subsequent extubation. Status: Acute (2) Toxic encephalopathy: This is likely secondary to alcohol withdrawal as well as other causes of delirium in the ICU, including sedation, multiorgan failure and medication among others. I am going to discontinue the Ativan IV. The patient is on chlordiazepoxide. If the patient gets agitated will treat him with Haldol and fentanyl as needed. The fentanyl would be a safer choice with the patient with acute kidney injury. I will continue to follow the patient. Status: Acute Attestations Medical Necessity Statement*: Will defer to the primary team Coding Level of Care Code Acute Domestic Housekeeper for Agapito Davis Diagnoses Acute respiratory failure with hypoxia J96.01 Toxic encephalopathy G92
[2019-10-25] MEDS: sodium chloride 0.9% 1,000 ML 100 ML IV (18:32)
--- NOTE | 2019-10-25 18:53 | PC.NURSE ---
OFF 1854 PATIENT HAD A RUNNING TOTAL OF 303CC OF FENTANYL GIVEN . BAG NEARLY EMPTY NEXT BAG DELIVERED AT THIS TIME. PUMP CLEARED FOR ONCOMING SHIFT.
[2019-10-25] MEDS: cyclobenzaprine 10 mg Tablet 5 MG PO (21:18)
[2019-10-25 21:29] LABS: Glucose Point of Care 136 mg/dL (70-110)
[2019-10-26] VITALS (47 sets, daily range): BP systolic 84–126; BP diastolic 42–76; PULSE 71–94; RESP 14–22; TEMP 36.8–37.3; O2SAT 91–97
[2019-10-26] MEDS: ipratropium-albuterol 3 mL Neb INHALATION ×7 (00:15→23:22)
[2019-10-26 03:50] LABS: Basophils # 0.1 10^3/uL (0.0-0.1); Basophils % 0.9 %; Eosinophils # 0.3 10^3/uL (0.0-0.8); Eosinophils % 3.4 %; Hemoglobin 7.7 g/dL (11.7-16.6); Lymphocytes # 0.9 10^3/uL (0.8-4.8); Lymphocytes % 10.1 %; Mean Corpuscular HGB Conc 30.8 g/dL (30.0-36.0); Mean Corpuscular Hemoglobin 29.8 pg (28.0-34.0); Mean Corpuscular Volume 96.9 fL (80-94); Mean Platelet Volume 12.8 fL (7.4-10.4); Monocytes % 11.4 %; Neutrophils # 6.6 10^3/uL (1.8-7.7); Neutrophils % 72.3 %; Nucleated Red Blood Cells % 0 %; Platelet Count 75 10^3/cmm (130-400); Red Blood Count 2.58 10^6/uL (4.1-5.3); Red Cell Distribution Width 16.3 % (12.1-15.1); White Blood Count 9.1 10^3/uL (4.0-10.0)
[2019-10-26 04:23] LABS: Alanine Aminotransferase 25 U/L (0-41); Albumin Level 3.2 g/dL (3.5-5.2); Alkaline Phosphatase 169 IU/L (40-130); Anion Gap 16.5 (5-19); Aspartate Amino Transferase 58 U/L (0-40); Blood Urea Nitrogen 48 mg/dL (6-20); Calcium 9.2 mg/dL (8.5-10.5); Carbon Dioxide 25 mmol/L (22-29); Chloride 105 mmol/L (98-107); Globulin 2.4 g/dL (1.3-4.6); Glomerular Filtration Rate 35.4 mL/min (90-130); Glucose 148 mg/dL (65-115); Magnesium 1.8 mg/dL (1.7-2.3); Osmolality Calculated 297 mOsm/kg (285-295); Potassium 3.5 mmol/L (3.5-5.1); Sodium 143 mmol/L (136-145); Total Bilirubin 2.6 mg/dL (0.15-1.2); Total Protein 5.6 g/dL (6.6-8.7)
[2019-10-26 04:25] LABS: ABG PH Result 7.47 (7.35-7.45); Arterial Blood Gas Hematocrit 28.6 % (42-52); Base Excess ABG 2.5 mmol/L (-2.0-2.0); Blood Gas Sample Type Arterial; Blood Gas Tidal Volume 0.55; HCO3 ABG 26.2 mmol/L (22-26); Oxygen Device VENT
[2019-10-26] MEDS: sodium chloride 0.9% 1,000 ML 100 ML IV (04:44)
[2019-10-26] MEDS: chlordiazePOXIDE 25 mg Capsule PO ×3 (05:50→21:34)
[2019-10-26] MEDS: pantoprazole 40 mg SDV IVP ×2 (05:50→17:55)
--- NOTE | 2019-10-26 07:09 | XR_ITS ---
WS: [id number] PORTABLE CHEST HISTORY: follow up pneumonia COMPARISON: 10/24/2019 Nasogastric and endotracheal tubes are in good position. Lung volumes are decreased. New haziness over both lungs suggesting mild interstitial edema. Layering small bilateral pleural effusions. Atelectasis in the RIGHT lower lobe. Dense consolidation posterio r to LEFT heart. No pneumothorax. Cardiac size: Mildly enlarged cardiac silhouette. Mediastinum/Aorta: No mediastinal widening. RIGHT central line with tip in the distal SVC. No osseous abnormality seen. XR/XR chest 1V portable [id number] IMPRESSION: 1. Worsening airspace disease bilaterally. 2. New mild interstitial edema. 3. New small bilateral pleural effusions. 4. Increasing consolidation in the lower lung patel consistent with atelectas is. Pneumonia not excluded.
[2019-10-26 07:27] LABS: Glucose Point of Care 132 mg/dL (70-110)
--- NOTE | 2019-10-26 07:28 | PM.PN ---
Subjective Subjective: Interval history: minimally responsive, weak Medications: Reviewed: Yes Medication Review Details: Current Medications Albuterol/Ipratropium (Duoneb) 3 ml INHALATION Q4H.RESPIRATORY [facility] Last Admin: 10/26/19 07:24 Dose: 3 ml Documented by: Artificial Tears (Isopto Tears) 1 drop EYE-BOTH Q4H PRN PRN Reason: DRY EYE(S) Last Admin: 10/25/19 09:02 Dose: 1 drop Documented by: Bisacodyl (Bisac-Evac) 10 mg LA DAILY PRN PRN Reason: CONSTIPATION Last Admin: 10/25/19 08:10 Dose: 10 mg Documented by: Chlordiazepoxide (Librium) 25 mg PO Q8H [facility] Last Admin: 10/26/19 05:50 Dose: 25 mg Documented by: Cyclobenzaprine HCl (Flexeril) 5 mg PO BEDTIME [facility] Last Admin: 10/25/19 21:18 Dose: 5 mg Documented by: Fentanyl (Sublimaze) 25 mcg IVP Q4H PRN PRN Reason: SEVERE PAIN Folic Acid (Folic Acid) 1 mg OG-TUBE DAILY [facility] Last Admin: 10/25/19 08:10 Dose: 1 mg Documented by: Haloperidol Lactate (Haldol Inj) 5 mg IM Q6H PRN PRN Reason: AGITATION Heparin Sodium (Beef Lung) (Heparin) 5,000 unit SUBCUT Q12H [facility] Last Admin: 10/20/19 03:48 Dose: 5,000 unit Documented by: Norepinephrine Bitartrate 4 mg (/ Dextrose) 254 mls @ 0 mls/hr IV .Q0M [facility]; Protocol Last Titration: 10/25/19 06:16 Dose: 0 mcg/min, 0 mls/hr Documented by: Dexmedetomidine HCl 1,000 mcg/ (Sodium Chloride) 260 mls @ 0 mls/hr IV .Q0M [facility]; Protocol Last Titration: 10/25/19 16:57 Dose: 0.5 mcg/kg/hr, 14.9 mls/hr Documented by: Caspofungin 35 mg/ Sodium (Chloride) 250 mls @ 250 mls/hr IV Q24H [facility] Last Admin: 10/25/19 16:18 Dose: 250 mls/hr Documented by: Imipenem/Cilastatin Sodium 500 (mg/ Sodium Chloride) 100 mls @ 200 mls/hr IV Q8H [facility]; Protocol Last Admin: 10/26/19 06:00 Dose: 200 mls/hr Documented by: Fentanyl 1,000 mcg/ Sodium (Chloride) 100 mls @ 0 mls/hr IV .Q0M PRN; Protocol PRN Reason: SEDATION Lanolin (Lanolin Oint) 1 applic TOPICAL PRN PRN PRN Reason: DRYNESS Last Admin: 10/25/19 08:15 Dose: 0.5 gm Documented by: Metoclopramide HCl (Reglan) 5 mg OG-TUBE BID [facility] Last Admin: 10/25/19 16:20 Dose: 5 mg Documented by: Nystatin (Nystatin Cream) 1 applic TOPICAL BID [facility] Last Admin: 10/25/19 16:19 Dose: 1 applic Documented by: Nystatin (Nystatin Powder) 1 applic TOPICAL BID [facility] Last Admin: 10/25/19 16:20 Dose: 1 applic Documented by: Pantoprazole Sodium (Protonix) 40 mg IVP Q12H [facility] Last Admin: 10/26/19 05:50 Dose: 40 mg Documented by: Paroxetine HCl (Paxil) 20 mg PO DAILY [facility] Last Admin: 10/25/19 08:11 Dose: 20 mg Documented by: Thiamine Mononitrate (Vitamin B-1) 100 mg OG-TUBE DAILY [facility] Last Admin: 10/25/19 08:10 Dose: 100 mg Documented by: Vitals/I&O/Wt Last Vital Signs Temp 98.4 F 10/26/19 06:09 Pulse 81 10/26/19 07:26 Resp 16 10/26/19 07:26 BP 119/71 10/26/19 06:09 Pulse Ox 93 10/26/19 07:26 10/25/19 10/26/19 10/26/19 22:59 06:59 14:59 Intake Total 531.565 / 0945.238 5836 / 3234.067 Output Total 920 / 1290 650 / 1940 Balance -388.435 / 85.067 1209 / 1294.067 Weight last 48 hrs Weight 116.261 kg Weight 114.85 kg Physical Exam Narrative: EXAM NARRATIVE: intubated, sedated, tolerating jevity feeds vs noted- afebrile 50% fio2 heent- nc/at, eyes-responsive neck supple lungs - scattered wheezes b/l heart- reg, no rub, +RADHA abd soft nt nd, +BS ext + b/l leg edema neuro- responsive, not following commands Rt neck dialysis catheter Urinary Catheter Management^: Toussaint Latex: Cath Placed During This Visit: yes Reason for Continuing Indwelling Catheter: Accurate Measurement of Urinary Output in Critically Ill Patients Urinary Catheter Date of Insertion: 10/05/19 Urinary Catheter Time of Insertion: 05:30 Toussaint: Cath Placed During This Visit: no Reason for Continuing Indwelling Catheter: Accurate Measurement of Urinary Output in Critically Ill Patients Data : 10/26/19 03:15 10/26/19 03:15 Micro: Microbiology 10/21/19 09:30 Urine Culture - Final Urine,Clean Catch Julissa albicans 10/21/19 16:20 C.difficile Toxin B Gene (PCR) - Final Stool A&P Additional A&P Information 49 yr old man 1. fevers: temps are improving- presumed pna- on primaxin and caspofungin f/u stool for c diff 2. acute encephalopathy- eval per medicine- critical care physician Dr. Feliz is concerned that uremia is causing poor MS nd tht is why he is not getting extubated -will hold fluids and diuretics -repeat HD now to see if helps MS Suspected multifactorial encephalopathy. - alcohol withdrawal, hepatic encephalopathy, psychiatric medications at home, muscle relaxers, infection, hospital psychosis arepotentially contributing. Ammonia level normalized. CT head and repeat without acute findings. 3. ELIO - BUN was progressively increasing, although creatinine has been stable; this is consistent with renal hypoperfusion pre-renal picture although other potential causes include protein catabolism - ELIO Diff also includes hepatorenal, AIN from ABx, ischemic ATN from labile hemodynamics. - FE Na 4.13% but this is following diuretic exposure - FE Urea 34.2% suggesting a pre-renal hypoperfusion cause - likely to be multifactorial - s/p HD x 2, monitor renal fxn, uop, acid/ base status -cr stable- rising bun pth at 58 3. pt w/ resp and met alkalosis- monitor w/ hd for alkalemia 4. VDRF - CT removed -pna and per dr. feliz no volume overload. -q if due to poor ms fio2 d upto 50% 4. wbc improved to 9 hgb down to 7.7 as per medicine/ pulm 5. monitor ca, phos, pth= 49 6. liver abnormality- bili of 2.6 7. thrombocytopenia- improving to 75- likely from liver disease and infection renal dose abx Attestations Medical Necessity Statement*: VDRF as per medicine Time Spent in Patient Care: 16 - 35 minutes Coding Level of Care Code Acute Chairman President And Chief Executive Officer for Agapito Davis
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
[2019-10-26] MEDS: fentaNYL 50 mcg/mL INJ 2mL 25 MCG IVP ×2 (11:22→21:58)
[2019-10-26] MEDS: PARoxetine 20 mg Tablet PO (11:35)
[2019-10-26] MEDS: metoclopramide 10 mg Tablet 5 MG OG-TUBE ×2 (11:35→17:55)
[2019-10-26] MEDS: folic acid 1 mg Tablet OG-TUBE (11:35)
[2019-10-26] MEDS: thiamine 100 mg Tablet OG-TUBE (11:36)
[2019-10-26] MEDS: haloperidol inj 5 mg/mL INJ 1 mL IM (11:40)
--- NOTE | 2019-10-26 12:55 | PC.NURSE ---
PIIC line checked for patency. both sides draw back blood, but sluggish and appears to be positional
--- NOTE | 2019-10-26 13:17 | PC.NURSE ---
pt was very aggitated, Fentanyl increased and Presidex increased. Breathing 45 times a minute, bitting tube and kicking in the air. Unable to follow directions. Dr. Rose notified. New order for Ativan received. Pt calmed down from Haldol injection prior to Ativan to the Ativan was held.
[2019-10-26] MEDS: nystatin cream 30 gm 1 APPLIC TOPICAL ×2 (13:19→17:56)
[2019-10-26] MEDS: nystatin powder 15 gm Btl 1 APPLIC TOPICAL ×2 (13:19→17:56)
[2019-10-26 13:31] LABS: Hematocrit 27.1 % (42.0-52.0); Hemoglobin 8.3 g/dL (11.7-16.6)
[2019-10-26 16:39] LABS: Glucose Point of Care 151 mg/dL (70-110)
[2019-10-26] MEDS: cyclobenzaprine 10 mg Tablet 5 MG PO (21:34)
--- NOTE | 2019-10-26 23:34 | PC.NURSE ---
wasted 95 ml of fentanyl witnessed by obed rodriguez RN
[2019-10-27] VITALS (37 sets, daily range): BP systolic 85–118; BP diastolic 42–61; PULSE 70–85; RESP 14–20; TEMP 36.6–37.6; O2SAT 93–99; BMI 40.1
[2019-10-27] MEDS: ipratropium-albuterol 3 mL Neb INHALATION ×3 (03:29→11:36)
[2019-10-27 03:36] LABS: Basophils # 0.1 10^3/uL (0.0-0.1); Basophils % 0.7 %; Eosinophils # 0.5 10^3/uL (0.0-0.8); Eosinophils % 4.6 %; Hematocrit 33.1 % (42.0-52.0); Lymphocytes # 1.3 10^3/uL (0.8-4.8); Lymphocytes % 13.1 %; Mean Corpuscular HGB Conc 30.2 g/dL (30.0-36.0); Mean Corpuscular Hemoglobin 30.3 pg (28.0-34.0); Mean Corpuscular Volume 100.3 fL (80-94); Mean Platelet Volume 12.5 fL (7.4-10.4); Monocytes # 1.2 10^3/uL (0.2-0.9); Monocytes % 11.7 %; Neutrophils # 6.9 10^3/uL (1.8-7.7); Neutrophils % 68.4 %; Nucleated Red Blood Cells % 0 %; Platelet Count 96 10^3/cmm (130-400); Red Cell Distribution Width 16.9 % (12.1-15.1)
[2019-10-27 03:58] LABS: Alanine Aminotransferase 25 U/L (0-41); Albumin Level 3.4 g/dL (3.5-5.2); Alkaline Phosphatase 191 IU/L (40-130); Anion Gap 19.7 (5-19); Aspartate Amino Transferase 59 U/L (0-40); Blood Urea Nitrogen 33 mg/dL (6-20); Calcium 9.5 mg/dL (8.5-10.5); Carbon Dioxide 23 mmol/L (22-29); Chloride 106 mmol/L (98-107); Globulin 2.9 g/dL (1.3-4.6); Glucose 144 mg/dL (65-115); Magnesium 2.1 mg/dL (1.7-2.3); Osmolality Calculated 300 mOsm/kg (285-295); Phosphorus 3.3 mg/dL (2.5-4.5); Potassium 3.7 mmol/L (3.5-5.1); Sodium 145 mmol/L (136-145); Total Bilirubin 2.9 mg/dL (0.15-1.2); Total Protein 6.3 g/dL (6.6-8.7)
[2019-10-27 04:17] LABS: ABG PCO2 33.7 mmHg (35-45); ABG PH Result 7.47 (7.35-7.45); Arterial Blood Gas Hematocrit 28.4 % (42-52); Blood Gas Sample Site Brachial, right; Blood Gas Sample Type Arterial; Blood Gas Tidal Volume 0.55; HCO3 ABG 24.5 mmol/L (22-26); Oxygen Device VENT; PO2 ABG 61.7 mmHg (80.0-100.0)
[2019-10-27] MEDS: pantoprazole 40 mg SDV IVP (06:25)
[2019-10-27] MEDS: chlordiazePOXIDE 25 mg Capsule PO ×2 (06:25→16:00)
--- NOTE | 2019-10-27 07:00 | XR_ITS ---
WS: [id number] PORTABLE CHEST HISTORY: Follow-up pneumonia COMPARISON: 10/26/2019 Nasogastric and endotracheal tubes and RIGHT IJ line remain in good position. Left-sided PICC line wi th tip in the distal SVC. Linear areas of atelectasis at the RIGHT lung base. There is diffuse pulmonary venous congestion whic h has slightly progressed since the prior study. Pulmonary vasculature has progressed. Small bilatera l pleural effusions, RIGHT greater than LEFT. Cardiac size: Mildly enlarged cardiac silhouette. Mediastinum/Aorta: Mild atherosclerosis aorta. No osseous abnormality seen. XR/XR chest 1V portable [id number] IMPRESSION: 1. Endotracheal and nasogastric tubes remain in good position. 2. Mild progression of pulmonary congestion since the prior study with small b ilateral pleural effusions. 3. Increasing atelectasis at the RIGHT lung base.
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
[2019-10-27 07:51] LABS: Glucose Point of Care 120 mg/dL (70-110)
[2019-10-27] MEDS: thiamine 100 mg Tablet OG-TUBE (09:35)
[2019-10-27] MEDS: folic acid 1 mg Tablet OG-TUBE (09:35)
[2019-10-27] MEDS: metoclopramide 10 mg Tablet 5 MG OG-TUBE (09:35)
[2019-10-27] MEDS: PARoxetine 20 mg Tablet PO (09:35)
[2019-10-27] MEDS: nystatin cream 30 gm 1 APPLIC TOPICAL (09:35)
[2019-10-27] MEDS: nystatin powder 15 gm Btl 1 APPLIC TOPICAL (09:36)
--- NOTE | 2019-10-27 11:26 | P.PN_ITS ---
Subjective Subjective: Interval history: Opening his eyes but not much more. Fentanyl increased due to agitation. Dialyzed yesterday. Good urine output and stable blood panel. Line was sluggish yesterday. Medications: Reviewed: Yes Medication Review Details: Current Medications Albuterol/Ipratropium (Duoneb) 3 ml INHALATION Q4H.RESPIRATORY [facility] Last Admin: 10/26/19 07:24 Dose: 3 ml Documented by: Artificial Tears (Isopto Tears) 1 drop EYE-BOTH Q4H PRN PRN Reason: DRY EYE(S) Last Admin: 10/25/19 09:02 Dose: 1 drop Documented by: Bisacodyl (Bisac-Evac) 10 mg HI DAILY PRN PRN Reason: CONSTIPATION Last Admin: 10/25/19 08:10 Dose: 10 mg Documented by: Chlordiazepoxide (Librium) 25 mg PO Q8H [facility] Last Admin: 10/26/19 05:50 Dose: 25 mg Documented by: Cyclobenzaprine HCl (Flexeril) 5 mg PO BEDTIME [facility] Last Admin: 10/25/19 21:18 Dose: 5 mg Documented by: Fentanyl (Sublimaze) 25 mcg IVP Q4H PRN PRN Reason: SEVERE PAIN Folic Acid (Folic Acid) 1 mg OG-TUBE DAILY [facility] Last Admin: 10/25/19 08:10 Dose: 1 mg Documented by: Haloperidol Lactate (Haldol Inj) 5 mg IM Q6H PRN PRN Reason: AGITATION Heparin Sodium (Beef Lung) (Heparin) 5,000 unit SUBCUT Q12H [facility] Last Admin: 10/20/19 03:48 Dose: 5,000 unit Documented by: Norepinephrine Bitartrate 4 mg (/ Dextrose) 254 mls @ 0 mls/hr IV .Q0M [facility]; Protocol Last Titration: 10/25/19 06:16 Dose: 0 mcg/min, 0 mls/hr Documented by: Dexmedetomidine HCl 1,000 mcg/ (Sodium Chloride) 260 mls @ 0 mls/hr IV .Q0M [facility]; Protocol Last Titration: 10/25/19 16:57 Dose: 0.5 mcg/kg/hr, 14.9 mls/hr Documented by: Caspofungin 35 mg/ Sodium (Chloride) 250 mls @ 250 mls/hr IV Q24H [facility] Last Admin: 10/25/19 16:18 Dose: 250 mls/hr Documented by: Imipenem/Cilastatin Sodium 500 (mg/ Sodium Chloride) 100 mls @ 200 mls/hr IV Q8H [facility]; Protocol Last Admin: 10/26/19 06:00 Dose: 200 mls/hr Documented by: Fentanyl 1,000 mcg/ Sodium (Chloride) 100 mls @ 0 mls/hr IV .Q0M PRN; Protocol PRN Reason: SEDATION Lanolin (Lanolin Oint) 1 applic TOPICAL PRN PRN PRN Reason: DRYNESS Last Admin: 10/25/19 08:15 Dose: 0.5 gm Documented by: Metoclopramide HCl (Reglan) 5 mg OG-TUBE BID [facility] Last Admin: 10/25/19 16:20 Dose: 5 mg Documented by: Nystatin (Nystatin Cream) 1 applic TOPICAL BID [facility] Last Admin: 10/25/19 16:19 Dose: 1 applic Documented by: Nystatin (Nystatin Powder) 1 applic TOPICAL BID [facility] Last Admin: 10/25/19 16:20 Dose: 1 applic Documented by: Pantoprazole Sodium (Protonix) 40 mg IVP Q12H [facility] Last Admin: 10/26/19 05:50 Dose: 40 mg Documented by: Paroxetine HCl (Paxil) 20 mg PO DAILY [facility] Last Admin: 10/25/19 08:11 Dose: 20 mg Documented by: Thiamine Mononitrate (Vitamin B-1) 100 mg OG-TUBE DAILY [facility] Last Admin: 10/25/19 08:10 Dose: 100 mg Documented by: Vitals/I&O/Wt Last Vital Signs Temp 99.6 F 10/27/19 07:30 Pulse 85 10/27/19 08:00 Resp 15 10/27/19 08:30 BP 96/48 10/27/19 08:00 Pulse Ox 94 10/27/19 08:00 10/26/19 10/27/19 10/27/19 22:59 06:59 14:59 Intake Total 200 / 439.577 891 / 1330.577 20.458 / 20.458 Output Total 350 / 500 300 / 800 320 / 320 Balance -150 / -60.423 591 / 530.577 -299.542 / -299.542 Weight last 48 hrs Weight 116.261 kg Weight 116.261 kg Physical Exam Narrative: EXAM NARRATIVE: Exam performed via telemed with the aid of the bedside RN HEENT: wet mucosa, non icteric Lungs: Bilaterally diminished in the bases, elio in the right side where the CT is noted CVS: S1 S2 no mumur Abdo: A little distended, BS ok Ext x 4: minimal edema globally Neuro: Sedated on the vent Urinary Catheter Management^: Toussaint Latex: Cath Placed During This Visit: yes Reason for Continuing Indwelling Catheter: Accurate Measurement of Urinary Output in Critically Ill Patients Urinary Catheter Date of Insertion: 10/05/19 Urinary Catheter Time of Insertion: 05:30 Toussaint: Cath Placed During This Visit: no Reason for Continuing Indwelling Catheter: Accurate Measurement of Urinary Output in Critically Ill Patients Data : 10/27/19 03:20 10/27/19 03:20 Micro: Microbiology 10/21/19 10:05 Blood Culture - Final Blood NO GROWTH AFTER 5 DAYS 10/21/19 09:58 Blood Culture - Final Blood NO GROWTH AFTER 5 DAYS 10/21/19 09:56 Blood Culture - Final Blood NO GROWTH AFTER 5 DAYS A&P Additional A&P Information 1. ELIO - BUN and creatinine have come down with dialysis. - ELIO Diff also includes hepatorenal, AIN from ABx, ischemic ATN from labile hemodynamics. - FE Na 4.13% but this is following diuretic exposure - FE Urea 34.2% suggesting a pre-renal hypoperfusion cause - likely to be multifactorial - Hold dialysis for the time being but will TPA line as it was sluggish yesterday - am labs - avoid the usuals 2. AMS - Likely multifactorial metabolic encephalopathy inc severe alcohol withdrawal. -Dialysis hasn't seemed to be too impactful - defer further dialysis for time ebing with further assessments over the next few days 3. VDRF - CT removed - settings per Dr Flood and weaning as tolerated 4. Lytes - labs look stable - possible transfer to [facility] - D/w bedside RN, Dr Galina Nieto MD [phone] Attestations Medical Necessity Statement*: Eval for ELIO and uremia Coding Level of Care Code Acute Mine Technician for Nildag Ryan
[2019-10-27 12:41] LABS: Glucose Point of Care 121 mg/dL (70-110)
--- NOTE | 2019-10-27 14:10 | PM.TDS ---
Transfer Summary Providers Date of Admission: 10/04/19 16:41 Date of Discharge: 10/27/19 Attending Provider at Admission: Jovi Vences Attending Provider at Transfer: Mack Rose MD Primary Care Provider: RUSS Kevin Anticipated Date of Transfer: Anticipated date of transfer: 10/27/19 Receiving Facility & Provider: Receiving Provider: [] Receiving facility: [] Diagnoses at Discharge Discharge Diagnosis (1) Fever: Status: Acute (2) Acute encephalopathy: Status: Acute (3) Acute respiratory failure with hypoxia: Status: Acute (4) Pleural effusion: Status: Acute (5) ELIO (acute kidney injury): Status: Acute (6) Alcohol withdrawal syndrome: Status: Acute Qualifiers: Complication of substance-induced condition: with delirium Qualified Code(s): F10.231 - Alcohol dependence with withdrawal delirium (7) Thrombocytopenia: Status: Acute (8) Cirrhosis: Status: Acute (9) GI bleeding: Status: Acute (10) Delirium tremens: Status: Acute (11) Tick bite of thigh: Status: Acute (12) Cholestasis: Status: Acute (13) Transaminitis: Status: Acute (14) Colonic pseudoobstruction: Status: Acute (15) Hepatorenal syndrome: Status: Acute Reason for Visit Reason for Visit: Reason For Visit: DETOX Hospital Course Hospital Course: Donnie is a 49-year-old white male who presented originally to the emergency department on October 03 with significant alcohol withdrawal. He had a history of significant underlying cirrhosis. Such severe agitation occur that patient had to be intubated on October 04, for airway protection. Shortly following this there is was concern of possible hematemesis, and surgery was consulted. They did not believe an EGD was needed at this point, fearing further complications secondary to his cirrhosis and thrombocytopenia. Patient did receive a platelet transfusion secondary to thrombocytopenia, with this concern of bleeding. Zosyn was started empirically. Sedation was lessened, intermittently during the time. From October 03 2 October 08 but patient still had significant agitation during this time and he was not able to be extubated. There was also concern during this time of significant ileus, as well as pneumonia. Broad-spectrum antibiotics were initiated to include that for gram-positive organisms. Doxycycline was also initiated as a tick was removed from his inner thigh. From October 08 to May 12 he grew MRSA from his sputum. Antibiotic at that time was linezolid. Surgery was consulted in regards to his ileus and he was managed supportively and did not require surgery. Pulmonary critical care was consulted on October 10 when the patient developed worsening renal function and was not able to be extubated. Concern at that time was hepatorenal syndrome and patient was started on albumin infusions, norepinephrine, and antibiotics were continued. He received several procedures including a PICC line, arterial line. He seemed to improve some and October 13 he was extubated. Withdrawal symptoms continued, but he tolerated BiPAP during this time. On the secondary to persistent withdrawal symptoms neurology was consulted. He received an EEG demonstrating no seizures. He was reintubated for worsening respiratory status, and a chest tube was placed for pleural effusion. A lumbar puncture was also obtained. Ultimately this did not show any obvious infection. From October 16, through October 19 he showed little neurologic improvement when sedation was lessened. Ultimately nephrology was consulted in case uremic encephalopathy was occurring on October 19. Antibiotic coverage was expanded on the as he had a fever and he was placed on Primaxin. At that point he required norepinephrine. Dialysis was performed to see if his mental function would be improved after a temporary dialysis catheter was placed on October 20. From this date until discharge he remained relatively stable. Fever ultimately went away and he was afebrile for greater than 48 hours prior to discharge. Repeat blood cultures did not show any organism. Ultimately all antibiotics were discontinued with the exception of Primaxin. Chest tube had long since been removed. Dialysis had been continued several times with no real improvement of mental status. In the last several days prior to discharge when entering the room he will open his eyes, track, and occasionally follow commands but with weaning of sedation he becomes very agitated. He is needed occasional Haldol doses, and had been maintained on a fentanyl as well as Precedex drip. At discharge his temporary dialysis catheter will be removed as he does not need this for renal replacement therapy. He will likely need a tracheostomy, weaning of his sedation, and long-term rehabilitation. Family is aware that he may have long-term complications from his alcohol withdrawal. Discharge hemoglobin was 10. Discharge creatinine was 1.8. He was on 50% FiO2 on the ventilator with a tidal volume of 550, PEEP of 10 and off pressors. He appeared stable for transfer. Family was aware of transfer and approved of it. Pulmonary critical care was aware of transfer and approved of it. Physical Exam Narrative: EXAM NARRATIVE: See progress note from earlier today Urinary Catheter Management^: Toussaint Latex: Cath Placed During This Visit: yes Reason for Continuing Indwelling Catheter: Accurate Measurement of Urinary Output in Critically Ill Patients Urinary Catheter Date of Insertion: 10/05/19 Urinary Catheter Time of Insertion: 05:30 Toussaint: Cath Placed During This Visit: no Reason for Continuing Indwelling Catheter: Accurate Measurement of Urinary Output in Critically Ill Patients TS Data Data Completed and Pending: Completed Studies During Hospitalization Category Date Time Status CT abdomen pelvis wo con 85030 Rout ine Cat Scan 10/11/19 08:[address] chest wo con 7 1250 Stat Cat Scan 10/17/19 14:[address] head wo con* 7 0450 Routine Cat Scan 10/11/19 08:[address] head wo con* 7 0450 Routine Cat Scan 10/16/19 07:28 Completed CXRP [XR chest 1V portable 62415] R outine Exams 10/10/19 12:03 Completed XR abdomen min 2V 77074 Routine Exams 10/12/19 06:52 Completed XR abdomen min 2V 59890 Routine Exams 10/13/19 06:12 Completed XR abdomen min 2V 41845 Routine Exams 10/14/19 06:31 Completed XR abdomen min 2V 45381 Urgent Exams 10/15/19 12:17 Completed XR abdomen min 2V 24754 Urgent Exams 10/17/19 12:28 Completed XR acute abdomen series 42576 Routi ne Exams 10/08/19 15:38 Completed XR acute abdomen series 66194 Routi ne Exams 10/21/19 09:24 Completed XR chest 1V anna ble 08493 Routine Exams 10/06/19 06:00 Completed XR chest 1V anna ble 25313 Routine Exams 10/07/19 06:00 Completed XR chest 1V anna ble 71478 Routine Exams 10/07/19 13:30 Completed XR chest 1V anna ble 86887 Routine Exams 10/08/19 06:00 Completed XR chest 1V anna ble 50280 Routine Exams 10/10/19 06:00 Completed XR chest 1V anna ble 48392 Routine Exams 10/11/19 07:12 Completed XR chest 1V anna ble 23537 Routine Exams 10/12/19 07:00 Completed XR chest 1V anna ble 35753 Routine Exams 10/13/19 07:00 Completed XR chest 1V anna ble 26181 Routine Exams 10/14/19 07:00 Completed XR chest 1V anna ble 20425 Routine Exams 10/17/19 07:00 Completed XR chest 1V anna ble 55272 Routine Exams 10/18/19 06:00 Completed XR chest 1V anna ble 38695 Routine Exams 10/19/19 07:51 Completed XR chest 1V anna ble 66299 Routine Exams 10/19/19 21:32 Completed XR chest 1V anna ble 49970 Routine Exams 10/23/19 06:00 Completed XR chest 1V anna ble 86232 Routine Exams 10/24/19 08:30 Completed XR chest 1V anna ble 75045 Routine Exams 10/26/19 07:09 Completed XR chest 1V anna ble 00627 Routine Exams 10/27/19 07:00 Completed XR chest 1V anna ble 33644 Stat Exams 10/05/19 05:10 Completed XR chest 1V anna ble 86194 Stat Exams 10/21/19 14:29 Completed XR chest 1V anna ble 17527 Urgent Exams 10/04/19 14:11 Completed CV echo complete* 80796 Routine Ultrasound 10/08/19 09:26 [place] [address] Routin e Ultrasound 10/21/19 09:02 Completed US abdomen limite d 00477 Routine Ultrasound 10/05/19 Completed US abdomen limite d 56408 Routine Ultrasound 10/05/19 20:11 Completed US abdomen limite d 48780 Routine Ultrasound 10/21/19 09:07 Completed US soft tissue/ex tremity 39179 Rout ine Ultrasound 10/21/19 09:02 Completed Pending at discharge Category Date Time Status EEG electroenceph alogram Routine Exams 10/17/19 09:10 Ordered ABG ONLY [Arteria l Blood Gas W/O Co ox] Routine Lab 10/12/19 15:15 Results ABG ONLY [Arteria l Blood Gas W/O Co ox] Routine Lab 10/18/19 04:55 Received ABG ONLY [Arteria l Blood Gas W/O Co ox] Routine Lab 10/19/19 05:08 Results ABO/Rh Type Stat Lab 10/17/19 17:22 Results ELPIDIO Screen w/ Ref wendy Routine Lab 10/22/19 04:05 Results Arterial Blood Ga s W/O Coox AM LABS Lab 10/12/19 05:55 Results Arterial Blood Ga s W/O Coox AM LABS Lab 10/14/19 05:32 Results Arterial Blood Ga s W/O Coox AM LABS Lab 10/26/19 04:20 Results Arterial Blood Ga s W/O Coox Routine Lab 10/04/19 14:11 Ordered Complete Blood Co unt w/Auto AM LABS Lab 10/28/19 04:00 Ordered Complete Blood Co unt w/Auto AM LABS Lab 10/29/19 04:00 Ordered Complete Crossmat ch Stat Lab 10/17/19 17:22 Results Comprehensive Met abolic Panel AM LA BS Lab 10/28/19 04:00 Ordered Comprehensive Met abolic Panel AM LA BS Lab 10/29/19 04:00 Ordered Magnesium AM LABS Lab 10/28/19 04:00 Ordered Magnesium AM LABS Lab 10/29/19 04:00 Ordered Miscellaneous Isabelle t Routine Lab 10/22/19 04:05 Received Mycobacteria, Cul ture w/Fluor Routi ne Lab 10/17/19 16:50 Results Mycobacteria, Cul ture w/Fluor Routi ne Lab 10/17/19 18:04 Results Phosphorus AM LAB S Lab 10/28/19 04:00 Ordered Phosphorus AM LAB S Lab 10/29/19 04:00 Ordered Platelets Leuko-R educed Stat Lab 10/17/19 17:22 Results Tick Panel Routin e Lab 10/08/19 04:50 Received Labs from last 24 hours 10/27/19 10/27/19 10/27/19 12:37 07:48 04:10 WBC RBC Hgb Hct MCV MCH MCHC RDW Plt Count MPV Neut % (Auto) Lymph % (Auto) Vance % (Auto) Eos % (Auto) Baso % (Auto) Neut # (Auto) Lymph # (Auto) Vance # (Auto) Eos # (Auto) Baso # (Auto) Nucleated RBC % (a uto) Nucleated RBCs # Specimen Type Arterial Sample Site Brachial, right ABG pH 7.47 H ABG pCO2 33.7 L ABG pO2 61.7 L ABG HCO3 24.5 ABG Base Excess 1.0 Koko Test N/a Hematocrit 28.4 L Respiration Rate 14.0 O2 Delivery Device Vent FiO2 50.0 Tidal Volume 0.55 PEEP 10.0 Entry Level Drafter ID margaret Sodium Potassium Chloride Carbon Dioxide Anion Gap BUN Creatinine GFR Calculation Glucose POC Glucose 121 120 Calculated Osmolal ity Calcium Phosphorus Magnesium Total Bilirubin AST ALT Alkaline Phosphata se Total Protein Albumin Globulin 10/27/19 10/27/19 10/26/19 03:20 03:20 16:23 WBC 10.0 RBC 3.30 L Hgb 10.0 L Hct 33.1 L MCV 100.3 H MCH 30.3 MCHC 30.2 RDW 16.9 H Plt Count 96 L MPV 12.5 H Neut % (Auto) 68.4 Lymph % (Auto) 13.1 Vance % (Auto) 11.7 Eos % (Auto) 4.6 Baso % (Auto) 0.7 Neut # (Auto) 6.9 Lymph # (Auto) 1.3 Vance # (Auto) 1.2 H Eos # (Auto) 0.5 Baso # (Auto) 0.1 Nucleated RBC % (a uto) 0 Nucleated RBCs # 0.0 Specimen Type Sample Site ABG pH ABG pCO2 ABG pO2 ABG HCO3 ABG Base Excess Koko Test Hematocrit Respiration Rate O2 Delivery Device FiO2 Tidal Volume PEEP Entry Level Drafter ID Sodium 145 Potassium 3.7 Chloride 106 Carbon Dioxide 23 Anion Gap 19.7 H BUN 33 H Creatinine 1.8 H GFR Calculation 40.0 L Glucose 144 H POC Glucose 151 Calculated Osmolal ity 300 H Calcium 9.5 Phosphorus 3.3 Magnesium 2.1 Total Bilirubin 2.9 H AST 59 H ALT 25 Alkaline Phosphata se 191 H Total Protein 6.3 L Albumin 3.4 L Globulin 2.9 Vitals: Last Vital Signs Temp 98.8 F 10/27/19 11:30 Pulse 79 10/27/19 11:37 Resp 14 10/27/19 13:21 BP 96/46 10/27/19 11:30 Pulse Ox 93 10/27/19 11:37 TS Medications Medications Home Medications albuterol sulfate 90 mcg/actuation aerosol inhaler 2 puff INHALATION QID 06/10/19 [History Confirmed 10/04/19] zonisamide 25 mg capsule 25 mg PO BID 06/10/19 [History Confirmed 10/04/19] furosemide 40 mg PO DAILY #7 tab 07/10/19 [Rx Confirmed 10/04/19] hydrocodone-acetaminophen 1 tab PO Q8H PRN #14 tab 07/10/19 [Rx Confirmed 10/04/19] promethazine 12.5 mg PO QID PRN #20 tab 07/10/19 [Rx Confirmed 10/04/19] spironolactone 25 mg PO DAILY #7 tab 07/10/19 [Rx Confirmed 10/04/19] cyclobenzaprine 10 mg tablet 10 mg PO .at bedtime #30 tab 07/13/19 [Rx Confirmed 10/04/19] bupropion HCl 150 mg 24 hr tablet, extended release 150 mg PO QAM #30 tab 08/11/19 [Rx Confirmed 10/04/19] hydroxyzine HCl 25 mg tablet 25 mg PO TID PRN #90 tab 08/11/19 [Rx Confirmed 10/04/19] mirtazapine 30 mg tablet 30 mg PO .at bed #30 tab 08/11/19 [Rx Confirmed 10/04/19] naltrexone 50 mg tablet 50 mg PO DAILY #30 tab 08/11/19 [Rx Confirmed 10/04/19] paroxetine HCl 40 mg tablet 40 mg PO DAILY #30 tab 08/11/19 [Rx Confirmed 10/04/19] prazosin 5 mg capsule 5 mg PO .at bed cap 08/11/19 [History Confirmed 10/04/19] lisinopril 10 mg tablet 10 mg PO DAILY #30 tab 09/12/19 [Rx Confirmed 10/04/19] pantoprazole 40 mg tablet,delayed release 40 mg PO QAM #30 tab 09/12/19 [Rx Confirmed 10/04/19] Active Medications Albuterol/Ipratropium (Duoneb) 3 ml INHALATION Q4H.RESPIRATORY CANDACE Last Admin: 10/27/19 11:36 Dose: 3 ml Documented by: Artificial Tears (Isopto Tears) 1 drop EYE-BOTH Q4H PRN PRN Reason: DRY EYE(S) Last Admin: 10/25/19 09:02 Dose: 1 drop Documented by: Bisacodyl (Bisac-Evac) 10 mg ME DAILY PRN PRN Reason: CONSTIPATION Last Admin: 10/25/19 08:10 Dose: 10 mg Documented by: Chlordiazepoxide (Librium) 25 mg PO Q8H CANDACE Last Admin: 10/27/19 06:25 Dose: 25 mg Documented by: Cyclobenzaprine HCl (Flexeril) 5 mg PO BEDTIME CANDACE Last Admin: 10/26/19 21:34 Dose: 5 mg Documented by: Fentanyl (Sublimaze) 25 mcg IVP Q4H PRN PRN Reason: SEVERE PAIN Last Admin: 10/26/19 21:58 Dose: 25 mcg Documented by: Folic Acid (Folic Acid) 1 mg OG-TUBE DAILY [facility] Last Admin: 10/27/19 09:35 Dose: 1 mg Documented by: Haloperidol Lactate (Haldol Inj) 5 mg IM Q6H PRN PRN Reason: AGITATION Last Admin: 10/26/19 11:40 Dose: 5 mg Documented by: Heparin Sodium (Beef Lung) (Heparin) 5,000 unit SUBCUT Q12H CANDACE Last Admin: 10/20/19 03:48 Dose: 5,000 unit Documented by: Norepinephrine Bitartrate 4 mg (/ Dextrose) 254 mls @ 0 mls/hr IV .Q0M [facility]; Protocol Last Titration: 10/25/19 06:16 Dose: 0 mcg/min, 0 mls/hr Documented by: Dexmedetomidine HCl 1,000 mcg/ (Sodium Chloride) 260 mls @ 0 mls/hr IV .Q0M [facility]; Protocol Last Admin: 10/26/19 23:24 Dose: 0.4 mcg/kg/hr, 12.1 mls/hr Documented by: Caspofungin 35 mg/ Sodium (Chloride) 250 mls @ 250 mls/hr IV Q24H [facility] Last Admin: 10/26/19 16:54 Dose: 250 mls/hr Documented by: Imipenem/Cilastatin Sodium 500 (mg/ Sodium Chloride) 100 mls @ 200 mls/hr IV Q8H [facility]; Protocol Last Admin: 10/27/19 06:25 Dose: 200 mls/hr Documented by: Fentanyl 1,000 mcg/ Sodium (Chloride) 100 mls @ 0 mls/hr IV .Q0M PRN; Protocol PRN Reason: SEDATION Last Titration: 10/27/19 07:36 Dose: 30 mcg/hr, 3 mls/hr Documented by: Albumin Human (Albumin) 12.5 gm in 50 mls @ 60 mls/hr IV PRN PRN PRN Reason: Hypotension and/or symptomatic Lanolin (Lanolin Oint) 1 applic TOPICAL PRN PRN PRN Reason: DRYNESS Last Admin: 10/25/19 08:15 Dose: 0.5 gm Documented by: Metoclopramide HCl (Reglan) 5 mg OG-TUBE BID [facility] Last Admin: 10/27/19 09:35 Dose: 5 mg Documented by: Nystatin (Nystatin Cream) 1 applic TOPICAL BID [facility] Last Admin: 10/27/19 09:35 Dose: 1 applic Documented by: Nystatin (Nystatin Powder) 1 applic TOPICAL BID [facility] Last Admin: 10/27/19 09:36 Dose: 1 applic Documented by: Pantoprazole Sodium (Protonix) 40 mg IVP Q12H [facility] Last Admin: 10/27/19 06:25 Dose: 40 mg Documented by: Paroxetine HCl (Paxil) 20 mg PO DAILY [facility] Last Admin: 10/27/19 09:35 Dose: 20 mg Documented by: Thiamine Mononitrate (Vitamin B-1) 100 mg OG-TUBE DAILY [facility] Last Admin: 10/27/19 09:35 Dose: 100 mg Documented by: Discharge Plan Discharge Patient Disposition: Xfer [facility] Condition: Fair Prescriptions: No Action albuterol sulfate [ProAir HFA] 90 mcg/actuation HFA aerosol inhaler 2 puff INHALATION QID RF: 0 zonisamide 25 mg capsule 25 mg PO BID RF: 0 cyclobenzaprine 10 mg tablet 10 mg PO .at bedtime Qty: 30 RF: 2 prazosin 5 mg capsule 5 mg PO .at bed RF: 0 bupropion HCl [Wellbutrin XL] 150 mg tablet extended release 24 hr 150 mg PO QAM Qty: 30 RF: 2 mirtazapine 30 mg tablet 30 mg PO .at bed Qty: 30 RF: 2 hydroxyzine HCl 25 mg tablet 25 mg PO TID PRN (Reason: anxiety) Qty: 90 RF: 2 naltrexone 50 mg tablet 50 mg PO DAILY Qty: 30 RF: 2 paroxetine HCl [Paxil] 40 mg tablet 40 mg PO DAILY Qty: 30 RF: 2 pantoprazole 40 mg tablet,delayed release (DR/EC) 40 mg PO QAM Qty: 30 RF: 2 lisinopril 10 mg tablet 10 mg PO DAILY Qty: 30 RF: 0 furosemide 40 mg tablet 40 mg PO DAILY Qty: 7 RF: 0 spironolactone 25 mg tablet 25 mg PO DAILY Qty: 7 RF: 0 promethazine 12.5 mg tablet 12.5 mg PO QID PRN (Reason: nausea and vomiting) Qty: 20 RF: 0 hydrocodone-acetaminophen 5-325 mg tablet 1 tab PO Q8H PRN (Reason: pain) Qty: 14 RF: 0 Discharge Orders: Transfer Out of Facility (Order); Ordered 10/27/19 Ordered By: Mack Rsoe Referrals: Lupillo Hernandez, [employer] [Primary Care Provider] - Transfer Attestations Time Spent in Transfer Care*: greater than 30 min Quality Metrics Clinical Quality Measures: During this hospital stay, did patient experience: None Coding Level of Care Code Acute Geographic Analyst for g Fwd Diagnoses Fever R50.9 Acute encephalopathy G93.40 Acute respiratory failure with hypoxia J96.01 Pleural effusion J90 ELIO (acute kidney injury) N17.9 Alcohol withdrawal syndrome F10.231 Complication of substance-induced condition: with delirium Thrombocytopenia D69.6 Cirrhosis K74.60 GI bleeding K92.2 Delirium tremens F10.231 Tick bite of thigh S70.369A; W57.XXXA Cholestasis K83.1 Transaminitis R74.0 Colonic pseudoobstruction K59.8 Hepatorenal syndrome K76.7
[2019-10-27] MEDS: alteplase 1 mg/mL SDV 2 mL 2 MG INTRACATH (14:47)
[2019-10-27] MEDS: dexmedetomidine 400 MCG in sodium chloride 0.9% (100 ml) 100 ML 15.1 MCG IV (16:00)
--- NOTE | 2019-10-27 16:02 | PC.NURSE ---
Report called to Kamila PLASCENCIA at [facility]
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
== END 2019-10-27 17:25 | DRG 896 ==
LOC: ER 16:32 → ICU 18:02
PROVIDERS: Internal Medicine; Internal Medicine Critical Care Medicine; Internal Medicine Nephrology; Admitting Provider Internal Medicine; Emergency Provider Family Medicine; Family Provider Nurse Practitioner; PCP Nurse Practitioner; Visit Provider Internal Medicine
PROC: 0BJ08ZZ Inspection of Tracheobronchial Tree, Via Natural or Artificial Opening Endoscopic (ICD-10-PCS; CPT 31622; principal; 2019-10-17 16:45)
DX: F10.231 Alcohol dependence with withdrawal delirium (principal); K83.1 Obstruction of bile duct; G92 Toxic encephalopathy; K76.7 Hepatorenal syndrome; J96.01 Acute respiratory failure with hypoxia; F33.9 Major depressive disorder, recurrent, unspecified; K92.2 Gastrointestinal hemorrhage, unspecified; J95.851 Ventilator associated pneumonia; E87.1 Hypo-osmolality and hyponatremia; J94.8 Other specified pleural conditions; J90 Pleural effusion, not elsewhere classified; N17.9 Acute kidney failure, unspecified; K70.31 Alcoholic cirrhosis of liver with ascites; K21.9 Gastro-esophageal reflux disease without esophagitis; E11.9 Type 2 diabetes mellitus without complications; F41.9 Anxiety disorder, unspecified; I10 Essential (primary) hypertension; F43.12 Post-traumatic stress disorder, chronic; Z87.891 Personal history of nicotine dependence; E83.39 Other disorders of phosphorus metabolism; D69.6 Thrombocytopenia, unspecified; E87.6 Hypokalemia; K70.11 Alcoholic hepatitis with ascites; R74.0 Nonspecific elevation of levels of transaminase and lactic acid dehydrogenase [LDH]; K59.8 Other specified functional intestinal disorders; B95.62 Methicillin resistant Staphylococcus aureus infection as the cause of diseases classified elsewhere; R16.1 Splenomegaly, not elsewhere classified; I95.9 Hypotension, unspecified; D75.89 Other specified diseases of blood and blood-forming organs; W57.XXXA Bitten or stung by nonvenomous insect and other nonvenomous arthropods, initial encounter; S70.369A Insect bite (nonvenomous), unspecified thigh, initial encounter
CPT/HCPCS: 12345; 31500; 31624; 36415; 36416; 36430; 36569; 36592; 36600; 51702; 70450; 71045; 71250; 74019; 74022; 74176; 76705; 76882; 80048; 80051; 80053; 80202; 80306; 80307; 80500; 81001; 81003; 82042; 82140; 82150; 82248; 82310; 82550; 82570; 82607; 82746; 82803; 82810; 82945; 82962; 83516; 83605; 83615; 83690; 83735; 83970; 83986; 84100; 84145; 84157; 84300; 84443; 84478; 84484; 84540; 85014; 85018; 85025; 85610; 85651; 85730; 85999; 86038; 86140; 86900; 87040; 87070; 87075; 87077; 87086; 87106; 87186; 87205; 87340; 87493; 87641; 87804; 89050; 90935; 93005; 93306; 93970; 94002; 94003; 94640; 94660; 94664; 94799; 96372; 96375; 97110; 97162; 99282; A4570; A7015; C1887; C9113; J0330; J0637; J0743; J1630; J1644; J1940; J2020; J2060; J2250; J2270; J2354; J2405; J2543; J2704; J2997; J3010; J3370; J3411; J3430; J3475; J3480; J3490; J7030; J7040; J7050; J8597; P9016; P9035; P9047; Q0169; Q3014